=== PATIENT | male | born 1950 | race Caucasian/White ===

== ENCOUNTER 2019-09-21 13:24 | Inpatient (IN) ==
[2019-09-21] MEDS ORDERED: THIAMINE 100 MG in 0.9 % SODIUM CHLORIDE 50 ML IV ONE (14:00)
[2019-09-21] MEDS ORDERED: FUROSEMIDE 40 MG/4 ML VIAL IV ONE (14:02)
--- NOTE | 2019-09-21 14:28 | Emergency Department Note ---
Neuro HPI - General Chief Complaint: Neuro Symptoms/Deficit Stated Complaint: neurological deficit Time Seen by Provider: 09/21/19 13:35 Source: patient Mode of arrival: ambulatory Limitations: no limitations - History of Present Illness HPI Narrative: 69-year-old male comes in with a oxygen level of 60% on room air having trouble breathing and altered mental status. He is not on any home medicines. His daughter reports that he has been losing weight lately. He is chronically swollen lower legs. He has had trouble over the last week but it is unclear exactly timing of onset. He has not had a fever. History and review of systems are necessarily limited as the patient's speech is somewhat slurred and rambling Daughter notes that the family has a genetic disorder called Sneddon's which predisposes to blood clots or strokes. Patient has refused to be tested He fired his last primary care doctor and refuses to go to the doctor or take medicines On Anticoagulants: No - Related Data Home Medications: Home Medications Medication Instructions Recorded Confirmed No Known Home Meds 09/21/19 09/21/19 Allergies/Adverse Reactions: Allergies Allergy/AdvReac Type Severity Reaction Status Date / Time No Known Drug Allergies Allergy Verified 05/01/15 13:33 Review of Systems Limitations: ROS unobtainable due to patients medical condition Past Medical History - Past Medical History [facility] Narrative: Family History Father Alzheimer's disease Atherosclerosis of coronary artery Essential hypertension Osteoporosis Rheumatoid arthritis Mother Atherosclerosis of coronary artery Hyperlipidemia Unknown Diabetes mellitus Medical History Vitamin B12 deficiency (Acute) Fracture of toe, closed (Acute) Tobacco use (Acute) Fracture of thoracic vertebra, closed (Acute) Psoriasis (Acute) Osteoporosis (Acute) Osteoarthritis (Acute) Neuropathy, lower extremity (Acute) Morbid obesity (Acute) Hypertension, essential (Acute 02/27/15) Hyperlipidemia (Acute) Fracture of finger, closed (Acute) Colonic polyp (Acute) COPD (chronic obstructive pulmonary disease) (Acute) Past Surgical History History of dilation of urethra (Acute) History of tonsillectomy (Acute) H/O detached retina repair (Acute) History of hernia repair (Acute) History of cataract surgery (Acute) History of surgical removal of intestinal structure (Acute) History of adenoidectomy (Acute) Source: unable to obtain, old records reviewed - Social History smoking status: Former smoker Physical Exam Morbidly obese male in some respiratory distress-oxygen saturations were quite low on intake. He is normocephalic atraumatic. Conjunctive are clear sclerae white nonicteric. No nasal discharge or congestion. He has a large valenzuela which limits evaluation of his neck. Oropharynx is pink with dry buccal mucosa. I am unable to see well into the back of his throat/pharynx. Neck is mostly supple though. Heart is regular rate and rhythm. I cannot hear a murmur. Lungs are difficult to auscultate as well secondary to body habitus but I think he does have a end expiratory wheeze-he is working pretty hard to breathe. Abdomen is soft nontender nondistended. He has +4 pitting edema bilaterally to his knees this looks acute on chronic. I have seen him before in the ER and his legs were about the same size but the redness seems to be new. He is alert but not able to answer questions appropriately-he seems confused and somewhat delusional Limitations: no limitations Course Vital Signs Pulse Oximetry (%) 61 L 09/21/19 13:25 Temperature 97.7 F 09/22/19 00:01 Pulse Rate 77 09/22/19 08:18 Respiratory Rate 16 09/22/19 08:18 Blood Pressure 134/66 09/22/19 08:06 Pulse Oximetry (%) 92 09/22/19 08:10 Neuro Symptoms/Deficit - Lab Data Lab results reviewed: Yes I reviewed the patient's lab results. Result diagrams: 09/22/19 05:04 09/22/19 05:04 Lab Results 09/21/19 09/21/19 09/21/19 Range/Units 13:40 13:40 13:40 WBC 8.1 (4.50-11.00) K/mcL RBC 6.00 (4.63-6.08) M/mcL Hgb 16.5 (13.7-17.5) g/dL Hct 53.9 H (40.1-51.0) % POC Hct (41.0-55.0) % MCV 89.8 (80.0-100.0) fL MCH 27.5 (26.0-34.0) pg MCHC 30.6 L (31.0-36.0) g/dL RDW 14.1 (11.5-14.5) % Plt Count 204 (140-440) K/mcL MPV 9.3 (7.4-10.4) fL Gran % 78.8 H (38.0-78.0) % Lymph % (Auto) 10.4 L (15.5-49.0) % [place] % (Auto) 9.5 (1.0-12.0) % Eos % (Auto) 0.9 (0.0-7.0) % Baso % (Auto) 0.4 (0.0-2.0) % Gran # 6.40 (1.80-8.00) K/mcL Lymph # (Auto) 0.84 L (1.50-4.80) K/mcL [place] # (Auto) 0.77 (0.10-0.90) K/mcL Eos # (Auto) 0.07 (0.00-0.70) K/mcL Baso # (Auto) 0.03 (0.00-0.30) K/mcL ESR (0-15) mm/hr POC PT (11.9-14.5) sec POC INR (0.9-1.2) VBG Lactic Acid 2.3 H (0.5-2.0) mmol/L POC Sodium (133-145) mmol/L Sodium 144 (133-145) mmol/L POC Potassium (3.3-5.1) mmol/L Potassium 4.2 (3.3-5.1) mmol/L POC Chloride (96-108) mmol/L Chloride 101 (96-108) mmol/L Carbon Dioxide 28 (22-30) mmol/L POC Total CO2 (22-30) mmol/L Anion Gap 15.0 (8-16) POC BUN (8-23) mg/dl BUN 15 (8-23) mg/dl Creatinine 0.7 (0.7-1.2) mg/dl POC Creatinine (0.7-1.2) mg/dl GFR Calculation 97 Glucose 116 H (70-105) mg/dL POC Glucose (70-105) mg/dL Calcium 9.5 (8.6-10.4) mg/dl POC WB Ioniz Calcium (1.16-1.32) mmol/L Total Bilirubin 0.7 (0.0-1.0) mg/dL AST 58 H (0-37) U/l ALT 31 (0-40) U/l Alkaline Phosphatase 83 (39-117) U/L Ammonia (16-60) umol/L Total Creatine Kinase (24-195) IU/L Troponin T (0-0.03) ng/ml C-Reactive Protein (0.0-0.8) mg/dl NT-Pro-B Natriuret Pep (0-125) pg/ml Total Protein 7.1 (5.9-8.4) gm/dL Albumin 3.9 (3.2-5.2) gm/dL Globulin 3.2 (2.2-3.7) gm/dL Albumin/Globulin Ratio 1.2 (1.0-2.3) Procalcitonin (<0.10) ng/mL Urine Color Urine Appearance Urine pH (5.0-9.0) Ur Specific [place] (1.000-1.035) Urine Protein (NEG) mg/dL Urine Glucose (UA) (NEG) mg/dL Urine Ketones (NEG) mg/dL Urine Occult Blood (<0.03) mg/dL Urine Nitrate (NEG) Urine Bilirubin (NEG) mg/dL Urine Urobilinogen (NEG) mg/dL Ur Leukocyte Esterase (NEG) /uL Ur Culture Indicated? Salicylates mg/dL Urine Opiates Screen (NONDETECTED) Ur Opiates Confirm Ur Oxycodone Screen (NONDETECTED) Urine Methadone Screen (NONDETECTED) Ur Methadone Confirm Acetaminophen ug/mL Ur Barbiturates Screen (NONDETECTED) Ur Barbiturate Confirm Ur Phencyclidine Scrn (NONDETECTED) Urine PCP Confirm Ur Amphetamines Screen (NONDETECTED) U Amphetamines Confirm U Benzodiazepines Scrn (NONDETECTED) U Benzodiazepine Confm Urine Cocaine Screen (NONDETECTED) Urine Cocaine Confirm U Cannabinoids Confirm U Marijuana (THC) Screen (NONDETECTED) Mycoplasma pneumon IgM (NEGATIVE) Ur Strep pneumoniae Ag (NEGATIVE) 09/21/19 09/21/19 09/21/19 Range/Units 13:40 13:40 13:40 WBC (4.50-11.00) K/mcL RBC (4.63-6.08) M/mcL Hgb (13.7-17.5) g/dL Hct (40.1-51.0) % POC Hct (41.0-55.0) % MCV (80.0-100.0) fL MCH (26.0-34.0) pg MCHC (31.0-36.0) g/dL RDW (11.5-14.5) % Plt Count (140-440) K/mcL MPV (7.4-10.4) fL Gran % (38.0-78.0) % Lymph % (Auto) (15.5-49.0) % [place] % (Auto) (1.0-12.0) % Eos % (Auto) (0.0-7.0) % Baso % (Auto) (0.0-2.0) % Gran # (1.80-8.00) K/mcL Lymph # (Auto) (1.50-4.80) K/mcL [place] # (Auto) (0.10-0.90) K/mcL Eos # (Auto) (0.00-0.70) K/mcL Baso # (Auto) (0.00-0.30) K/mcL ESR (0-15) mm/hr POC PT (11.9-14.5) sec POC INR (0.9-1.2) VBG Lactic Acid (0.5-2.0) mmol/L POC Sodium (133-145) mmol/L Sodium (133-145) mmol/L POC Potassium (3.3-5.1) mmol/L Potassium (3.3-5.1) mmol/L POC Chloride (96-108) mmol/L Chloride (96-108) mmol/L Carbon Dioxide (22-30) mmol/L POC Total CO2 (22-30) mmol/L Anion Gap (8-16) POC BUN (8-23) mg/dl BUN (8-23) mg/dl Creatinine (0.7-1.2) mg/dl POC Creatinine (0.7-1.2) mg/dl GFR Calculation Glucose (70-105) mg/dL POC Glucose (70-105) mg/dL Calcium (8.6-10.4) mg/dl POC WB Ioniz Calcium (1.16-1.32) mmol/L Total Bilirubin (0.0-1.0) mg/dL AST (0-37) U/l ALT (0-40) U/l Alkaline Phosphatase (39-117) U/L Ammonia (16-60) umol/L Total Creatine Kinase (24-195) IU/L Troponin T < 0.01 (0-0.03) ng/ml C-Reactive Protein (0.0-0.8) mg/dl NT-Pro-B Natriuret Pep (0-125) pg/ml Total Protein (5.9-8.4) gm/dL Albumin (3.2-5.2) gm/dL Globulin (2.2-3.7) gm/dL Albumin/Globulin Ratio (1.0-2.3) Procalcitonin (<0.10) ng/mL Urine Color Urine Appearance Urine pH (5.0-9.0) Ur Specific [place] (1.000-1.035) Urine Protein (NEG) mg/dL Urine Glucose (UA) (NEG) mg/dL Urine Ketones (NEG) mg/dL Urine Occult Blood (<0.03) mg/dL Urine Nitrate (NEG) Urine Bilirubin (NEG) mg/dL Urine Urobilinogen (NEG) mg/dL Ur Leukocyte Esterase (NEG) /uL Ur Culture Indicated? Salicylates < 0.3 mg/dL Urine Opiates Screen (NONDETECTED) Ur Opiates Confirm Ur Oxycodone Screen (NONDETECTED) Urine Methadone Screen (NONDETECTED) Ur Methadone Confirm Acetaminophen < 5.0 ug/mL Ur Barbiturates Screen (NONDETECTED) Ur Barbiturate Confirm Ur Phencyclidine Scrn (NONDETECTED) Urine PCP Confirm Ur Amphetamines Screen (NONDETECTED) U Amphetamines Confirm U Benzodiazepines Scrn (NONDETECTED) U Benzodiazepine Confm Urine Cocaine Screen (NONDETECTED) Urine Cocaine Confirm U Cannabinoids Confirm U Marijuana (THC) Screen (NONDETECTED) Mycoplasma pneumon IgM (NEGATIVE) Ur Strep pneumoniae Ag (NEGATIVE) 09/21/19 09/21/19 09/21/19 Range/Units 14:27 14:27 14:28 WBC (4.50-11.00) K/mcL RBC (4.63-6.08) M/mcL Hgb (13.7-17.5) g/dL Hct (40.1-51.0) % POC Hct 49.0 (41.0-55.0) % MCV (80.0-100.0) fL MCH (26.0-34.0) pg MCHC (31.0-36.0) g/dL RDW (11.5-14.5) % Plt Count (140-440) K/mcL MPV (7.4-10.4) fL Gran % (38.0-78.0) % Lymph % (Auto) (15.5-49.0) % [place] % (Auto) (1.0-12.0) % Eos % (Auto) (0.0-7.0) % Baso % (Auto) (0.0-2.0) % Gran # (1.80-8.00) K/mcL Lymph # (Auto) (1.50-4.80) K/mcL [place] # (Auto) (0.10-0.90) K/mcL Eos # (Auto) (0.00-0.70) K/mcL Baso # (Auto) (0.00-0.30) K/mcL ESR (0-15) mm/hr POC PT 14.4 (11.9-14.5) sec POC INR 1.2 (0.9-1.2) VBG Lactic Acid (0.5-2.0) mmol/L POC Sodium 142 (133-145) mmol/L Sodium (133-145) mmol/L POC Potassium 4.0 (3.3-5.1) mmol/L Potassium (3.3-5.1) mmol/L POC Chloride 101 (96-108) mmol/L Chloride (96-108) mmol/L Carbon Dioxide (22-30) mmol/L POC Total CO2 34 H (22-30) mmol/L Anion Gap (8-16) POC BUN 17 (8-23) mg/dl BUN (8-23) mg/dl Creatinine (0.7-1.2) mg/dl POC Creatinine 0.7 (0.7-1.2) mg/dl GFR Calculation Glucose (70-105) mg/dL POC Glucose 108 H (70-105) mg/dL Calcium (8.6-10.4) mg/dl POC WB Ioniz Calcium 1.22 (1.16-1.32) mmol/L Total Bilirubin (0.0-1.0) mg/dL AST (0-37) U/l ALT (0-40) U/l Alkaline Phosphatase (39-117) U/L Ammonia 42 (16-60) umol/L Total Creatine Kinase 727 H (24-195) IU/L Troponin T (0-0.03) ng/ml C-Reactive Protein (0.0-0.8) mg/dl NT-Pro-B Natriuret Pep (0-125) pg/ml Total Protein (5.9-8.4) gm/dL Albumin (3.2-5.2) gm/dL Globulin (2.2-3.7) gm/dL Albumin/Globulin Ratio (1.0-2.3) Procalcitonin (<0.10) ng/mL Urine Color Urine Appearance Urine pH (5.0-9.0) Ur Specific [place] (1.000-1.035) Urine Protein (NEG) mg/dL Urine Glucose (UA) (NEG) mg/dL Urine Ketones (NEG) mg/dL Urine Occult Blood (<0.03) mg/dL Urine Nitrate (NEG) Urine Bilirubin (NEG) mg/dL Urine Urobilinogen (NEG) mg/dL Ur Leukocyte Esterase (NEG) /uL Ur Culture Indicated? Salicylates mg/dL Urine Opiates Screen (NONDETECTED) Ur Opiates Confirm Ur Oxycodone Screen (NONDETECTED) Urine Methadone Screen (NONDETECTED) Ur Methadone Confirm Acetaminophen ug/mL Ur Barbiturates Screen (NONDETECTED) Ur Barbiturate Confirm Ur Phencyclidine Scrn (NONDETECTED) Urine PCP Confirm Ur Amphetamines Screen (NONDETECTED) U Amphetamines Confirm U Benzodiazepines Scrn (NONDETECTED) U Benzodiazepine Confm Urine Cocaine Screen (NONDETECTED) Urine Cocaine Confirm U Cannabinoids Confirm U Marijuana (THC) Screen (NONDETECTED) Mycoplasma pneumon IgM (NEGATIVE) Ur Strep pneumoniae Ag (NEGATIVE) 09/21/19 09/21/19 09/21/19 Range/Units 14:59 14:59 14:59 WBC (4.50-11.00) K/mcL RBC (4.63-6.08) M/mcL Hgb (13.7-17.5) g/dL Hct (40.1-51.0) % POC Hct (41.0-55.0) % MCV (80.0-100.0) fL MCH (26.0-34.0) pg MCHC (31.0-36.0) g/dL RDW (11.5-14.5) % Plt Count (140-440) K/mcL MPV (7.4-10.4) fL Gran % (38.0-78.0) % Lymph % (Auto) (15.5-49.0) % [place] % (Auto) (1.0-12.0) % Eos % (Auto) (0.0-7.0) % Baso % (Auto) (0.0-2.0) % Gran # (1.80-8.00) K/mcL Lymph # (Auto) (1.50-4.80) K/mcL [place] # (Auto) (0.10-0.90) K/mcL Eos # (Auto) (0.00-0.70) K/mcL Baso # (Auto) (0.00-0.30) K/mcL ESR 9 (0-15) mm/hr POC PT (11.9-14.5) sec POC INR (0.9-1.2) VBG Lactic Acid (0.5-2.0) mmol/L POC Sodium (133-145) mmol/L Sodium (133-145) mmol/L POC Potassium (3.3-5.1) mmol/L Potassium (3.3-5.1) mmol/L POC Chloride (96-108) mmol/L Chloride (96-108) mmol/L Carbon Dioxide (22-30) mmol/L POC Total CO2 (22-30) mmol/L Anion Gap (8-16) POC BUN (8-23) mg/dl BUN (8-23) mg/dl Creatinine (0.7-1.2) mg/dl POC Creatinine (0.7-1.2) mg/dl GFR Calculation Glucose (70-105) mg/dL POC Glucose (70-105) mg/dL Calcium (8.6-10.4) mg/dl POC WB Ioniz Calcium (1.16-1.32) mmol/L Total Bilirubin (0.0-1.0) mg/dL AST (0-37) U/l ALT (0-40) U/l Alkaline Phosphatase (39-117) U/L Ammonia (16-60) umol/L Total Creatine Kinase (24-195) IU/L Troponin T (0-0.03) ng/ml C-Reactive Protein 2.9 H (0.0-0.8) mg/dl NT-Pro-B Natriuret Pep 334.3 H (0-125) pg/ml Total Protein (5.9-8.4) gm/dL Albumin (3.2-5.2) gm/dL Globulin (2.2-3.7) gm/dL Albumin/Globulin Ratio (1.0-2.3) Procalcitonin (<0.10) ng/mL Urine Color Urine Appearance Urine pH (5.0-9.0) Ur Specific [place] (1.000-1.035) Urine Protein (NEG) mg/dL Urine Glucose (UA) (NEG) mg/dL Urine Ketones (NEG) mg/dL Urine Occult Blood (<0.03) mg/dL Urine Nitrate (NEG) Urine Bilirubin (NEG) mg/dL Urine Urobilinogen (NEG) mg/dL Ur Leukocyte Esterase (NEG) /uL Ur Culture Indicated? Salicylates mg/dL Urine Opiates Screen (NONDETECTED) Ur Opiates Confirm Ur Oxycodone Screen (NONDETECTED) Urine Methadone Screen (NONDETECTED) Ur Methadone Confirm Acetaminophen ug/mL Ur Barbiturates Screen (NONDETECTED) Ur Barbiturate Confirm Ur Phencyclidine Scrn (NONDETECTED) Urine PCP Confirm Ur Amphetamines Screen (NONDETECTED) U Amphetamines Confirm U Benzodiazepines Scrn (NONDETECTED) U Benzodiazepine Confm Urine Cocaine Screen (NONDETECTED) Urine Cocaine Confirm U Cannabinoids Confirm U Marijuana (THC) Screen (NONDETECTED) Mycoplasma pneumon IgM (NEGATIVE) Ur Strep pneumoniae Ag (NEGATIVE) 09/21/19 09/21/19 09/21/19 Range/Units 14:59 14:59 15:42 WBC (4.50-11.00) K/mcL RBC (4.63-6.08) M/mcL Hgb (13.7-17.5) g/dL Hct (40.1-51.0) % POC Hct (41.0-55.0) % MCV (80.0-100.0) fL MCH (26.0-34.0) pg MCHC (31.0-36.0) g/dL RDW (11.5-14.5) % Plt Count (140-440) K/mcL MPV (7.4-10.4) fL Gran % (38.0-78.0) % Lymph % (Auto) (15.5-49.0) % [place] % (Auto) (1.0-12.0) % Eos % (Auto) (0.0-7.0) % Baso % (Auto) (0.0-2.0) % Gran # (1.80-8.00) K/mcL Lymph # (Auto) (1.50-4.80) K/mcL [place] # (Auto) (0.10-0.90) K/mcL Eos # (Auto) (0.00-0.70) K/mcL Baso # (Auto) (0.00-0.30) K/mcL ESR (0-15) mm/hr POC PT (11.9-14.5) sec POC INR (0.9-1.2) VBG Lactic Acid (0.5-2.0) mmol/L POC Sodium (133-145) mmol/L Sodium (133-145) mmol/L POC Potassium (3.3-5.1) mmol/L Potassium (3.3-5.1) mmol/L POC Chloride (96-108) mmol/L Chloride (96-108) mmol/L Carbon Dioxide (22-30) mmol/L POC Total CO2 (22-30) mmol/L Anion Gap (8-16) POC BUN (8-23) mg/dl BUN (8-23) mg/dl Creatinine (0.7-1.2) mg/dl POC Creatinine (0.7-1.2) mg/dl GFR Calculation Glucose (70-105) mg/dL POC Glucose (70-105) mg/dL Calcium (8.6-10.4) mg/dl POC WB Ioniz Calcium (1.16-1.32) mmol/L Total Bilirubin (0.0-1.0) mg/dL AST (0-37) U/l ALT (0-40) U/l Alkaline Phosphatase (39-117) U/L Ammonia (16-60) umol/L Total Creatine Kinase (24-195) IU/L Troponin T (0-0.03) ng/ml C-Reactive Protein (0.0-0.8) mg/dl NT-Pro-B Natriuret Pep (0-125) pg/ml Total Protein (5.9-8.4) gm/dL Albumin (3.2-5.2) gm/dL Globulin (2.2-3.7) gm/dL Albumin/Globulin Ratio (1.0-2.3) Procalcitonin < 0.05 (<0.10) ng/mL Urine Color Colorless Urine Appearance Clear Urine pH 5.0 (5.0-9.0) Ur Specific [place] 1.005 (1.000-1.035) Urine Protein Neg (NEG) mg/dL Urine Glucose (UA) Negative (NEG) mg/dL Urine Ketones Neg (NEG) mg/dL Urine Occult Blood Neg (<0.03) mg/dL Urine Nitrate Neg (NEG) Urine Bilirubin Neg (NEG) mg/dL Urine Urobilinogen Neg (NEG) mg/dL Ur Leukocyte Esterase Neg (NEG) /uL Ur Culture Indicated? No Salicylates mg/dL Urine Opiates Screen (NONDETECTED) Ur Opiates Confirm Ur Oxycodone Screen (NONDETECTED) Urine Methadone Screen (NONDETECTED) Ur Methadone Confirm Acetaminophen ug/mL Ur Barbiturates Screen (NONDETECTED) Ur Barbiturate Confirm Ur Phencyclidine Scrn (NONDETECTED) Urine PCP Confirm Ur Amphetamines Screen (NONDETECTED) U Amphetamines Confirm U Benzodiazepines Scrn (NONDETECTED) U Benzodiazepine Confm Urine Cocaine Screen (NONDETECTED) Urine Cocaine Confirm U Cannabinoids Confirm U Marijuana (THC) Screen (NONDETECTED) Mycoplasma pneumon IgM Positive A (NEGATIVE) Ur Strep pneumoniae Ag (NEGATIVE) 09/21/19 09/21/19 Range/Units 15:47 15:50 WBC (4.50-11.00) K/mcL RBC (4.63-6.08) M/mcL Hgb (13.7-17.5) g/dL Hct (40.1-51.0) % POC Hct (41.0-55.0) % MCV (80.0-100.0) fL MCH (26.0-34.0) pg MCHC (31.0-36.0) g/dL RDW (11.5-14.5) % Plt Count (140-440) K/mcL MPV (7.4-10.4) fL Gran % (38.0-78.0) % Lymph % (Auto) (15.5-49.0) % [place] % (Auto) (1.0-12.0) % Eos % (Auto) (0.0-7.0) % Baso % (Auto) (0.0-2.0) % Gran # (1.80-8.00) K/mcL Lymph # (Auto) (1.50-4.80) K/mcL [place] # (Auto) (0.10-0.90) K/mcL Eos # (Auto) (0.00-0.70) K/mcL Baso # (Auto) (0.00-0.30) K/mcL ESR (0-15) mm/hr POC PT (11.9-14.5) sec POC INR (0.9-1.2) VBG Lactic Acid (0.5-2.0) mmol/L POC Sodium (133-145) mmol/L Sodium (133-145) mmol/L POC Potassium (3.3-5.1) mmol/L Potassium (3.3-5.1) mmol/L POC Chloride (96-108) mmol/L Chloride (96-108) mmol/L Carbon Dioxide (22-30) mmol/L POC Total CO2 (22-30) mmol/L Anion Gap (8-16) POC BUN (8-23) mg/dl BUN (8-23) mg/dl Creatinine (0.7-1.2) mg/dl POC Creatinine (0.7-1.2) mg/dl GFR Calculation Glucose (70-105) mg/dL POC Glucose (70-105) mg/dL Calcium (8.6-10.4) mg/dl POC WB Ioniz Calcium (1.16-1.32) mmol/L Total Bilirubin (0.0-1.0) mg/dL AST (0-37) U/l ALT (0-40) U/l Alkaline Phosphatase (39-117) U/L Ammonia (16-60) umol/L Total Creatine Kinase (24-195) IU/L Troponin T (0-0.03) ng/ml C-Reactive Protein (0.0-0.8) mg/dl NT-Pro-B Natriuret Pep (0-125) pg/ml Total Protein (5.9-8.4) gm/dL Albumin (3.2-5.2) gm/dL Globulin (2.2-3.7) gm/dL Albumin/Globulin Ratio (1.0-2.3) Procalcitonin (<0.10) ng/mL Urine Color Urine Appearance Urine pH (5.0-9.0) Ur Specific [place] (1.000-1.035) Urine Protein (NEG) mg/dL Urine Glucose (UA) (NEG) mg/dL Urine Ketones (NEG) mg/dL Urine Occult Blood (<0.03) mg/dL Urine Nitrate (NEG) Urine Bilirubin (NEG) mg/dL Urine Urobilinogen (NEG) mg/dL Ur Leukocyte Esterase (NEG) /uL Ur Culture Indicated? Salicylates mg/dL Urine Opiates Screen None detected (NONDETECTED) Ur Opiates Confirm Not Reportable Ur Oxycodone Screen None detected (NONDETECTED) Urine Methadone Screen None detected (NONDETECTED) Ur Methadone Confirm Not Reportable Acetaminophen ug/mL Ur Barbiturates Screen None detected (NONDETECTED) Ur Barbiturate Confirm Not Reportable Ur Phencyclidine Scrn None detected (NONDETECTED) Urine PCP Confirm Not Reportable Ur Amphetamines Screen None detected (NONDETECTED) U Amphetamines Confirm Not Reportable U Benzodiazepines Scrn None detected (NONDETECTED) U Benzodiazepine Confm Not Reportable Urine Cocaine Screen None detected (NONDETECTED) Urine Cocaine Confirm Not Reportable U Cannabinoids Confirm Not Reportable U Marijuana (THC) Screen None detected (NONDETECTED) Mycoplasma pneumon IgM (NEGATIVE) Ur Strep pneumoniae Ag Negative (NEGATIVE) ABG shows a pH of 7.20 PCO2 of 100 PO2 of 101 lactic acid of 0.7 - Radiology Data Radiology results reviewed: Yes I reviewed the patient's radiology results. Chest x-ray shows pulmonary vascular congestion consistent with CHF - EKG Data EKG attestation: Yes I reviewed and interpreted this EKG., Yes There are no EKG findings of acute coronary syndrome, Yes This EKG will be read by crop consultant EKG results narrative: EKG shows a rate of 103 sinus tachycardia with a left posterior fascicular block Disposition Pt seen by [employer]ISTICS SPECIALIST/[facility] only: No Clinical Impression: Pneumonia Qualifiers: Pneumonia type: due to unspecified organism Laterality: right Lung location: lower lobe of lung Qualified Code(s): J18.9 - Pneumonia, unspecified organism CHF (congestive heart failure) Qualifiers: Heart failure type: unspecified Heart failure chronicity: acute on chronic Qualified Code(s): I50.9 - Heart failure, unspecified Sepsis Qualifiers: Sepsis type: sepsis due to unspecified organism Sepsis acute organ dysfunction status: unspecified Qualified Code(s): A41.9 - Sepsis, unspecified organism Respiratory failure Qualifiers: Chronicity: acute Respiratory failure complication: hypoxia and hypercapnia Qualified Code(s): J96.01 - Acute respiratory failure with hypoxia Summary: After initial exam work-up was ordered with chest x-ray laboratory EKG head CT and ABG. Immediately started oxygen support for hypoxia-which helped. We got blood cultures started Zosyn and vancomycin. Because he appeared to be fluid overloaded we started him on furosemide. We gave him a little bit of thiamine as well as we did not know all of his history Chest x-ray shows right lower lobe infiltrate. CT of the head was negative. Patient's ABG shows respiratory failure with hypoxia and hypercapnia. We initially tried BiPAP but because of his peers in size we could not get a good seal. He will have to be intubated. I consented the patient for this but respiratory therapy and nursing staff were reluctant to do that in that ER room so we decided to do that in the ICU instead as there was more room and he was likely to be a difficult intubation I discussed the case with Dr. Sanchez he agreed to accept the patient for further care and evaluation in the ICU. It does look like he is got a right lower lobe infiltrate as well as CHF. These things are causing acute respiratory failure They did shave his valenzuela and initially got the BiPAP to work a little bit better. I went down to the ICU then to intubate the patient, but Dr. Sanchez wanted to do a central line first as we had limited access. He did not want the patient to crash while we were trying to intubate only to have to do an reina gency line. At this point he was doing relatively well all things considered on the BiPAP. However it sounds like he was not able to lie the patient flat to do the central line so they ended up calling anesthesia to do the intubation Disposition: Xfer As Inpt ([facility]) Condition: Critical
[2019-09-21 14:34] LABS: POC Blood Urea Nitrogen 17 mg/dl (8-23); POC CO2 34 mmol/L (22-30); POC Calcium, Ionized 1.22 mmol/L (1.16-1.32); POC Chloride 101 mmol/L (96-108); POC Creatinine 0.7 mg/dl (0.7-1.2); POC Glucose, Random 108 mg/dL (70-105); POC Sodium 142 mmol/L (133-145)
[2019-09-21 14:37] LABS: Basophils # (Auto) 0.03 K/mcL (0.00-0.30); Basophils % (Auto) 0.4 % (0.0-2.0); Eosinophils # (Auto) 0.07 K/mcL (0.00-0.70); Eosinophils % (Auto) 0.9 % (0.0-7.0); Granulocytes % (Auto) 78.8 % (38.0-78.0); Hematocrit 53.9 % (40.1-51.0); Hemoglobin 16.5 g/dL (13.7-17.5); Lymphocytes # (Auto) 0.84 K/mcL (1.50-4.80); Lymphocytes % (Auto) 10.4 % (15.5-49.0); Mean Cell Volume 89.8 fL (80.0-100.0); Mean Corpuscular HGB Conc 30.6 g/dL (31.0-36.0); Mean Platelet Volume 9.3 fL (7.4-10.4); Monocytes # (Auto) 0.77 K/mcL (0.10-0.90); Monocytes % (Auto) 9.5 % (1.0-12.0); Platelet Count 204 K/mcL (140-440); Red Cell Distribution Width 14.1 % (11.5-14.5); WBC 8.1 K/mcL (4.50-11.00)
[2019-09-21 14:54] LABS: POC INR 1.2 (0.9-1.2); POC Pro Time 14.4 sec (11.9-14.5)
[2019-09-21 14:58] LABS: ALT/SGPT 31 U/l (0-40); AST/SGOT 58 U/l (0-37); Albumin 3.9 gm/dL (3.2-5.2); Albumin/Globulin Ratio 1.2 (1.0-2.3); Alkaline Phosphatase 83 U/L (39-117); Bilirubin,Total 0.7 mg/dL (0.0-1.0); Blood Urea Nitrogen 15 mg/dl (8-23); Calcium 9.5 mg/dl (8.6-10.4); Carbon Dioxide 28 mmol/L (22-30); Chloride 101 mmol/L (96-108); Globulin 3.2 gm/dL (2.2-3.7); Glomerular Filtration Rate 97; Glucose 116 mg/dL (70-105)
--- NOTE | 2019-09-21 15:00 | XRay Report ---
CLINICAL INFORMATION: Hypoxia COMPARISON: 03/04/2015 FINDINGS: The heart is mildly enlarged but accentuated by rightward rotation and lordotic positioning. Mediastinum and pulmonary vessels are normal. Moderate consolidated infiltrate has developed in the right base and small right pleural effusion IMPRESSION: Moderate consolidated infiltrate right base with small right pleural effusion Interpreted and Authenticated by: Quinten Bear 09/21/19
--- NOTE | 2019-09-21 15:02 | Cat Scan Report ---
CLINICAL INFORMATION: On anticoagulation. Altered mental status COMPARISON: None. TECHNIQUE: 2.5 mm helical slices were obtained in the skull base to vertex. Following reconstruction, axial reformatted images were reviewed at bone and parenchymal windows. The exam was performed using radiation dose optimization techniques including, but not limited to, automated exposure control, adjustment of the mA and/or kV according to patient size and use of iterative reconstruction technique. FINDINGS: The ventricles, sulci, fissures, and cisterns are normal in size and configuration for age. No extra-axial fluid collections are identified. Mild chronic ischemic changes noted in the deep cerebral white matter The cerebrum, brainstem and cerebellum are, otherwise, unremarkable. There is no evidence of hemorrhage, mass effect, or edema. Bone windows show no osseous abnormality. IMPRESSION: Mild atrophy with chronic ischemic changes in the deep cerebral white matter.. Interpreted and Authenticated by: Quinten Bear 09/21/19
[2019-09-21] MEDS ORDERED: PIPERACILLIN SODIUM/TAZOBACTAM 3.375 GM in DEXTROSE 5% IN WATER 50 ML IV ONE (15:12)
[2019-09-21] MEDS ORDERED: VANCOMYCIN 1,000 MG in 0.9 % SODIUM CHLORIDE 250 ML IV SCH (15:15)
[2019-09-21 15:31] LABS: Creatine Kinase 727 IU/L (24-195)
--- NOTE | 2019-09-21 16:13 | Internal Med History&Physical ---
Medical - H&P: [facility] Patient information: Note initiated : 09/21/19 at 4:11 pm Service Date, if different from initiated Date: [] Patient: Sharif Grady 69 y/o M admitted on for neurological deficit. Chief Complaint: [] Chief complaint: Confusion/shortness of breath History of present illness: Mr. Grady is a 69 year old M with a history of obstructive sleep apnea/COPD who presents with 1 week onset of progressive confusion and shortness of breath. He is accompanied with her son Nicholas and daughter. On arrival patient was significantly hypoxic with sats in mid 60s. He was probably started on BiPAP after initial blood gas revealed a PCO2 of 100. Chest imaging was consistent with pneumonia. Patient did not tolerate BiPAP and hence currently being intubated. Patient was unable to provide a meaningful history due to confused state. Most of the history was obtained from family. Hospitalist service was consulted for admission. At the time evaluation patient is accompanied with family. Again no meaningful history could be obtained. He is obtained from family. Patient lives alone and has been noncompliant and does not follow-up with primary care physician. Family is unaware about sick contacts but endorses that he took a flu shot. They did not notice him having diarrhea, chest pain, fever but he has been getting progressively confused not making sense. Review of system A 10 point review system was performed and is negative except for ones discussed aboveFollow-up PCP in 5 days Medical - H&P: PM Medical history: COPD (chronic obstructive pulmonary disease) (Acute) Colonic polyp (Acute) Fracture of finger, closed (Acute) Fracture of thoracic vertebra, closed (Acute) Fracture of toe, closed (Acute) Hyperlipidemia (Acute) Hypertension, essential (Acute 02/27/15) Morbid obesity (Acute) Neuropathy, lower extremity (Acute) Osteoarthritis (Acute) Osteoporosis (Acute) Psoriasis (Acute) Tobacco use (Acute) Vitamin B12 deficiency (Acute) Surgical History H/O detached retina repair (Acute) History of adenoidectomy (Acute) History of cataract surgery (Acute) History of dilation of urethra (Acute) History of hernia repair (Acute) History of surgical removal of intestinal structure (Acute) History of tonsillectomy (Acute) Family History Father: Alzheimer's disease Father: Atherosclerosis of coronary artery Father: Essential hypertension Father: Osteoporosis Father: Rheumatoid arthritis Mother: Atherosclerosis of coronary artery Mother: Hyperlipidemia Unknown: Diabetes mellitus Social History Smoking Status: Never smoker Alcohol intake frequency: holiday/special occasion only Medical - H&P: Meds Home Medications Medication Instructions Recorded Confirmed Type No Known Home Meds 09/21/19 09/21/19 History Allergies Allergy/AdvReac Type Severity Reaction Status Date / Time No Known Drug Allergies Allergy Verified 05/01/15 13:33 Medical - H&P: Exam - Constitutional Vitals: Temp Pulse Resp BP Pulse Ox 98.3 F 94 H 24 H 145/58 93 09/21/19 13:26 09/21/19 14:32 09/21/19 13:26 09/21/19 14:32 09/21/19 14:32 General appearance: moderate distress (Respiratory stress), morbidly obese Exam: Patient respond to commands but confused Short of breath Head normocephalic Oral cavity dry No ear nose discharge Eye movement symmetrical BiPAP mask Neck lymphadenopathy S1-S2 tachycardia Diminished breath sounds bases Abdomen pendulous, nontender distended Lower extremity stasis dermatitis/lymphedema noted bilateral lower extremity with erythema No joint swelling Skin no suspicious lesion Psych confused but no agitation Neuro moving all 4 extremities Medical - H&P: Reslt - Labs CBC & Chem 7: 09/22/19 05:04 09/22/19 05:04 Labs: Short CBC 09/21/19 Range/Units 13:40 WBC 8.1 (4.50-11.00) K/mcL Hgb 16.5 (13.7-17.5) g/dL Hct 53.9 H (40.1-51.0) % Plt Count 204 (140-440) K/mcL BMP 09/21/19 13:40 Sodium 144 Potassium 4.2 Chloride 101 Carbon Dioxide 28 BUN 15 Creatinine 0.7 Glucose 116 H Calcium 9.5 Cardiac Enzymes 09/21/19 09/21/19 Range/Units 13:40 14:27 Total Creatine Kinase 727 H (24-195) IU/L Troponin T < 0.01 (0-0.03) ng/ml Liver Function 09/21/19 Range/Units 13:40 Total Bilirubin 0.7 (0.0-1.0) mg/dL AST 58 H (0-37) U/l ALT 31 (0-40) U/l Alkaline Phosphatase 83 (39-117) U/L Albumin 3.9 (3.2-5.2) gm/dL Medical - H&P: A/P (1) Acute respiratory failure with hypoxia and hypercapnia Current visit: Yes Status: Acute * Acute respiratory failure with hypoxia and hypercapnia with PCO2 100 and sats mid 60s. pH 7.2. Initiate mechanical ventilation. Serial blood gas. Vent titration. ICU sedation on propofol/fentanyl * Right lower lobe pneumonia-initiate broad antibiotic coverage * Hypercapnic encephalopathy-mechanical ventilation, check serial ABGs * Sepsis secondary above continue management per guidelines * Acute decompensated heart failure-check echocardiogram, minimize fluid challe nge, start diuresis to improve lung compliance * Morbid obesity * History of hypertension * Prophylaxis heparin * Full code Plan * ICU admit, patient critically ill Stebbins score 20 * Mechanical ventilation titration based on blood gas. * Serial ABG/chest imaging * ICU sedation on propofol/fentanyl * Broad antibiotic coverage * Echocardiogram * Vasopressors if indicated * Sepsis management per guidelines Critical care time spent in excess of 45 minutes in addition to time spent on history and physical
[2019-09-21] MEDS ORDERED: MIDAZOLAM 5 MG/5 ML VIAL IV ONE (16:16)
[2019-09-21] MEDS ORDERED: ROCURONIUM 10 MG/ML ML IV ONE (16:16)
[2019-09-21] MEDS ORDERED: KETAMINE 100 MG/ML ML IV ONE (16:16)
[2019-09-21 16:25] LABS: Appearance,Urine CLEAR; Bilirubin,Urine NEG (NEG); Color,Urine COLORLESS; Culture Indicated,Urine NO; Glucose,Urine (UA) NEGATIVE (NEG); Ketones,Urine NEG (NEG); Leukocyte Esterase,Urine NEG /uL (NEG); Nitrate,Urine NEG (NEG); Protein,Urine NEG (NEG); Specific Gravity,Urine 1.005 (1.000-1.035); Urine Blood NEG mg/dL (<0.03); Urobilinogen,Urine NEG (NEG)
[2019-09-21 16:31] LABS: Amphetamine Screen,Urine NONE DETECTED (NONDETECTED); Barbiturate Screen,Urine NONE DETECTED (NONDETECTED); Benzodiazepines Screen,Urine NONE DETECTED (NONDETECTED); Cannabinoid Screen,Urine NONE DETECTED (NONDETECTED); Cocaine Screen,Urine NONE DETECTED (NONDETECTED); Opiate Screen,Urine NONE DETECTED (NONDETECTED); Oxycodone, Urine Screen NONE DETECTED (NONDETECTED); Phencyclidine Screen,Urine NONE DETECTED (NONDETECTED)
[2019-09-21] MEDS ORDERED: BISACODYL 10 MG SUPP.RECT PR PRN (16:45)
[2019-09-21] MEDS ORDERED: ONDANSETRON 4 MG ODT TABLET SL PRN (16:45)
[2019-09-21] MEDS ORDERED: POLYETHYLENE GLYCOL 3350 17 GM PACKET PO PRN (16:45)
[2019-09-21] MEDS ORDERED: POTASSIUM CHLORIDE 40 MEQ in DEXTROSE 5% IN WATER 500 ML IV PRN (16:45)
[2019-09-21] MEDS ORDERED: POTASSIUM CHLORIDE 20 MEQ PACKET PO PRN (16:45)
[2019-09-21] MEDS ORDERED: VANCOMYCIN PER PHARMACY IV SCH (16:45)
[2019-09-21] MEDS ORDERED: ACETAMINOPHEN 325 MG TABLET PO PRN (16:45)
[2019-09-21] MEDS ORDERED: NOREPINEPHRINE BITARTRATE 16 MG in 0.9 % SODIUM CHLORIDE 234 ML IV PRN (16:45)
[2019-09-21] MEDS ORDERED: 0.9 % SODIUM CHLORIDE 1,000 ML IV SCH (16:45)
[2019-09-21] MEDS ORDERED: MAGNESIUM SULFATE 2 GM/50 ML BAG IV PRN (16:45)
[2019-09-21] MEDS ORDERED: ONDANSETRON 4 MG/2 ML VIAL IV PRN (16:45)
[2019-09-21] MEDS ORDERED: ACETAMINOPHEN 650 MG/65 ML BOTTLE IV PRN (16:45)
[2019-09-21] MEDS ORDERED: PHENYLEPHRINE 10 MG/ML VIAL ONE (17:52)
[2019-09-21] MEDS ORDERED: PROPOFOL 100 ML IV ONE ×2 (18:20→22:57)
[2019-09-21] MEDS ORDERED: NOREPINEPHRINE BITARTRATE 4 MG/4 ML VIAL IV ONE (18:24)
[2019-09-21] MEDS ORDERED: PROPOFOL 100 ML IV SCH (18:30)
[2019-09-21] MEDS ORDERED: HEPARIN/NS 500 ML IV SCH (18:30)
--- NOTE | 2019-09-21 18:32 | Procedure Note ---
Procedures - Central Line Placement Right SC Consent obtained: written consent Date of Procedure: 09/21/19 (called at 1616) Time out performed: Yes Patient placed on monitor/pulse ox: Yes MD prep: mask (eye protection), sterile gown, sterile gloves, cap Central line prep: 2% Chlorhexidine scrub (X3) Ultrasound used for placement: No Central line lumen inserted: quad, 16 cm Post procedure: sutured in place, good blood return, all ports aspirated, flushed, capped, sterile dressing applied Post procedure x-ray: tip of catheter in good position, no pneumothorax seen Patient tolerated procedure: well, no complications Complications: none Additional comments: pt evaluated in the ER for resp failure and need for central access for rescus support and pressors. On Bipap, decreased mentation, CO2 100 before intervention, repeat gases pending. Dr Messina attempt, pt unable to melba supine/t hannah. Need for intubation first, which was done without issues. Then I placed CVC without problem. - Intubation Time out performed: Yes Date of Procedure: 09/21/19 (before central line) Sedative: other (Ketamine 150mg, versed 10 mg) Paralytic: Rocuronium ETT: ETCO2, BBS Mg given: 50 Assist device used: glide ET tube size: 8 ET tube uncuffed: No Tube secured depth (cm): 24 Tube secured location: teeth Tube placement confirmation: visualized tube passing through cords, equal breath sounds bilaterally, no breath sounds over epigastrium, confirmation by capnometry # of Attempts: 1 Patient tolerated procedure: well, no complications Intubation complications: hypotension (treated X 2 doses of phenylephrine 100 mcg)
[2019-09-21] MEDS: PROPOFOL 1,000 MG in PREMIX 1 BAG IV SCH ×2 (18:50→23:13)
--- NOTE | 2019-09-21 18:56 | XRay Report ---
CLINICAL INFORMATION: confirm placement of ETT/central line COMPARISON: None. FINDINGS: Right central line tip overlies the SVC. Endotracheal tip is approximately 4 cm above the catina. OG tip overlies the gastric body on the abdomen film. Heart is mildly enlarged, but stable. Mediastinum and pulmonary vessels are normal. Right basilar infiltrate is unchanged given overpenetrated technique. No effusion IMPRESSION: Right subclavian line, endotracheal tube and OG tube in satisfactory position. Moderate cardiomegaly Moderate right basilar infiltrate Interpreted and Authenticated by: Quinten Bear 09/21/19
[2019-09-21] MEDS: fentaNYL 2,500 MCG in 0.9 % SODIUM CHLORIDE 200 ML IV SCH (19:00)
--- NOTE | 2019-09-21 19:03 | XRay Report ---
CLINICAL INFORMATION: OG PLACEMENT COMPARISON: None. FINDINGS: OT tube overlies the gastric body. Stool gas pattern grossly normal. No free air IMPRESSION: ET tube in satisfactory position. No acute disease Interpreted and Authenticated by: Quinten Bear 09/21/19
[2019-09-21] MEDS: PIPERACILLIN SODIUM/TAZOBACTAM 3.375 GM in DEXTROSE 5% IN WATER 50 ML IV SCH (19:30)
[2019-09-21] MEDS: BUDESONIDE 0.5 MG/2 ML AMPUL.NEB NEB SCH (20:26)
[2019-09-21] MEDS: IPRATROPIUM/ALBUTEROL 3 ML AMPUL.NEB NEB PRN (20:26)
[2019-09-21] MEDS: VANCOMYCIN 1,500 MG in 0.9 % SODIUM CHLORIDE 500 ML IV SCH (20:32)
[2019-09-21] MEDS ORDERED: MELATONIN 3 MG TABLET PO PRN (21:00)
[2019-09-21] MEDS: SENNOSIDES/DOCUSATE SODIUM 1 TAB TABLET PO SCH (21:08)
[2019-09-21] MEDS: DOCUSATE SODIUM 100 MG CAPSULE PO SCH (21:08)
[2019-09-21] MEDS: CYANOCOBALAMIN (VITAMIN B-12) 500 MCG TABLET PO SCH (21:09)
[2019-09-21] MEDS: CHLORHEXIDINE GLUCONATE 1 ML ORAL.SOL SWABMOUTH SCH (21:32)
[2019-09-21] MEDS ORDERED: PANTOPRAZOLE 40 MG VIAL IV ONE (21:38)
[2019-09-21] MEDS: HEPARIN 5,000 UNIT/ML VIAL SQ SCH (21:39)
[2019-09-21] MEDS: 0.9 % SODIUM CHLORIDE 10 ML SYRINGE IV SCH (22:00)
[2019-09-22] MEDS: PIPERACILLIN SODIUM/TAZOBACTAM 3.375 GM in DEXTROSE 5% IN WATER 50 ML IV SCH ×2 (00:43→06:13)
[2019-09-22] MEDS ORDERED: PROPOFOL 100 ML IV ONE ×2 (03:53→22:16)
[2019-09-22] MEDS: 0.9 % SODIUM CHLORIDE 10 ML SYRINGE IV SCH ×3 (06:14→21:21)
[2019-09-22 07:06] LABS: Hematocrit 51.1 % (40.1-51.0); Hemoglobin 15.8 g/dL (13.7-17.5); Mean Cell Volume 88.9 fL (80.0-100.0); Mean Corpuscular HGB Conc 30.9 g/dL (31.0-36.0); Mean Platelet Volume 9.4 fL (7.4-10.4); Platelet Count 171 K/mcL (140-440); RBC 5.75 M/mcL (4.63-6.08); Red Cell Distribution Width 14.2 % (11.5-14.5); WBC 7.3 K/mcL (4.50-11.00)
[2019-09-22] MEDS: VANCOMYCIN 1,500 MG in 0.9 % SODIUM CHLORIDE 500 ML IV SCH (07:25)
[2019-09-22] MEDS: PANTOPRAZOLE 40 MG VIAL IV SCH ×2 (07:26→17:57)
[2019-09-22 07:55] LABS: ALT/SGPT 23 U/l (0-40); AST/SGOT 40 U/l (0-37); Albumin 3.5 gm/dL (3.2-5.2); Albumin/Globulin Ratio 1.3 (1.0-2.3); Alkaline Phosphatase 68 U/L (39-117); Bilirubin,Direct 0.2 mg/dL (0.0-0.3); Bilirubin,Total 0.9 mg/dL (0.0-1.0); Blood Urea Nitrogen 12 mg/dl (8-23); Calcium 9.2 mg/dl (8.6-10.4); Carbon Dioxide 30 mmol/L (22-30); Chloride 99 mmol/L (96-108); Globulin 2.7 gm/dL (2.2-3.7); Glomerular Filtration Rate 92; Glucose 85 mg/dL (70-105); Lactate Dehydrogenase 215 U/L (94-250); Phosphorous 2.5 mg/dL (2.7-4.5); Triglycerides 96 mg/dl (<150)
--- NOTE | 2019-09-22 08:02 | Internal Med Progress Note ---
Medical - PN: Subj Patient information: Note initiated : 09/22/19 at 7:59 am Service Date, if different from initiated Date: [] Patient: Sharif Grady 69 y/o M admitted on 09/21/19 for neurological deficit. Chief Complaint: [] Interval history: Mr. Grady is a 69 year old M with a history of obstructive sleep apnea/COPD who presents with 1 week onset of progressive confusion and shortness of breath. He is accompanied with her son Nicholas and daughter. On arrival patient was significantly hypoxic with sats in mid 60s. He was probably started on BiPAP after initial blood gas revealed a PCO2 of 100. Chest imaging was consistent with pneumonia. Patient did not tolerate BiPAP and hence currently being intubated. Patient was unable to provide a meaningful history due to confused state. Most of the history was obtained from family. Hospitalist service was consulted for admission. At the time evaluation patient is accompanied with family. Again no meaningful history could be obtained. He is obtained from family. Patient lives alone and has been noncompliant and does not follow-up with primary care physician. Family is unaware about sick contacts but endorses that he took a flu shot. They did not notice him having diarrhea, chest pain, fever but he has been getting progressively confused not making sense. 09/22-patient remains critically ill. On mechanical ventilation/sedation on propofol/fentanyl. Urine output stable. Map at goal. White count 7.3, lactic acid normalized, potassium 3.5, Mycoplasma serology positive, x-ray right basilar infiltrate. Start Levaquin. - Constitutional Vitals: Vital Signs Temp Pulse Resp BP Pulse Ox 97.7 F 90 16 136/64 95 09/22/19 00:01 09/21/19 17:00 09/22/19 06:44 09/22/19 06:41 09/22/19 06:44 Period Temp Pulse Resp BP Sys/Jacobs Pulse Ox Last 24 Hr 97.6 F-98.3 F 90-107 0-24 59-155/32-117 61-100 Intake and Output 09/21/19 09/22/19 09/22/19 21:59 05:59 13:59 Intake Total 157 712 50 Output Total 1530 505 Balance -1373 207 50 Weight 350 lb Intake & Output: Intake & Output 09/21/19 09/22/19 09/22/19 21:59 05:59 13:59 Intake Total 157 712 50 Output Total 1530 505 Balance -1373 207 50 Weight 350 lb Intake: IV 157 712 50 Levophed 16 mg In Sodium 5 18 Chloride 0.9% 234 ml @ 10 MCG/ MIN 9.375 mls/hr IV Q24HP PRN Rx#:[id number] Zosyn 3.375 gm In Dextrose 5% 50 50 50 in Water 50 ml @ 100 mls/hr IV Q6H [facility] Rx#:[id number] Diprivan 1,000 mg In Premix 1 49 127 Bag @ 5 MCG/KG/MIN 4.763 mls/hr IV .Q21H [facility] Rx#:[id number] Vitamin B1 100 mg In Sodium 51 Chloride 0.9% 50 ml @ 50 mls/hr IV ONCE ONE Rx#:[id number] Vancomycin 1,500 mg In Sodium 500 Chloride 0.9% 500 ml @ 333.3 mls/hr IV Q12H [facility] Rx#: [id number] fentaNYL 2,500 MCG In Sodium 2 17 Chloride 0.9% 200 ml @ 25 MCG/ HR 2.5 mls/hr IV Q24H [facility] Rx#: [id number] Tube Feeding 0 Output: Gastric Drainage 200 NG/OG 200 Urine Catheter Amount 1130 305 Void Amount 400 Other: Urine Appearance Clear Clear Cloudy Uretheral (Quintanilla) Clear Clear Urine Color Pale Bright Yellow Uretheral (Quintanilla) Pale Pale Bright Yellow Bright Yellow Urine Odor Normal Normal General appearance: morbidly obese Exam: On mechanical ventilation Quintanilla draining clear urine No telemetry events Distended abdomen Medical - PN: Obj Da - Labs CBC & Chem 7: 09/22/19 05:04 09/22/19 05:04 Labs: Abnormal Lab Results 09/22/19 09/22/19 09/21/19 05:04 05:04 14:59 Hct 51.1 H MCHC 30.9 L Gran % Lymph % (Auto) Lymph # (Auto) VBG Lactic Acid POC Total CO2 Glucose POC Glucose Phosphorus 2.5 L AST 40 H Total Creatine Kinase C-Reactive Protein NT-Pro-B Natriuret Pep Mycoplasma pneumon IgM Positive A 09/21/19 09/21/19 09/21/19 14:59 14:59 14:27 Hct MCHC Gran % Lymph % (Auto) Lymph # (Auto) VBG Lactic Acid POC Total CO2 34 H Glucose POC Glucose 108 H Phosphorus AST Total Creatine Kinase 727 H C-Reactive Protein 2.9 H NT-Pro-B Natriuret Pep 334.3 H Mycoplasma pneumon IgM 09/21/19 09/21/19 09/21/19 13:40 13:40 13:40 Hct 53.9 H MCHC 30.6 L Gran % 78.8 H Lymph % (Auto) 10.4 L Lymph # (Auto) 0.84 L VBG Lactic Acid 2.3 H POC Total CO2 Glucose 116 H POC Glucose Phosphorus AST 58 H Total Creatine Kinase C-Reactive Protein NT-Pro-B Natriuret Pep Mycoplasma pneumon IgM Meds: Medications Acetaminophen (Tylenol) 650 mg PO Q4-6HP PRN; Protocol PRN Reason: Per Pain Protocol/Fever > 101 Albuterol/Ipratropium (Duoneb) 3 ml NEB Q4HP PRN PRN Reason: Shortness Of Breath Last Admin: 09/21/19 20:26 Dose: 3 ml Documented by: Bisacodyl (Dulcolax) 10 mg MT Q2-3DAYS PRN PRN Reason: Constipation Budesonide (Pulmicort) 0.5 mg NEB Q12 [facility] Last Admin: 09/21/19 20:26 Dose: 0.5 mg Documented by: Chlorhexidine Gluconate (Peridex) 15 ml SWABMOUTH BID [facility] Last Admin: 09/21/19 21:32 Dose: 15 ml Documented by: Cyanocobalamin (Vitamin B-12) 1,000 mcg PO BID [facility] Stop: 09/26/19 09:01 Last Admin: 09/21/19 21:09 Dose: Not Given Documented by: Docusate Sodium (Colace) 100 mg PO BID [facility] Last Admin: 09/21/19 21:08 Dose: Not Given Documented by: Folic Acid (Folic Acid) 1 mg PO DAILY [facility] Furosemide (Lasix) 20 mg IV Q8 [facility] Heparin Sodium (Porcine) (Heparin) 5,000 unit SQ Q12 [facility] Last Admin: 09/21/19 21:39 Dose: 5,000 unit Documented by: Acetaminophen (Ofirmev) 650 mg in 65 mls @ 130 mls/hr IV Q6HP PRN; Protocol PRN Reason: Per Pain Protocol/Fever > 101 Magnesium Sulfate (Magnesium Sulfate) 2 gm in 50 mls @ 50 mls/hr IV UD PRN PRN Reason: MG = or < 1.7 Potassium Chloride 40 meq/ (Dextrose) 520 mls @ 130 mls/hr IV UD PRN PRN Reason: K+ = or < 3.5 Piperacillin Sod/Tazobactam (Sod 3.375 gm/ Dextrose) 50 mls @ 100 mls/hr IV Q6H [facility]; Protocol Last Infusion: 09/22/19 06:45 Dose: Infused Documented by: Norepinephrine Bitartrate 16 (mg/ Sodium Chloride) 250 mls @ 9.375 mls/hr IV Q24HP PRN; Protocol PRN Reason: TITRATE TO KEEP MAP > 65 Last Titration: 09/22/19 01:41 Dose: 0 mcg/min, 0 mls/hr Documented by: Vancomycin HCl 1,500 mg/ (Sodium Chloride) 500 mls @ 333.3 mls/hr IV Q12H [facility] Last Admin: 09/22/19 07:25 Dose: 333 mls/hr Documented by: Heparin Sodium/Sodium Chloride (Heparin/Ns) 500 mls @ 0 mls/hr IV .Q0M [facility]; Protocol Fentanyl 2,500 mcg/ Sodium (Chloride) 250 mls @ 2.5 mls/hr IV Q24H [facility]; Protocol Last Titration: 09/22/19 03:12 Dose: 20 mcg/hr, 2 mls/hr Documented by: Propofol 1,000 mg/ Premix 100 mls @ 4.763 mls/hr IV .Q21H [facility]; Protocol Last Titration: 09/22/19 03:10 Dose: 20 mcg/kg/min, 19.051 mls/hr Documented by: Iron Carb/Multivit/Laurens/Folic Acid (Multivitamin W/Minerals) 1 tab PO DAILY [facility] Melatonin (Melatonin 3mg Tablet) 3 mg PO HSP PRN PRN Reason: Insomnia Ondansetron HCl (Zofran Odt) 4 mg SL Q4-6HP PRN; Protocol PRN Reason: Nausea And Vomiting Ondansetron HCl (Zofran) 4 mg IV Q4-6HP PRN; Protocol PRN Reason: Nausea And Vomiting Pantoprazole Sodium (Protonix) 40 mg IV BIDAC [facility] Last Admin: 09/22/19 07:26 Dose: 40 mg Documented by: Polyethylene Glycol (Miralax) 17 gm PO DAILYP PRN PRN Reason: Constipation Potassium Chloride (Klor-Con) 40 meq PO DAILYP PRN PRN Reason: K+ < 3.5 Senna/Docusate Sodium (Senna Plus Tablet) 1 tab PO HS [facility] Last Admin: 09/21/19 21:08 Dose: Not Given Documented by: Sodium Chloride (Saline Flush) 10 ml IV Q8 [facility] Last Admin: 09/22/19 06:14 Dose: Not Given Documented by: Thiamine HCl (Vitamin B1) 100 mg PO DAILY [facility] Vancomycin HCl (Vancomycin Per Pharmacy) 1 order IV UD [facility]; Protocol Medical - PN: A/P - Time Spent With Patient Total time spent is greater than 50% in coordination of care (as documented) at patient's floor/unit and/or counseling patient: Greater than 35 minutes (Critical care time) (1) Acute respiratory failure with hypoxia and hypercapnia Status: Acute Assessment and plan: * Acute respiratory failure with hypoxia and hypercapnia with PCO2 100 and sats mid 60s. pH on admission 7.2. Continue serial blood gas/ventilator titration, interval blood gas PCO2 down to 73 * Mechanical ventilation continue per protocol with serial ABG/chest imaging and vent titration * Right lower lobe pneumonia-continue broad antibiotic coverage, mycoplasma serology positive * Hypercapnic encephalopathy-improving with resolution of hypercapnia * Acute decompensated heart failure-await echocardiogram, initiate diuresis to improve lung compliance. * Morbid obesity-BMI over 44 * History of hypertension * Prophylaxis heparin * Full code Plan * continue ICU care * Mechanical ventilation per protocol * Serial ABG/chest imaging * ICU sedation on propofol/fentanyl * Await echocardiogram Current Visit: Yes Medical - PN: Qual - VTE Deep Vein Thrombosis/Pulmonary Embolism Present on Admission: No
[2019-09-22] MEDS: BUDESONIDE 0.5 MG/2 ML AMPUL.NEB NEB SCH ×2 (08:11→21:15)
[2019-09-22 08:36] LABS: Band Neutrophils % 1 % (0-10); Basophils % (Manual) 1 % (0-2); Eosinophils % (Manual) 1 % (0-7); Lymphocytes % 7 % (15-49); Monocytes % (Manual) 6 % (1-12); Platelet Estimate NORMAL (NORMAL); RBC Morphology NORMAL (NORMAL); Segmented Neutrophils % 84 % (38-78)
[2019-09-22] MEDS: LEVOFLOXACIN 750 MG/150 ML BAG IV SCH (09:12)
[2019-09-22] MEDS: PROPOFOL 1,000 MG in PREMIX 1 BAG IV SCH ×3 (09:13→22:18)
--- NOTE | 2019-09-22 09:14 | XRay Report ---
CLINICAL INFORMATION: Mechanically Ventilated COMPARISON: 09/21/2019 FINDINGS: Lines and tubes are in stable satisfactory position. Moderate cardiomegaly is unchanged. Mediastinum and pulmonary vessels are normal. Moderate atelectasis or infiltrate right base has slightly improved. Small right pleural effusion noted IMPRESSION: Moderate atelectasis or infiltrate right base slight improvement. Small right pleural effusion Interpreted and Authenticated by: Quinten Bear 09/22/19
[2019-09-22] MEDS: HEPARIN 5,000 UNIT/ML VIAL SQ SCH ×2 (10:01→21:20)
[2019-09-22] MEDS: CYANOCOBALAMIN (VITAMIN B-12) 500 MCG TABLET PO SCH ×2 (10:12→21:20)
[2019-09-22] MEDS: DOCUSATE SODIUM 100 MG CAPSULE PO SCH ×2 (10:13→21:09)
[2019-09-22] MEDS: MULTIVIT,THER IRON,CA,FA & MIN 1 TABLET PO SCH (10:13)
[2019-09-22] MEDS: FOLIC ACID 1 MG TABLET PO SCH (10:13)
[2019-09-22] MEDS: THIAMINE 100 MG TABLET PO SCH (10:13)
[2019-09-22] MEDS: CHLORHEXIDINE GLUCONATE 1 ML ORAL.SOL SWABMOUTH SCH ×2 (10:13→21:20)
[2019-09-22] MEDS: cefTRIAXone 2 GM in DEXTROSE 5% IN WATER 50 ML IV SCH (10:14)
[2019-09-22 10:21] LABS: Hemoglobin A1C 6.4 % HGB (4.0-6.0)
[2019-09-22] MEDS: FUROSEMIDE 20 MG/2 ML VIAL IV SCH ×2 (13:58→22:18)
[2019-09-22 15:55] LABS: ALT/SGPT 21 U/l (0-40); AST/SGOT 35 U/l (0-37); Albumin 3.3 gm/dL (3.2-5.2); Albumin/Globulin Ratio 1.1 (1.0-2.3); Alkaline Phosphatase 66 U/L (39-117); Bilirubin,Direct < 0.2 mg/dL (0.0-0.3); Bilirubin,Total 0.6 mg/dL (0.0-1.0); Blood Urea Nitrogen 11 mg/dl (8-23); Calcium 9.3 mg/dl (8.6-10.4); Carbon Dioxide 30 mmol/L (22-30); Chloride 101 mmol/L (96-108); Glomerular Filtration Rate 92; Glucose 97 mg/dL (70-105); Lactate Dehydrogenase 197 U/L (94-250); Phosphorous 3.1 mg/dL (2.7-4.5); Triglycerides 157 mg/dl (<150); Uric Acid 7.4 mg/dL (2.5-8.0)
[2019-09-22 16:17] LABS: Prealbumin 9.7 mg/dl (20-40)
[2019-09-22] MEDS: fentaNYL 2,500 MCG in 0.9 % SODIUM CHLORIDE 200 ML IV SCH (18:09)
[2019-09-22] MEDS ORDERED: CHLORHEXIDINE GLUCONATE 1 ML ORAL.SOL SWABMOUTH SCH (21:00)
[2019-09-22] MEDS: SENNOSIDES/DOCUSATE SODIUM 1 TAB TABLET PO SCH (21:09)
[2019-09-22] MEDS: IPRATROPIUM/ALBUTEROL 3 ML AMPUL.NEB NEB PRN (21:15)
[2019-09-23] MEDS: PROPOFOL 1,000 MG in PREMIX 1 BAG IV SCH ×7 (02:18→23:38)
[2019-09-23] MEDS: 0.9 % SODIUM CHLORIDE 500 ML IV SCH ×2 (04:30→17:05)
[2019-09-23] MEDS: FUROSEMIDE 20 MG/2 ML VIAL IV SCH ×3 (05:47→22:16)
[2019-09-23] MEDS: 0.9 % SODIUM CHLORIDE 10 ML SYRINGE IV SCH ×3 (05:48→20:27)
[2019-09-23 06:27] LABS: Hematocrit 50.1 % (40.1-51.0); Hemoglobin 15.3 g/dL (13.7-17.5); Mean Cell Volume 89.5 fL (80.0-100.0); Mean Corpuscular HGB Conc 30.5 g/dL (31.0-36.0); Mean Platelet Volume 9.9 fL (7.4-10.4); Platelet Count 174 K/mcL (140-440); Red Cell Distribution Width 14.3 % (11.5-14.5); WBC 6.9 K/mcL (4.50-11.00)
[2019-09-23 06:53] LABS: ALT/SGPT 19 U/l (0-40); AST/SGOT 30 U/l (0-37); Albumin 3.2 gm/dL (3.2-5.2); Albumin/Globulin Ratio 1.1 (1.0-2.3); Alkaline Phosphatase 63 U/L (39-117); Bilirubin,Direct < 0.2 mg/dL (0.0-0.3); Bilirubin,Total 0.5 mg/dL (0.0-1.0); Blood Urea Nitrogen 14 mg/dl (8-23); Calcium 9.3 mg/dl (8.6-10.4); Carbon Dioxide 32 mmol/L (22-30); Chloride 100 mmol/L (96-108); Globulin 2.9 gm/dL (2.2-3.7); Glomerular Filtration Rate 87; Glucose 107 mg/dL (70-105); Lactate Dehydrogenase 170 U/L (94-250); Phosphorous 3.5 mg/dL (2.7-4.5); Triglycerides 126 mg/dl (<150); Uric Acid 7.8 mg/dL (2.5-8.0)
[2019-09-23 07:41] LABS: Band Neutrophils % 10 % (0-10); Basophils % (Manual) 1 % (0-2); Eosinophils % (Manual) 1 % (0-7); Lymphocytes % 7 % (15-49); Monocytes % (Manual) 7 % (1-12); Platelet Estimate NORMAL (NORMAL); RBC Morphology NORMAL (NORMAL); Reactive Lymphocytes 1 % (0-2); Segmented Neutrophils % 73 % (38-78)
[2019-09-23] MEDS: PANTOPRAZOLE 40 MG VIAL IV SCH ×2 (08:01→16:57)
[2019-09-23] MEDS: cefTRIAXone 2 GM in DEXTROSE 5% IN WATER 50 ML IV SCH (08:14)
[2019-09-23] MEDS: BUDESONIDE 0.5 MG/2 ML AMPUL.NEB NEB SCH ×2 (08:46→21:14)
[2019-09-23] MEDS: IPRATROPIUM/ALBUTEROL 3 ML AMPUL.NEB NEB PRN ×2 (08:46→21:14)
[2019-09-23] MEDS: LEVOFLOXACIN 750 MG/150 ML BAG IV SCH (08:52)
--- NOTE | 2019-09-23 08:54 | XRay Report ---
CLINICAL INFORMATION: Mechanically Ventilated COMPARISON: 09/22/2019 FINDINGS: Small region of consolidated infiltrate or atelectasis right base is worsened. New small patchy infiltrate in the left base. Moderate cardiomegaly stable. Mediastinum and pulmonary vessels normal. Lines and tubes in stable satisfactory position. IMPRESSION: Moderate consolidation and atelectasis and/or infiltrate and effusion right base worsening. New small patchy region of infiltrate or atelectasis left base Interpreted and Authenticated by: Quinten Bear 09/23/19
[2019-09-23] MEDS: THIAMINE 100 MG TABLET PO SCH (09:21)
[2019-09-23] MEDS: CYANOCOBALAMIN (VITAMIN B-12) 500 MCG TABLET PO SCH ×2 (09:21→20:26)
[2019-09-23] MEDS: MULTIVIT,THER IRON,CA,FA & MIN 1 TABLET PO SCH (09:21)
[2019-09-23] MEDS: FOLIC ACID 1 MG TABLET PO SCH (09:21)
[2019-09-23] MEDS: CHLORHEXIDINE GLUCONATE 1 ML ORAL.SOL SWABMOUTH SCH ×2 (09:23→20:27)
[2019-09-23] MEDS: DOCUSATE SODIUM 100 MG CAPSULE PO SCH ×2 (09:23→20:21)
[2019-09-23] MEDS: HEPARIN 5,000 UNIT/ML VIAL SQ SCH ×2 (09:56→20:27)
--- NOTE | 2019-09-23 10:01 | Internal Med Progress Note ---
Medical - PN: Subj Patient information: Note initiated : 09/23/19 at 9:56 am Service Date, if different from initiated Date: [] Patient: Sharif Grady 69 y/o M admitted on 09/21/19 for neurological deficit. Chief Complaint: [] Interval history: Mr. Grady is a 69 year old M with a history of obstructive sleep apnea/COPD who presents with 1 week onset of progressive confusion and shortness of breath. He is accompanied with her son Nicholas and daughter. On arrival patient was significantly hypoxic with sats in mid 60s. He was probably started on BiPAP after initial blood gas revealed a PCO2 of 100. Chest imaging was consistent with pneumonia. Patient did not tolerate BiPAP and hence currently being intubated. Patient was unable to provide a meaningful history due to confused state. Most of the history was obtained from family. Hospitalist service was consulted for admission. At the time evaluation patient is accompanied with family. Again no meaningful history could be obtained. He is obtained from family. Patient lives alone and has been noncompliant and does not follow-up with primary care physician. Family is unaware about sick contacts but endorses that he took a flu shot. They did not notice him having diarrhea, chest pain, fever but he has been getting progressively confused not making sense. 09/22-patient remains critically ill. On mechanical ventilation/sedation on propofol/fentanyl. Urine output stable. Map at goal. White count 7.3, lactic acid normalized, potassium 3.5, Mycoplasma serology positive, x-ray right basilar infiltrate. Start Levaquin. 09/23-patient doing well. Improved respiratory status. PEEP 7/FiO2 45%/tidal volume 500 with pH 7.42/63/59. Quintanilla is draining clear urine. Stable hemodynamics. Worsening chest x-ray with right-sided infiltrate/effusion. On antibiotic coverage. Attempt sedation holiday early tomorrow morning and possible extubation if clinically improves. No family at bedside - Constitutional Vitals: Vital Signs Temp Pulse Resp BP Pulse Ox 98 F 85 17 129/64 95 09/23/19 08:01 09/23/19 08:55 09/23/19 08:55 09/23/19 08:01 09/23/19 08:45 Period Temp Pulse Resp BP Sys/Jacobs Pulse Ox Last 24 Hr 97.3 F-98.6 F 79-85 16-18 100-166/50-136 87-97 Intake and Output 09/22/19 09/23/19 09/23/19 21:59 05:59 13:59 Intake Total 479 598 96 Output Total 1044 694 445 Balance -565 -96 -349 Weight 334 lb Intake & Output: Intake & Output 09/22/19 09/23/19 09/23/19 21:59 05:59 13:59 Intake Total 479 598 96 Output Total 1044 694 445 Balance -565 -96 -349 Weight 334 lb Intake: IV 130 277 96 Diprivan 1,000 mg In Premix 1 100 277 96 Bag @ 5 MCG/KG/MIN 4.763 mls/hr IV .Q21H [facility] Rx#:[id number] fentaNYL 2,500 MCG In Sodium 30 Chloride 0.9% 200 ml @ 25 MCG/ HR 2.5 mls/hr IV Q24H [facility] Rx#: [id number] Tube Feeding 229 201 GI Tube Flush 120 120 Output: Urine Catheter Amount 1044 694 445 Other: Urine Appearance Clear Clear Clear Uretheral (Quintanilla) Clear Clear Urine Color Bright Yellow Dark Yellow Dark Yellow Uretheral (Quintanilla) Dark Yellow Bright Yellow General appearance: morbidly obese Exam: On mechanical ventilation Quintanilla is draining clear urine Severe lymphedema bilateral lower extremity Pendulous abdomen Medical - PN: Obj Da - Labs CBC & Chem 7: 09/23/19 05:00 09/23/19 05:00 Labs: Abnormal Lab Results 09/23/19 09/23/19 09/22/19 05:00 05:00 14:47 Hct MCHC 30.5 L Gran % Lymph % (Auto) Lymph # (Auto) Seg Neutrophils % Lymphocytes % 7 L VBG Lactic Acid Carbon Dioxide 32 H POC Total CO2 Glucose 107 H POC Glucose Hemoglobin A1c Phosphorus AST Total Creatine Kinase C-Reactive Protein NT-Pro-B Natriuret Pep Prealbumin 9.7 L Triglycerides 157 H Mycoplasma pneumon IgM 09/22/19 09/22/19 09/22/19 05:04 05:04 05:04 Hct 51.1 H MCHC 30.9 L Gran % Lymph % (Auto) Lymph # (Auto) Seg Neutrophils % 84 H Lymphocytes % 7 L VBG Lactic Acid Carbon Dioxide POC Total CO2 Glucose POC Glucose Hemoglobin A1c 6.4 H Phosphorus 2.5 L AST 40 H Total Creatine Kinase C-Reactive Protein NT-Pro-B Natriuret Pep Prealbumin Triglycerides Mycoplasma pneumon IgM 09/21/19 09/21/19 09/21/19 14:59 14:59 14:59 Hct MCHC Gran % Lymph % (Auto) Lymph # (Auto) Seg Neutrophils % Lymphocytes % VBG Lactic Acid Carbon Dioxide POC Total CO2 Glucose POC Glucose Hemoglobin A1c Phosphorus AST Total Creatine Kinase C-Reactive Protein 2.9 H NT-Pro-B Natriuret Pep 334.3 H Prealbumin Triglycerides Mycoplasma pneumon IgM Positive A 09/21/19 09/21/19 09/21/19 14:27 13:40 13:40 Hct MCHC Gran % Lymph % (Auto) Lymph # (Auto) Seg Neutrophils % Lymphocytes % VBG Lactic Acid 2.3 H Carbon Dioxide POC Total CO2 34 H Glucose 116 H POC Glucose 108 H Hemoglobin A1c Phosphorus AST 58 H Total Creatine Kinase 727 H C-Reactive Protein NT-Pro-B Natriuret Pep Prealbumin Triglycerides Mycoplasma pneumon IgM 09/21/19 13:40 Hct 53.9 H MCHC 30.6 L Gran % 78.8 H Lymph % (Auto) 10.4 L Lymph # (Auto) 0.84 L Seg Neutrophils % Lymphocytes % VBG Lactic Acid Carbon Dioxide POC Total CO2 Glucose POC Glucose Hemoglobin A1c Phosphorus AST Total Creatine Kinase C-Reactive Protein NT-Pro-B Natriuret Pep Prealbumin Triglycerides Mycoplasma pneumon IgM Meds: Medications Acetaminophen (Tylenol) 650 mg PO Q4-6HP PRN; Protocol PRN Reason: Per Pain Protocol/Fever > 101 Albuterol/Ipratropium (Duoneb) 3 ml NEB Q4HP PRN PRN Reason: Shortness Of Breath Last Admin: 09/23/19 08:46 Dose: 3 ml Documented by: Bisacodyl (Dulcolax) 10 mg NE Q2-3DAYS PRN PRN Reason: Constipation Budesonide (Pulmicort) 0.5 mg NEB Q12 ON LICENSE OF [facility] Last Admin: 09/23/19 08:46 Dose: 0.5 mg Documented by: Chlorhexidine Gluconate (Peridex) 15 ml SWABMOUTH BID ON LICENSE OF [facility] Last Admin: 09/23/19 09:23 Dose: 15 ml Documented by: Cyanocobalamin (Vitamin B-12) 1,000 mcg PO BID ON LICENSE OF [facility] Stop: 09/26/19 09:01 Last Admin: 09/23/19 09:21 Dose: 1,000 mcg Documented by: Docusate Sodium (Colace) 100 mg PO BID ON LICENSE OF [facility] Last Admin: 09/23/19 09:23 Dose: Not Given Documented by: Folic Acid (Folic Acid) 1 mg PO DAILY ON LICENSE OF [facility] Last Admin: 09/23/19 09:21 Dose: 1 mg Documented by: Furosemide (Lasix) 20 mg IV Q8 ON LICENSE OF [facility] Last Admin: 09/23/19 05:47 Dose: 20 mg Documented by: Heparin Sodium (Porcine) (Heparin) 5,000 unit SQ Q12 ON LICENSE OF [facility] Last Admin: 09/23/19 09:56 Dose: 5,000 unit Documented by: Acetaminophen (Ofirmev) 650 mg in 65 mls @ 130 mls/hr IV Q6HP PRN; Protocol PRN Reason: Per Pain Protocol/Fever > 101 Magnesium Sulfate (Magnesium Sulfate) 2 gm in 50 mls @ 50 mls/hr IV UD PRN PRN Reason: MG = or < 1.7 Potassium Chloride 40 meq/ (Dextrose) 520 mls @ 130 mls/hr IV UD PRN PRN Reason: K+ = or < 3.5 Last Admin: 09/23/19 08:14 Dose: 130 mls/hr Documented by: Norepinephrine Bitartrate 16 (mg/ Sodium Chloride) 250 mls @ 9.375 mls/hr IV Q24HP PRN; Protocol PRN Reason: TITRATE TO KEEP MAP > 65 Last Titration: 09/22/19 01:41 Dose: 0 mcg/min, 0 mls/hr Documented by: Heparin Sodium/Sodium Chloride (Heparin/Ns) 500 mls @ 0 mls/hr IV .Q0M TIMOTHY; Protocol Fentanyl 2,500 mcg/ Sodium (Chloride) 250 mls @ 2.5 mls/hr IV Q24H [facility]OT[facility]; Protocol Last Titration: 09/22/19 18:20 Dose: 20 mcg/hr, 2 mls/hr Documented by: Propofol 1,000 mg/ Premix 100 mls @ 4.763 mls/hr IV .Q21H ON LICENSE OF [facility]; Protocol Last Admin: 09/23/19 09:20 Dose: 30 mcg/kg/min, 28.576 mls/hr Documented by: Levofloxacin (Levaquin) 750 mg in 150 mls @ 100 mls/hr IV Q24H ON LICENSE OF [facility] Last Admin: 09/23/19 08:52 Dose: 100 mls/hr Documented by: Ceftriaxone Sodium 2 gm/ (Dextrose) 50 mls @ 100 mls/hr IV DAILY ON LICENSE OF [facility] Last Admin: 09/23/19 08:14 Dose: 100 mls/hr Documented by: Sodium Chloride (Sodium Chloride 0.9%) 500 mls @ 20 mls/hr IV .Q24H ON LICENSE OF [facility] Last Admin: 09/23/19 04:30 Dose: 20 mls/hr Documented by: Iron Carb/Multivit/[place]/Folic Acid (Multivitamin W/Minerals) 1 tab PO DAILY ON LICENSE OF [facility] Last Admin: 09/23/19 09:21 Dose: 1 tab Documented by: Melatonin (Melatonin 3mg Tablet) 3 mg PO HSP PRN PRN Reason: Insomnia Ondansetron HCl (Zofran Odt) 4 mg SL Q4-6HP PRN; Protocol PRN Reason: Nausea And Vomiting Ondansetron HCl (Zofran) 4 mg IV Q4-6HP PRN; Protocol PRN Reason: Nausea And Vomiting Pantoprazole Sodium (Protonix) 40 mg IV BIDAC ON LICENSE OF [facility] Last Admin: 09/23/19 08:01 Dose: 40 mg Documented by: Polyethylene Glycol (Miralax) 17 gm PO DAILYP PRN PRN Reason: Constipation Potassium Chloride (Klor-Con) 40 meq PO DAILYP PRN PRN Reason: K+ < 3.5 Senna/Docusate Sodium (Senna Plus Tablet) 1 tab PO HS ON LICENSE OF [facility] Last Admin: 09/22/19 21:09 Dose: Not Given Documented by: Sodium Chloride (Saline Flush) 10 ml IV Q8 ON LICENSE OF [facility] Last Admin: 09/23/19 05:48 Dose: 10 ml Documented by: Thiamine HCl (Vitamin B1) 100 mg PO DAILY ON LICENSE OF [facility] Last Admin: 09/23/19 09:21 Dose: 100 mg Documented by: Medical - PN: A/P - Time Spent With Patient Total time spent is greater than 50% in coordination of care (as documented) at patient's floor/unit and/or counseling patient: Greater than 35 minutes (Critical care time) (1) Acute respiratory failure with hypoxia and hypercapnia Status: Acute Assessment and plan: * Acute respiratory failure with hypoxia and hypercapnia with PCO2 100 and sats mid 60s. pH on admission 7.2. Continue serial blood gas/ventilator titration, interval improvement in ABGs. PCO2 63 Damon corrected baseline * Mechanical ventilation continue management per protocol with serial ABG/chest imaging and vent titration. Attempt sedation holiday/extubation in a.m. * Right lower lobe pneumonia-worsening infiltrate on chest imaging. Continue broad antibiotic coverage, mycoplasma serology positive * Hypercapnic encephalopathy-hypercapnia resolved, pH normalized * Acute decompensated heart failure-echocardiogram preserved EF at 60%, diastolic dysfunction. Continue diuresis * Morbid obesity-BMI over 44 * History of hypertension * Prophylaxis heparin * Full code Plan * Mechanical ventilation per protocol * Sedation holiday/attempt extubation a.m. * A.m. ABG/chest imaging * Continue ICU sedation on propofol/fentanyl Current Visit: Yes Medical - PN: Qual - VTE Deep Vein Thrombosis/Pulmonary Embolism Present on Admission: No
[2019-09-23] MEDS: SENNOSIDES/DOCUSATE SODIUM 1 TAB TABLET PO SCH (20:26)
[2019-09-24] MEDS: fentaNYL 2,500 MCG in 0.9 % SODIUM CHLORIDE 200 ML IV SCH (00:34)
[2019-09-24] MEDS: PROPOFOL 1,000 MG in PREMIX 1 BAG IV SCH ×3 (02:53→12:02)
[2019-09-24] MEDS: 0.9 % SODIUM CHLORIDE 10 ML SYRINGE IV SCH ×3 (05:09→22:01)
[2019-09-24] MEDS: FUROSEMIDE 20 MG/2 ML VIAL IV SCH ×3 (05:09→22:01)
[2019-09-24 06:24] LABS: Hematocrit 48.9 % (40.1-51.0); Mean Cell Volume 88.9 fL (80.0-100.0); Mean Corpuscular HGB Conc 30.7 g/dL (31.0-36.0); Platelet Count 177 K/mcL (140-440); Red Cell Distribution Width 14.3 % (11.5-14.5); WBC 6.8 K/mcL (4.50-11.00)
[2019-09-24] MEDS: PANTOPRAZOLE 40 MG VIAL IV SCH ×2 (07:04→17:02)
[2019-09-24 07:05] LABS: ALT/SGPT 15 U/l (0-40); AST/SGOT 27 U/l (0-37); Albumin 3.1 gm/dL (3.2-5.2); Alkaline Phosphatase 59 U/L (39-117); Bilirubin,Direct < 0.2 mg/dL (0.0-0.3); Bilirubin,Total 0.4 mg/dL (0.0-1.0); Blood Urea Nitrogen 15 mg/dl (8-23); Calcium 9.2 mg/dl (8.6-10.4); Carbon Dioxide 32 mmol/L (22-30); Chloride 99 mmol/L (96-108); Globulin 3.1 gm/dL (2.2-3.7); Glomerular Filtration Rate 77; Glucose 95 mg/dL (70-105); Lactate Dehydrogenase 184 U/L (94-250); Phosphorous 3.6 mg/dL (2.7-4.5); Triglycerides 150 mg/dl (<150)
--- NOTE | 2019-09-24 07:44 | XRay Report ---
CLINICAL INFORMATION: Mechanically Ventilated COMPARISON: 09/23/2019 FINDINGS: Moderate cardiomegaly is unchanged. Mediastinum and pulmonary vessels are normal. Lines and tubes remain in stable satisfactory position. Moderate dense consolidated region of atelectasis or, less likely, infiltrate in the right base is unchanged. Small region of consolidation atelectasis or infiltrate in the left base has progressed. Small bilateral pleural effusions have progressed. IMPRESSION: Moderate right basilar infiltrate or atelectasis stable. Small region of consolidation atelectasis infiltrate left base - worsening Interpreted and Authenticated by: Quinten Bear 09/24/19
[2019-09-24 08:09] LABS: Band Neutrophils % 10 % (0-10); Eosinophils % (Manual) 3 % (0-7); Lymphocytes % 5 % (15-49); Monocytes % (Manual) 10 % (1-12); Platelet Estimate NORMAL (NORMAL); RBC Morphology NORMAL (NORMAL); Reactive Lymphocytes 2 % (0-2); Segmented Neutrophils % 70 % (38-78)
[2019-09-24] MEDS: IPRATROPIUM/ALBUTEROL 3 ML AMPUL.NEB NEB PRN ×2 (08:26→21:11)
[2019-09-24] MEDS: BUDESONIDE 0.5 MG/2 ML AMPUL.NEB NEB SCH ×2 (08:26→21:11)
[2019-09-24] MEDS: HEPARIN 5,000 UNIT/ML VIAL SQ SCH ×2 (08:38→20:12)
[2019-09-24] MEDS: CHLORHEXIDINE GLUCONATE 1 ML ORAL.SOL SWABMOUTH SCH ×2 (08:38→20:12)
[2019-09-24] MEDS: cefTRIAXone 2 GM in DEXTROSE 5% IN WATER 50 ML IV SCH (09:04)
[2019-09-24] MEDS: LEVOFLOXACIN 750 MG/150 ML BAG IV SCH (10:18)
[2019-09-24] MEDS: DOCUSATE SODIUM 100 MG CAPSULE PO SCH ×2 (10:38→20:12)
--- NOTE | 2019-09-24 10:40 | Internal Med Progress Note ---
Medical - PN: Subj Patient information: Note initiated : 09/24/19 at 10:34 am Service Date, if different from initiated Date: [] Patient: Sharif Grady 69 y/o M admitted on 09/21/19 for neurological deficit. Chief Complaint: [] Interval history: Mr. Grady is a 69 year old M with a history of obstructive sleep apnea/COPD who presents with 1 week onset of progressive confusion and shortness of breath. He is accompanied with her son Nicholas and daughter. On arrival patient was significantly hypoxic with sats in mid 60s. He was probably started on BiPAP after initial blood gas revealed a PCO2 of 100. Chest imaging was consistent with pneumonia. Patient did not tolerate BiPAP and hence currently being intubated. Patient was unable to provide a meaningful history due to confused state. Most of the history was obtained from family. Hospitalist service was consulted for admission. At the time evaluation patient is accompanied with family. Again no meaningful history could be obtained. He is obtained from family. Patient lives alone and has been noncompliant and does not follow-up with primary care physician. Family is unaware about sick contacts but endorses that he took a flu shot. They did not notice him having diarrhea, chest pain, fever but he has been getting progressively confused not making sense. 09/22-patient remains critically ill. On mechanical ventilation/sedation on propofol/fentanyl. Urine output stable. Map at goal. White count 7.3, lactic acid normalized, potassium 3.5, Mycoplasma serology positive, x-ray right basilar infiltrate. Start Levaquin. 09/23-patient doing well. Improved respiratory status. PEEP 7/FiO2 45%/tidal volume 500 with pH 7.42/63/59. Quintanilla is draining clear urine. Stable hemodynamics. Worsening chest x-ray with right-sided infiltrate/effusion. On antibiotic coverage. Attempt sedation holiday early tomorrow morning and possible extubation if clinically improves. No family at bedside 09/24-patient overnight on mechanical ventilation. Sedation holiday this morning. Stable labs including white count 6.8, x-ray chest basilar infilt rates, ABG 7.45/63/57 at 45% FiO2 PEEP 7 tidal volume 500. On spontaneous breathing trials. Extubate to BiPAP today. Family at bedside. Discussed treatment plan - Constitutional Vitals: Vital Signs Temp Pulse Resp BP Pulse Ox 99.3 F H 107 H 22 125/75 92 09/24/19 08:01 09/24/19 09:25 09/24/19 09:25 09/24/19 08:01 09/24/19 09:25 Period Temp Pulse Resp BP Sys/Jacobs Pulse Ox Last 24 Hr 98 F-99.3 F 91-107 16-22 99-130/44-75 87-97 Intake and Output 09/23/19 09/24/19 09/24/19 21:59 05:59 13:59 Intake Total 629 897 22 Output Total 915 1775 Balance -286 -878 22 Weight 332 lb 334 lb Intake & Output: Intake & Output 09/23/19 09/24/19 09/24/19 21:59 05:59 13:59 Intake Total 629 897 22 Output Total 915 1775 Balance -286 -878 22 Weight 332 lb 334 lb Intake: IV 449 270 22 Sodium Chloride 0.9% 500 ml @ 252 20 mls/hr IV .Q24H [facility] Rx#: [id number] Diprivan 1,000 mg In Premix 1 197 270 22 Bag @ 5 MCG/KG/MIN 4.763 mls/hr IV .Q21H [facility] Rx#:[id number] Tube Feeding 140 507 GI Tube Flush 40 120 Output: Urine Catheter Amount 915 1775 Other: Urine Appearance Clear Clear Urine Color Pale Pale Urine Odor Normal General appearance: no acute distress Exam: Alert and respond to commands on mechanical ventilation Quintanilla draining greenish urine Lymphedema improving No telemetry events No anxiety Medical - PN: Obj Da - Labs CBC & Chem 7: 09/24/19 04:45 09/24/19 04:45 Labs: Abnormal Lab Results 09/24/19 09/24/19 09/23/19 04:45 04:45 05:00 Hct MCHC 30.7 L Gran % Lymph % (Auto) Lymph # (Auto) Seg Neutrophils % Lymphocytes % 5 L VBG Lactic Acid Carbon Dioxide 32 H 32 H POC Total CO2 Glucose 107 H POC Glucose Hemoglobin A1c Phosphorus AST Total Creatine Kinase C-Reactive Protein NT-Pro-B Natriuret Pep Albumin 3.1 L Prealbumin Triglycerides Mycoplasma pneumon IgM 09/23/19 09/22/19 09/22/19 05:00 14:47 05:04 Hct MCHC 30.5 L Gran % Lymph % (Auto) Lymph # (Auto) Seg Neutrophils % Lymphocytes % 7 L VBG Lactic Acid Carbon Dioxide POC Total CO2 Glucose POC Glucose Hemoglobin A1c 6.4 H Phosphorus AST Total Creatine Kinase C-Reactive Protein NT-Pro-B Natriuret Pep Albumin Prealbumin 9.7 L Triglycerides 157 H Mycoplasma pneumon IgM 09/22/19 09/22/19 09/21/19 05:04 05:04 14:59 Hct 51.1 H MCHC 30.9 L Gran % Lymph % (Auto) Lymph # (Auto) Seg Neutrophils % 84 H Lymphocytes % 7 L VBG Lactic Acid Carbon Dioxide POC Total CO2 Glucose POC Glucose Hemoglobin A1c Phosphorus 2.5 L AST 40 H Total Creatine Kinase C-Reactive Protein NT-Pro-B Natriuret Pep Albumin Prealbumin Triglycerides Mycoplasma pneumon IgM Positive A 09/21/19 09/21/19 09/21/19 14:59 14:59 14:27 Hct MCHC Gran % Lymph % (Auto) Lymph # (Auto) Seg Neutrophils % Lymphocytes % VBG Lactic Acid Carbon Dioxide POC Total CO2 34 H Glucose POC Glucose 108 H Hemoglobin A1c Phosphorus AST Total Creatine Kinase 727 H C-Reactive Protein 2.9 H NT-Pro-B Natriuret Pep 334.3 H Albumin Prealbumin Triglycerides Mycoplasma pneumon IgM 09/21/19 09/21/19 09/21/19 13:40 13:40 13:40 Hct 53.9 H MCHC 30.6 L Gran % 78.8 H Lymph % (Auto) 10.4 L Lymph # (Auto) 0.84 L Seg Neutrophils % Lymphocytes % VBG Lactic Acid 2.3 H Carbon Dioxide POC Total CO2 Glucose 116 H POC Glucose Hemoglobin A1c Phosphorus AST 58 H Total Creatine Kinase C-Reactive Protein NT-Pro-B Natriuret Pep Albumin Prealbumin Triglycerides Mycoplasma pneumon IgM Meds: Medications Acetaminophen (Tylenol) 650 mg PO Q4-6HP PRN; Protocol PRN Reason: Per Pain Protocol/Fever > 101 Albuterol/Ipratropium (Duoneb) 3 ml NEB Q4HP PRN PRN Reason: Shortness Of Breath Last Admin: 09/24/19 08:26 Dose: 3 ml Documented by: Bisacodyl (Dulcolax) 10 mg ME Q2-3DAYS PRN PRN Reason: Constipation Budesonide (Pulmicort) 0.5 mg NEB Q12 [facility] Last Admin: 09/24/19 08:26 Dose: 0.5 mg Documented by: Chlorhexidine Gluconate (Peridex) 15 ml SWABMOUTH BID [facility] Last Admin: 09/24/19 08:38 Dose: 15 ml Documented by: Cyanocobalamin (Vitamin B-12) 1,000 mcg PO BID [facility] Stop: 09/26/19 09:01 Last Admin: 09/23/19 20:26 Dose: 1,000 mcg Documented by: Diagnostic Test (Pha) (Accu-Chek) 1 each FS Q6 [facility] Last Admin: 09/24/19 04:36 Dose: Not Given Documented by: Docusate Sodium (Colace) 100 mg PO BID [facility] Last Admin: 09/23/19 20:21 Dose: Not Given Documented by: Folic Acid (Folic Acid) 1 mg PO DAILY [facility] Last Admin: 09/23/19 09:21 Dose: 1 mg Documented by: Furosemide (Lasix) 20 mg IV Q8 [facility] Last Admin: 09/24/19 05:09 Dose: 20 mg Documented by: Heparin Sodium (Porcine) (Heparin) 5,000 unit SQ Q12 [facility] Last Admin: 09/24/19 08:38 Dose: 5,000 unit Documented by: Acetaminophen (Ofirmev) 650 mg in 65 mls @ 130 mls/hr IV Q6HP PRN; Protocol PRN Reason: Per Pain Protocol/Fever > 101 Magnesium Sulfate (Magnesium Sulfate) 2 gm in 50 mls @ 50 mls/hr IV UD PRN PRN Reason: MG = or < 1.7 Potassium Chloride 40 meq/ (Dextrose) 520 mls @ 130 mls/hr IV UD PRN PRN Reason: K+ = or < 3.5 Last Infusion: 09/23/19 12:14 Dose: Infused Documented by: Norepinephrine Bitartrate 16 (mg/ Sodium Chloride) 250 mls @ 9.375 mls/hr IV Q24HP PRN; Protocol PRN Reason: TITRATE TO KEEP MAP > 65 Last Titration: 09/22/19 01:41 Dose: 0 mcg/min, 0 mls/hr Documented by: Heparin Sodium/Sodium Chloride (Heparin/Ns) 500 mls @ 0 mls/hr IV .Q0M TIMOTHY; Pr otocol Fentanyl 2,500 mcg/ Sodium (Chloride) 250 mls @ 2.5 mls/hr IV Q24H [facility]; Protocol Last Admin: 09/24/19 00:34 Dose: Not Given Documented by: Propofol 1,000 mg/ Premix 100 mls @ 4.763 mls/hr IV .Q21H [facility]; Protocol Last Admin: 09/24/19 07:05 Dose: 15 mcg/kg/min, 14.288 mls/hr Documented by: Levofloxacin (Levaquin) 750 mg in 150 mls @ 100 mls/hr IV Q24H [facility] Last Admin: 09/24/19 10:18 Dose: 100 mls/hr Documented by: Ceftriaxone Sodium 2 gm/ (Dextrose) 50 mls @ 100 mls/hr IV DAILY [facility] Last Admin: 09/24/19 09:04 Dose: 100 mls/hr Documented by: Sodium Chloride (Sodium Chloride 0.9%) 500 mls @ 20 mls/hr IV .Q24H [facility] Last Admin: 09/23/19 17:05 Dose: 20 mls/hr Documented by: Iron Carb/Multivit/[place]/Folic Acid (Multivitamin W/Minerals) 1 tab PO DAILY [facility] Last Admin: 09/23/19 09:21 Dose: 1 tab Documented by: Melatonin (Melatonin 3mg Tablet) 3 mg PO HSP PRN PRN Reason: Insomnia Ondansetron HCl (Zofran Odt) 4 mg SL Q4-6HP PRN; Protocol PRN Reason: Nausea And Vomiting Ondansetron HCl (Zofran) 4 mg IV Q4-6HP PRN; Protocol PRN Reason: Nausea And Vomiting Pantoprazole Sodium (Protonix) 40 mg IV BIDAC [facility] Last Admin: 09/24/19 07:04 Dose: 40 mg Documented by: Polyethylene Glycol (Miralax) 17 gm PO DAILYP PRN PRN Reason: Constipation Potassium Chloride (Klor-Con) 40 meq PO DAILYP PRN PRN Reason: K+ < 3.5 Senna/Docusate Sodium (Senna Plus Tablet) 1 tab PO HS [facility] Last Admin: 09/23/19 20:26 Dose: 1 tab Documented by: Sodium Chloride (Saline Flush) 10 ml IV Q8 [facility] Last Admin: 09/24/19 05:09 Dose: 10 ml Documented by: Thiamine HCl (Vitamin B1) 100 mg PO DAILY [facility] Last Admin: 09/23/19 09:21 Dose: 100 mg Documented by: Medical - PN: A/P - Time Spent With Patient Total time spent is greater than 50% in coordination of care (as documented) at patient's floor/unit and/or counseling patient: Greater than 35 minutes (Critical care time) (1) Acute respiratory failure with hypoxia and hypercapnia Status: Acute Assessment and plan: * Acute respiratory failure with hypoxia and hypercapnia with PCO2 100 and sats mid 60s. Clinically improved. pH normalized. PCO2 65 Damon corrected to baseline. Extubate today * Mechanical ventilation extubation parameters favorable. Ventilator liberation today. * Right lower lobe pneumonia-persistent infiltrate on chest imaging likely atelectasis. Continue antibiotic coverage/aggressive pulmonary toilet * Hypercapnic encephalopathy-resolved * Acute decompensated heart failure-echocardiogram preserved EF at 60%, diastolic dysfunction. Continue diuresis * Morbid obesity-BMI over 44 * History of hypertension * Prophylaxis heparin * Full code Plan * DC Rocephin * Ventilator liberation today * Start metolazone * Aggressive pulmonary toilet * PT OT nutrition support * Transition to BiPAP Current Visit: Yes Medical - PN: Qual - VTE Deep Vein Thrombosis/Pulmonary Embolism Present on Admission: No
[2019-09-24] MEDS: FOLIC ACID 1 MG TABLET PO SCH (11:55)
[2019-09-24] MEDS: THIAMINE 100 MG TABLET PO SCH (11:56)
[2019-09-24] MEDS: CYANOCOBALAMIN (VITAMIN B-12) 500 MCG TABLET PO SCH ×2 (11:56→20:12)
[2019-09-24] MEDS: MULTIVIT,THER IRON,CA,FA & MIN 1 TABLET PO SCH (11:56)
[2019-09-24] MEDS ORDERED: METOLAZONE 2.5 MG TABLET PO SCH (13:30)
[2019-09-24] MEDS: SENNOSIDES/DOCUSATE SODIUM 1 TAB TABLET PO SCH (20:12)
[2019-09-25] MEDS: 0.9 % SODIUM CHLORIDE 10 ML SYRINGE IV SCH ×3 (05:12→21:20)
[2019-09-25] MEDS: FUROSEMIDE 20 MG/2 ML VIAL IV SCH ×3 (05:12→21:20)
[2019-09-25] MEDS: PANTOPRAZOLE 40 MG VIAL IV SCH ×2 (07:19→17:35)
[2019-09-25 07:23] LABS: Hemoglobin 15.5 g/dL (13.7-17.5); Mean Cell Volume 90.3 fL (80.0-100.0); Mean Corpuscular HGB Conc 30.4 g/dL (31.0-36.0); RBC 5.65 M/mcL (4.63-6.08); Red Cell Distribution Width 14.2 % (11.5-14.5); WBC 6.8 K/mcL (4.50-11.00)
[2019-09-25 07:24] LABS: Platelet Count 194 K/mcL (140-440)
[2019-09-25 07:28] LABS: ALT/SGPT 19 U/l (0-40); AST/SGOT 31 U/l (0-37); Albumin 3.6 gm/dL (3.2-5.2); Albumin/Globulin Ratio 1.1 (1.0-2.3); Alkaline Phosphatase 63 U/L (39-117); Bilirubin,Direct < 0.2 mg/dL (0.0-0.3); Bilirubin,Total 0.7 mg/dL (0.0-1.0); Blood Urea Nitrogen 16 mg/dl (8-23); Calcium 10.1 mg/dl (8.6-10.4); Carbon Dioxide 35 mmol/L (22-30); Globulin 3.2 gm/dL (2.2-3.7); Glomerular Filtration Rate 87; Glucose 87 mg/dL (70-105); Lactate Dehydrogenase 203 U/L (94-250); Phosphorous 3.9 mg/dL (2.7-4.5); Triglycerides 145 mg/dl (<150); Uric Acid 7.6 mg/dL (2.5-8.0)
[2019-09-25 07:33] LABS: Chloride 93 mmol/L (96-108)
[2019-09-25] MEDS: FOLIC ACID 1 MG TABLET PO SCH (08:17)
[2019-09-25] MEDS: DOCUSATE SODIUM 100 MG CAPSULE PO SCH ×2 (08:17→21:19)
[2019-09-25] MEDS: MULTIVIT,THER IRON,CA,FA & MIN 1 TABLET PO SCH (08:17)
[2019-09-25] MEDS: CHLORHEXIDINE GLUCONATE 1 ML ORAL.SOL SWABMOUTH SCH ×2 (08:17→21:20)
[2019-09-25] MEDS: THIAMINE 100 MG TABLET PO SCH (08:17)
[2019-09-25] MEDS: HEPARIN 5,000 UNIT/ML VIAL SQ SCH ×2 (08:17→21:20)
[2019-09-25] MEDS: CYANOCOBALAMIN (VITAMIN B-12) 500 MCG TABLET PO SCH ×2 (08:17→21:19)
--- NOTE | 2019-09-25 08:48 | XRay Report ---
CLINICAL INFORMATION: Mechanically Ventilated COMPARISON: 09/24/2019 FINDINGS: Moderate cardiomegaly is unchanged. Mediastinum and pulmonary vessels normal. Endotracheal tube has been removed - the right subclavian central line remains in stable satisfactory position. Consolidated right basilar atelectasis or infiltrate is better aerated in today's study with modest residual. The atelectasis in the left base as almost totally cleared. Small right pleural effusion persists IMPRESSION: Atelectasis or, less likely, infiltrate in the right base is much better aerated on today's study with modest residual. Small right pleural effusion is unchanged Near-complete interval resolution of left basilar atelectasis. Interval extubation Interpreted and Authenticated by: Quinten Bear 09/25/19
[2019-09-25] MEDS: IPRATROPIUM/ALBUTEROL 3 ML AMPUL.NEB NEB PRN ×2 (09:11→20:45)
[2019-09-25] MEDS: BUDESONIDE 0.5 MG/2 ML AMPUL.NEB NEB SCH ×2 (09:11→20:45)
[2019-09-25 09:30] LABS: Eosinophils % (Manual) 2 % (0-7); Lymphocytes % 6 % (15-49); Monocytes % (Manual) 11 % (1-12); Platelet Estimate NORMAL (NORMAL); RBC Morphology NORMAL (NORMAL); Segmented Neutrophils % 81 % (38-78)
[2019-09-25] MEDS ORDERED: ONDANSETRON 4 MG ODT TABLET SL PRN (10:37)
[2019-09-25] MEDS ORDERED: ACETAMINOPHEN 325 MG TABLET PO PRN (10:37)
[2019-09-25] MEDS ORDERED: MAGNESIUM SULFATE 2 GM/50 ML BAG IV PRN (10:37)
[2019-09-25] MEDS ORDERED: ACETAMINOPHEN 650 MG/65 ML BOTTLE IV PRN (10:37)
[2019-09-25] MEDS ORDERED: POTASSIUM CHLORIDE 40 MEQ in DEXTROSE 5% IN WATER 500 ML IV PRN (10:37)
[2019-09-25] MEDS ORDERED: ONDANSETRON 4 MG/2 ML VIAL IV PRN (10:37)
[2019-09-25] MEDS ORDERED: BISACODYL 10 MG SUPP.RECT PR PRN (10:37)
[2019-09-25] MEDS ORDERED: POTASSIUM CHLORIDE 20 MEQ PACKET PO PRN (10:37)
[2019-09-25] MEDS: LEVOFLOXACIN 750 MG/150 ML BAG IV SCH (10:40)
[2019-09-25] MEDS ORDERED: acetaZOLAMIDE SOD 500 MG VIAL IV ONE (10:47)
--- NOTE | 2019-09-25 10:49 | Internal Med Progress Note ---
Medical - PN: Subj Patient information: Note initiated : 09/25/19 at 10:46 am Service Date, if different from initiated Date: [] Patient: Sharif Grady 69 y/o M admitted on 09/21/19 for neurological deficit. Chief Complaint: [] Interval history: Mr. Grady is a 69 year old M with a history of obstructive sleep apnea/COPD who presents with 1 week onset of progressive confusion and shortness of breath. He is accompanied with her son Nicholas and daughter. On arrival patient was significantly hypoxic with sats in mid 60s. He was probably started on BiPAP after initial blood gas revealed a PCO2 of 100. Chest imaging was consistent with pneumonia. Patient did not tolerate BiPAP and hence currently being intubated. Patient was unable to provide a meaningful history due to confused state. Most of the history was obtained from family. Hospitalist service was consulted for admission. At the time evaluation patient is accompanied with family. Again no meaningful history could be obtained. He is obtained from family. Patient lives alone and has been noncompliant and does not follow-up with primary care physician. Family is unaware about sick contacts but endorses that he took a flu shot. They did not notice him having diarrhea, chest pain, fever but he has been getting progressively confused not making sense. 09/22-patient remains critically ill. On mechanical ventilation/sedation on propofol/fentanyl. Urine output stable. Map at goal. White count 7.3, lactic acid normalized, potassium 3.5, Mycoplasma serology positive, x-ray right basilar infiltrate. Start Levaquin. 09/23-patient doing well. Improved respiratory status. PEEP 7/FiO2 45%/tidal volume 500 with pH 7.42/63/59. Quintanilla is draining clear urine. Stable hemodynamics. Worsening chest x-ray with right-sided infiltrate/effusion. On antibiotic coverage. Attempt sedation holiday early tomorrow morning and possible extubation if clinically improves. No family at bedside 09/24-patient overnight on mechanical ventilation. Sedation holiday this morning. Stable labs including white count 6.8, x-ray chest basilar infilt rates, ABG 7.45/63/57 at 45% FiO2 PEEP 7 tidal volume 500. On spontaneous breathing trials. Extubate to BiPAP today. Family at bedside. Discussed treatment plan 09/25-patient on 45% FiO2 on BiPAP at night, 6 L oxygen this morning off BiPAP. Tolerating diet. Alert and respond to commands. Ongoing physical therapy. Continue diuresis. Lymphedema much improved. Diamox 250 IV today continue a ggressive physical therapy and transition to [facility] home on discharge. Anticipate additional 72 hours hospitalization. Continue antibiotic coverage. - Constitutional Vitals: Vital Signs Temp Pulse Resp BP Pulse Ox 98.0 F 90 16 157/70 93 09/25/19 09:01 09/25/19 09:19 09/25/19 09:19 09/25/19 09:01 09/25/19 09:11 Period Temp Pulse Resp BP Sys/Jacobs Pulse Ox Last 24 Hr 97.5 F-98.0 F 85-113 13-21 109-157/49-91 89-98 Intake and Output 09/24/19 09/25/19 09/25/19 21:59 05:59 13:59 Intake Total 40 Output Total 1994 Balance -1954 Weight 331 lb 3.2 oz 331 lb 3.2 oz Intake & Output: Intake & Output 09/24/19 09/25/19 09/25/19 21:59 05:59 13:59 Intake Total 40 Output Total 1994 Balance -1954 Weight 331 lb 3.2 oz 331 lb 3.2 oz Intake: Oral 40 Output: Urine Catheter Amount 1994 Other: Meal Dinner Percent of Meal Consumed 25% Urine Appearance Clear Clear Uretheral (Quintanilla) Sediment Urine Color Pale Pale Uretheral (Quintanilla) Dark Yellow Green Urine Odor Normal General appearance: no acute distress Exam: Morbidly obese Intermittently on noninvasive ventilation Improving lymphedema No telemetry events Quintanilla is draining clear urine Medical - PN: Obj Da - Labs CBC & Chem 7: 09/25/19 04:40 09/25/19 04:40 Labs: Abnormal Lab Results 09/25/19 09/25/19 09/24/19 04:40 04:40 04:45 MCHC 30.4 L Seg Neutrophils % 81 H Lymphocytes % 6 L Chloride 93 L Carbon Dioxide 35 H 32 H Glucose Albumin 3.1 L Prealbumin Triglycerides 09/24/19 09/23/19 09/23/19 04:45 05:00 05:00 MCHC 30.7 L 30.5 L Seg Neutrophils % Lymphocytes % 5 L 7 L Chloride Carbon Dioxide 32 H Glucose 107 H Albumin Prealbumin Triglycerides 09/22/19 14:47 MCHC Seg Neutrophils % Lymphocytes % Chloride Carbon Dioxide Glucose Albumin Prealbumin 9.7 L Triglycerides 157 H Meds: Medications Acetaminophen (Tylenol) 650 mg PO Q4-6HP PRN; Protocol PRN Reason: Per Pain Protocol/Fever > 101 Albuterol/Ipratropium (Duoneb) 3 ml NEB Q4HP PRN PRN Reason: Shortness Of Breath Bisacodyl (Dulcolax) 10 mg GA Q2-3DAYS PRN PRN Reason: Constipation Budesonide (Pulmicort) 0.5 mg NEB Q12 [facility] Chlorhexidine Gluconate (Peridex) 15 ml SWABMOUTH BID [facility] Cyanocobalamin (Vitamin B-12) 1,000 mcg PO BID [facility] Stop: 09/26/19 09:01 Docusate Sodium (Colace) 100 mg PO BID [facility] Folic Acid (Folic Acid) 1 mg PO DAILY [facility] Furosemide (Lasix) 20 mg IV Q8 [facility] Heparin Sodium (Porcine) (Heparin) 5,000 unit SQ Q12 [facility] Potassium Chloride 40 meq/ (Dextrose) 520 mls @ 130 mls/hr IV UD PRN PRN Reason: K+ = or < 3.5 Levofloxacin (Levaquin) 750 mg in 150 mls @ 100 mls/hr IV Q24H [facility] Magnesium Sulfate (Magnesium Sulfate) 2 gm in 50 mls @ 50 mls/hr IV UD PRN PRN Reason: MG = or < 1.7 Acetaminophen (Ofirmev) 650 mg in 65 mls @ 130 mls/hr IV Q6HP PRN; Protocol PRN Reason: Per Pain Protocol/Fever > 101 Iron Carb/Multivit/Keddie/Folic Acid (Multivitamin W/Minerals) 1 tab PO DAILY [facility] Melatonin (Melatonin 3mg Tablet) 3 mg PO HSP PRN PRN Reason: Insomnia Metolazone (Zaroxolyn) 2.5 mg PO DAILY@1330 [facility] Ondansetron HCl (Zofran Odt) 4 mg SL Q4-6HP PRN; Protocol PRN Reason: Nausea And Vomiting Ondansetron HCl (Zofran) 4 mg IV Q4-6HP PRN; Protocol PRN Reason: Nausea And Vomiting Pantoprazole Sodium (Protonix) 40 mg IV BIDAC [facility] Polyethylene Glycol (Miralax) 17 gm PO DAILYP PRN PRN Reason: Constipation Potassium Chloride (Klor-Con) 40 meq PO DAILYP PRN PRN Reason: K+ < 3.5 Senna/Docusate Sodium (Senna Plus Tablet) 1 tab PO HS [facility] Sodium Chloride (Saline Flush) 10 ml IV Q8 [facility] Thiamine HCl (Vitamin B1) 100 mg PO DAILY [facility] Medical - PN: A/P - Time Spent With Patient Total time spent is greater than 50% in coordination of care (as documented) at patient's floor/unit and/or counseling patient: Greater than 35 minutes (Critical care time) (1) Acute respiratory failure with hypoxia and hypercapnia Status: Acute Assessment and plan: * Acute respiratory failure with hypoxia and hypercapnia with PCO2 100 and sats mid 60s. Clinically back at baseline. Intermittently on noninvasive ventilation. Extubated and now on noninvasive mechanical ventilation * Right lower lobe pneumonia-clinically improving on Levaquin/aggressive pulmonary toilet/pulmonary toilet/oxygen * Hypercapnic encephalopathy-resolved * Acute decompensated heart failure-echocardiogram preserved EF at 60%, diastolic dysfunction. Continue diuresis, add Diamox for contraction alkalosis * Morbid obesity-BMI over 44 * History of hypertension * Prophylaxis heparin * Full code Plan * Continue Levaquin * Aggressive PT OT/nutrition support * Continue aggressive pulmonary toilet * PT OT nutrition support * Wean BiPAP as tolerated * Discharge planning to SNF Current Visit: Yes Medical - PN: Qual - VTE Deep Vein Thrombosis/Pulmonary Embolism Present on Admission: No
[2019-09-25] MEDS ORDERED: METOLAZONE 2.5 MG TABLET PO SCH (13:30)
[2019-09-25] MEDS ORDERED: CALCIUM CARBONATE 500 MG TAB.CHEW CHEWED PRN (20:28)
[2019-09-25] MEDS: POLYETHYLENE GLYCOL 3350 17 GM PACKET PO PRN (21:19)
[2019-09-25] MEDS: MELATONIN 3 MG TABLET PO PRN (21:19)
[2019-09-25] MEDS: SENNOSIDES/DOCUSATE SODIUM 1 TAB TABLET PO SCH (21:20)
[2019-09-26] MEDS: FUROSEMIDE 20 MG/2 ML VIAL IV SCH ×3 (05:31→22:19)
[2019-09-26] MEDS: 0.9 % SODIUM CHLORIDE 10 ML SYRINGE IV SCH ×3 (05:32→22:20)
[2019-09-26 06:47] LABS: Hemoglobin 16.5 g/dL (13.7-17.5); Mean Corpuscular HGB Conc 30.6 g/dL (31.0-36.0); Platelet Count 180 K/mcL (140-440); RBC 6.07 M/mcL (4.63-6.08); Red Cell Distribution Width 13.8 % (11.5-14.5)
[2019-09-26 07:13] LABS: ALT/SGPT 23 U/l (0-40); AST/SGOT 34 U/l (0-37); Albumin 3.6 gm/dL (3.2-5.2); Alkaline Phosphatase 62 U/L (39-117); Bilirubin,Direct < 0.2 mg/dL (0.0-0.3); Bilirubin,Total 0.7 mg/dL (0.0-1.0); Blood Urea Nitrogen 23 mg/dl (8-23); Calcium 10.2 mg/dl (8.6-10.4); Carbon Dioxide 34 mmol/L (22-30); Chloride 91 mmol/L (96-108); Globulin 3.6 gm/dL (2.2-3.7); Glomerular Filtration Rate 87; Glucose 102 mg/dL (70-105); Lactate Dehydrogenase 239 U/L (94-250); Phosphorous 4.6 mg/dL (2.7-4.5); Triglycerides 177 mg/dl (<150); Uric Acid 8.7 mg/dL (2.5-8.0)
[2019-09-26] MEDS: PANTOPRAZOLE 40 MG VIAL IV SCH ×2 (07:29→17:11)
--- NOTE | 2019-09-26 08:10 | XRay Report ---
CLINICAL INFORMATION: Mechanically Ventilated COMPARISON: 09/25/2019 FINDINGS: Right subclavian line remains in stable, satisfactory position. Moderate cardiomegaly is stable. Mediastinum and pulmonary vessels are normal. Moderate right and smaller left basilar infiltrate/atelectasis has worsened from yesterday. Small bilateral pleural effusions also worsening IMPRESSION: Moderate right and small left infiltrate/atelectasis worsening since yesterday Interpreted and Authenticated by: Quinten Bear 09/26/19
[2019-09-26] MEDS: POLYETHYLENE GLYCOL 3350 17 GM PACKET PO PRN (08:13)
[2019-09-26] MEDS: HEPARIN 5,000 UNIT/ML VIAL SQ SCH ×2 (08:13→20:47)
[2019-09-26] MEDS: DOCUSATE SODIUM 100 MG CAPSULE PO SCH ×2 (08:14→20:47)
[2019-09-26] MEDS: CYANOCOBALAMIN (VITAMIN B-12) 500 MCG TABLET PO SCH (08:14)
[2019-09-26] MEDS: CHLORHEXIDINE GLUCONATE 1 ML ORAL.SOL SWABMOUTH SCH ×2 (08:14→20:50)
[2019-09-26] MEDS: FOLIC ACID 1 MG TABLET PO SCH (08:14)
[2019-09-26] MEDS: THIAMINE 100 MG TABLET PO SCH (08:14)
[2019-09-26] MEDS: MULTIVIT,THER IRON,CA,FA & MIN 1 TABLET PO SCH (08:14)
[2019-09-26 08:43] LABS: Band Neutrophils % 2 % (0-10); Eosinophils % (Manual) 2 % (0-7); Lymphocytes % 8 % (15-49); Monocytes % (Manual) 10 % (1-12); Nucleated Red Blood Cells 1 % (0-0); Platelet Estimate NORMAL (NORMAL); RBC Morphology NORMAL (NORMAL); Segmented Neutrophils % 78 % (38-78)
[2019-09-26] MEDS: BUDESONIDE 0.5 MG/2 ML AMPUL.NEB NEB SCH ×2 (09:16→20:53)
[2019-09-26] MEDS: IPRATROPIUM/ALBUTEROL 3 ML AMPUL.NEB NEB PRN ×2 (09:16→20:53)
[2019-09-26] MEDS ORDERED: acetaZOLAMIDE SOD 500 MG VIAL IV ONE (09:32)
--- NOTE | 2019-09-26 09:33 | Internal Med Progress Note ---
Medical - PN: Subj Patient information: Note initiated : 09/26/19 at 9:30 am Service Date, if different from initiated Date: [] Patient: Sharif Grady 69 y/o M admitted on 09/21/19 for neurological deficit. Chief Complaint: [] Interval history: Mr. Grady is a 69 year old M with a history of obstructive sleep apnea/COPD who presents with 1 week onset of progressive confusion and shortness of breath. He is accompanied with her son Nicholas and daughter. On arrival patient was significantly hypoxic with sats in mid 60s. He was probably started on BiPAP after initial blood gas revealed a PCO2 of 100. Chest imaging was consistent with pneumonia. Patient did not tolerate BiPAP and hence currently being intubated. Patient was unable to provide a meaningful history due to confused state. Most of the history was obtained from family. Hospitalist service was consulted for admission. At the time evaluation patient is accompanied with family. Again no meaningful history could be obtained. He is obtained from family. Patient lives alone and has been noncompliant and does not follow-up with primary care physician. Family is unaware about sick contacts but endorses that he took a flu shot. They did not notice him having diarrhea, chest pain, fever but he has been getting progressively confused not making sense. 09/22-patient remains critically ill. On mechanical ventilation/sedation on propofol/fentanyl. Urine output stable. Map at goal. White count 7.3, lactic acid normalized, potassium 3.5, Mycoplasma serology positive, x-ray right basilar infiltrate. Start Levaquin. 09/23-patient doing well. Improved respiratory status. PEEP 7/FiO2 45%/tidal volume 500 with pH 7.42/63/59. Quintanilla is draining clear urine. Stable hemodynamics. Worsening chest x-ray with right-sided infiltrate/effusion. On antibiotic coverage. Attempt sedation holiday early tomorrow morning and possible extubation if clinically improves. No family at bedside 09/24-patient overnight on mechanical ventilation. Sedation holiday this morning. Stable labs including white count 6.8, x-ray chest basilar infiltr ates, ABG 7.45/63/57 at 45% FiO2 PEEP 7 tidal volume 500. On spontaneous breathing trials. Extubate to BiPAP today. Family at bedside. Discussed treatment plan 09/25-patient on 45% FiO2 on BiPAP at night, 6 L oxygen this morning off BiPAP. Tolerating diet. Alert and respond to commands. Ongoing physical therapy. Continue diuresis. Lymphedema much improved. Diamox 250 IV today continue ag gressive physical therapy and [facility]. Anticipate additional 72 hours hospitalization. Continue antibiotic coverage. 09/26-patient clinically improving post extubation. Currently on 6 L liter oxygen. Intermittently using BiPAP. Occasionally desats to 80% on minimal activity. Continuing attempts at physical therapy/assisted mobilization. Tolerating diet. DC Quintanilla's catheter today. Telemetry no events. Alert oriented. No family present bedside. Anticipate SNF transfer once available and clinically improved - Constitutional Vitals: Vital Signs Temp Pulse Resp BP Pulse Ox 98.5 F 96 H 16 156/108 91 09/26/19 07:02 09/26/19 09:27 09/26/19 09:27 09/26/19 08:05 09/26/19 09:17 Period Temp Pulse Resp BP Sys/Jacobs Pulse Ox Last 24 Hr 97.8 F-98.5 F 80-96 15-22 118-162/60-108 88-98 Intake and Output 09/25/19 09/26/19 09/26/19 21:59 05:59 13:59 Intake Total 400 240 Output Total 2080 1180 360 Balance -1680 -940 -360 Weight 324 lb Intake & Output: Intake & Output 09/25/19 09/26/19 09/26/19 21:59 05:59 13:59 Intake Total 400 240 Output Total 2080 1180 360 Balance -1680 -940 -360 Weight 324 lb Intake: Oral 400 240 Output: Urine Catheter Amount 2080 1000 360 Void Amount 180 Other: Meal Dinner Percent of Meal Consumed 100% Feeding Ability Independent Urine Appearance Sediment Sediment Uretheral (Quintanilla) Clear Clear Clear Urine Color Pale Pale Uretheral (Quintanilla) Bright Yellow Straw Straw Urine Odor Normal Normal General appearance: no acute distress Exam: Labored breathing Oral cavity dry Sitting on chair Lymphedema improving No telemetry events Medical - PN: Obj Da - Labs CBC & Chem 7: 09/26/19 05:00 09/26/19 05:00 Labs: Abnormal Lab Results 09/26/19 09/26/19 09/25/19 05:00 05:00 04:40 Hct 54.0 H MCHC 30.6 L Seg Neutrophils % Lymphocytes % 8 L Nucleated RBCs 1 H Chloride 91 L 93 L Carbon Dioxide 34 H 35 H Uric Acid 8.7 H Phosphorus 4.6 H Albumin Triglycerides 177 H 09/25/19 09/24/19 09/24/19 04:40 04:45 04:45 Hct MCHC 30.4 L 30.7 L Seg Neutrophils % 81 H Lymphocytes % 6 L 5 L Nucleated RBCs Chloride Carbon Dioxide 32 H Uric Acid Phosphorus Albumin 3.1 L Triglycerides Meds: Medications Acetaminophen (Tylenol) 650 mg PO Q4-6HP PRN; Protocol PRN Reason: Per Pain Protocol/Fever > 101 Albuterol/Ipratropium (Duoneb) 3 ml NEB Q4HP PRN PRN Reason: Shortness Of Breath Last Admin: 09/26/19 09:16 Dose: 3 ml Documented by: Bisacodyl (Dulcolax) 10 mg MO Q2-3DAYS PRN PRN Reason: Constipation Budesonide (Pulmicort) 0.5 mg NEB Q12 [facility] Last Admin: 09/26/19 09:16 Dose: 0.5 mg Documented by: Calcium Carbonate/Glycine (Tums) 500 mg CHEWED Q4HP PRN PRN Reason: Dyspepsia Last Admin: 09/25/19 20:42 Dose: 500 mg Documented by: Chlorhexidine Gluconate (Peridex) 15 ml SWABMOUTH BID [facility] Last Admin: 09/26/19 08:14 Dose: 15 ml Documented by: Docusate Sodium (Colace) 100 mg PO BID [facility] Last Admin: 09/26/19 08:14 Dose: 100 mg Documented by: Folic Acid (Folic Acid) 1 mg PO DAILY [facility] Last Admin: 09/26/19 08:14 Dose: 1 mg Documented by: Furosemide (Lasix) 20 mg IV Q8 [facility] Last Admin: 09/26/19 05:31 Dose: 20 mg Documented by: Heparin Sodium (Porcine) (Heparin) 5,000 unit SQ Q12 [facility] Last Admin: 09/26/19 08:13 Dose: 5,000 unit Documented by: Potassium Chloride 40 meq/ (Dextrose) 520 mls @ 130 mls/hr IV UD PRN PRN Reason: K+ = or < 3.5 Levofloxacin (Levaquin) 750 mg in 150 mls @ 100 mls/hr IV Q24H [facility] Magnesium Sulfate (Magnesium Sulfate) 2 gm in 50 mls @ 50 mls/hr IV UD PRN PRN Reason: MG = or < 1.7 Acetaminophen (Ofirmev) 650 mg in 65 mls @ 130 mls/hr IV Q6HP PRN; Protocol PRN Reason: Per Pain Protocol/Fever > 101 Iron Carb/Multivit/Wilson/Folic Acid (Multivitamin W/Minerals) 1 tab PO DAILY [facility] Last Admin: 09/26/19 08:14 Dose: 1 tab Documented by: Melatonin (Melatonin 3mg Tablet) 3 mg PO HSP PRN PRN Reason: Insomnia Last Admin: 09/25/19 21:19 Dose: 3 mg Documented by: Metolazone (Zaroxolyn) 2.5 mg PO DAILY@1330 [facility] Last Admin: 09/25/19 12:26 Dose: 2.5 mg Documented by: Ondansetron HCl (Zofran Odt) 4 mg SL Q4-6HP PRN; Protocol PRN Reason: Nausea And Vomiting Ondansetron HCl (Zofran) 4 mg IV Q4-6HP PRN; Protocol PRN Reason: Nausea And Vomiting Pantoprazole Sodium (Protonix) 40 mg IV BIDAC [facility] Last Admin: 09/26/19 07:29 Dose: 40 mg Documented by: Polyethylene Glycol (Miralax) 17 gm PO DAILYP PRN PRN Reason: Constipation Last Admin: 09/26/19 08:13 Dose: 17 gm Documented by: Potassium Chloride (Klor-Con) 40 meq PO DAILYP PRN PRN Reason: K+ < 3.5 Senna/Docusate Sodium (Senna Plus Tablet) 1 tab PO HS [facility] Last Admin: 09/25/19 21:20 Dose: 1 tab Documented by: Sodium Chloride (Saline Flush) 10 ml IV Q8 [facility] Last Admin: 09/26/19 05:32 Dose: 10 ml Documented by: Thiamine HCl (Vitamin B1) 100 mg PO DAILY [facility] Last Admin: 09/26/19 08:14 Dose: 100 mg Documented by: Medical - PN: A/P - Time Spent With Patient Total time spent is greater than 50% in coordination of care (as documented) at patient's floor/unit and/or counseling patient: 25 - 35 minutes (1) Acute respiratory failure with hypoxia and hypercapnia Status: Acute Assessment and plan: * Acute respiratory failure with hypoxia and hypercapnia with PCO2 100 and sats mid 60s. Requiring intermittent BiPAP. Gradual clinical improvement noted. * Right lower lobe pneumonia-worsening radiologically in the last 24 hours however post extubation film likely atelectasis from hypostatic lung. Cl inically improving on Levaquin. Continue aggressive pulmonary toilet/pulmonary toilet/oxygen * Hypercapnic encephalopathy-resolved, on intermittent noninvasive ventilation. * Acute decompensated heart failure-echocardiogram preserved EF at 60%, diastolic dysfunction. Continue diuresis, additional dose Diamox for contraction alkalosis * Morbid obesity-BMI over 44 * History of hypertension * Prophylaxis heparin * Full code Plan * Continue Levaquin * Continue aggressive PT OT/nutrition support/assisted mobility * Continue aggressive pulmonary toilet/noninvasive ventilation * PT OT nutrition support/aspiration precaution * Discharge planning to SNF Current Visit: Yes Medical - PN: Qual - VTE Deep Vein Thrombosis/Pulmonary Embolism Present on Admission: No
[2019-09-26] MEDS: LEVOFLOXACIN 750 MG/150 ML BAG IV SCH (10:07)
[2019-09-26] MEDS ORDERED: CETIRIZINE 10 MG TABLET PO ONE (17:15)
[2019-09-26] MEDS: MELATONIN 3 MG TABLET PO PRN (20:47)
[2019-09-26] MEDS: SENNOSIDES/DOCUSATE SODIUM 1 TAB TABLET PO SCH (20:47)
[2019-09-27] MEDS: 0.9 % SODIUM CHLORIDE 10 ML SYRINGE IV SCH ×3 (05:31→21:08)
[2019-09-27] MEDS: FUROSEMIDE 20 MG/2 ML VIAL IV SCH ×3 (05:31→21:10)
[2019-09-27] MEDS: PANTOPRAZOLE 40 MG VIAL IV SCH ×2 (08:01→17:35)
[2019-09-27] MEDS: BUDESONIDE 0.5 MG/2 ML AMPUL.NEB NEB SCH (09:08)
[2019-09-27] MEDS: IPRATROPIUM/ALBUTEROL 3 ML AMPUL.NEB NEB PRN (09:11)
[2019-09-27] MEDS ORDERED: acetaZOLAMIDE 250 MG TABLET PO ONE ×2 (09:40→10:13)
--- NOTE | 2019-09-27 09:46 | Internal Med Progress Note ---
Medical - PN: Subj Patient information: Note initiated : 09/27/19 at 9:41 am Service Date, if different from initiated Date: [] Patient: Sharif Grady 69 y/o M admitted on 09/21/19 for neurological deficit. Chief Complaint: [] Interval history: Mr. Grady is a 69 year old M with a history of obstructive sleep apnea/COPD who presents with 1 week onset of progressive confusion and shortness of breath. He is accompanied with her son Nicholas and daughter. On arrival patient was significantly hypoxic with sats in mid 60s. He was probably started on BiPAP after initial blood gas revealed a PCO2 of 100. Chest imaging was consistent with pneumonia. Patient did not tolerate BiPAP and hence currently being intubated. Patient was unable to provide a meaningful history due to confused state. Most of the history was obtained from family. Hospitalist service was consulted for admission. At the time evaluation patient is accompanied with family. Again no meaningful history could be obtained. He is obtained from family. Patient lives alone and has been noncompliant and does not follow-up with primary care physician. Family is unaware about sick contacts but endorses that he took a flu shot. They did not notice him having diarrhea, chest pain, fever but he has been getting progressively confused not making sense. 09/22-patient remains critically ill. On mechanical ventilation/sedation on propofol/fentanyl. Urine output stable. Map at goal. White count 7.3, lactic acid normalized, potassium 3.5, Mycoplasma serology positive, x-ray right basilar infiltrate. Start Levaquin. 09/23-patient doing well. Improved respiratory status. PEEP 7/FiO2 45%/tidal volume 500 with pH 7.42/63/59. Quintanilla is draining clear urine. Stable hemodynamics. Worsening chest x-ray with right-sided infiltrate/effusion. On antibiotic coverage. Attempt sedation holiday early tomorrow morning and possible extubation if clinically improves. No family at bedside 09/24-patient overnight on mechanical ventilation. Sedation holiday this morning. Stable labs including white count 6.8, x-ray chest basilar infiltr ates, ABG 7.45/63/57 at 45% FiO2 PEEP 7 tidal volume 500. On spontaneous breathing trials. Extubate to BiPAP today. Family at bedside. Discussed treatment plan 09/25-patient on 45% FiO2 on BiPAP at night, 6 L oxygen this morning off BiPAP. Tolerating diet. Alert and respond to commands. Ongoing physical therapy. Continue diuresis. Lymphedema much improved. Diamox 250 IV today continue ag gressive physical therapy and transition to half-way home on discharge. Anticipate additional 72 hours hospitalization. Continue antibiotic coverage. 09/26-patient clinically improving post extubation. Currently on 6 L liter oxygen. Intermittently using BiPAP. Occasionally desats to 80% on minimal activity. Continuing attempts at physical therapy/assisted mobilization. Tolerating diet. DC Quintanilla's catheter today. Telemetry no events. Alert oriented. No family present bedside. Anticipate SNF transfer once available and clinically improved 09/27-patient feeling a lot better. On 4 L oxygen. Off BiPAP. Ambulating. Lymphedema much improved. Tolerating diet. Ongoing physical therapy. Anticipate discharge in 48 hours to SNF pending clinical improvement. No overnight fever chills, no concerns per staff. - Constitutional Vitals: Vital Signs Temp Pulse Resp BP Pulse Ox 98.3 F 94 H 12 168/82 94 09/27/19 08:35 09/27/19 09:12 09/27/19 09:12 09/27/19 06:02 09/27/19 09:12 Period Temp Pulse Resp BP Sys/Jacobs Pulse Ox Last 24 Hr 97.0 F-98.3 F 13-94 12-34 105-168/62-107 90-97 Intake and Output 09/26/19 09/27/19 09/27/19 21:59 05:59 13:59 Intake Total 390 480 Output Total 1250 251 600 Balance -860 -251 -120 Weight 309 lb 11.2 oz Intake & Output: Intake & Output 09/26/19 09/27/19 09/27/19 21:59 05:59 13:59 Intake Total 390 480 Output Total 1250 251 600 Balance -860 -251 -120 Weight 309 lb 11.2 oz Intake: IV 150 Oral 240 480 Output: Void Amount 1250 250 600 # of times incontinent of urine 1 Other: Meal Dinner Breakfast Percent of Meal Consumed 100% 100% Urine Appearance Clear Clear Urine Color Pale Bright Yellow Urine Odor Normal General appearance: no acute distress Exam: Alert oriented Nonlabored breathing on 4 L oxygen Lymphedema much improved Tachycardia resolved Medical - PN: Obj Da - Labs CBC & Chem 7: 09/26/19 05:00 09/26/19 05:00 Labs: Abnormal Lab Results 09/26/19 09/26/19 09/25/19 05:00 05:00 04:40 Hct 54.0 H MCHC 30.6 L Seg Neutrophils % Lymphocytes % 8 L Nucleated RBCs 1 H Chloride 91 L 93 L Carbon Dioxide 34 H 35 H Uric Acid 8.7 H Phosphorus 4.6 H Triglycerides 177 H 09/25/19 04:40 Hct MCHC 30.4 L Seg Neutrophils % 81 H Lymphocytes % 6 L Nucleated RBCs Chloride Carbon Dioxide Uric Acid Phosphorus Triglycerides Meds: Medications Acetaminophen (Tylenol) 650 mg PO Q4-6HP PRN; Protocol PRN Reason: Per Pain Protocol/Fever > 101 Last Admin: 09/26/19 20:47 Dose: 650 mg Documented by: Acetazolamide (Acetazolamide) 250 mg PO ONCE ONE Stop: 09/27/19 09:41 Albuterol/Ipratropium (Duoneb) 3 ml NEB Q4HP PRN PRN Reason: Shortness Of Breath Last Admin: 09/27/19 09:11 Dose: 3 ml Documented by: Bisacodyl (Dulcolax) 10 mg SD Q2-3DAYS PRN PRN Reason: Constipation Budesonide (Pulmicort) 0.5 mg NEB Q12 [facility] Last Admin: 09/27/19 09:08 Dose: 0.5 mg Documented by: Calcium Carbonate/Glycine (Tums) 500 mg CHEWED Q4HP PRN PRN Reason: Dyspepsia Last Admin: 09/25/19 20:42 Dose: 500 mg Documented by: Chlorhexidine Gluconate (Peridex) 15 ml SWABMOUTH BID [facility] Last Admin: 09/26/19 20:50 Dose: 15 ml Documented by: Docusate Sodium (Colace) 100 mg PO BID [facility] Last Admin: 09/26/19 20:47 Dose: 100 mg Documented by: Folic Acid (Folic Acid) 1 mg PO DAILY [facility] Last Admin: 09/26/19 08:14 Dose: 1 mg Documented by: Furosemide (Lasix) 20 mg IV Q8 [facility] Last Admin: 09/27/19 05:31 Dose: 20 mg Documented by: Heparin Sodium (Porcine) (Heparin) 5,000 unit SQ Q12 [facility] Last Admin: 09/26/19 20:47 Dose: 5,000 unit Documented by: Potassium Chloride 40 meq/ (Dextrose) 520 mls @ 130 mls/hr IV UD PRN PRN Reason: K+ = or < 3.5 Levofloxacin (Levaquin) 750 mg in 150 mls @ 100 mls/hr IV Q24H [facility] Last Infusion: 09/26/19 20:51 Dose: Infused Documented by: Magnesium Sulfate (Magnesium Sulfate) 2 gm in 50 mls @ 50 mls/hr IV UD PRN PRN Reason: MG = or < 1.7 Acetaminophen (Ofirmev) 650 mg in 65 mls @ 130 mls/hr IV Q6HP PRN; Protocol PRN Reason: Per Pain Protocol/Fever > 101 Iron Carb/Multivit/Time Recorder/Folic Acid (Multivitamin W/Minerals) 1 tab PO DAILY [facility] Last Admin: 09/26/19 08:14 Dose: 1 tab Documented by: Melatonin (Melatonin 3mg Tablet) 3 mg PO HSP PRN PRN Reason: Insomnia Last Admin: 09/26/19 20:47 Dose: 3 mg Documented by: Ondansetron HCl (Zofran Odt) 4 mg SL Q4-6HP PRN; Protocol PRN Reason: Nausea And Vomiting Ondansetron HCl (Zofran) 4 mg IV Q4-6HP PRN; Protocol PRN Reason: Nausea And Vomiting Pantoprazole Sodium (Protonix) 40 mg IV BIDAC [facility] Last Admin: 09/27/19 08:01 Dose: 40 mg Documented by: Polyethylene Glycol (Miralax) 17 gm PO DAILYP PRN PRN Reason: Constipation Last Admin: 09/26/19 08:13 Dose: 17 gm Documented by: Potassium Chloride (Klor-Con) 40 meq PO DAILYP PRN PRN Reason: K+ < 3.5 Senna/Docusate Sodium (Senna Plus Tablet) 1 tab PO HS [facility] Last Admin: 09/26/19 20:47 Dose: 1 tab Documented by: Sodium Chloride (Saline Flush) 10 ml IV Q8 [facility] Last Admin: 09/27/19 05:31 Dose: 10 ml Documented by: Thiamine HCl (Vitamin B1) 100 mg PO DAILY [facility] Last Admin: 09/26/19 08:14 Dose: 100 mg Documented by: Medical - PN: A/P - Time Spent With Patient Total time spent is greater than 50% in coordination of care (as documented) at patient's floor/unit and/or counseling patient: 25 - 35 minutes (1) Acute respiratory failure with hypoxia and hypercapnia Status: Acute Assessment and plan: * Acute respiratory failure with hypoxia and hypercapnia with PCO2 100 and sats mid 60s. Off BiPAP. Now on 4 L oxygen. CO2 Damon corrected at baseline 60 * Right lower lobe pneumonia-Mycoplasma serology positive. Clinical improvement noted. Continue Levaquin, aggressive pulmonary toilet/pulmonary toilet/oxygen * Hypercapnic encephalopathy-resolved with normalization of PCO2 * Acute decompensated heart failure-echocardiogram preserved EF at 60%, diastolic dysfunction. Ongoing diuresis, continue Diamox for contraction alkalosis * Morbid obesity-BMI over 44 * History of hypertension * Prophylaxis heparin * Full code Plan * Continue Levaquin * Transfer to [facility] * Diamox for contraction alkalosis * Switch to oral diuretics in 24 hours * Wean oxygen as tolerated * PT OT/nutrition support * Discharge planning to SNF likely in 48 hours Current Visit: Yes Medical - PN: Qual - VTE Deep Vein Thrombosis/Pulmonary Embolism Present on Admission: No
[2019-09-27] MEDS: THIAMINE 100 MG TABLET PO SCH (09:51)
[2019-09-27] MEDS: DOCUSATE SODIUM 100 MG CAPSULE PO SCH ×2 (09:51→21:07)
[2019-09-27] MEDS: LEVOFLOXACIN 750 MG/150 ML BAG IV SCH (09:51)
[2019-09-27] MEDS: MULTIVIT,THER IRON,CA,FA & MIN 1 TABLET PO SCH (09:51)
[2019-09-27] MEDS: FOLIC ACID 1 MG TABLET PO SCH (09:51)
[2019-09-27] MEDS: CHLORHEXIDINE GLUCONATE 1 ML ORAL.SOL SWABMOUTH SCH (09:52)
[2019-09-27] MEDS: HEPARIN 5,000 UNIT/ML VIAL SQ SCH ×2 (09:52→21:08)
[2019-09-27] MEDS ORDERED: POTASSIUM CHLORIDE 40 MEQ in DEXTROSE 5% IN WATER 500 ML IV PRN (10:13)
[2019-09-27] MEDS ORDERED: ONDANSETRON 4 MG/2 ML VIAL IV PRN (10:13)
[2019-09-27] MEDS ORDERED: ACETAMINOPHEN 650 MG/65 ML BOTTLE IV PRN (10:13)
[2019-09-27] MEDS ORDERED: CALCIUM CARBONATE 500 MG TAB.CHEW CHEWED PRN (10:13)
[2019-09-27] MEDS ORDERED: POTASSIUM CHLORIDE 20 MEQ PACKET PO PRN (10:13)
[2019-09-27] MEDS ORDERED: MAGNESIUM SULFATE 2 GM/50 ML BAG IV PRN (10:13)
[2019-09-27] MEDS ORDERED: POLYETHYLENE GLYCOL 3350 17 GM PACKET PO PRN (10:13)
[2019-09-27] MEDS ORDERED: IPRATROPIUM/ALBUTEROL 3 ML AMPUL.NEB NEB PRN (10:13)
[2019-09-27] MEDS ORDERED: ONDANSETRON 4 MG ODT TABLET SL PRN (10:13)
[2019-09-27] MEDS ORDERED: ACETAMINOPHEN 325 MG TABLET PO PRN (10:13)
[2019-09-27] MEDS ORDERED: BISACODYL 10 MG SUPP.RECT PR PRN (10:13)
[2019-09-27] MEDS ORDERED: CHLORHEXIDINE GLUCONATE 1 ML ORAL.SOL SWABMOUTH SCH (21:00)
[2019-09-27] MEDS ORDERED: BUDESONIDE 0.5 MG/2 ML AMPUL.NEB NEB SCH (21:00)
[2019-09-27] MEDS ORDERED: MELATONIN 3 MG TABLET PO PRN (21:00)
[2019-09-27] MEDS: SENNOSIDES/DOCUSATE SODIUM 1 TAB TABLET PO SCH (21:07)
[2019-09-28 04:05] LABS: POC Blood Urea Nitrogen 42 mg/dl (8-23); POC CO2 36 mmol/L (22-30); POC Calcium, Ionized 1.28 mmol/L (1.16-1.32); POC Chloride 92 mmol/L (96-108); POC Creatinine 1.2 mg/dl (0.7-1.2); POC Glucose, Random 118 mg/dL (70-105); POC Potassium 3.2 mmol/L (3.3-5.1); POC Sodium 135 mmol/L (133-145)
[2019-09-28] MEDS ORDERED: AMIODARONE 150 MG/3 ML VIAL IV ONE (04:21)
[2019-09-28] MEDS ORDERED: AMIODARONE 360 MG/200 ML BAG IV ONE (04:24)
[2019-09-28] MEDS ORDERED: AMIODARONE 150 MG in DEXTROSE 5% IN WATER 50 ML IV ONE (04:33)
[2019-09-28 04:43] LABS: Hemoglobin 16.4 g/dL (13.7-17.5); Mean Corpuscular HGB Conc 31.5 g/dL (31.0-36.0); Mean Platelet Volume 10.1 fL (7.4-10.4); Platelet Count 202 K/mcL (140-440); RBC 5.98 M/mcL (4.63-6.08); Red Cell Distribution Width 13.2 % (11.5-14.5)
[2019-09-28] MEDS: AMIODARONE 360 MG in PREMIX 1 BAG IV SCH ×2 (04:43→11:03)
[2019-09-28 05:00] LABS: ALT/SGPT 22 U/l (0-40); AST/SGOT 25 U/l (0-37); Albumin 3.5 gm/dL (3.2-5.2); Alkaline Phosphatase 57 U/L (39-117); Bilirubin,Direct < 0.2 mg/dL (0.0-0.3); Bilirubin,Total 0.4 mg/dL (0.0-1.0); Carbon Dioxide 32 mmol/L (22-30); Globulin 3.5 gm/dL (2.2-3.7); Glomerular Filtration Rate 77; Glucose 117 mg/dL (70-105); Lactate Dehydrogenase 184 U/L (94-250); Phosphorous 4.2 mg/dL (2.7-4.5); Triglycerides 204 mg/dl (<150)
[2019-09-28 05:06] LABS: Blood Urea Nitrogen 42 mg/dl (8-23); Chloride 91 mmol/L (96-108); Uric Acid 10.6 mg/dL (2.5-8.0)
[2019-09-28 05:21] LABS: Band Neutrophils % 2 % (0-10); Eosinophils % (Manual) 5 % (0-7); Lymphocytes % 17 % (15-49); Monocytes % (Manual) 18 % (1-12); Platelet Estimate NORMAL (NORMAL); RBC Morphology NORMAL (NORMAL); Segmented Neutrophils % 58 % (38-78)
[2019-09-28] MEDS: 0.9 % SODIUM CHLORIDE 10 ML SYRINGE IV SCH ×5 (06:06→22:00)
[2019-09-28] MEDS ORDERED: fentaNYL 50 ML ONE (06:39)
[2019-09-28] MEDS: PANTOPRAZOLE 40 MG VIAL IV SCH (08:45)
[2019-09-28] MEDS ORDERED: LEVOFLOXACIN 750 MG/150 ML BAG IV SCH (09:00)
[2019-09-28] MEDS: DOCUSATE SODIUM 100 MG CAPSULE PO SCH ×2 (10:11→21:50)
[2019-09-28] MEDS: FOLIC ACID 1 MG TABLET PO SCH (10:11)
[2019-09-28] MEDS: HEPARIN 5,000 UNIT/ML VIAL SQ SCH ×2 (10:11→21:50)
[2019-09-28] MEDS: MULTIVIT,THER IRON,CA,FA & MIN 1 TABLET PO SCH (10:11)
[2019-09-28] MEDS: THIAMINE 100 MG TABLET PO SCH (10:12)
[2019-09-28] MEDS ORDERED: FUROSEMIDE 40 MG TABLET PO ONE (11:05)
[2019-09-28] MEDS ORDERED: POTASSIUM CHLORIDE 20 MEQ TABLET PO ONE (11:06)
--- NOTE | 2019-09-28 11:46 | Internal Med Progress Note ---
Medical - PN: Subj Patient information: Note initiated : 09/28/19 at 11:43 am Service Date, if different from initiated Date: [] Patient: Sharif Grady 69 y/o M admitted on 09/21/19 for neurological deficit. Chief Complaint: [] Interval history: Mr. Grady is a 69 year old M with a history of obstructive sleep apnea/COPD who presents with 1 week onset of progressive confusion and shortness of breath. He is accompanied with her son Nicholas and daughter. On arrival patient was significantly hypoxic with sats in mid 60s. He was probably started on BiPAP after initial blood gas revealed a PCO2 of 100. Chest imaging was consistent with pneumonia. Patient did not tolerate BiPAP and hence currently being intubated. Patient was unable to provide a meaningful history due to confused state. Most of the history was obtained from family. Hospitalist service was consulted for admission. At the time evaluation patient is accompanied with family. Again no meaningful history could be obtained. He is obtained from family. Patient lives alone and has been noncompliant and does not follow-up with primary care physician. Family is unaware about sick contacts but endorses that he took a flu shot. They did not notice him having diarrhea, chest pain, fever but he has been getting progressively confused not making sense. 09/22-patient remains critically ill. On mechanical ventilation/sedation on propofol/fentanyl. Urine output stable. Map at goal. White count 7.3, lactic acid normalized, potassium 3.5, Mycoplasma serology positive, x-ray right basilar infiltrate. Start Levaquin. 09/23-patient doing well. Improved respiratory status. PEEP 7/FiO2 45%/tidal volume 500 with pH 7.42/63/59. Quintanilla is draining clear urine. Stable hemodynamics. Worsening chest x-ray with right-sided infiltrate/effusion. On antibiotic coverage. Attempt sedation holiday early tomorrow morning and possible extubation if clinically improves. No family at bedside 09/24-patient overnight on mechanical ventilation. Sedation holiday this morning. Stable labs including white count 6.8, x-ray chest basilar infilt rates, ABG 7.45/63/57 at 45% FiO2 PEEP 7 tidal volume 500. On spontaneous breathing trials. Extubate to BiPAP today. Family at bedside. Discussed treatment plan 09/25-patient on 45% FiO2 on BiPAP at night, 6 L oxygen this morning off BiPAP. Tolerating diet. Alert and respond to commands. Ongoing physical therapy. Continue diuresis. Lymphedema much improved. Diamox 250 IV today continue a ggressive physical therapy and [facility] discharge. Anticipate additional 72 hours hospitalization. Continue antibiotic coverage. 09/26-patient clinically improving post extubation. Currently on 6 L liter oxygen. Intermittently using BiPAP. Occasionally desats to 80% on minimal activity. Continuing attempts at physical therapy/assisted mobilization. Tolerating diet. DC Quintanilla's catheter today. Telemetry no events. Alert oriented. No family present bedside. Anticipate SNF transfer once available and clinically improved 09/27-patient feeling a lot better. On 4 L oxygen. Off BiPAP. Ambulating. Lymphedema much improved. Tolerating diet. Ongoing physical therapy. Anticipate discharge in 48 hours to SNF pending clinical improvement. No overnight fever chills, no concerns per staff. 09/28-patient had episodes of ventricular tachyarrhythmia at night requiring amiodarone drip. Stabilized post infusion. White count 6000. Diuresing well. Diuretics changed to p.o. Creatinine 1 with BUN 42 prerenal secondary to diuretics. Potassium 3.1 on replacement. On 4 L nasal cannula, NSR. Continue PT OT/ambulation. Anticipate discharge to SNF in 24 to 48 hours pending clinical improvement. DC antibiotic coverage. Generalized erythematous rash in volving back abdomen folds and pressure areas. Likely reaction to antibiotics. DC Levaquin. Eosinophils 5% on CBC. Continue monitoring. - Constitutional Vitals: Vital Signs Temp Pulse Resp BP Pulse Ox 97.8 F 86 18 140/67 95 09/28/19 08:00 09/28/19 06:00 09/28/19 11:02 09/28/19 11:02 09/28/19 11:02 Period Temp Pulse Resp BP Sys/Jacobs Pulse Ox Last 24 Hr 97.5 F-98.8 F 80-98 16-20 113-147/54-82 83-97 Intake and Output 09/27/19 09/28/19 09/28/19 21:59 05:59 13:59 Intake Total 293 710 Output Total 1 700 400 Balance -1 -407 310 Weight 339 lb 12.8 oz 328 lb Patient Weight 09/29/19 05:59 Weight 328 lb Intake & Output: Intake & Output 09/27/19 09/28/19 09/28/19 21:59 05:59 13:59 Intake Total 293 710 Output Total 1 700 400 Balance -1 -407 310 Weight 339 lb 12.8 oz 328 lb Intake: IV 53 350 Cordarone 150 mg In Dextrose 5% 53 in Water 50 ml @ 300 mls/hr IV ONCE ONE Rx#:[id number] Nexterone 360 mg In Premix 1 200 Bag @ 1 MG/MIN 33.333 mls/hr IV .Q6H [facility] Rx#:[id number] Oral 240 360 Output: Void Amount 700 400 # of times incontinent of urine 1 Other: Meal Dinner Breakfast Percent of Meal Consumed 100% 100% Feeding Ability Independent Urine Appearance Clear Clear Clear Urine Color Bright Yellow Dark Yellow Dark Yellow Urine Odor Normal # Voids 2 General appearance: morbidly obese, no acute distress Exam: Extensive rash on back and abdomen erythematous and blanching Venous stasis Normal sinus rhythm with intermittent PVCs/runs of V. tach on classroom monitor Nonlabored breathing No anxiety Improved lymphedema Medical - PN: Obj Da - Labs CBC & Chem 7: 09/28/19 03:55 09/28/19 03:55 Labs: Abnormal Lab Results 09/28/19 09/28/19 09/26/19 03:55 03:55 05:00 Hct 52.0 H MCHC Lymphocytes % Monocytes % (Manual) 18 H Nucleated RBCs POC Potassium 3.2 L Potassium 3.1 L POC Chloride 92 L Chloride 91 L 91 L Carbon Dioxide 32 H 34 H POC Total CO2 36 H POC BUN 42 H BUN 42 H Glucose 117 H POC Glucose 118 H Uric Acid 10.6 H 8.7 H Phosphorus 4.6 H Triglycerides 204 H 177 H 09/26/19 05:00 Hct 54.0 H MCHC 30.6 L Lymphocytes % 8 L Monocytes % (Manual) Nucleated RBCs 1 H POC Potassium Potassium POC Chloride Chloride Carbon Dioxide POC Total CO2 POC BUN BUN Glucose POC Glucose Uric Acid Phosphorus Triglycerides Meds: Medications Acetaminophen (Tylenol) 650 mg PO Q4-6HP PRN; Protocol PRN Reason: Per Pain Protocol/Fever > 101 Albuterol/Ipratropium (Duoneb) 3 ml NEB Q4HP PRN PRN Reason: Shortness Of Breath Bisacodyl (Dulcolax) 10 mg RI Q2-3DAYS PRN PRN Reason: Constipation Calcium Carbonate/Glycine (Tums) 500 mg CHEWED Q4HP PRN PRN Reason: Dyspepsia Docusate Sodium (Colace) 100 mg PO BID [facility] Last Admin: 09/28/19 10:11 Dose: 100 mg Documented by: Folic Acid (Folic Acid) 1 mg PO DAILY [facility] Last Admin: 09/28/19 10:11 Dose: 1 mg Documented by: Furosemide (Lasix) 40 mg PO BIDD [facility] Heparin Sodium (Porcine) (Heparin) 5,000 unit SQ Q12 [facility] Last Admin: 09/28/19 10:11 Dose: 5,000 unit Documented by: Potassium Chloride 40 meq/ (Dextrose) 520 mls @ 130 mls/hr IV UD PRN PRN Reason: K+ = or < 3.5 Magnesium Sulfate (Magnesium Sulfate) 2 gm in 50 mls @ 50 mls/hr IV UD PRN PRN Reason: MG = or < 1.7 Acetaminophen (Ofirmev) 650 mg in 65 mls @ 130 mls/hr IV Q6HP PRN; Protocol PRN Reason: Per Pain Protocol/Fever > 101 Iron Carb/Multivit/[place]/Folic Acid (Multivitamin W/Minerals) 1 tab PO DAILY [facility] Last Admin: 09/28/19 10:11 Dose: 1 tab Documented by: Melatonin (Melatonin 3mg Tablet) 3 mg PO HSP PRN PRN Reason: Insomnia Last Admin: 09/27/19 21:30 Dose: 3 mg Documented by: Ondansetron HCl (Zofran Odt) 4 mg SL Q4-6HP PRN; Protocol PRN Reason: Nausea And Vomiting Ondansetron HCl (Zofran) 4 mg IV Q4-6HP PRN; Protocol PRN Reason: Nausea And Vomiting Pantoprazole Sodium (Protonix) 40 mg PO BIDAC [facility] Polyethylene Glycol (Miralax) 17 gm PO DAILYP PRN PRN Reason: Constipation Potassium Chloride (Klor-Con) 40 meq PO DAILYP PRN PRN Reason: K+ < 3.5 Last Admin: 09/28/19 04:16 Dose: 40 meq Documented by: Senna/Docusate Sodium (Senna Plus Tablet) 1 tab PO HS [facility] Last Admin: 09/27/19 21:07 Dose: 1 tab Documented by: Sodium Chloride (Saline Flush) 10 ml IV Q8 [facility] Last Admin: 09/28/19 10:30 Dose: 10 ml Documented by: Thiamine HCl (Vitamin B1) 100 mg PO DAILY [facility] Last Admin: 09/28/19 10:12 Dose: 100 mg Documented by: Medical - PN: A/P - Time Spent With Patient Total time spent is greater than 50% in coordination of care (as documented) at patient's floor/unit and/or counseling patient: 25 - 35 minutes (1) Acute respiratory failure with hypoxia and hypercapnia Status: Acute Assessment and plan: * Ventricular tachyarrhythmia-status post amiodarone load. Back in sinus * Hypokalemia on oral replacement * Acute respiratory failure with hypoxia and hypercapnia -PCO2 100 and sats mid 60s. Resolved and currently off BiPAP. Continue 4 L oxygen and wean as tolerated. * Right lower lobe pneumonia-Mycoplasma serology positive. Status post 5 days oral Levaquin * Acute drug reaction with erythematous rash. DC antibiotics. Eosinophil count 5 * Acute change in mental status secondary to hypercapnia resolved * Obesity hypoventilation syndrome/JAYDA with hypercapnia-will need home BiPAP. Sleep study as outpatient for CPAP. Baseline CO2 around 60 * Acute decompensated heart failure-echocardiogram preserved EF at 60%, diastolic dysfunction. Clinically resolved with diuresis * Morbid obesity-BMI over 44 * Venous stasis with lymphedema recommend compression wrap/limb elevation * History of hypertension * Prophylaxis heparin * Full code Plan * Switch to oral diuretics * DC antibiotics * Wean oxygen as tolerated * Aggressive twice daily physical therapy * Outpatient pulmonary follow-up for sleep study/home CPAP * Nutrition support * Discharge planning to SNF likely in 48 hours Current Visit: Yes Medical - PN: Qual - VTE Deep Vein Thrombosis/Pulmonary Embolism Present on Admission: No
[2019-09-28] MEDS: FUROSEMIDE 40 MG TABLET PO SCH (16:07)
[2019-09-28] MEDS: PANTOPRAZOLE 40 MG TABLET PO SCH (17:03)
[2019-09-28] MEDS: SENNOSIDES/DOCUSATE SODIUM 1 TAB TABLET PO SCH (21:50)
[2019-09-29] MEDS: 0.9 % SODIUM CHLORIDE 10 ML SYRINGE IV SCH ×2 (06:33→06:36)
[2019-09-29] MEDS: FUROSEMIDE 40 MG TABLET PO SCH (08:10)
[2019-09-29] MEDS: PANTOPRAZOLE 40 MG TABLET PO SCH (08:10)
[2019-09-29] MEDS: DOCUSATE SODIUM 100 MG CAPSULE PO SCH (09:25)
[2019-09-29] MEDS: MULTIVIT,THER IRON,CA,FA & MIN 1 TABLET PO SCH (09:25)
[2019-09-29] MEDS: THIAMINE 100 MG TABLET PO SCH (09:25)
[2019-09-29] MEDS: FOLIC ACID 1 MG TABLET PO SCH (09:26)
[2019-09-29] MEDS: HEPARIN 5,000 UNIT/ML VIAL SQ SCH (09:26)
--- NOTE | 2019-09-29 10:33 | Discharge Summary ---
Medical - DS: Prov Patient information: Note initiated : 09/29/19 at 10:28 am Service Date, if different from initiated Date: [] Patient: Sharif Grady 69 y/o M admitted on 09/21/19 for neurological deficit. Chief Complaint: [] Date of admission: 09/21/19 16:40 Discharge date: 09/29/19 Primary care physician: FERCHO Donis Consults: 09/21/19 15:57 Consult to Physician [CONS] Stat Comment: Consulting Provider: Willy Messina Reason For Exam: Physician to Consult 09/27/19 14:48 Consult to Physician [CONS] Routine Comment: Consulting Provider: Priyanka Acevedo Reason For Exam: Physician to Consult Medical - DS: Meds - Discharge Medications Prescriptions: Furosemide [Lasix] 40 mg PO DAILY #30 tablet Potassium Chloride 20 meq PO DAILY #20 packet Active and Home Medications: Home Medications Acetaminophen [Tylenol] 650 mg PO Q4-6HP PRN tablet 09/29/19 [Rx Last Taken Unknown] Bisacodyl [Dulcolax] 10 mg VA Q2-3DAYS PRN supp.rect 09/29/19 [Rx Last Taken Unknown] Furosemide [Lasix] 40 mg PO DAILY #30 tablet 09/29/19 [Rx Last Taken Unknown] Melatonin [Melatonin 3Mg Tablet] 3 mg PO HSP PRN tablet 09/29/19 [Rx Last Taken Unknown] Pantoprazole [Protonix] 40 mg PO DAILY tablet 09/29/19 [Rx Last Taken Unknown] Potassium Chloride 20 meq PO DAILY #20 packet 09/29/19 [Rx Last Taken Unknown] Thiamine [Vitamin B1] 100 mg PO DAILY tablet 09/29/19 [Rx Last Taken Unknown] Medical - DS: Hosp Hospital Course: Discharge diagnosis * Acute respiratory failure with hypoxia and hypercapnia -PCO2 100 and sats mid 60s. Resolved and currently off BiPAP. Continue 3 L oxygen. Schedule outpatient sleep study for outpatient BiPAP. * Right lower lobe pneumonia-Mycoplasma serology positive. Completed Levaquin course * Acute decompensated heart failure-echocardiogram preserved EF at 60%, diastolic dysfunction. Clinically resolved with diuresis. Continue outpatient diuretic/extended-release [id number] * Acute drug reaction with erythematous rash. Resolved off antibiotics * Acute change in mental status secondary to hypercapnia resolved * Morbid obesity with a BMI 44/obesity hypoventilation syndrome/JAYDA with hypercapnia-will need home BiPAP. Sleep study as outpatient for CPAP. Baseline CO2 around 60. Recommend dietary intervention/weight loss measures/aggressive PT OT at [facility] * Brief episode of ventricular tachyarrhythmia-resolved status post amiodarone load. Recommend outpatient cardiology follow-up * Hypokalemia resolved with replacement * Venous stasis with lymphedema recommend compression wrap/limb elevation * History of hypertension Brief hospital course Mr. Grady is a 69 year old M with a history of obstructive sleep apnea/COPD who presents with 1 week onset of progressive confusion and shortness of breath. He is accompanied with her son Nicholas and daughter. On arrival patient was significantly hypoxic with sats in mid 60s. He was probably started on BiPAP after initial blood gas revealed a PCO2 of 100. Chest imaging was consistent with pneumonia. Patient did not tolerate BiPAP and hence currently being intubated. Patient was unable to provide a meaningful history due to confused state. Most of the history was obtained from family. Hospitalist service was consulted for admission. At the time evaluation patient is accompanied with family. Again no meaningful history could be obtained. He is obtained from family. Patient lives alone and has been noncompliant and does not follow-up with primary care physician. Family is unaware about sick contacts but endorses that he took a flu shot. They did not notice him having diarrhea, chest pain, fever but he has been getting progressively confused not making sense. 09/22-patient remains critically ill. On mechanical ventilation/sedation on propofol/fentanyl. Urine output stable. Map at goal. White count 7.3, lactic acid normalized, potassium 3.5, Mycoplasma serology positive, x-ray right basilar infiltrate. Start Levaquin. 09/23-patient doing well. Improved respiratory status. PEEP 7/FiO2 45%/tidal volume 500 with pH 7.42/63/59. Quintanilla is draining clear urine. Stable hemodynamics. Worsening chest x-ray with right-sided infiltrate/effusion. On antibiotic coverage. Attempt sedation holiday early tomorrow morning and possible extubation if clinically improves. No family at bedside 09/24-patient overnight on mechanical ventilation. Sedation holiday this morning. Stable labs including white count 6.8, x-ray chest basilar infiltrates, ABG 7.45/63/57 at 45% FiO2 PEEP 7 tidal volume 500. On spontaneous breathing trials. Extubate to BiPAP today. Family at bedside. Discussed treatment plan 09/25-patient on 45% FiO2 on BiPAP at night, 6 L oxygen this morning off BiPAP. Tolerating diet. Alert and respond to commands. Ongoing physical therapy. Continue diuresis. Lymphedema much improved. Diamox 250 IV today continue aggressive physical therapy and [facility] on [facility]. Anticipate additional 72 hours hospitalization. Continue antibiotic coverage. 09/26-patient clinically improving post extubation. Currently on 6 L liter oxygen. Intermittently using BiPAP. Occasionally desats to 80% on minimal activity. Continuing attempts at physical therapy/assisted mobilization. Tolerating diet. DC Quintanilla's catheter today. Telemetry no events. Alert oriented. No family present bedside. Anticipate SNF transfer once available and clinically improved 09/27-patient feeling a lot better. On 4 L oxygen. Off BiPAP. Ambulating. Lymphedema much improved. Tolerating diet. Ongoing physical therapy. Anticipate discharge in 48 hours to SNF pending clinical improvement. No overnight fever chills, no concerns per staff. 09/28-patient had episodes of ventricular tachyarrhythmia at night requiring amiodarone drip. Stabilized post infusion. White count 6000. Diuresing well. Diuretics changed to p.o. Creatinine 1 with BUN 42 prerenal secondary to diuretics. Potassium 3.1 on replacement. On 4 L nasal cannula, NSR. Continue PT OT/ambulation. Anticipate discharge to SNF in 24 to 48 hours pending clinical improvement. DC antibiotic coverage. Generalized erythematous rash involving back abdomen folds and pressure areas. Likely reaction to antibiotics. DC Levaquin. Eosinophils 5% on CBC. Continue monitoring. 09/29-patient doing well. No overnight events. No concerns per staff. No fever chills nausea vomiting. On 3 L ambulating. Rash resolved. Feels at baseline. Discharging to SNF for continued posthospitalization rehab. Schedule outpatient follow-up with cardiology/pulmonology and continue aggressive weight loss measures/diuretics with continuation of free water restriction 1500 cc a day Discharge diagnosis: . - Time Spent with Patient Total time spent providing and/or coordinating discharge services: Greater than 30 minutes Medical - DS: Exam - Constitutional Vitals: Vital Signs Temp Pulse Resp BP BP Pulse Ox 09/29/19 09:25 20 166/70 93 09/29/19 08:00 98.6 F 20 135/64 93 09/29/19 07:00 94 09/29/19 06:00 71 20 115/57 93 09/29/19 04:00 99.4 F H 70 16 125/58 95 09/29/19 02:00 82 20 147/61 95 09/29/19 00:00 98.8 F 74 140/60 94 09/28/19 22:26 79 H 09/28/19 22:00 83 20 154/68 93 09/28/19 19:51 97.3 F 89 20 152/75 92 09/28/19 18:00 20 130/82 92 09/28/19 16:00 97.6 F 20 150/67 91 09/28/19 15:00 94 09/28/19 14:00 20 133/75 95 09/28/19 12:00 97.4 F 20 137/63 95 09/28/19 11:02 18 140/67 95 Intake and Output 09/28/19 09/29/19 09/29/19 21:59 05:59 13:59 Intake Total 240 420 120 Output Total 500 300 600 Balance -260 120 -480 Intake: Oral 240 420 120 Output: Urine Catheter Amount 200 Void Amount 300 300 600 Other: Meal Dinner Breakfast Percent of Meal Consumed 100% 100% Feeding Ability Independent Urine Appearance Clear Clear Urine Color Dark Tara Dark Yellow Dark Yellow Urine Odor Normal Normal Weight 327 lb 1.6 oz Medical - DS: A/P - Patient/Caregiver Discharge Instructions Activity: as per physical therapy, increase activity as tolerated Diet: Regular Diet Additional Instructions: Follow-up PCP in 5 days Follow-up with cardiology in 1 week Follow-up with pulmonology in 1 to 2 weeks Outpatient sleep study for JAYDA/hypercapnia and need for BiPAP Continue diuretics with potassium as advised Continue extended release metoprolol I recommend [facility] physician to check CBC BMP UA as a posthospital follow-up in 1 week. oxygen @ 3 L titrate to sats 92% Continue aggressive bowel regimen to prevent constipation Continue fall precautions Daily weights measurements and take additional 40 mg Lasix for 3 days if weight gain over 4 pounds over baseline or worsening SOB and call primary care physician if inadequate response to Lasix Continue aggressive PT OT evaluation and treatment at [facility]. ST eval and treatment if indicated Weight loss measures/diet per manager ui All meals on chair sitting upright at 90 degrees to prevent aspiration Return to ER if worsening fever chills shortness of breath, diarrhea, bleeding Continue diet and activity as advised Discussed importance of medication adherence Please review medication list with patient prior to discharge Please schedule follow-up with PCP/Providers prior to discharge and provide printouts Prescriptions: Furosemide [Lasix] 40 mg PO DAILY #30 tablet Potassium Chloride 20 meq PO DAILY #20 packet Other Amb Orders: OT Discharge Order Facility: [facility], Location: Conversion- Intermediate Physical Therapy at Discharge - General Facility: [facility], Location: [facility] Wound Care Instructions Location: None Selected - Problem Maintenance (1) Acute respiratory failure with hypoxia and hypercapnia Status: Acute - Follow up Plan Follow up with: Luis Clark ARNP [Primary Care Provider] - Erwin Jackson MD [Physician] - (follow up at wound healing center if left lower leg and dorsal foot wounds do not heal within 2 weeks, or if they appear to worsen) Disposition: Xfer SNF Prognosis: Critical Rehab Potential: Fair I certify that the patient requires SNF services: Yes Overall status at discharge: patient is progressing back to baseline Medical - DS: Qual - VTE Deep Vein Thrombosis/Pulmonary Embolism Present on Admission: No
[2019-09-29] MEDS ORDERED: METOPROLOL SUCCINATE 25 MG TAB.XL.24H PO ONE (10:53)
== END 2019-09-29 12:00 | DRG 208 ==
LOC: ED 13:24 → ICU 16:40
PROVIDERS: ADMIT Internal Medicine; ATTEND Internal Medicine

== ENCOUNTER 2021-10-21 19:32 | Inpatient (IN) ==
--- NOTE | 2021-10-21 19:42 | Emergency Department Note ---
SOB HPI General Chief Complaint: Shortness of Breath/Dyspnea Stated Complaint: chest pain/SOB Time Seen by Provider: 10/21/21 19:42 Source: patient Mode of arrival: wheelchair Limitations: no limitations History of Present Illness HPI Narrative: Narrative: 71-year-old male presents to the emergency department complaining of shortness of breath. He states it began yesterday. He had a cold feeling and was shaky. He felt his pulse going faster than normal. He had a cough as well as rhinorrhea. He had a fever of 101.8. He rated his his discomfort as an 8 on a 0-to-10 scale. Stated was constant. Nothing made it better. Not associated with any other cause. Patient stated he had been vaccinated against Covid and had had the booster. He presented to emerge from and for further care. Related Data Home Medications Medication Instructions Recorded Confirmed CPAP machine #1 ea 11/07/19 10/22/21 albuterol sulfate 90 mcg/actuation 2 puff INHALATION Q6H PRN 11/07/19 11/07/19 aerosol inhaler (ProAir HFA) fluticasone 113 mcg-salmeterol 14 1 puff INHALATION BID 11/07/19 10/21/21 mcg/actuation breath activated powdr lisinopril PO QDAY 11/07/19 11/07/19 metoprolol succinate 25 mg 12.5 mg PO BID tab 11/07/19 10/21/21 tablet,extended release 24 hr oxygen bled 3lpm CPAP #1 ea 11/07/19 10/22/21 Previous Rx's Medication Instructions Recorded pantoprazole 40 mg tablet,delayed 40 mg PO DAILY tab 09/29/19 release thiamine mononitrate (vit B1) 100 100 mg PO DAILY tab 09/29/19 mg tablet Allergies Allergy/AdvReac Type Severity Reaction Status Date / Time levofloxacin AdvReac Mild Rash Verified 10/21/21 19:37 Review of Systems ROS ROS Narrative: Narrative: Constitutional: Reports fever Eyes: Denies eye pain ENT ED: Reports rhinorrhea Cardiovascular: Reports edema; Denies chest pain Respiratory: Reports shortness of breath Gastrointestinal: Denies abdominal pain Genitourinary: Denies dysuria Musculoskeletal: Reports back pain Integumentary: Denies rash Neurological: Denies headache Psychiatric: Denies anxiety Hematological/Lymphatic: Denies easy bleeding PFSH Narrative Patient History Narrative: Narrative: Medical/Surgical/Family History All Active Problems Paroxysmal sinus tachycardia (Acute) Acute dehydration (Acute) RLL pneumonia (Acute) Obstructive sleep apnea (Chronic) Pneumonia (Acute) CHF (congestive heart failure) (Acute) Sepsis (Acute) Respiratory failure (Acute) Acute respiratory failure with hypoxia and hypercapnia (Acute) History of dilation of urethra (Acute) History of tonsillectomy (Acute) H/O detached retina repair (Acute) History of hernia repair (Acute) History of cataract surgery (Acute) History of surgical removal of intestinal structure (Acute) History of adenoidectomy (Acute) Vitamin B12 deficiency (Acute) Fracture of toe, closed (Acute) Tobacco use (Acute) Fracture of thoracic vertebra, closed (Acute) Psoriasis (Acute) Osteoporosis (Acute) Osteoarthritis (Acute) Neuropathy, lower extremity (Acute) Morbid obesity (Acute) Hypertension, essential (Acute 02/27/15) Hyperlipidemia (Acute) Fracture of finger, closed (Acute) Colonic polyp (Acute) COPD (chronic obstructive pulmonary disease) (Acute) Medical History Colonic polyp COPD (chronic obstructive pulmonary disease) CPAP (continuous positive airway pressure) dependence Fracture of finger, closed Fracture of thoracic vertebra, closed Fracture of toe, closed Hyperlipidemia Hypertension, essential (02/27/15) Morbid obesity Neuropathy, lower extremity Knees Obstructive sleep apnea Osteoarthritis Osteoporosis Psoriasis Tobacco use Vitamin B12 deficiency Surgical History H/O detached retina repair History of adenoidectomy History of cataract surgery Bilateral History of dilation of urethra Urethral stricture History of hernia repair incarcerated abdominal hernia History of surgical removal of intestinal structure Partial bowel resection History of tonsillectomy Family History Father Alzheimer's disease Atherosclerosis of coronary artery Essential hypertension Osteoporosis Rheumatoid arthritis Mother , at 62 years old Atherosclerosis of coronary artery Hyperlipidemia Unknown Diabetes mellitus Social History Smoking Status: Current every day smoker Alcohol Intake Frequency: holiday/special occasion only Exam Narrative Narrative: Narrative: General is a well-developed elderly male who appears in moderate acute distress. Patient was obese. Pulse was 133. Respiratory rate was 31. Temperature was 102.8. Pulse ox was 88% on room air. General Limitations: no limitations General appearance: Present alert and in distress Head Head: Present atraumatic Eye Eye: Present EOMI; Absent scleral icterus ENT ENT: Present normal oropharynx and mucous membranes moist Neck Neck: Present normal inspection and trachea midline Respiratory Respiratory: Present normal lung sounds bilaterally (I heard no wheezes) and respiratory distress; Absent wheezes Cardiovascular Cardiovascular: Present normal rhythm and tachycardia Adbominal Abdominal: Present soft; Absent tenderness Extremities Extremities: Present pedal edema (4+ bilaterally) Back Back: Absent tenderness Neurological Neurological: Present alert and oriented X3 Psychiatric Psychiatric: Present normal affect and normal mood Skin Skin: Present warm (WNL) and dry Course Consultations Consultation #1: Discussed with Dr. Gonzales the admitting hospitalist. Patient with fever tachycardia tachypnea high white count and a right lower lobe infiltrate with hypoxia. Patient will be admitted to the hospital for further care. Dr. Gonzales accepts for admission. Time: 21:41 Vital Signs Vital signs: Vital Signs Temperature 102.8 F H 10/21/21 19:34 Pulse Rate 133 H 10/21/21 19:34 Respiratory Rate 31 H 10/21/21 19:34 Blood Pressure 134/62 10/21/21 19:34 Pulse Oximetry (%) 88 L 10/21/21 19:34 Temperature 97.8 F 10/22/21 09:03 Pulse Rate 99 H 10/22/21 08:58 Respiratory Rate 19 10/22/21 08:58 Blood Pressure 100/42 10/22/21 10:02 Pulse Oximetry (%) 92 10/22/21 10:13 [facility] Narrative Medical decision making narrative: Narrative: Elderly male with 2-day history of fever shaking cold cough rhinorrhea with a rapid heart rate. Differential diagnosis includes Covid pneumonia although has been vaccinated, bacterial pneumonia, viral pneumonia, influenza, sepsis, other IV was established and patient was bolused a liter of normal saline. His blood pressure was normal. He is lactic acid level was normal. Based on those 2 the patient did not require fluid bolus at the time of my evaluation. White count was 19.7 with 88 neutrophils 2 lymphs and 9 monos blood gas lactic acid level was 1.0 which was normal sodium was low at 129 potassium normal at 4.1 chloride low at 93 and bicarb low at 20. Glucose was 119 which is mildly elevated. Chest x-ray to my evaluation showed a right lower lobe infiltrate. Based on the above it was clear that the patient required hospitalization. I ordered ceftriaxone 1 g IV. I contacted Dr. Shaw. who is the hospitalist on duty and he accepted the patient for admission came down evaluate the patient and wrote additional orders Lab Data Result diagrams: 10/22/21 06:06 10/22/21 06:06 Labs: Lab Results 10/21/21 10/21/21 10/21/21 Range/Units 19:49 19:49 19:49 WBC 19.7 H (4.5-11.0) K/mcL RBC 5.04 (4.63-6.08) M/mcL Hgb 14.4 (13.7-17.5) g/dL Hct 43.0 (40.1-51.0) % MCV 85.3 (80.0-100.0) fL MCH 28.6 (26.0-34.0) pg MCHC 33.5 (31.0-36.0) g/dL RDW 12.9 (11.5-14.5) % Plt Count 222 (140-440) K/mcL MPV 9.7 (7.4-10.4) fL Neut % (Auto) 88.3 H (38.0-78.0) % Lymph % (Auto) 2.4 L (15.5-49.0) % Wheeler % (Auto) 9.0 (1.0-12.0) % Eos % (Auto) 0.1 (0.0-7.0) % Baso % (Auto) 0.2 (0.0-2.0) % Lymph # (Auto) 0.48 L (1.50-4.80) K/mcL Wheeler # (Auto) 1.78 H (0.10-0.90) K/mcL Eos # (Auto) 0.01 (0.00-0.70) K/mcL Baso # (Auto) 0.04 (0.00-0.30) K/mcL Absolute Neutrophils 17.43 H (1.80-8.00) K/mcL VBG Lactic Acid (0.5-2.0) mmol/L Sodium 129 L (133-145) mmol/L Potassium 4.1 (3.3-5.1) mmol/L Chloride 93 L (96-108) mmol/L Carbon Dioxide 20 L (22-30) mmol/L Anion Gap 16.0 (8.0-16.0) BUN 14 (8-23) mg/dL Creatinine 0.9 (0.7-1.2) mg/dL GFR Calculation 86 Glucose 119 H (70-105) mg/dL Calcium 9.2 (8.6-10.4) mg/dL Total Bilirubin 0.8 (0.1-1.0) mg/dL AST 15 (<40) U/L ALT 11 (<40) U/L Alkaline Phosphatase 73 (39-117) U/L Total Protein 7.3 (5.9-8.4) gm/dL Albumin 4.0 (3.2-5.2) gm/dL Globulin 3.3 (2.2-3.7) gm/dL Albumin/Globulin Ratio 1.2 (1.0-2.3) Procalcitonin 0.32 H (<0.10) ng/mL 10/21/21 Range/Units 20:03 WBC (4.5-11.0) K/mcL RBC (4.63-6.08) M/mcL Hgb (13.7-17.5) g/dL Hct (40.1-51.0) % MCV (80.0-100.0) fL MCH (26.0-34.0) pg MCHC (31.0-36.0) g/dL RDW (11.5-14.5) % Plt Count (140-440) K/mcL MPV (7.4-10.4) fL Neut % (Auto) (38.0-78.0) % Lymph % (Auto) (15.5-49.0) % Wheeler % (Auto) (1.0-12.0) % Eos % (Auto) (0.0-7.0) % Baso % (Auto) (0.0-2.0) % Lymph # (Auto) (1.50-4.80) K/mcL Wheeler # (Auto) (0.10-0.90) K/mcL Eos # (Auto) (0.00-0.70) K/mcL Baso # (Auto) (0.00-0.30) K/mcL Absolute Neutrophils (1.80-8.00) K/mcL VBG Lactic Acid 1.0 (0.5-2.0) mmol/L Sodium (133-145) mmol/L Potassium (3.3-5.1) mmol/L Chloride (96-108) mmol/L Carbon Dioxide (22-30) mmol/L Anion Gap (8.0-16.0) BUN (8-23) mg/dL Creatinine (0.7-1.2) mg/dL GFR Calculation Glucose (70-105) mg/dL Calcium (8.6-10.4) mg/dL Total Bilirubin (0.1-1.0) mg/dL AST (<40) U/L ALT (<40) U/L Alkaline Phosphatase (39-117) U/L Total Protein (5.9-8.4) gm/dL Albumin (3.2-5.2) gm/dL Globulin (2.2-3.7) gm/dL Albumin/Globulin Ratio (1.0-2.3) Procalcitonin (<0.10) ng/mL ED POC Tests ED POC Tests: MELO - SARS Antigen Negative EKG Data EKG #1: EKG shows normal: sinus rhythm Rate: tachycardia [place]/QRS: normal Heart block present: None ST segment elevation in: None ST segment depression in: None Interpretation: other (Sinus tachycardic, abnormal EKG) Discharge Plan Patient/Caregiver Discharge Instructions Pt seen by THERMAL CUTTING MACHINE OPERATOR/PA only: No Clinical Impression: RLL pneumonia Patient Disposition: Xfer As Inpt ([facility]) Condition: Fair Discharge Date/Time: 10/21/21 22:53
[2021-10-21] MEDS ORDERED: 0.9 % SODIUM CHLORIDE 1,000 ML IV ONE (19:44)
[2021-10-21] MEDS ORDERED: cefTRIAXone 1 GM VIAL IV ONE ×2 (19:57→23:51)
[2021-10-21] MEDS ORDERED: VANCOMYCIN 500 MG in 0.9 % SODIUM CHLORIDE 100 ML IV ONE (20:02)
--- NOTE | 2021-10-21 20:24 | XRay Report ---
INDICATION: dyspnea TECHNIQUE: AP portable semiupright chest x-ray COMPARISON: None FINDINGS: Lungs:Bilateral, bibasilar infiltrates. Appearance is essentially unchanged since 09/24/2019. Findings may represent recurrent pneumonia or chronic scarring. Mid and upper lungs are negative Heart, vascular:No significant cardiomegaly. Pulmonary vascularity is normal. No pulmonary edema or pulmonary congestion Mediastinum, cresencio:No mediastinal widening. No hilar mass Pleura:No definite pleural effusion Skeletal:Negative. IMPRESSION: 1. Bibasilar pulmonary parenchymal infiltrates 2. Infiltrates are essentially stable since 09/24/2019. This may indicate recurrent pneumonia or chronic scarring Interpreted and Authenticated by: Quinten Woods 10/21/21
[2021-10-21 20:38] LABS: Basophils # (Auto) 0.04 K/mcL (0.00-0.30); Basophils % (Auto) 0.2 % (0.0-2.0); Eosinophils # (Auto) 0.01 K/mcL (0.00-0.70); Eosinophils % (Auto) 0.1 % (0.0-7.0); Hemoglobin 14.4 g/dL (13.7-17.5); Lymphocytes # (Auto) 0.48 K/mcL (1.50-4.80); Lymphocytes % (Auto) 2.4 % (15.5-49.0); Mean Cell Volume 85.3 fL (80.0-100.0); Mean Corpuscular HGB Conc 33.5 g/dL (31.0-36.0); Mean Platelet Volume 9.7 fL (7.4-10.4); Monocytes # (Auto) 1.78 K/mcL (0.10-0.90); Neutrophils % (Auto) 88.3 % (38.0-78.0); Platelet Count 222 K/mcL (140-440); RBC 5.04 M/mcL (4.63-6.08); Red Cell Distribution Width 12.9 % (11.5-14.5); WBC 19.7 K/mcL (4.5-11.0)
[2021-10-21 21:00] LABS: ALT/SGPT 11 U/L (<40); AST/SGOT 15 U/L (<40); Albumin/Globulin Ratio 1.2 (1.0-2.3); Alkaline Phosphatase 73 U/L (39-117); Bilirubin,Total 0.8 mg/dL (0.1-1.0); Blood Urea Nitrogen 14 mg/dL (8-23); Calcium 9.2 mg/dL (8.6-10.4); Carbon Dioxide 20 mmol/L (22-30); Chloride 93 mmol/L (96-108); Globulin 3.3 gm/dL (2.2-3.7); Glomerular Filtration Rate 86; Glucose 119 mg/dL (70-105)
--- NOTE | 2021-10-21 22:04 | Internal Med History&Physical ---
HPI History of Present Illness Patient information: Note initiated : 10/21/21 at 9:52 pm Service Date, if different from initiated Date: [] Patient: Sharif Grady a 71 y/o M admitted on for chest pain/SOB. Chief Complaint: [] History of present illness: Mr. Grady is a 71 year old M Presents with several days of increasing shortness of breath productive cough of yellow sputum and fevers and chills and generalized weakness. He has been fully vaccinated with the booster. In the ED he was 88% on room air. Tachycardic around 130. Sinus tach on EKG. had a fever of almost 103. Also low sodium 129. Lactate was within normal limits. Chest x-ray showed infiltrates that were similar to previous chest x-ray. Clinically presents with pneumonia. Patient has chronic lymphedema which she says is stable. He had an echocardiogram done several years ago which is essentially unremarkable. Review of Systems: Positives as above. Denies headache/nausea/vomiting/chest or abdominal pain/diarrhea. Remaining 10 point review of system reviewed negative. PFSH PFSH All Active Problems (Updated 10/21/21 @ 21:41 by Alireza Alonzo MD) Paroxysmal sinus tachycardia (Acute) Acute dehydration (Acute) RLL pneumonia (Acute) Obstructive sleep apnea (Chronic) Pneumonia (Acute) CHF (congestive heart failure) (Acute) Sepsis (Acute) Respiratory failure (Acute) Acute respiratory failure with hypoxia and hypercapnia (Acute) History of dilation of urethra (Acute) History of tonsillectomy (Acute) H/O detached retina repair (Acute) History of hernia repair (Acute) History of cataract surgery (Acute) History of surgical removal of intestinal structure (Acute) History of adenoidectomy (Acute) Vitamin B12 deficiency (Acute) Fracture of toe, closed (Acute) Tobacco use (Acute) Fracture of thoracic vertebra, closed (Acute) Psoriasis (Acute) Osteoporosis (Acute) Osteoarthritis (Acute) Neuropathy, lower extremity (Acute) Morbid obesity (Acute) Hypertension, essential (Acute 02/27/15) Hyperlipidemia (Acute) Fracture of finger, closed (Acute) Colonic polyp (Acute) COPD (chronic obstructive pulmonary disease) (Acute) Medical History (Updated 10/21/21 @ 21:41 by Alireza Alonzo MD) Colonic polyp COPD (chronic obstructive pulmonary disease) CPAP (continuous positive airway pressure) dependence Fracture of finger, closed Fracture of thoracic vertebra, closed Fracture of toe, closed Hyperlipidemia Hypertension, essential (02/27/15) Morbid obesity Neuropathy, lower extremity Knees Obstructive sleep apnea Osteoarthritis Osteoporosis Psoriasis Tobacco use Vitamin B12 deficiency Surgical History H/O detached retina repair History of adenoidectomy History of cataract surgery Bilateral History of dilation of urethra Urethral stricture History of hernia repair incarcerated abdominal hernia History of surgical removal of intestinal structure Partial bowel resection History of tonsillectomy Family History Father Alzheimer's disease Atherosclerosis of coronary artery Essential hypertension Osteoporosis Rheumatoid arthritis Mother , at 62 years old Atherosclerosis of coronary artery Hyperlipidemia Unknown Diabetes mellitus Social History (Updated 11/07/19 @ 12:06 by FERCHO Lim) marital status: education level: college 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 smoking status start date: 09/06/70 smoking status stop date: 09/06/17 alcohol intake frequency: holiday/special occasion only MEDS/ALLERGIES Home Medications and Allergies Home Medications Medication Instructions Recorded Confirmed Type pantoprazole 40 mg tablet,delayed 40 mg PO DAILY tab 09/29/19 11/07/19 Rx release thiamine mononitrate (vit B1) 100 100 mg PO DAILY tab 09/29/19 11/07/19 Rx mg tablet CPAP machine #1 ea 11/07/19 11/07/19 History albuterol sulfate 90 mcg/actuation 2 puff INHALATION Q6H PRN 11/07/19 11/07/19 History aerosol inhaler (ProAir HFA) fluticasone 113 mcg-salmeterol 14 1 puff INHALATION BID 11/07/19 11/07/19 History mcg/actuation breath activated powdr lisinopril PO QDAY 11/07/19 11/07/19 History metoprolol succinate 25 mg 12.5 mg PO BID tab 11/07/19 History tablet,extended release 24 hr oxygen bled 3lpm CPAP #1 ea 11/07/19 11/07/19 History Allergies Allergy/AdvReac Type Severity Reaction Status Date / Time levofloxacin AdvReac Mild Rash Verified 10/21/21 19:37 EXAM Constitutional Vitals: Temp Pulse Resp BP Pulse Ox 102.8 F H 116 H 27 H 118/47 95 10/21/21 19:34 10/21/21 21:31 10/21/21 21:31 10/21/21 21:31 10/21/21 21:31 Exam: General: Alert, Awake, No acute Distress, obese Eyes/N/T: EOMI, PERRL, Head/Neck: neck supple, normocephalic atraumatic CV: Tachycardic but regular,, No murmurs, normal s1/s2 Pulm: Bibasilar rales b/l, no wheezing Abd: soft, nontender, +BS x4 Ext: no clubbing/cyanosis, b/l LE chronic Lymphedema Neuro: Alert, no focal deficits, moves all extremities, CN 2-12 grossly intact, symmetrical strength b/l upper/lower, sensations intact b/l upper/lower Skin: warm/dry DATA Data Completed and Pending Labs: Labs from last 24 hours 10/21/21 10/21/21 10/21/21 20:03 19:49 19:49 WBC RBC Hgb Hct MCV MCH MCHC RDW Plt Count MPV Neut % (Auto) Lymph % (Auto) [place] % (Auto) Eos % (Auto) Baso % (Auto) Lymph # (Auto) [place] # (Auto) Eos # (Auto) Baso # (Auto) Absolute Neutrophils VBG Lactic Acid 1.0 Sodium 129 L Potassium 4.1 Chloride 93 L Carbon Dioxide 20 L Anion Gap 16.0 BUN 14 Creatinine 0.9 GFR Calculation 86 Glucose 119 H Calcium 9.2 Total Bilirubin 0.8 AST 15 ALT 11 Alkaline Phosphatase 73 Total Protein 7.3 Albumin 4.0 Globulin 3.3 Albumin/Globulin Ratio 1.2 Procalcitonin Pending 10/21/21 19:49 WBC 19.7 H RBC 5.04 Hgb 14.4 Hct 43.0 MCV 85.3 MCH 28.6 MCHC 33.5 RDW 12.9 Plt Count 222 MPV 9.7 Neut % (Auto) 88.3 H Lymph % (Auto) 2.4 L [place] % (Auto) 9.0 Eos % (Auto) 0.1 Baso % (Auto) 0.2 Lymph # (Auto) 0.48 L [place] # (Auto) 1.78 H Eos # (Auto) 0.01 Baso # (Auto) 0.04 Absolute Neutrophils 17.43 H VBG Lactic Acid Sodium Potassium Chloride Carbon Dioxide Anion Gap BUN Creatinine GFR Calculation Glucose Calcium Total Bilirubin AST ALT Alkaline Phosphatase Total Protein Albumin Globulin Albumin/Globulin Ratio Procalcitonin A/P Narrative A/P Narrative: A: *PNA: -MYT=[id number] *Acute hypoxic respiratory failure: -on 2L NC *Sepsis: 2/2 above *Hyponatremia: *HTN: ACEI *COPD(not on home oxygen): *JAYDA w/CPAP: Noncompliant with home CPAP *Chronic lymphedema: Unremarkable echo several years ago *Obesity: BMI 36 *GERD: P: -IV ABX, pending BC/SC -check pct, ABG -O2 supp, wean as able -nebs & prn -CT chest - -PT/OT -Home medication reconciliation -ppx: Lovenox Full code Time Spent With Patient Time: Total time spent is greater than 50% in coordination of care (as documented) at patient's floor/unit and/or counseling patient:
[2021-10-21] MEDS ORDERED: ACETAMINOPHEN 325 MG TABLET PO ONE (22:31)
[2021-10-21] MEDS ORDERED: METOCLOPRAMIDE 10 MG/2 ML VIAL IV PRN (23:02)
[2021-10-21] MEDS ORDERED: IPRATROPIUM/ALBUTEROL 3 ML AMPUL.NEB NEB PRN (23:02)
[2021-10-21] MEDS ORDERED: POLYETHYLENE GLYCOL 3350 17 GM PACKET PO PRN (23:02)
[2021-10-21] MEDS ORDERED: POTASSIUM CHLORIDE 20 MEQ TABLET PO PRN ×2 (23:02)
[2021-10-21] MEDS ORDERED: cefTRIAXone 2 GM in DEXTROSE 5% IN WATER 50 ML IV SCH (23:02)
[2021-10-21] MEDS ORDERED: ONDANSETRON 4 MG/2 ML VIAL IV PRN (23:02)
[2021-10-21] MEDS ORDERED: LABETALOL 5 MG/ML ML IV PRN (23:02)
[2021-10-21] MEDS ORDERED: POTASSIUM CHLORIDE 40 MEQ in DEXTROSE 5% IN WATER 500 ML IV PRN (23:02)
[2021-10-21] MEDS ORDERED: SENNOSIDES 1 TABLET PO PRN (23:02)
[2021-10-21] MEDS ORDERED: ACETAMINOPHEN 325 MG TABLET PO PRN (23:02)
[2021-10-21] MEDS ORDERED: MAGNESIUM SULFATE 2 GM/50 ML BAG IV PRN (23:02)
[2021-10-21] MEDS ORDERED: AZITHROMYCIN 500 MG VIAL IV ONE (23:12)
[2021-10-21] MEDS ORDERED: cefTRIAXone 1 GM VIAL ONE (23:12)
[2021-10-21] MEDS ORDERED: IPRATROPIUM/ALBUTEROL 3 ML AMPUL.NEB NEB ONE (23:27)
[2021-10-21] MEDS ORDERED: BUDESONIDE 0.5 MG/2 ML AMPUL.NEB ONE (23:28)
[2021-10-21] MEDS ORDERED: ENOXAPARIN 40 MG/0.4 ML SYRINGE ONE (23:31)
[2021-10-21] MEDS: ENOXAPARIN 40 MG/0.4 ML SYRINGE SQ SCH (23:47)
[2021-10-21] MEDS: AZITHROMYCIN 500 MG in DEXTROSE 5% IN WATER 250 ML IV SCH (23:48)
[2021-10-21] MEDS: BUDESONIDE 0.5 MG/2 ML AMPUL.NEB NEB SCH (23:54)
[2021-10-22 07:17] LABS: Hematocrit 37.9 % (40.1-51.0); Hemoglobin 12.5 g/dL (13.7-17.5); Mean Cell Volume 87.3 fL (80.0-100.0); Mean Platelet Volume 9.7 fL (7.4-10.4); Platelet Count 172 K/mcL (140-440); RBC 4.34 M/mcL (4.63-6.08); Red Cell Distribution Width 13.1 % (11.5-14.5); WBC 17.8 K/mcL (4.5-11.0)
[2021-10-22] MEDS: 0.9 % SODIUM CHLORIDE 10 ML SYRINGE IV SCH ×3 (07:26→21:27)
[2021-10-22 07:54] LABS: ALT/SGPT 9 U/L (<40); AST/SGOT 12 U/L (<40); Albumin 3.4 gm/dL (3.2-5.2); Albumin/Globulin Ratio 1.2 (1.0-2.3); Alkaline Phosphatase 84 U/L (39-117); Bilirubin,Direct 0.2 mg/dL (<0.3); Bilirubin,Total 0.5 mg/dL (0.1-1.0); Blood Urea Nitrogen 20 mg/dL (8-23); Calcium 8.7 mg/dL (8.6-10.4); Carbon Dioxide 23 mmol/L (22-30); Chloride 96 mmol/L (96-108); Globulin 2.9 gm/dL (2.2-3.7); Glomerular Filtration Rate 46; Glucose 105 mg/dL (70-105); Lactate Dehydrogenase 161 U/L (135-225); Phosphorous 3.7 mg/dL (2.5-4.5); Triglycerides 67 mg/dL (<150); Uric Acid 5.7 mg/dL (2.5-8.0)
[2021-10-22] MEDS ORDERED: IOPAMIDOL 100 ML BOTTLE IV ONE (07:56)
[2021-10-22] MEDS ORDERED: 0.9 % SODIUM CHLORIDE 1,000 ML IV ONE (08:11)
--- NOTE | 2021-10-22 08:13 | Internal Med Progress Note ---
SUBJECTIVE Subjective Patient information: Note initiated : 10/22/21 at 8:07 am Service Date, if different from initiated Date: [] Patient: Sharif Grady 71 y/o M admitted on 10/21/21 for chest pain/SOB. Chief Complaint: [] Interval history: History of present illness: Mr. Grady is a 71 year old M Presents with several days of increasing shortness of breath productive cough of yellow sputum and fevers and chills and generalized weakness. He has been fully vaccinated with the booster. In the ED he was 88% on room air. Tachycardic around 130. Sinus tach on EKG. had a fever of almost 103. Also low sodium 129. Lactate was within normal limits. Chest x-ray showed infiltrates that were similar to previous chest x-ray. Clinically presents with pneumonia. Patient has chronic lymphedema which she says is stable. He had an echocardiogram done several years ago which is essentially unremarkable. 10/22 Feeling better. Breathing better. Has cough still. Review of Systems: denies headache/fever/chills/nausea/vomiting/chest or abdominal pain/diarrhea. Otherwise see above. Constitutional Vitals: Vital Signs Temp Pulse Resp BP Pulse Ox 97.6 F 70 19 101/49 99 10/22/21 04:01 10/22/21 06:43 10/22/21 06:43 10/22/21 06:01 10/22/21 06:43 Period Temp Pulse Resp BP Sys/Jacobs Pulse Ox Last 24 Hr 97.6 F-102.8 F 70-134 19-37 73-134/47-66 88-100 Intake and Output 10/21/21 10/22/21 10/22/21 21:59 05:59 13:59 Intake Total 850 Output Total 0 Balance 850 Weight 129.274 kg 131.145 kg Intake & Output: Intake & Output 10/21/21 10/22/21 10/22/21 21:59 05:59 13:59 Intake Total 850 Output Total 0 Balance 850 Weight 129.274 kg 131.145 kg Intake: IV 850 Sodium Chloride 0.9% 1,000 ml @ 500 Wide Open IV .Q0M ONE Rx#: [id number] Zithromax 500 mg In Dextrose 5% 250 in Water 250 ml @ 250 mls/hr IV Q24H [facility] Rx#:[id number] Vancomycin 500 mg In Sodium 100 Chloride 0.9% 100 ml @ 100 mls/ hr IV ONCE ONE Rx#:[id number] Output: Void Amount 0 Exam: General: Alert, Awake, No acute Distress, obese Eyes/N/T: EOMI, Head/Neck: neck supple, CV: RRR,, No murmurs, Pulm: Bibasilar rales b/l, no wheezing Abd: soft, nontender, +BS x4 Ext: no clubbing/cyanosis, b/l LE chronic Lymphedema Neuro: Alert, no focal deficits, moves all extremities, Skin: warm/dry OBJ DATA Labs CBC & Chem 7: 10/22/21 06:06 10/22/21 06:06 Labs: Abnormal Lab Results 10/22/21 10/22/21 10/21/21 06:06 06:06 19:49 WBC 17.8 H RBC 4.34 L Hgb 12.5 L Hct 37.9 L Neut % (Auto) Lymph % (Auto) Lymph # (Auto) [place] # (Auto) Absolute Neutrophils Sodium 132 L Chloride Carbon Dioxide Creatinine 1.5 H Glucose Procalcitonin 0.32 H 10/21/21 10/21/21 19:49 19:49 WBC 19.7 H RBC Hgb Hct Neut % (Auto) 88.3 H Lymph % (Auto) 2.4 L Lymph # (Auto) 0.48 L [place] # (Auto) 1.78 H Absolute Neutrophils 17.43 H Sodium 129 L Chloride 93 L Carbon Dioxide 20 L Creatinine Glucose 119 H Procalcitonin Meds: Medications Acetaminophen (Acetaminophen 325 Mg Tablet) 650 mg PO Q6HP PRN; Protocol PRN Reason: Per Pain Protocol/Fever > 101 Albuterol/Ipratropium (Ipratropium/Albuterol 3 Ml Ampul.Neb) 3 ml NEB Q4HP PRN PRN Reason: Shortness Of Breath Last Admin: 10/21/21 23:55 Dose: 3 ml Documented by: Budesonide (Budesonide 0.5 Mg/2 Ml Ampul.Neb) 0.5 mg NEB Q12 [facility] Last Admin: 10/21/21 23:54 Dose: 0.5 mg Documented by: Enoxaparin Sodium (Enoxaparin 40 Mg/0.4 Ml Syringe) 40 mg SQ DAILY [facility] Last Admin: 10/21/21 23:47 Dose: 40 mg Documented by: Potassium Chloride 40 meq/ (Dextrose) 520 mls @ 130 mls/hr IV UD PRN PRN Reason: Potassium < 3 Magnesium Sulfate (Magnesium Sulfate) 2 gm in 50 mls @ 50 mls/hr IV UD PRN PRN Reason: Magnesium </= 1.6 Ceftriaxone Sodium 2 gm/ (Dextrose) 50 mls @ 100 mls/hr IV Q24H [facility]; Protocol Last Admin: 10/21/21 23:54 Dose: Not Given Documented by: Azithromycin 500 mg/ Dextrose 250 mls @ 250 mls/hr IV Q24H [facility]; Protocol Stop: 10/24/21 00:01 Last Infusion: 10/22/21 01:59 Dose: Infused Documented by: Labetalol HCl (Labetalol 5 Mg/Ml Ml) 0 mg IV Q2HP PRN PRN Reason: Hypertension Metoclopramide HCl (Metoclopramide 10 Mg/2 Ml Vial) 10 mg IV Q6HP PRN PRN Reason: Nausea And Vomiting Ondansetron HCl (Ondansetron 4 Mg/2 Ml Vial) 4 mg IV Q4HP PRN PRN Reason: Nausea And Vomiting Polyethylene Glycol (Polyethylene Glycol 3350 17 Gm Packet) 17 gm PO DAILYP PRN PRN Reason: Constipation Potassium Chloride (Potassium Chloride 20 Meq Tablet) 40 meq PO UD PRN PRN Reason: Potssium is 3-3.5 Potassium Chloride (Potassium Chloride 20 Meq Tablet) 40 meq PO UD PRN PRN Reason: Potassium < 3 Senna (Sennosides 1 Tablet) 2 tab PO DAILYP PRN PRN Reason: Constipation Sodium Chloride (0.9 % Sodium Chloride 10 Ml Syringe) 10 ml IV Q8 [facility] Last Admin: 10/22/21 07:26 Dose: 10 ml Documented by: A/P Narrative A/P Narrative: A: *PNA: -GIG=[id number] *Acute hypoxic respiratory failure: -on 1L NC, no PE *Severe Sepsis w/hypotension(responded to IVF): 2/2 above -leukocytosis w/bandemia *CANDICE on CKD II: 2/2 above likely ATN *Met acidosis: resolved *Hyponatremia: improving *HTN: ACEI *COPD(not on home oxygen): *JAYDA w/CPAP: Noncompliant with home CPAP *Chronic lymphedema: Unremarkable echo several years ago *Obesity: BMI 36 *GERD: P: -IV ABX, pending BC/SC -f/u pct -O2 supp, wean as able -home cpap -nebs & prn -CT chest -hold ACEI for low BP -PT/OT -ppx: Lovenox / home ppi Full code Time Spent With Patient Time: Total time spent is greater than 50% in coordination of care (as documented) at patient's floor/unit and/or counseling patient:
--- NOTE | 2021-10-22 08:16 | Cat Scan Report ---
INDICATION: hypoxia COMPARISON: None TECHNIQUE: Axial contrast enhanced images through the chest. Sagittally and coronally reformatted images. MIP reformatted images. 80ml Isovue 370 injected intravenously. FINDINGS: Lungs:Right lower lobe consolidation. There are air bronchograms. This is consistent with pneumonia. Follow-up chest x-ray or CT scan recommended to evaluate response to therapy. Mild density in the right middle lobe is probably atelectasis. No other focal pulmonary parenchymal abnormality. There is centrilobular emphysema. This has an upper lobe predominance and is consistent with smoking history Mediastinum, vascular:Normal thoracic aorta. No thoracic aortic aneurysm or dissection. Main pulmonary artery measures 3.4 cm in diameter. This is enlarged and may be secondary to pulmonary arterial hypertension. No pulmonary emboli identified. No pathologic mediastinal or hilar lymphadenopathy Heart:No cardiomegaly. No pericardial effusion. There is coronary artery calcification in the right coronary artery. Pleura:Small right pleural effusion Axilla, supraclavicular regions, chest wall:No pathologic axillary or supraclavicular adenopathy. Musculoskeletal:Compression fractures of the T5, T7, T8 vertebral bodies. No lytic lesions. No paraspinal soft tissue mass. These are probably benign osteoporotic fractures. Upper Abdomen:There are adrenal nodules bilaterally. Right adrenal nodule measures 18 x 21 mm. Left adrenal nodule measures 25 x 16 mm. BRENDEN values are below 10 on this postcontrast enhanced examination consistent with benign adrenal adenomas. IMPRESSION: 1. Right lower lobe consolidation consistent with pneumonia. Right middle lobe parenchymal densities most consistent with atelectasis 2. Small right pleural effusion 3. Centrilobular emphysema 4. Thoracic compression fractures appear to be benign osteoporotic fractures 5. Bilateral adrenal nodules The exam was performed using radiation dose optimization techniques including, but not limited to, automated exposure control, adjustment of the mA and/or kV according to patient size and use of iterative reconstruction technique. Interpreted and Authenticated by: Quinten Woods 10/22/21
[2021-10-22] MEDS: CEFEPIME 2 GM VIAL IV SCH ×2 (08:52→21:27)
[2021-10-22] MEDS: BUDESONIDE 0.5 MG/2 ML AMPUL.NEB NEB SCH (08:53)
[2021-10-22] MEDS: THIAMINE 100 MG TABLET PO SCH (08:53)
[2021-10-22] MEDS: ENOXAPARIN 40 MG/0.4 ML SYRINGE SQ SCH (08:54)
[2021-10-22 09:22] LABS: Band Neutrophils % 11 % (0-10); Lymphocytes % 3 % (15-49); Monocytes % (Manual) 6 % (1-12); Platelet Estimate NORMAL (Normal); RBC Morphology NORMAL (Normal); Segmented Neutrophils % 80 % (38-78)
[2021-10-22 13:22] LABS: Appearance,Urine Clear (Clear); Bilirubin,Urine Negative (Negative); Color,Urine Yellow; Culture Indicated,Urine No; Glucose,Urine (UA) Negative (Negative); Ketones,Urine Negative (Negative); Leukocyte Esterase,Urine Negative /uL (Negative); Mucus,Urine FEW /hpf; Nitrate,Urine Negative (Negative); PH,Urine 5.5 (5.0-9.0); Specific Gravity,Urine 1.015 (1.000-1.035); Urine Blood Negative ery/mcL (Negative); Urine Hyaline Cast 1 /lph (0-2); Urine RBC 1 /hpf (0-3); Urine Squamous Epithelial Cell < 1 /hpf (0-4); Urine WBC 2 /hpf (0-4); Urobilinogen,Urine Normal
[2021-10-22] MEDS: AZITHROMYCIN 500 MG in DEXTROSE 5% IN WATER 250 ML IV SCH (14:39)
--- NOTE | 2021-10-22 21:19 | EKG ---
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 Measurements Intervals [place] Rate: 132 P: 68 GA: 140 QRS: 95 QRSD: 100 T: 26 QT: 282 QTc: 418 Interpretive Statements Sinus tachycardia Low voltage Electronically Signed On 10-22-2021 21:18:49 PST by Marline Rivera D.O. /store/[email or web address]/[id number]
[2021-10-22] MEDS: FLUTICASONE PROPIONATE INH SCH (21:27)
[2021-10-22] MEDS: SALMETEROL INH SCH (21:27)
[2021-10-23] MEDS: 0.9 % SODIUM CHLORIDE 10 ML SYRINGE IV SCH (06:11)
[2021-10-23] MEDS ORDERED: PANTOPRAZOLE 40 MG PACKET PO SCH (07:30)
[2021-10-23] MEDS ORDERED: hydrALAZINE 20 MG/ML VIAL IV PRN (08:01)
--- NOTE | 2021-10-23 08:02 | Internal Med Progress Note ---
SUBJECTIVE Subjective Patient information: Note initiated : 10/23/21 at 8:00 am Service Date, if different from initiated Date: [] Patient: Sharif Grady 71 y/o M admitted on 10/21/21 for chest pain/SOB. Chief Complaint: [] Interval history: History of present illness: Mr. Grady is a 71 year old M Presents with several days of increasing shortness of breath productive cough of yellow sputum and fevers and chills and generalized weakness. He has been fully vaccinated with the booster. In the ED he was 88% on room air. Tachycardic around 130. Sinus tach on EKG. had a fever of almost 103. Also low sodium 129. Lactate was within normal limits. Chest x-ray showed infiltrates that were similar to previous chest x-ray. Clinically presents with pneumonia. Patient has chronic lymphedema which she says is stable. He had an echocardiogram done several years ago which is essentially unremarkable. 10/22 Feeling better. Breathing better. Has cough still. 10/23 Patient continues to feel better. Shortness of breath cough improved. Patient on room air. Review of Systems: denies headache/fever/chills/nausea/vomiting/chest or abdominal pain/diarrhea. Otherwise see above. Constitutional Vitals: Vital Signs Temp Pulse Resp BP Pulse Ox 97.2 F 82 20 151/69 88 L 10/23/21 07:33 10/23/21 07:33 10/23/21 07:33 10/23/21 07:33 10/23/21 07:33 Period Temp Pulse Resp BP Sys/Jacobs Pulse Ox Last 24 Hr 97.2 F-98.9 F 78-99 100-151/41-72 88-98 Intake and Output 10/22/21 10/23/21 10/23/21 21:59 05:59 13:59 Intake Total 450 400 Output Total 170 627 8897 Balance -375 -250 -1000 Weight 135.125 kg Intake & Output: Intake & Output 10/22/21 10/23/21 10/23/21 21:59 05:59 13:59 Intake Total 450 400 Output Total 537 903 4158 Balance -375 -250 -1000 Weight 135.125 kg Intake: IV 250 Sodium Chloride 0.9% 1,000 ml @ 0 Wide Open IV .Q0M ONE Rx#: [id number] Zithromax 500 mg In Dextrose 5% 250 in Water 250 ml @ 250 mls/hr IV Q24H [facility] Rx#:[id number] Oral 200 400 Output: Void Amount [phone] Other: Meal Dinner Percent of Meal Consumed 100% Urine Appearance Clear Urine Color Dark Yellow Bright Yellow Exam: General: Alert, Awake, No acute Distress, obese Eyes/N/T: EOMI, Head/Neck: neck supple, CV: RRR,, No murmurs, Pulm: much improved biibasilar rales b/l, no wheezing Abd: soft, nontender, +BS x4 Ext: no clubbing/cyanosis, b/l LE chronic Lymphedema Neuro: Alert, no focal deficits, moves all extremities, Skin: warm/dry OBJ DATA Labs CBC & Chem 7: 10/23/21 05:22 10/23/21 05:21 Labs: Abnormal Lab Results 10/22/21 10/22/21 10/22/21 12:42 06:06 06:06 WBC 17.8 H RBC 4.34 L Hgb 12.5 L Hct 37.9 L Neut % (Auto) Lymph % (Auto) Lymph # (Auto) [place] # (Auto) Seg Neutrophils % 80 H Band Neutrophils % 11 H Lymphocytes % 3 L Absolute Neutrophils Sodium 132 L Chloride Carbon Dioxide Creatinine 1.5 H Glucose Procalcitonin Urine Protein 30 mg/dl A Urine Mucus Few A 10/21/21 10/21/21 10/21/21 19:49 19:49 19:49 WBC 19.7 H RBC Hgb Hct Neut % (Auto) 88.3 H Lymph % (Auto) 2.4 L Lymph # (Auto) 0.48 L [place] # (Auto) 1.78 H Seg Neutrophils % Band Neutrophils % Lymphocytes % Absolute Neutrophils 17.43 H Sodium 129 L Chloride 93 L Carbon Dioxide 20 L Creatinine Glucose 119 H Procalcitonin 0.32 H Urine Protein Urine Mucus Meds: Medications Acetaminophen (Acetaminophen 325 Mg Tablet) 650 mg PO Q6HP PRN; Protocol PRN Reason: Per Pain Protocol/Fever > 101 Albuterol/Ipratropium (Ipratropium/Albuterol 3 Ml Ampul.Neb) 3 ml NEB Q4HP PRN PRN Reason: Shortness Of Breath Last Admin: 10/21/21 23:55 Dose: 3 ml Documented by: Cefepime HCl (Cefepime 2 Gm Vial) 2 gm IV Q12H [facility]; Protocol Last Admin: 10/22/21 21:27 Dose: 2 gm Documented by: Enoxaparin Sodium (Enoxaparin 40 Mg/0.4 Ml Syringe) 40 mg SQ DAILY [facility] Last Admin: 10/22/21 08:54 Dose: 40 mg Documented by: Potassium Chloride 40 meq/ (Dextrose) 520 mls @ 130 mls/hr IV UD PRN PRN Reason: Potassium < 3 Magnesium Sulfate (Magnesium Sulfate) 2 gm in 50 mls @ 50 mls/hr IV UD PRN PRN Reason: Magnesium </= 1.6 Azithromycin 500 mg/ Dextrose 250 mls @ 250 mls/hr IV Q24H [facility]; Protocol Stop: 10/24/21 00:01 Last Infusion: 10/22/21 15:39 Dose: Infused Documented by: Labetalol HCl (Labetalol 5 Mg/Ml Ml) 0 mg IV Q2HP PRN PRN Reason: Hypertension Metoclopramide HCl (Metoclopramide 10 Mg/2 Ml Vial) 10 mg IV Q6HP PRN PRN Reason: Nausea And Vomiting Ondansetron HCl (Ondansetron 4 Mg/2 Ml Vial) 4 mg IV Q4HP PRN PRN Reason: Nausea And Vomiting Pantoprazole Sodium (Pantoprazole 40 Mg Packet) 40 mg PO QAMAC [facility] Last Admin: 10/23/21 07:37 Dose: 40 mg Documented by: Fluticasone Propion- Salmeterol [Advair Hfa] 115-21 Mg Inhaler 1 dose INH BID [facility] Last Admin: 10/22/21 21:27 Dose: Not Given Documented by: Polyethylene Glycol (Polyethylene Glycol 3350 17 Gm Packet) 17 gm PO DAILYP PRN PRN Reason: Constipation Potassium Chloride (Potassium Chloride 20 Meq Tablet) 40 meq PO UD PRN PRN Reason: Potssium is 3-3.5 Potassium Chloride (Potassium Chloride 20 Meq Tablet) 40 meq PO UD PRN PRN Reason: Potassium < 3 Senna (Sennosides 1 Tablet) 2 tab PO DAILYP PRN PRN Reason: Constipation Sodium Chloride (0.9 % Sodium Chloride 10 Ml Syringe) 10 ml IV Q8 [facility] Last Admin: 10/23/21 06:11 Dose: Not Given Documented by: Thiamine HCl (Thiamine 100 Mg Tablet) 100 mg PO DAILY [facility] Last Admin: 10/22/21 08:53 Dose: 100 mg Documented by: A/P Narrative A/P Narrative: A: *PNA: *Acute hypoxic respiratory failure: -now on room air, no PE *Severe Sepsis w/hypotension(responded to IVF): 2/2 above -leukocytosis w/bandemia resolved *CANDICE on CKD II: 2/2 above likely ATN, improved *Met acidosis: resolved *Hyponatremia: improved *HTN: ACEI *COPD(not on home oxygen): *JAYDA w/CPAP: Noncompliant with home CPAP *Chronic lymphedema: Unremarkable echo several years ago *Obesity: BMI 36 *GERD: P: -IV ABX, pending BC/SC -f/u pct -O2 supp, wean as able -home cpap -nebs & prn -restart home ACEI -PT/OT -ppx: Lovenox / home ppi Full code Time Spent With Patient Time: Total time spent is greater than 50% in coordination of care (as documented) at patient's floor/unit and/or counseling patient:
[2021-10-23 08:04] LABS: Hematocrit 35.3 % (40.1-51.0); Hemoglobin 11.8 g/dL (13.7-17.5); Mean Cell Volume 87.2 fL (80.0-100.0); Mean Corpuscular HGB Conc 33.4 g/dL (31.0-36.0); Mean Platelet Volume 10.1 fL (7.4-10.4); Platelet Count 189 K/mcL (140-440); RBC 4.05 M/mcL (4.63-6.08); Red Cell Distribution Width 12.9 % (11.5-14.5); WBC 10.2 K/mcL (4.5-11.0)
[2021-10-23 08:35] LABS: Blood Urea Nitrogen 16 mg/dL (8-23); Calcium 8.8 mg/dL (8.6-10.4); Carbon Dioxide 24 mmol/L (22-30); Chloride 100 mmol/L (96-108); Glomerular Filtration Rate 90; Glucose 75 mg/dL (70-105)
[2021-10-23] MEDS ORDERED: LISINOPRIL 5 MG TABLET PO SCH (09:00)
[2021-10-23] MEDS: SALMETEROL INH SCH (09:08)
[2021-10-23] MEDS: FLUTICASONE PROPIONATE INH SCH (09:08)
--- NOTE | 2021-10-23 09:16 | Discharge Summary ---
Discharge Provider Provider Patient information: Note initiated : 10/23/21 at 9:14 am Service Date, if different from initiated Date: [] Patient: Sharif Grady 71 y/o M admitted on 10/21/21 for chest pain/SOB. Chief Complaint: [] Date of admission: 10/21/21 22:53 Discharge date: 10/23/21 Primary care physician: Lala De Consults: 10/21/21 Consult to Physician [CONS] Stat Comment: for admission Consulting Provider: Benji Shaw Reason For Exam: Physician to Consult 10/21/21 21:26 Consult to Physician [CONS] Stat Comment: Consulting Provider: Benji Shaw Reason For Exam: Physician to Consult Discharge Meds Discharge Medications Home Medications thiamine mononitrate (vit B1) 100 mg tablet 100 mg PO DAILY tab 09/29/19 [Rx Confirmed 10/21/21 Last Taken Unknown] CPAP machine #1 ea 11/07/19 [History Confirmed 10/22/21 Last Taken Unknown] fluticasone 113 mcg-salmeterol 14 mcg/actuation breath activated powdr 1 puff INHALATION BID 11/07/19 [History Confirmed 10/21/21 Last Taken Unknown] metoprolol succinate 25 mg tablet,extended release 24 hr 12.5 mg PO BID tab 11/07/19 [History Confirmed 10/21/21 Last Taken Unknown] oxygen bled 3lpm CPAP #1 ea 11/07/19 [History Confirmed 10/22/21 Last Taken Unknown] alendronate 70 mg tablet 1 tab PO WEEKLY 10/22/21 [History Confirmed 10/22/21 Last Taken 09/10/21 08:00] fluticasone propionate 115 mcg-salmeterol 21 mcg/actuation HFA inhaler (Advair HFA) 1 puff CONTINUOUS INHALATION BID 10/22/21 [History Confirmed 10/22/21 Last Taken Unknown] lisinopril 5 mg tablet 1 tab PO QDAY 10/22/21 [History Confirmed 10/22/21 Last Taken Unknown] cefpodoxime 200 mg tablet 200 mg PO BID #8 tab 10/23/21 [Rx Last Taken Unknown] COURSE Hospital Course Hospital course: History of present illness: Mr. Grady is a 71 year old M Presents with several days of increasing shortness of breath productive cough of yellow sputum and fevers and chills and generalized weakness. He has been fully vaccinated with the booster. In the ED he was 88% on room air. Tachycardic around 130. Sinus tach on EKG. had a fever of almost 103. Also low sodium 129. Lactate was within normal limits. Chest x-ray showed infiltrates that were similar to previous chest x-ray. Clinically presents with pneumonia. Patient has chronic lymphedema which she says is stable. He had an e chocardiogram done several years ago which is essentially unremarkable. 10/22 Feeling better. Breathing better. Has cough still. 10/23 Patient continues to feel better. Shortness of breath cough improved. Patient on room air. A: *PNA: *Acute hypoxic respiratory failure: *Severe Sepsis w/hypotension(responded to IVF): 2/2 above *CANDICE on CKD II: 2/2 above likely ATN, improved *Met acidosis: resolved *Hyponatremia: improved *HTN: ACEI *COPD(not on home oxygen): *JAYDA w/CPAP: Noncompliant with home CPAP *Chronic lymphedema: Unremarkable echo several years ago *Obesity: BMI 36 *GERD: P: -abx Discharge diagnosis: Pneumonia acute hypoxic respite failure severe sepsis CANDICE Secondary discharge diagnosis: Metabolic acidosis hyponatremia hypertension COPD obstructive sleep apnea chronic lymphedema obesity GERD Time Spent with Patient Time attestation: Total time spent providing and/or coordinating discharge services: Time spent: Greater than 30 minutes EXAM Constitutional Vitals: Temp Pulse Resp BP Pulse Ox 97.2 F 82 20 151/69 88 L 10/23/21 07:33 10/23/21 07:33 10/23/21 07:33 10/23/21 07:33 10/23/21 07:33 Discharge Data Data Completed and Pending Labs on day of discharge: Labs from last 24 hours 10/23/21 10/23/21 10/23/21 05:22 05:22 05:21 WBC 10.2 RBC 4.05 L Hgb 11.8 L Hct 35.3 L MCV 87.2 MCH 29.1 MCHC 33.4 RDW 12.9 Plt Count 189 MPV 10.1 Seg Neutrophils % Band Neutrophils % Lymphocytes % Monocytes % (Manual) Platelet Estimate Pending RBC Morphology Pending Sodium 134 Potassium 4.4 Chloride 100 Carbon Dioxide 24 Anion Gap 10.0 BUN 16 Creatinine 0.8 GFR Calculation 90 Glucose 75 Calcium 8.8 Procalcitonin 0.40 H Urine Color Urine Appearance Urine pH Ur Specific [place] Urine Protein Urine Glucose (UA) Urine Ketones Urine Occult Blood Urine Nitrate Urine Bilirubin Urine Urobilinogen Ur Leukocyte Esterase Urine RBC Urine WBC Ur Squamous Epith Cells Urine Bacteria Hyaline Casts Urine Mucus Ur Culture Indicated? Ur Random Creatinine Ur Random Sodium Urine Urea Nitrogen 10/22/21 10/22/21 10/22/21 12:43 12:43 12:42 WBC RBC Hgb Hct MCV MCH MCHC RDW Plt Count MPV Seg Neutrophils % Band Neutrophils % Lymphocytes % Monocytes % (Manual) Platelet Estimate RBC Morphology Sodium Potassium Chloride Carbon Dioxide Anion Gap BUN Creatinine GFR Calculation Glucose Calcium Procalcitonin Urine Color Yellow Urine Appearance Clear Urine pH 5.5 Ur Specific [place] 1.015 Urine Protein 30 mg/dl A Urine Glucose (UA) Negative Urine Ketones Negative Urine Occult Blood Negative Urine Nitrate Negative Urine Bilirubin Negative Urine Urobilinogen Normal Ur Leukocyte Esterase Negative Urine RBC 1 Urine WBC 2 Ur Squamous Epith Cells < 1 Urine Bacteria None Hyaline Casts 1 Urine Mucus Few A Ur Culture Indicated? No Ur Random Creatinine 150.2 Ur Random Sodium Urine Urea Nitrogen 409 10/22/21 10/22/21 12:42 06:06 WBC RBC Hgb Hct MCV MCH MCHC RDW Plt Count MPV Seg Neutrophils % 80 H Band Neutrophils % 11 H Lymphocytes % 3 L Monocytes % (Manual) 6 Platelet Estimate Normal RBC Morphology Normal Sodium Potassium Chloride Carbon Dioxide Anion Gap BUN Creatinine GFR Calculation Glucose Calcium Procalcitonin Urine Color Urine Appearance Urine pH Ur Specific [place] Urine Protein Urine Glucose (UA) Urine Ketones Urine Occult Blood Urine Nitrate Urine Bilirubin Urine Urobilinogen Ur Leukocyte Esterase Urine RBC Urine WBC Ur Squamous Epith Cells Urine Bacteria Hyaline Casts Urine Mucus Ur Culture Indicated? Ur Random Creatinine Ur Random Sodium 13 Urine Urea Nitrogen Preliminary micro results at discharge 10/21/21 20:03 Blood Culture - Preliminary Blood 10/21/21 19:58 Blood Culture - Preliminary Blood Discharge Plan Patient/Caregiver Discharge Instructions Activity: increase activity as tolerated Diet: Regular Diet Prescriptions: New cefpodoxime 200 mg tablet 200 mg PO BID Qty: 8 0RF Rx Instructions: must administer with a meal/food Continued metoprolol succinate 25 mg tablet extended release 24 hr 12.5 mg PO BID 0RF fluticasone propion-salmeterol 113-14 mcg/actuation aerosol powdr breath activated 1 puff INHALATION BID 0RF (DME) CPAP machine Qty: 1 0RF Rx Instructions: As directed (DME) oxygen bled 3lpm CPAP Qty: 1 0RF Rx Instructions: As directed thiamine mononitrate (vit B1) 100 MG tablet 100 mg PO DAILY 0RF alendronate 70 mg tablet 1 tab PO WEEKLY 0RF lisinopril 5 mg tablet 1 tab PO QDAY 0RF Advair HFA 115-21 mcg/actuation HFA aerosol inhaler 1 puff continuous inhalation BID 0RF Follow Up Plan Follow up with: Lala De MD [Primary Care Provider] - Patient Disposition: Home, Self-Care Prognosis: Fair Overall status at discharge: patient is progressing back to baseline Discharge Orders: Discharge Order (Routine); Ordered 10/23/21 Ordered By: Benji Shaw
[2021-10-23] MEDS: THIAMINE 100 MG TABLET PO SCH (09:19)
[2021-10-23] MEDS: ENOXAPARIN 40 MG/0.4 ML SYRINGE SQ SCH (09:20)
[2021-10-23 09:23] LABS: Band Neutrophils % 11 % (0-10); Hypochromasia FEW (None Seen); Lymphocytes % 10 % (15-49); Monocytes % (Manual) 8 % (1-12); Platelet Estimate NORMAL (Normal); Polychromasia 1+ (None Seen); RBC Morphology ABNORMAL (Normal); Segmented Neutrophils % 71 % (38-78)
[2021-10-23] MEDS: CEFEPIME 2 GM VIAL IV SCH (09:44)
== END 2021-10-23 14:35 | disposition home or self-care (01) | DRG 871 ==
LOC: ED 19:32 → ICU 22:53 → MEDSUR 10-22 20:03
PROVIDERS: ADMIT Internal Medicine; ATTEND Internal Medicine

== ENCOUNTER 2022-03-30 18:46 | Inpatient (IN) ==
[2022-03-30] MEDS ORDERED: SODIUM CHLORIDE IV ONE (18:51)
[2022-03-30] MEDS ORDERED: ACETAMINOPHEN 325 MG TABLET PO ONE (18:52)
--- NOTE | 2022-03-30 19:04 | Emergency Department Note ---
HPI General Chief complaint: Extremity Injury, Lower Stated complaint: left leg infection Time Seen by Provider: 03/30/22 18:51 Source: patient Mode of arrival: wheelchair Limitations: no limitations History of Present Illness HPI Narrative: Narrative: Patient presents ED [facility] to concerns for sepsis. Patient went there because he has wounds on his left foot and on his buttocks that have been there for several months. He states that he has not been seen by medical care provider because he thinks that Medicaid does not pay for it. He states he went to be seen today because he just feels so doing bad. He reports having fever and chills and decreased energy. [facility] at [facility] they states that he was tachycardic, febrile and hypotensive. Chest x-ray over there was unremarkable. Patient denies nausea, vomiting, cardiac chest pain, shortness of breath, sputum production, abdominal pain, dysuria, hematuria, urinary frequency, melena, medic easier, hematemesis, history of diabetes, history of hypertension, history of stroke. Patient denies any other alleviating or aggravating factors. Related Data Home Medications Medication Instructions Recorded Confirmed CPAP machine #1 ea 11/07/19 03/30/22 metoprolol succinate 25 mg 12.5 mg PO BID 11/07/19 03/30/22 tablet,extended release 24 hr oxygen bled 3lpm CPAP #1 ea 11/07/19 03/30/22 alendronate 70 mg tablet 1 tab PO WEEKLY 10/22/21 03/30/22 fluticasone propionate 115 1 puff continuous inhalation BID 10/22/21 03/30/22 mcg-salmeterol 21 mcg/actuation HFA inhaler (Advair HFA) lisinopril 5 mg tablet 1 tab PO QDAY 10/22/21 03/30/22 ascorbate calcium (vitamin C) 500 500 mg PO QDAY 03/30/22 03/30/22 mg tablet multivitamin 1 tab PO QAM 03/30/22 03/30/22 Allergies Allergy/AdvReac Type Severity Reaction Status Date / Time levofloxacin AdvReac Mild Rash Verified 03/30/22 18:49 Review of Systems ROS ROS Narrative: Narrative: All systems ED: reviewed and negative except as stated. [facility] Narrative Patient History Narrative: Narrative: Medical/Surgical/Family History All Active Problems (Updated 03/30/22 @ 22:20 by Masood Marin MD) Hyponatremia (Acute) Stage 1 acute kidney injury (Acute) Septic shock (Acute) Sepsis (Acute) Acute osteomyelitis of toe (Acute) Acute kidney injury (Acute) Paroxysmal sinus tachycardia (Acute) Acute dehydration (Acute) RLL pneumonia (Acute) Obstructive sleep apnea (Chronic) Pneumonia (Acute) CHF (congestive heart failure) (Acute) Sepsis (Acute) Respiratory failure (Acute) Acute respiratory failure with hypoxia and hypercapnia (Acute) History of dilation of urethra (Acute) History of tonsillectomy (Acute) H/O detached retina repair (Acute) History of hernia repair (Acute) History of cataract surgery (Acute) History of surgical removal of intestinal structure (Acute) History of adenoidectomy (Acute) Vitamin B12 deficiency (Acute) Fracture of toe, closed (Acute) Tobacco use (Acute) Fracture of thoracic vertebra, closed (Acute) Psoriasis (Acute) Osteoporosis (Acute) Osteoarthritis (Acute) Neuropathy, lower extremity (Acute) Morbid obesity (Acute) Hypertension, essential (Acute 02/27/15) Hyperlipidemia (Acute) Fracture of finger, closed (Acute) Colonic polyp (Acute) COPD (chronic obstructive pulmonary disease) (Acute) Medical History (Updated 03/30/22 @ 22:20 by Masood Marin MD) Colonic polyp COPD (chronic obstructive pulmonary disease) CPAP (continuous positive airway pressure) dependence Fracture of finger, closed Fracture of thoracic vertebra, closed Fracture of toe, closed Hyperlipidemia Hypertension, essential (02/27/15) Morbid obesity Neuropathy, lower extremity Knees Obstructive sleep apnea Osteoarthritis Osteoporosis Psoriasis Tobacco use Vitamin B12 deficiency Surgical History H/O detached retina repair History of adenoidectomy History of cataract surgery Bilateral History of dilation of urethra Urethral stricture History of hernia repair incarcerated abdominal hernia History of surgical removal of intestinal structure Partial bowel resection History of tonsillectomy Family History Father Alzheimer's disease Atherosclerosis of coronary artery Essential hypertension Osteoporosis Rheumatoid arthritis Mother , at 62 years old Atherosclerosis of coronary artery Hyperlipidemia Unknown Diabetes mellitus Social History Smoking Status: Current every day smoker Alcohol Intake Frequency: holiday/special occasion only Exam Narrative Narrative: Narrative: General Limitations: no limitations General appearance: Present alert ENT ENT: Present normal oropharynx and mucous membranes dry Neck Neck: Present normal inspection; Absent meningismus Respiratory Respiratory: Present normal lung sounds bilaterally and other (Tachypnea); Absent respiratory distress Cardiovascular Cardiovascular: Present normal rhythm and tachycardia Adbominal Abdominal: Present soft; Absent tenderness Expanded Lower Extremity Hip/Pelvis: Present other (Bilateral 2+ lower extremity edema) Top foot image: 1. Suspected infected left great toe with erythema and wound bottom of the toe Bottom foot image: 1. Open wound with surrounding erythema Back Back 1 view image: 1. Open wound with no surrounding erythema, warmth or drainage Neurological Neurological: Present alert and oriented X3 Psychiatric Psychiatric: Present normal affect and normal mood Skin Skin: Present warm (WNL) and intact Course Course Course Narrative: Patient was evaluated for suspected sepsis. Patient met sepsis criteria with tachycardia, fever and left great toe infection. CT of the left foot was obtained with image reviewed myself which show osteomyelitis with bony destruction of the left great toe. Patient was given IV fluids as well as IV antibiotics to include Zosyn and vancomycin. Labs show that his lactic acid was elevated and that he had acute kidney injury with elevated creatinine of 1.9 with a baseline of 1. Recommendations are for patient to be admitted to the hospital for IV antibiotics and a possible podiatry consult. Case was discussed with hospitalist who has agreed to admit the patient Reevaluation(s) Reevaluation #1: Patient remains hemodynamic stable. No new complaints at this time Time: 19:57 Consultations Consultation #1: Case discussed with hospitalist who has agreed to admit the patient. Patient be admitted to Dr. Marin Time: 21:20 Consultation #2: Case was discussed with on-call orthopedic surgeon, Dr. Ramirez, who has been made aware that patient may require amputation. This request was done per Dr. Latif Time: 22:40 Vital Signs Vital signs: Vital Signs Temperature 101 F H 03/30/22 18:47 Pulse Rate 129 H 03/30/22 18:47 Respiratory Rate 22 03/30/22 18:47 Blood Pressure 84/51 03/30/22 18:47 Pulse Oximetry (%) 93 03/30/22 18:47 Oxygen Delivery Method 03/30/22 18:47 Temperature 101 F H 03/30/22 18:47 Pulse Rate 90 03/30/22 21:46 Respiratory Rate 23 H 03/30/22 21:46 Blood Pressure 90/36 03/30/22 21:46 Pulse Oximetry (%) 97 03/30/22 21:46 Oxygen Delivery Method 03/30/22 21:34 Oxygen Flow Rate (L/min) 2 03/30/22 21:34 MDM MDM Narrative Medical decision making narrative: Narrative: Differential Diagnosis Differential Diagnosis: Sepsis, diabetic wounds Medical Records Medical records reviewed: Yes I reviewed the patient's medical records. Lab Data Lab results reviewed: Yes I reviewed the patient's lab results. Result diagrams: 03/30/22 19:17 03/30/22 19:17 Labs: Lab Results 03/30/22 03/30/22 03/30/22 Range/Units 19:04 19:11 19:15 WBC (4.5-11.0) K/mcL RBC (4.63-6.08) M/mcL Hgb (13.7-17.5) g/dL Hct (40.1-51.0) % POC Hct 42.0 (41-55) MCV (80.0-100.0) fL MCH (26.0-34.0) pg MCHC (31.0-36.0) g/dL RDW (11.5-14.5) % Plt Count (140-440) K/mcL MPV (7.4-10.4) fL Immature Gran % (Auto) (0.0-0.5) % Neut % (Auto) (38.0-78.0) % Lymph % (Auto) (15.5-49.0) % [place] % (Auto) (1.0-12.0) % Eos % (Auto) (0.0-7.0) % Baso % (Auto) (0.0-2.0) % Lymph # (Auto) (1.50-4.80) K/mcL [place] # (Auto) (0.10-0.90) K/mcL Eos # (Auto) (0.00-0.70) K/mcL Baso # (Auto) (0.00-0.30) K/mcL Immature Gran # (0.00-0.05) K/mcl Absolute Neutrophils (1.80-8.00) K/mcL POC VBG pH 7.41 (7.32-7.42) POC VBG pCO2 at Temp 33.8 L (41-51) POC VBG pO2 51 H (25-40) POC VBG HCO3 21.4 L (24-28) POC VBG Total CO2 22.0 L (25-29) POC Venous O2 Sat 86.0 H (40-70) POC VBG Base Excess -3.0 L (-2-2) VBG Lactic Acid 3.0 H (0.5-2) POC Sodium 128 L (133-145) Sodium (133-145) mmol/L POC Potassium 4.3 (3.3-5.1) Potassium (3.3-5.1) mmol/L POC Chloride 98 (96-108) Chloride (96-108) mmol/L Carbon Dioxide (22-30) mmol/L POC Total CO2 23.0 (22-30) Anion Gap (8.0-16.0) POC BUN 29 H (6-20) BUN (8-23) mg/dL Creatinine (0.7-1.2) mg/dL POC Creatinine 1.9 H (0.6-1.2) GFR Calculation Glucose (70-105) mg/dL POC Glucose 128 H (70-105) Hemoglobin A1c (4.0-6.0) % Hgb Estim Average Glucose mg/dL Calcium (8.6-10.4) mg/dL POC WB Ioniz Calcium 1.08 L (1.16-1.32) Total Bilirubin (0.1-1.0) mg/dL AST (<40) U/L ALT (<40) U/L Alkaline Phosphatase (39-117) U/L NT-Pro-B Natriuret Pep (<125.0) pg/mL Total Protein (5.9-8.4) gm/dL Albumin (3.2-5.2) gm/dL Globulin (2.2-3.7) gm/dL Albumin/Globulin Ratio (1.0-2.3) Beta-Hydroxybutyrate 0.22 (<0.27) mmol/L Procalcitonin (<0.10) ng/mL 03/30/22 03/30/22 03/30/22 Range/Units 19:15 19:17 19:17 WBC 20.3 H (4.5-11.0) K/mcL RBC 4.93 (4.63-6.08) M/mcL Hgb 13.8 (13.7-17.5) g/dL Hct 40.9 (40.1-51.0) % POC Hct (41-55) MCV 83.0 (80.0-100.0) fL MCH 28.0 (26.0-34.0) pg MCHC 33.7 (31.0-36.0) g/dL RDW 12.3 (11.5-14.5) % Plt Count 333 (140-440) K/mcL MPV 9.5 (7.4-10.4) fL Immature Gran % (Auto) 1.2 H (0.0-0.5) % Neut % (Auto) 91.9 H (38.0-78.0) % Lymph % (Auto) 1.2 L (15.5-49.0) % [place] % (Auto) 5.0 (1.0-12.0) % Eos % (Auto) 0.4 (0.0-7.0) % Baso % (Auto) 0.3 (0.0-2.0) % Lymph # (Auto) 0.25 L (1.50-4.80) K/mcL [place] # (Auto) 1.02 H (0.10-0.90) K/mcL Eos # (Auto) 0.09 (0.00-0.70) K/mcL Baso # (Auto) 0.06 (0.00-0.30) K/mcL Immature Gran # 0.25 H (0.00-0.05) K/mcl Absolute Neutrophils 18.89 H (1.80-8.00) K/mcL POC VBG pH (7.32-7.42) POC VBG pCO2 at Temp (41-51) POC VBG pO2 (25-40) POC VBG HCO3 (24-28) POC VBG Total CO2 (25-29) POC Venous O2 Sat (40-70) POC VBG Base Excess (-2-2) VBG Lactic Acid (0.5-2) POC Sodium (133-145) Sodium 127 L (133-145) mmol/L POC Potassium (3.3-5.1) Potassium 4.4 (3.3-5.1) mmol/L POC Chloride (96-108) Chloride 92 L (96-108) mmol/L Carbon Dioxide 19 L (22-30) mmol/L POC Total CO2 (22-30) Anion Gap 16.0 (8.0-16.0) POC BUN (6-20) BUN 22 (8-23) mg/dL Creatinine 1.9 H (0.7-1.2) mg/dL POC Creatinine (0.6-1.2) GFR Calculation 35 Glucose 110 H (70-105) mg/dL POC Glucose (70-105) Hemoglobin A1c 5.8 (4.0-6.0) % Hgb Estim Average Glucose 120 mg/dL Calcium 9.1 (8.6-10.4) mg/dL POC WB Ioniz Calcium (1.16-1.32) Total Bilirubin 0.6 (0.1-1.0) mg/dL AST 19 (<40) U/L ALT 15 (<40) U/L Alkaline Phosphatase 93 (39-117) U/L NT-Pro-B Natriuret Pep (<125.0) pg/mL Total Protein 7.2 (5.9-8.4) gm/dL Albumin 3.3 (3.2-5.2) gm/dL Globulin 3.9 H (2.2-3.7) gm/dL Albumin/Globulin Ratio 0.8 L (1.0-2.3) Beta-Hydroxybutyrate (<0.27) mmol/L Procalcitonin 0.88 H (<0.10) ng/mL 03/30/22 03/30/22 Range/Units 19:17 21:13 WBC (4.5-11.0) K/mcL RBC (4.63-6.08) M/mcL Hgb (13.7-17.5) g/dL Hct (40.1-51.0) % POC Hct (41-55) MCV (80.0-100.0) fL MCH (26.0-34.0) pg MCHC (31.0-36.0) g/dL RDW (11.5-14.5) % Plt Count (140-440) K/mcL MPV (7.4-10.4) fL Immature Gran % (Auto) (0.0-0.5) % Neut % (Auto) (38.0-78.0) % Lymph % (Auto) (15.5-49.0) % [place] % (Auto) (1.0-12.0) % Eos % (Auto) (0.0-7.0) % Baso % (Auto) (0.0-2.0) % Lymph # (Auto) (1.50-4.80) K/mcL [place] # (Auto) (0.10-0.90) K/mcL Eos # (Auto) (0.00-0.70) K/mcL Baso # (Auto) (0.00-0.30) K/mcL Immature Gran # (0.00-0.05) K/mcl Absolute Neutrophils (1.80-8.00) K/mcL POC VBG pH 7.41 (7.32-7.42) POC VBG pCO2 at Temp 31.8 L (41-51) POC VBG pO2 57 H (25-40) POC VBG HCO3 20.2 L (24-28) POC VBG Total CO2 21.0 L (25-29) POC Venous O2 Sat 90.0 H (40-70) POC VBG Base Excess -4.0 L (-2-2) VBG Lactic Acid 1.3 (0.5-2) POC Sodium (133-145) Sodium (133-145) mmol/L POC Potassium (3.3-5.1) Potassium (3.3-5.1) mmol/L POC Chloride (96-108) Chloride (96-108) mmol/L Carbon Dioxide (22-30) mmol/L POC Total CO2 (22-30) Anion Gap (8.0-16.0) POC BUN (6-20) BUN (8-23) mg/dL Creatinine (0.7-1.2) mg/dL POC Creatinine (0.6-1.2) GFR Calculation Glucose (70-105) mg/dL POC Glucose (70-105) Hemoglobin A1c (4.0-6.0) % Hgb Estim Average Glucose mg/dL Calcium (8.6-10.4) mg/dL POC WB Ioniz Calcium (1.16-1.32) Total Bilirubin (0.1-1.0) mg/dL AST (<40) U/L ALT (<40) U/L Alkaline Phosphatase (39-117) U/L NT-Pro-B Natriuret Pep 2057.0 H (<125.0) pg/mL Total Protein (5.9-8.4) gm/dL Albumin (3.2-5.2) gm/dL Globulin (2.2-3.7) gm/dL Albumin/Globulin Ratio (1.0-2.3) Beta-Hydroxybutyrate (<0.27) mmol/L Procalcitonin (<0.10) ng/mL ED POC Tests ED POC Tests: MELO - Influenza A Negative MELO - Influenza B Negative MELO - SARS Antigen Negative Radiology Data Radiology results reviewed: Yes I reviewed the patient's radiology results. Radiology results narrative: CT of the left lower extremity confirms osteomyelitis of the left great toe Core Measures AMI Core Measures Followed: Yes Discharge Plan Patient/Caregiver Discharge Instructions Pt seen by REAL ESTATE ATTORNEY/PA only: No Clinical Impression: Acute kidney injury Sepsis Qualifiers: Sepsis type: sepsis due to unspecified organism Sepsis acute organ dysfunction status: with acute organ dysfunction Severe sepsis acute organ dysfunction type: acute renal failure Acute renal failure type: unspecified Severe sepsis shock status: with septic shock Qualified Code(s): A41.9 - Sepsis, unspecified organism Acute osteomyelitis of toe Qualifiers: Laterality: left Qualified Code(s): M86.172 - Other acute osteomyelitis, left ankle and foot Patient Disposition: Xfer As Inpt ([facility]) Condition: Fair Follow up with: Lala De MD [Primary Care Provider] - Prescriptions: No Action multivitamin Tablet 1 tab PO QAM ascorbate calcium (vitamin C) 500 mg tablet 500 mg PO QDAY metoprolol succinate 25 mg tablet extended release 24 hr 12.5 mg PO BID (DME) CPAP machine Qty: 1 Rx Instructions: As directed (DME) oxygen bled 3lpm CPAP Qty: 1 Rx Instructions: As directed alendronate 70 mg tablet 1 tab PO WEEKLY lisinopril 5 mg tablet 1 tab PO QDAY Advair HFA 115-21 mcg/actuation HFA aerosol inhaler 1 puff continuous inhalation BID
[2022-03-30 19:08] LABS: POC Calcium, Ionized 1.08 (1.16-1.32); POC Creatinine 1.9 (0.6-1.2); POC Potassium 4.3 (3.3-5.1)
[2022-03-30] MEDS ORDERED: PIPERACILLIN SODIUM/TAZOBACTAM 3.375 GM in DEXTROSE 5% IN WATER 50 ML IV ONE (19:34)
[2022-03-30] MEDS ORDERED: VANCOMYCIN 1,000 MG in 0.9 % SODIUM CHLORIDE 250 ML IV ONE (19:34)
[2022-03-30 20:15] LABS: Basophils # (Auto) 0.06 K/mcL (0.00-0.30); Basophils % (Auto) 0.3 % (0.0-2.0); Eosinophils # (Auto) 0.09 K/mcL (0.00-0.70); Eosinophils % (Auto) 0.4 % (0.0-7.0); Hematocrit 40.9 % (40.1-51.0); Hemoglobin 13.8 g/dL (13.7-17.5); Lymphocytes # (Auto) 0.25 K/mcL (1.50-4.80); Lymphocytes % (Auto) 1.2 % (15.5-49.0); Mean Corpuscular HGB Conc 33.7 g/dL (31.0-36.0); Mean Platelet Volume 9.5 fL (7.4-10.4); Monocytes # (Auto) 1.02 K/mcL (0.10-0.90); Neutrophils % (Auto) 91.9 % (38.0-78.0); Platelet Count 333 K/mcL (140-440); RBC 4.93 M/mcL (4.63-6.08); Red Cell Distribution Width 12.3 % (11.5-14.5); WBC 20.3 K/mcL (4.5-11.0)
[2022-03-30 20:37] LABS: ALT/SGPT 15 U/L (<40); AST/SGOT 19 U/L (<40); Albumin 3.3 gm/dL (3.2-5.2); Albumin/Globulin Ratio 0.8 (1.0-2.3); Alkaline Phosphatase 93 U/L (39-117); Bilirubin,Total 0.6 mg/dL (0.1-1.0); Blood Urea Nitrogen 22 mg/dL (8-23); Calcium 9.1 mg/dL (8.6-10.4); Carbon Dioxide 19 mmol/L (22-30); Chloride 92 mmol/L (96-108); Globulin 3.9 gm/dL (2.2-3.7); Glomerular Filtration Rate 35; Glucose 110 mg/dL (70-105)
[2022-03-30 20:40] LABS: Beta Hydroxybutyrate 0.22 mmol/L (<0.27)
--- NOTE | 2022-03-30 20:56 | Cat Scan Report ---
History: Osteomyelitis left first toe TECHNIQUE: The foot was imaged without contrast in axial plane at 2.5 mm intervals. Sagittal and coronal reformats were created. The radiation exposure was limited using dose reduction technology. There is severe fragmentation and erosion of the distal phalanx of the left first toe. There is a large amount of overlying soft tissue swelling due to cellulitis. There is no involvement of the proximal phalanx. There is a skin ulceration along the distal tip of the first toe. No foreign body is present. Except for the site of the skin ulceration there is no gas in the soft tissues. The remainder of the bones are normally mineralized with no other sites of infection. No other fracture is present. There is severe edema throughout the foot extending into the lower calf. No abscess is detected. Moderate edema is seen along the dorsal aspect of the right foot. Distal end of the distal phalanx of the right first toe has been surgically resected. There is no residual inflammation at this site. IMPRESSION: Severe osteomyelitis involving the distal phalanx of the left great toe with cellulitis extending into the mid foot Dr. Rios was called with the report Interpreted and Authenticated by: Daniel Hodge 03/30/22
--- NOTE | 2022-03-30 22:11 | Internal Med History&Physical ---
HPI History of Present Illness Patient information: Note initiated : 03/30/22 at 10:09 pm Service Date, if different from initiated Date: [] Patient: Sharif Grady 72 y/o M admitted on for left leg infection. Chief Complaint: [right foot swelling and erythema] Chief complaint: right foot swelling and erythema History of present illness: Mr. Grady is a 72 year old M history of COPD, sleep apnea on CPAP, essential hypertensions, osteoporosis, presenting with 1 week history of right foot swelling and 3 months of erythema of the same foot. Patient stated that he probably have neuropathy because he does not really feel his feet. He also have history of recurrent toenail infections and he probably had hurt his toe while cutting his toenail. Anyway, he has noticed swelling of his left foot especially his left first toe over the past 3 months and he has also noticed erythema of the same region over the past week. He is also committing of fever chills and diaphoresis. He also have no appetite. He is also have a general body weakness. [facility] where he got referred to our ER for further evaluations. Vital signs significant for fever tachycardia and tachypnea. Blood pressures also guarded latest MAP of 60 mmHg. Labs significant for leukocytosis WBC 20.3. Lactic acid 3.0 followed by 1.3. Serum sodium 128, serum creatinine 1.9, C-reactive protein 31.40. X-ray as well as CT of the left foot showing osteomyelitis of the left first toe with associated cellulitis extending to the mid foot. 3 L IV fluid bolus, vancomycin, Zosyn's were given after wound and blood cultures were collected. ER staffs were going to call assistant professor of business Dr. Leon for surgical assistance. Constitutional Constitutional: Present chills, fatigue, fever(s) and night sweats; Absent excessive sweating or weakness EENT Eyes: Absent blurry vision, change in vision, loss of vision or other visual disturbances Ears: Absent decreased hearing or tinnitus Nose, mouth and throat: Absent abnormal hearing, dry mouth, headache(s), nasal congestion or sore throat Cardiovascular Cardiovascular: Absent chest pain, chest pain at rest, edema, irregular heart rhythm or palpatations Respiratory Respiratory: Absent cough, dyspnea or wheezing Gastrointestinal Gastrointestinal: Absent abdominal pain, constipation, diarrhea, nausea or vomiting Musculoskeletal Musculoskeletal: Present joint swelling and myalgias; Absent back pain, deformity, limited range of motion, muscle cramps, muscle weakness or numbness Integumentary Integumentary: Absent lesions, rash or wounds Neurological Neurological: Present sensory deficit; Absent focal weakness, headache(s) or numbness Psychiatric Psychiatric: Absent anxiety, depression or hallucinations PFSH PFSH All Active Problems (Updated 03/30/22 @ 22:20 by Masood Marin MD) Hyponatremia (Acute) Stage 1 acute kidney injury (Acute) Septic shock (Acute) Sepsis (Acute) Acute osteomyelitis of toe (Acute) Acute kidney injury (Acute) Paroxysmal sinus tachycardia (Acute) Acute dehydration (Acute) RLL pneumonia (Acute) Obstructive sleep apnea (Chronic) Pneumonia (Acute) CHF (congestive heart failure) (Acute) Sepsis (Acute) Respiratory failure (Acute) Acute respiratory failure with hypoxia and hypercapnia (Acute) History of dilation of urethra (Acute) History of tonsillectomy (Acute) H/O detached retina repair (Acute) History of hernia repair (Acute) History of cataract surgery (Acute) History of surgical removal of intestinal structure (Acute) History of adenoidectomy (Acute) Vitamin B12 deficiency (Acute) Fracture of toe, closed (Acute) Tobacco use (Acute) Fracture of thoracic vertebra, closed (Acute) Psoriasis (Acute) Osteoporosis (Acute) Osteoarthritis (Acute) Neuropathy, lower extremity (Acute) Morbid obesity (Acute) Hypertension, essential (Acute 02/27/15) Hyperlipidemia (Acute) Fracture of finger, closed (Acute) Colonic polyp (Acute) COPD (chronic obstructive pulmonary disease) (Acute) Medical History (Updated 03/30/22 @ 22:20 by Masood Marin MD) Colonic polyp COPD (chronic obstructive pulmonary disease) CPAP (continuous positive airway pressure) dependence Fracture of finger, closed Fracture of thoracic vertebra, closed Fracture of toe, closed Hyperlipidemia Hypertension, essential (02/27/15) Morbid obesity Neuropathy, lower extremity Knees Obstructive sleep apnea Osteoarthritis Osteoporosis Psoriasis Tobacco use Vitamin B12 deficiency Surgical History H/O detached retina repair History of adenoidectomy History of cataract surgery Bilateral History of dilation of urethra Urethral stricture History of hernia repair incarcerated abdominal hernia History of surgical removal of intestinal structure Partial bowel resection History of tonsillectomy Family History Father Alzheimer's disease Atherosclerosis of coronary artery Essential hypertension Osteoporosis Rheumatoid arthritis Mother , at 62 years old Atherosclerosis of coronary artery Hyperlipidemia Unknown Diabetes mellitus Social History marital status: education level: college 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 smoking status start date: 09/06/70 smoking status stop date: 09/06/17 alcohol intake frequency: holiday/special occasion only MEDS/ALLERGIES Home Medications and Allergies Home Medications Medication Instructions Recorded Confirmed Type thiamine mononitrate (vit B1) 100 100 mg PO DAILY 09/29/19 10/21/21 Rx mg tablet CPAP machine #1 ea 11/07/19 10/22/21 History fluticasone 113 mcg-salmeterol 14 1 puff inhalation BID 11/07/19 10/21/21 History mcg/actuation breath activated powdr metoprolol succinate 25 mg 12.5 mg PO BID 11/07/19 10/21/21 History tablet,extended release 24 hr oxygen bled 3lpm CPAP #1 ea 11/07/19 10/22/21 History alendronate 70 mg tablet 1 tab PO WEEKLY 10/22/21 10/22/21 History fluticasone propionate 115 1 puff continuous inhalation BID 10/22/21 10/22/21 History mcg-salmeterol 21 mcg/actuation HFA inhaler (Advair HFA) lisinopril 5 mg tablet 1 tab PO QDAY 10/22/21 10/22/21 History cefpodoxime 200 mg tablet 200 mg PO BID #8 tabs 10/23/21 Rx ascorbate calcium (vitamin C) 500 500 mg PO QDAY 03/30/22 03/30/22 History mg tablet multivitamin 1 tab PO QAM 03/30/22 03/30/22 History vitamin E 268 mg (400 unit) capsule 268 mg PO QDAY 03/30/22 03/30/22 History Allergies Allergy/AdvReac Type Severity Reaction Status Date / Time levofloxacin AdvReac Mild Rash Verified 03/30/22 18:49 EXAM Constitutional Vitals: Temp Pulse Resp BP Pulse Ox O2 Del Method O2 Flow Rate 38.3 C H 90 23 H 90/36 97 2 03/30/22 18:47 07/25/22 21:46 03/30/22 21:46 03/30/22 21:46 03/30/22 21:46 03/30/22 21:34 03/30/22 21:34 General appearance: cooperative and no acute distress Head Head exam: Present atraumatic and normocephalic Eye Eye exam: Present EOMI and PERRL ENT ENT exam: Present mucous membranes moist, normal exam and normal external ear exam Neck Neck exam: Present normal inspection; Absent lymphadenopathy, tenderness or thyromegaly Respiratory Respiratory exam: Absent accessory muscle use, respiratory distress or wheezes Cardiovascular Cardiovascular exam: Present normal rate and rhythm; Absent JVD GI/Abdominal GI/Abdominal exam: Present normal bowel sounds and soft; Absent organomegaly or tenderness Rectal Rectal exam: Present deferred Extremities Exam Extremities exam: Present full ROM, joint swelling, normal capillary refill and tenderness; Absent normal inspection Additional comments: swelling, erythema, tenderness to touch, warmth of the left foot and left 1st toe and left lower leg. Neurological Exam Neurological exam: Present alert, CN II-XII intact and oriented X3; Absent motor sensory deficit Psychiatric Psychiatric exam: Present normal affect and normal mood; Absent anxious or depressed Skin Skin exam: Present dry; Absent intact Additional comments: swelling, erythema, tenderness to touch, warmth of the left foot and left 1st t oe and left lower leg. Non pressure ulcer with pustular discharge and foul smelling of the left 1st toe DATA Data Completed and Pending Labs: Labs from last 24 hours 03/30/22 03/30/22 03/30/22 21:13 19:17 19:17 WBC 20.3 H RBC 4.93 Hgb 13.8 Hct 40.9 POC Hct MCV 83.0 MCH 28.0 MCHC 33.7 RDW 12.3 Plt Count 333 MPV 9.5 Immature Gran % (Auto) 1.2 H Neut % (Auto) 91.9 H Lymph % (Auto) 1.2 L [place] % (Auto) 5.0 Eos % (Auto) 0.4 Baso % (Auto) 0.3 Lymph # (Auto) 0.25 L [place] # (Auto) 1.02 H Eos # (Auto) 0.09 Baso # (Auto) 0.06 Immature Gran # 0.25 H Absolute Neutrophils 18.89 H POC VBG pH 7.41 POC VBG pCO2 at Temp 31.8 L POC VBG pO2 57 H POC VBG HCO3 20.2 L POC VBG Total CO2 21.0 L POC Venous O2 Sat 90.0 H POC VBG Base Excess -4.0 L VBG Lactic Acid 1.3 POC Sodium Sodium POC Potassium Potassium POC Chloride Chloride Carbon Dioxide POC Total CO2 Anion Gap POC BUN BUN Creatinine POC Creatinine GFR Calculation Glucose POC Glucose Hemoglobin A1c Estim Average Glucose Calcium POC WB Ioniz Calcium Total Bilirubin AST ALT Alkaline Phosphatase NT-Pro-B Natriuret Pep 2057.0 H Total Protein Albumin Globulin Albumin/Globulin Ratio Beta-Hydroxybutyrate Procalcitonin 03/30/22 03/30/22 03/30/22 19:17 19:15 19:15 WBC RBC Hgb Hct POC Hct MCV MCH MCHC RDW Plt Count MPV Immature Gran % (Auto) Neut % (Auto) Lymph % (Auto) [place] % (Auto) Eos % (Auto) Baso % (Auto) Lymph # (Auto) [place] # (Auto) Eos # (Auto) Baso # (Auto) Immature Gran # Absolute Neutrophils POC VBG pH POC VBG pCO2 at Temp POC VBG pO2 POC VBG HCO3 POC VBG Total CO2 POC Venous O2 Sat POC VBG Base Excess VBG Lactic Acid POC Sodium Sodium 127 L POC Potassium Potassium 4.4 POC Chloride Chloride 92 L Carbon Dioxide 19 L POC Total CO2 Anion Gap 16.0 POC BUN BUN 22 Creatinine 1.9 H POC Creatinine GFR Calculation 35 Glucose 110 H POC Glucose Hemoglobin A1c Pending Estim Average Glucose Pending Calcium 9.1 POC WB Ioniz Calcium Total Bilirubin 0.6 AST 19 ALT 15 Alkaline Phosphatase 93 NT-Pro-B Natriuret Pep Total Protein 7.2 Albumin 3.3 Globulin 3.9 H Albumin/Globulin Ratio 0.8 L Beta-Hydroxybutyrate 0.22 Procalcitonin 0.88 H 03/30/22 03/30/22 19:11 19:04 WBC RBC Hgb Hct POC Hct 42.0 MCV MCH MCHC RDW Plt Count MPV Immature Gran % (Auto) Neut % (Auto) Lymph % (Auto) [place] % (Auto) Eos % (Auto) Baso % (Auto) Lymph # (Auto) [place] # (Auto) Eos # (Auto) Baso # (Auto) Immature Gran # Absolute Neutrophils POC VBG pH 7.41 POC VBG pCO2 at Temp 33.8 L POC VBG pO2 51 H POC VBG HCO3 21.4 L POC VBG Total CO2 22.0 L POC Venous O2 Sat 86.0 H POC VBG Base Excess -3.0 L VBG Lactic Acid 3.0 H POC Sodium 128 L Sodium POC Potassium 4.3 Potassium POC Chloride 98 Chloride Carbon Dioxide POC Total CO2 23.0 Anion Gap POC BUN 29 H BUN Creatinine POC Creatinine 1.9 H GFR Calculation Glucose POC Glucose 128 H Hemoglobin A1c Estim Average Glucose Calcium POC WB Ioniz Calcium 1.08 L Total Bilirubin AST ALT Alkaline Phosphatase NT-Pro-B Natriuret Pep Total Protein Albumin Globulin Albumin/Globulin Ratio Beta-Hydroxybutyrate Procalcitonin A/P Assessment and plan (1) Septic shock: Status: Acute (2) Obstructive sleep apnea: Status: Chronic (3) Acute osteomyelitis of toe: Status: Acute Qualifiers: Laterality: left Qualified Code(s): M86.172 - Other acute osteomyelitis, left ankle and foot (4) Stage 1 acute kidney injury: Status: Acute (5) Hyponatremia: Status: Acute (6) COPD (chronic obstructive pulmonary disease): Status: Acute Qualifiers: COPD type: unspecified COPD Qualified Code(s): J44.9 - Chronic obstructive pulmonary disease, unspecified (7) Hypertension, essential: Status: Acute (8) Neuropathy, lower extremity: Status: Acute Comment: Knees (9) Osteoporosis: Status: Acute Narrative A/P Narrative: Assessment and Plans: 1. Left 1st toe osteomyelitis with cellulitis of left foot with associated septic shock: Inpatient PCU telemetry ER staffs were going to call assistant professor of business Dr. Leon for surgical assistance. NPO after midnight s/p 3L IV fluid bolus given in the ED, to be followed by NS@100cc/hr Goal MAP>=60-65mmHg. If needed will transfer to ICU to start pressors Serial lactic acid Procalcitonin level ESR/CRP Blood culture Wound culture Consider intraoperative wound culture cbc w/ auto diff in the morning to trend WBC Vancomycin Zosyn Physical therapy Occupational therapy 2. h/o Essential HTN: Hold oral antihypertensives in the context of septic shock 3. h/o COPD: Continue bronchodilators from home regimen DuoNEB NEB PRN wheezing 4. h/o obstructive sleep apnea: CPAP at night while sleeping 5. Stage 1 acute kidney injury: Avoid nephrotoxic agents s/p 3L IV fluid bolus given in the ED, to be followed by NS@100cc/hr CMP in the morning to trend kidney functions 6. Hyponatremia: s/p 3L IV fluid bolus given in the ED, to be followed by NS@100cc/hr CMP in the morning to trend serum sodium level 7. h/o osteoporosis: Continue alendronate from home regiment GI ppx: not currently indicated DVT ppx: SCDs Code status: Full Prognosis: extremely guarded Disposition: inpatient PCU; PT OT Time Spent With Patient Time: Total time spent is greater than 50% in coordination of care (as documented) at patient's floor/unit and/or counseling patient: Total time spent with greater than 50% in coordination of care (as documented) at patient's floor/unit and/or counseling patient:: 50 - 70 minutes
[2022-03-30 22:29] LABS: Estimated Average Glucose(eAG) 120 mg/dL; Hemoglobin A1C 5.8 % Hgb (4.0-6.0)
[2022-03-30] MEDS ORDERED: VANCOMYCIN PER PHARMACY IV ONE (23:15)
[2022-03-30] MEDS ORDERED: LACTULOSE 20 GM/30 ML ORAL.SOL PO PRN (23:15)
[2022-03-30] MEDS ORDERED: morphine 2 MG/ML VIAL IV PRN (23:15)
[2022-03-30] MEDS ORDERED: IPRATROPIUM/ALBUTEROL 3 ML AMPUL.NEB NEB PRN (23:15)
[2022-03-30] MEDS ORDERED: ALENDRONATE SODIUM 70 MG TABLET PO SCH (23:15)
[2022-03-30] MEDS ORDERED: SENNOSIDES 1 TABLET PO PRN (23:15)
[2022-03-31] MEDS: PIPERACILLIN SODIUM/TAZOBACTAM 3.375 GM in DEXTROSE 5% IN WATER 50 ML IV SCH ×5 (00:20→23:15)
[2022-03-31] MEDS: 0.9 % SODIUM CHLORIDE 10 ML SYRINGE IV SCH ×3 (05:33→20:19)
[2022-03-31 06:23] LABS: Basophils # (Auto) 0.03 K/mcL (0.00-0.30); Basophils % (Auto) 0.2 % (0.0-2.0); Eosinophils # (Auto) 0.11 K/mcL (0.00-0.70); Eosinophils % (Auto) 0.8 % (0.0-7.0); Hematocrit 35.7 % (40.1-51.0); Hemoglobin 11.3 g/dL (13.7-17.5); Lymphocytes # (Auto) 0.01 K/mcL (1.50-4.80); Lymphocytes % (Auto) 0.1 % (15.5-49.0); Mean Cell Volume 87.7 fL (80.0-100.0); Mean Corpuscular HGB Conc 31.7 g/dL (31.0-36.0); Mean Platelet Volume 9.5 fL (7.4-10.4); Monocytes # (Auto) 0.95 K/mcL (0.10-0.90); Monocytes % (Auto) 7.2 % (1.0-12.0); Neutrophils % (Auto) 90.9 % (38.0-78.0); Platelet Count 231 K/mcL (140-440); RBC 4.07 M/mcL (4.63-6.08); Red Cell Distribution Width 12.2 % (11.5-14.5); WBC 13.3 K/mcL (4.5-11.0)
[2022-03-31 06:48] LABS: ALT/SGPT 13 U/L (<40); AST/SGOT 17 U/L (<40); Albumin 2.2 gm/dL (3.2-5.2); Albumin/Globulin Ratio 0.6 (1.0-2.3); Alkaline Phosphatase 81 U/L (39-117); Bilirubin,Total 0.4 mg/dL (0.1-1.0); Blood Urea Nitrogen 26 mg/dL (8-23); Calcium 7.9 mg/dL (8.6-10.4); Carbon Dioxide 22 mmol/L (22-30); Chloride 98 mmol/L (96-108); Globulin 3.4 gm/dL (2.2-3.7); Glomerular Filtration Rate 55; Glucose 114 mg/dL (70-105); Phosphorous 2.7 mg/dL (2.5-4.5)
[2022-03-31] MEDS ORDERED: VANCOMYCIN PER PHARMACY IV SCH (07:00)
--- NOTE | 2022-03-31 08:28 | Orthopedic Consult Note ---
HPI Data of Consult Consult date: 03/30/22 Requesting physician: Benji Shaw Primary Care Provider: Lala De Consult Narrative Patient Information: Note initiated : 03/31/22 at 8:24 am Service Date, if different from initiated Date: [] Patient: Sharif Grady 72 y/o M admitted on 03/30/22 for left leg infection. Chief Complaint: [left great toe infection] Patient cut himself trimming his toenails a while back. He decided to seek medical attention when the left great toe became red, hot, and swollen. The left leg is also red and swollen. He doesn't have feeling to his feet. Chief complaint: left great toe infection Reason for consult: left great toe infection cc:: CC: Benji Shaw [facility] PFSH All Active Problems (Updated 03/31/22 @ 08:28 by Bebeto Leon DPM) Osteomyelitis (Acute) Hyponatremia (Acute) Stage 1 acute kidney injury (Acute) Septic shock (Acute) Sepsis (Acute) Acute osteomyelitis of toe (Acute) Acute kidney injury (Acute) Paroxysmal sinus tachycardia (Acute) Acute dehydration (Acute) RLL pneumonia (Acute) Obstructive sleep apnea (Chronic) Pneumonia (Acute) CHF (congestive heart failure) (Acute) Sepsis (Acute) Respiratory failure (Acute) Acute respiratory failure with hypoxia and hypercapnia (Acute) History of dilation of urethra (Acute) History of tonsillectomy (Acute) H/O detached retina repair (Acute) History of hernia repair (Acute) History of cataract surgery (Acute) History of surgical removal of intestinal structure (Acute) History of adenoidectomy (Acute) Vitamin B12 deficiency (Acute) Fracture of toe, closed (Acute) Tobacco use (Acute) Fracture of thoracic vertebra, closed (Acute) Psoriasis (Acute) Osteoporosis (Acute) Osteoarthritis (Acute) Neuropathy, lower extremity (Acute) Morbid obesity (Acute) Hypertension, essential (Acute 02/27/15) Hyperlipidemia (Acute) Fracture of finger, closed (Acute) Colonic polyp (Acute) COPD (chronic obstructive pulmonary disease) (Acute) Medical History (Updated 03/31/22 @ 08:28 by Bebeto Leon DPM) Colonic polyp COPD (chronic obstructive pulmonary disease) CPAP (continuous positive airway pressure) dependence Fracture of finger, closed Fracture of thoracic vertebra, closed Fracture of toe, closed Hyperlipidemia Hypertension, essential (02/27/15) Morbid obesity Neuropathy, lower extremity Knees Obstructive sleep apnea Osteoarthritis Osteomyelitis Osteoporosis Psoriasis Tobacco use Vitamin B12 deficiency Surgical History H/O detached retina repair History of adenoidectomy History of cataract surgery Bilateral History of dilation of urethra Urethral stricture History of hernia repair incarcerated abdominal hernia History of surgical removal of intestinal structure Partial bowel resection History of tonsillectomy Family History Father Alzheimer's disease Atherosclerosis of coronary artery Essential hypertension Osteoporosis Rheumatoid arthritis Mother , at 62 years old Atherosclerosis of coronary artery Hyperlipidemia Unknown Diabetes mellitus Social History marital status: education level: college occupational status: retired occupation: [employer] other: Has 2 children, & 9 granchildren. smoking status start date: 09/06/70 smoking status stop date: 09/06/17 alcohol intake frequency: holiday/special occasion only MEDS/ALLERGIES Home Medications and Allergies Home Medications Medication Instructions Recorded Confirmed Type CPAP machine #1 ea 11/07/19 03/30/22 History metoprolol succinate 25 mg 12.5 mg PO BID 11/07/19 03/30/22 History tablet,extended release 24 hr oxygen bled 3lpm CPAP #1 ea 11/07/19 03/30/22 History alendronate 70 mg tablet 1 tab PO WEEKLY 10/22/21 03/30/22 History fluticasone propionate 115 1 puff continuous inhalation BID 10/22/21 03/30/22 History mcg-salmeterol 21 mcg/actuation HFA inhaler (Advair HFA) lisinopril 5 mg tablet 1 tab PO QDAY 10/22/21 03/30/22 History ascorbate calcium (vitamin C) 500 500 mg PO QDAY 03/30/22 03/30/22 History mg tablet multivitamin 1 tab PO QAM 03/30/22 03/30/22 History Allergies Allergy/AdvReac Type Severity Reaction Status Date / Time levofloxacin AdvReac Mild Rash Verified 03/30/22 18:49 Physical Examination Narrative Narrative: Narrative: Ankle & Foot left: Foot appearance: swelling, erythema and other (Left great toe has an open wound that probes to bone on the dorsal surface.) A/P Assessment and plan (1) Osteomyelitis: Status: Acute Plan left great toe amputation, DX: Osteomyelitis Narrative A/P Narrative: left great toe amputation, DX: Osteomyelitis Plan of Treatment: left great toe amputation, DX: Osteomyelitis Time Spent With Patient Time: Total time spent is greater than 50% in coordination of care (as documented) at patient's floor/unit and/or counseling patient:
[2022-03-31] MEDS: DOCUSATE SODIUM 100 MG CAPSULE PO SCH ×2 (08:30→20:19)
[2022-03-31] MEDS: MULTIVIT,THER IRON,CA,FA & MIN 1 TABLET PO SCH (08:30)
[2022-03-31] MEDS: VITAMIN E (DL,TOCOPHERYL ACET) 400 UNIT CAPSULE PO SCH (08:31)
[2022-03-31] MEDS: ASCORBIC ACID 500 MG TABLET PO SCH (08:31)
[2022-03-31] MEDS: THIAMINE 100 MG TABLET PO SCH (08:31)
[2022-03-31] MEDS: FLUTICASONE PROPION SALMETEROL INH SCH ×2 (08:32→20:19)
[2022-03-31] MEDS ORDERED: FLUTICASONE PROPION SALMETEROL continuous inhalation SCH (09:00)
[2022-03-31] MEDS ORDERED: VANCOMYCIN 2,000 MG in 0.9 % SODIUM CHLORIDE 500 ML IV ONE (09:00)
[2022-03-31] MEDS: 0.9 % SODIUM CHLORIDE 1,000 ML IV SCH ×3 (10:25→15:06)
--- NOTE | 2022-03-31 10:35 | Internal Med Progress Note ---
SUBJECTIVE Subjective Patient information: Note initiated : 03/31/22 at 10:29 am Service Date, if different from initiated Date: [] Patient: Sharif Grady 72 y/o M admitted on 03/30/22 for left leg infection. Chief Complaint: [] Interval history: Mr. Grady is a 72 year old M history of COPD, sleep apnea on CPAP, essential hypertensions, osteoporosis, presenting with 1 week history of right foot swelling and 3 months of erythema of the same foot. Patient stated that he probably have neuropathy because he does not really feel his feet. He also have history of recurrent toenail infections and he probably had hurt his toe while cutting his toenail. Anyway, he has noticed swelling of his left foot especially his left first toe over the past 3 months and he has also noticed erythema of the same region over the past week. He is also committing of fever chills and diaphoresis. He also have no appetite. He is also have a general body weakness. He presented to [facility] where he got referred to our ER for further evaluations. Vital signs significant for fever tachycardia and tachypnea. Blood pressures also guarded latest MAP of 60 mmHg. Labs significant for leukocytosis WBC 20.3. Lactic acid 3.0 followed by 1.3. Serum sodium 128, serum creatinine 1.9, C-reactive protein 31.40. X-ray as well as CT of the left foot showing osteomyelitis of the left first toe with associated cellulitis extending to the mid foot. 3 L IV fluid bolus, vancomycin, Zosyn's were given after wound and blood cultures were collected. ER staffs were going to call durability technician Dr. Leon for surgical assistance. 03/31: Patient's been afebrile overnight. Blood and wound culture no growth today. Patient's evaluated by durability technician Dr. Leon's who planned to take the patient to the OR this morning at 1130. Patient denies any pain of his left foot. He denies any subjective fever or chills or diaphoresis. Patient has been n.p.o. since midnight. Continue vancomycin and Zosyn for now while waiting for culture results. Physical therapy and Occupational Therapy after the planned amputation. We will resume diet after amputation. Constitutional Vitals: Vital Signs Temp Pulse Resp BP Pulse Ox O2 Del Method O2 Flow Rate 37.6 C H 89 19 100/66 92 0 07/26/22 08:01 03/31/22 09:01 03/31/22 09:01 03/31/22 09:01 03/31/22 09:01 03/31/22 07:45 03/31/22 09:01 Period Temp Pulse Resp BP Sys/Jacobs Pulse Ox O2 Del Method O2 Flow Rate Last 24 Hr 37.1 C-38.3 C 82-129 16-31 82-124/31-76 91-99 CPAP-Room Air, CPAP 0-2 Intake and Output 03/30/22 03/31/22 03/31/22 21:59 05:59 13:59 Intake Total 2765 350 50 Output Total 600 300 Balance 2765 -250 -250 Weight 138.346 kg 138.709 kg Intake & Output: Intake & Output 03/30/22 03/31/22 03/31/22 21:59 05:59 13:59 Intake Total 2765 350 50 Output Total 600 300 Balance 2765 -250 -250 Weight 138.346 kg 138.709 kg Intake: IV 2765 50 50 Sodium Chloride 0.9% 2,465 ml @ 2465 4930 mls/hr IV .Q30M ONE Rx#: [id number] Zosyn 3.375 gm In Dextrose 5% 50 50 50 in Water 50 ml @ 100 mls/hr IV Q6H [facility] Rx#:[id number] Vancomycin 1,000 mg In Sodium 250 Chloride 0.9% 250 ml @ 250 mls/ hr IV ONCE ONE Rx#:[id number] Oral 300 0 Output: Void Amount 600 300 # of times incontinent of urine 0 Other: Urine Appearance Clear Clear Urine Color Dark Yellow Dark Tara Urine Odor Normal # Voids 0 # Bowel Movements 0 # of times incontinent of 0 Bowels Head Head exam: Present atraumatic and normal inspection Eye Eye exam: Present normal appearance ENT ENT exam: Present mucous membranes moist, normal exam and normal external ear ex am Neck Neck exam: Present normal inspection Respiratory Respiratory exam: Present normal respiratory exam Cardiovascular Cardiovascular exam: Present normal rate and rhythm GI/Abdominal GI/Abdominal exam: Present normal bowel sounds Extremities Exam Extremities exam: Present full ROM; Absent normal inspection Additional comments: swelling, erythema, tenderness to touch, warmth of the left foot and left 1st toe and left lower leg. Non pressure ulcer with pustular discharge and foul smelling of the left 1st toe Back Exam Back exam: Present normal inspection Neurological Exam Neurological exam: Present alert and oriented X3 Skin Skin exam: Present warm; Absent intact Additional comments: swelling, erythema, tenderness to touch, warmth of the left foot and left 1st toe and left lower leg. Non pressure ulcer with pustular discharge and foul smelling of the left 1st toe Stage 3 pressure ulcer left ischium. OBJ DATA Labs CBC & Chem 7: 03/31/22 05:24 03/31/22 05:23 Labs: Abnormal Lab Results 03/31/22 03/31/22 03/30/22 05:24 05:23 21:13 WBC 13.3 H RBC 4.07 L Hgb 11.3 L Hct 35.7 L Immature Gran % (Auto) 0.8 H Neut % (Auto) 90.9 H Lymph % (Auto) 0.1 L Lymph # (Auto) 0.01 L Wirt # (Auto) 0.95 H Immature Gran # 0.10 H Absolute Neutrophils 12.15 H POC VBG pCO2 at Temp 31.8 L POC VBG pO2 57 H POC VBG HCO3 20.2 L POC VBG Total CO2 21.0 L POC Venous O2 Sat 90.0 H POC VBG Base Excess -4.0 L VBG Lactic Acid POC Sodium Sodium 131 L Chloride Carbon Dioxide POC BUN BUN 26 H Creatinine 1.3 H POC Creatinine Glucose 114 H POC Glucose Calcium 7.9 L POC WB Ioniz Calcium NT-Pro-B Natriuret Pep Total Protein 5.6 L Albumin 2.2 L Globulin Albumin/Globulin Ratio 0.6 L Procalcitonin 03/30/22 03/30/22 03/30/22 19:17 19:17 19:17 WBC 20.3 H RBC Hgb Hct Immature Gran % (Auto) 1.2 H Neut % (Auto) 91.9 H Lymph % (Auto) 1.2 L Lymph # (Auto) 0.25 L Wirt # (Auto) 1.02 H Immature Gran # 0.25 H Absolute Neutrophils 18.89 H POC VBG pCO2 at Temp POC VBG pO2 POC VBG HCO3 POC VBG Total CO2 POC Venous O2 Sat POC VBG Base Excess VBG Lactic Acid POC Sodium Sodium 127 L Chloride 92 L Carbon Dioxide 19 L POC BUN BUN Creatinine 1.9 H POC Creatinine Glucose 110 H POC Glucose Calcium POC WB Ioniz Calcium NT-Pro-B Natriuret Pep 2057.0 H Total Protein Albumin Globulin 3.9 H Albumin/Globulin Ratio 0.8 L Procalcitonin 03/30/22 03/30/22 03/30/22 19:15 19:11 19:04 WBC RBC Hgb Hct Immature Gran % (Auto) Neut % (Auto) Lymph % (Auto) Lymph # (Auto) Wirt # (Auto) Immature Gran # Absolute Neutrophils POC VBG pCO2 at Temp 33.8 L POC VBG pO2 51 H POC VBG HCO3 21.4 L POC VBG Total CO2 22.0 L POC Venous O2 Sat 86.0 H POC VBG Base Excess -3.0 L VBG Lactic Acid 3.0 H POC Sodium 128 L Sodium Chloride Carbon Dioxide POC BUN 29 H BUN Creatinine POC Creatinine 1.9 H Glucose POC Glucose 128 H Calcium POC WB Ioniz Calcium 1.08 L NT-Pro-B Natriuret Pep Total Protein Albumin Globulin Albumin/Globulin Ratio Procalcitonin 0.88 H Meds: Medications Acetaminophen (Acetaminophen 325 Mg Tablet) 650 mg PO Q6HP PRN; Protocol PRN Reason: Per Pain Protocol/Fever > 101 Albuterol/Ipratropium (Ipratropium/Albuterol 3 Ml Ampul.Neb) 3 ml NEB Q4HRT PRN PRN Reason: Wheezing Ascorbic Acid (Ascorbic Acid 500 Mg Tablet) 500 mg PO DAILY [facility] Last Admin: 03/31/22 08:31 Dose: Not Given Docusate Sodium (Docusate Sodium 100 Mg Capsule) 100 mg PO BID [facility] Last Admin: 03/31/22 08:30 Dose: Not Given Sodium Chloride (Sodium Chloride 0.9%) 1,000 mls @ 100 mls/hr IV .Q10H [facility] Last Admin: 03/31/22 00:00 Dose: 100 mls/hr Piperacillin Sod/Tazobactam (Sod 3.375 gm/ Dextrose) 50 mls @ 100 mls/hr IV Q6H [facility]; Protocol Last Infusion: 03/31/22 06:29 Dose: Infused Vancomycin HCl 2,000 mg/ (Sodium Chloride) 500 mls @ 250 mls/hr IV ONCE ONE Stop: 03/31/22 10:59 Last Admin: 03/31/22 08:41 Dose: 250 mls/hr Vancomycin HCl 1,500 mg/ (Sodium Chloride) 500 mls @ 333.3 mls/hr IV Q12H [facility] Iron Carb/Multivit/Pt Escort/Folic Acid (Multivit,Ther Iron,Ca,Fa & Min 1 Tablet) 1 tab PO DAILY [facility] Last Admin: 03/31/22 08:30 Dose: Not Given Lactulose (Lactulose 20 Gm/30 Ml Oral.Erika) 10 gm PO DAILYP PRN PRN Reason: Constipation Morphine Sulfate (Morphine 2 Mg/Ml Vial) 2 mg IV Q4HP PRN; Protocol PRN Reason: Per Pain Protocol Ondansetron HCl (Ondansetron 4 Mg/2 Ml Vial) 4 mg IV Q4HP PRN; Protocol PRN Reason: Nausea And Vomiting Oxycodone HCl (Oxycodone Hcl 5 Mg Tablet) 5 mg PO Q4-6HP PRN; Protocol PRN Reason: Per Pain Protocol Fluticasone Propion- Salmeterol 115-21 Mcg/Actuation Inhaler 1 dose INH BID [facility] Last Admin: 03/31/22 08:32 Dose: Not Given Senna (Sennosides 1 Tablet) 2 tab PO HSP PRN PRN Reason: Constipation Sodium Chloride (0.9 % Sodium Chloride 10 Ml Syringe) 10 ml IV Q8 [facility] Last Admin: 03/31/22 05:33 Dose: Not Given Thiamine HCl (Thiamine 100 Mg Tablet) 100 mg PO DAILY [facility] Last Admin: 03/31/22 08:31 Dose: Not Given Vancomycin HCl (Vancomycin Per Pharmacy) 1 order IV UD [facility]; Protocol Vitamin E (Vitamin E (Dl,Tocopheryl Acet) 400 Unit Capsule) 400 unit PO DAILY [facility] Last Admin: 03/31/22 08:31 Dose: Not Given A/P Assessment and plan (1) Septic shock: Status: Acute (2) Obstructive sleep apnea: Status: Chronic (3) Acute osteomyelitis of toe: Status: Acute Qualifiers: Laterality: left Qualified Code(s): M86.172 - Other acute osteomyelitis, left ankle and foot (4) Stage 1 acute kidney injury: Status: Acute (5) Hyponatremia: Status: Acute (6) COPD (chronic obstructive pulmonary disease): Status: Acute Qualifiers: COPD type: unspecified COPD Qualified Code(s): J44.9 - Chronic obstructive pulmonary disease, unspecified (7) Hypertension, essential: Status: Acute (8) Neuropathy, lower extremity: Status: Acute Comment: Knees (9) Osteoporosis: Status: Acute (10) Pressure injury of left perineal ischial region, stage 3: Status: Acute Narrative A/P Narrative: Assessment and Plans: 1. Left 1st toe osteomyelitis with cellulitis of left foot with associated septic shock: Inpatient PCU telemetry Patient Services Specialist Dr. Hernandezs will take patient to the OR with this morning 1134 left first toe amputations. We will also obtain intraoperative wound culture. Will resume diet after the surgery. s/p 3L IV fluid bolus given in the ED, to be followed by NS@100cc/hr Goal MAP>=60-65mmHg. If needed will transfer to ICU to start pressors Serial lactic acid Procalcitonin level ESR/CRP Blood culture, no growth to date Wound culture, no growth to date cbc w/ auto diff in the morning to trend WBC Vancomycin Zosyn Physical therapy Occupational therapy 2. h/o Essential HTN: Hold oral antihypertensives in the context of septic shock 3. h/o COPD: Continue bronchodilators from home regimen DuoNEB NEB PRN wheezing 4. h/o obstructive sleep apnea: CPAP at night while sleeping 5. Stage 1 acute kidney injury: Avoid nephrotoxic agents s/p 3L IV fluid bolus given in the ED, to be followed by NS@100cc/hr CMP in the morning to trend kidney functions 6. Hyponatremia: s/p 3L IV fluid bolus given in the ED, to be followed by NS@100cc/hr CMP in the morning to trend serum sodium level 7. h/o osteoporosis: Continue alendronate from home regiment 8. Stage 3 left ischial pressure ulcer: Wound care consult GI ppx: not currently indicated DVT ppx: SCDs Code status: Full Prognosis: extremely guarded Disposition: inpatient PCU; PT OT Plan of Treatment: left great toe amputation, DX: Osteomyelitis Time Spent With Patient Time: Total time spent is greater than 50% in coordination of care (as documented) at patient's floor/unit and/or counseling patient: Total time spent with greater than 50% in coordination of care (as documented) at patient's floor/unit and/or counseling patient:: 35 - 50 minutes QUALITY VTE Deep Vein Thrombosis/Pulmonary Embolism Present on Admission: No
[2022-03-31] MEDS ORDERED: KETAMINE 50 MG/ML Syringe (ANEST) IV ONE (12:05)
[2022-03-31] MEDS ORDERED: PROPOFOL 200 MG/20 ML VIAL IV ONE (12:05)
--- NOTE | 2022-03-31 12:42 | Brief Operative Note ---
Brief Operative Note Date of procedure: 03/31/22 Pre-op diagnosis: OSTEOMYELITIS LEFT GREAT TOE Post-op diagnosis: same Procedure: AMPTUATION LEFT GREAT TOE Grafts/Implants: No Anesthesia: MAC Findings: NONE Complications: none Surgeon: Bebeto Leon Estimated blood loss (cc): 15 Tourniquet Time (Minutes): 9 Specimens Removed/Pathology: other (BONE AND DEEP TISSUE CULTURE) Condition: stable Disposition: floor Operative Note Operative Note: Name of the operating practitioner/proceduralist: [Surgeon] Assistants: [pharmacy assistant] Procedure performed: [Procedure] Preoperative diagnosis: [pre-op dx] Postoperative diagnosis: [Post-op dx] Findings: [detail] Specimens removed: [none] Estimated blood loss (cc): [#] Any complications: [details] Detailed account of the findings at surgery: [details] Details of the surgical technique: [details]
--- NOTE | 2022-03-31 12:53 | Operative Note ---
DATE OF OPERATION: 03/31/2022 PREOPERATIVE DIAGNOSIS: Osteomyelitis, left great toe. POSTOPERATIVE DIAGNOSIS: Osteomyelitis, left great toe. PROCEDURE: Amputation of left great toe. SURGEON: Bebeto Leon DPM. IMPLANTS: None. ANESTHESIA: MAC, local. COMPLICATIONS: None. BLOOD LOSS: 15 mL. TOURNIQUET TIME: 9 minutes. SPECIMEN: Bone and deep tissue culture, left great toe. CONDITION: Stable. DISPOSITION: Floor. PROCEDURE IN DETAIL: The patient was transported to the operating room and remained in his bed throughout the operation. The left lower extremity was scrubbed, prepped and draped in the usual aseptic fashion. Sedation with MAC care was initiated by the anesthesia team. An Esmarch was applied. Pneumatic thigh tourniquet inflated to 250 mmHg. A full-thickness fishmouth incision was created on the 1st metatarsophalangeal joint of the left foot. The entire hallux was removed at the base of the phalanx through the metatarsophalangeal joint. An abundance of purulent discharge was evacuated from this area. The toe was sent for micro and pathological specimen. There was also a deep tissue biopsy with bone biopsy taken for microbiological assessment. Area was irrigated with a 3 liter bag of normal saline under pulse lavage. The area was then packed with Xeroform, 4 x 4 gauze, Kerlix, Douglas wrap with a gram of vancomycin powder. Tourniquet was deflated at 9 minutes. The patient tolerated the procedure and anesthesia well and was transferred to the floor for continued antibiotic therapy. [email or web address]:nas Job ID: [id number] Doc ID: [id number] Bebeto Leon DPM
[2022-03-31] MEDS ORDERED: VANCOMYCIN 1 GM VIAL TOPICAL SCH (13:30)
[2022-03-31] MEDS: ACETAMINOPHEN 325 MG TABLET PO PRN ×2 (15:06→20:18)
[2022-03-31] MEDS: oxyCODONE HCL 5 MG TABLET PO PRN ×2 (15:07→18:53)
[2022-03-31] MEDS: GABAPENTIN 100 MG CAPSULE PO PRN ×2 (16:00→20:18)
[2022-03-31] MEDS: ONDANSETRON 4 MG/2 ML VIAL IV PRN (16:13)
[2022-03-31] MEDS: VANCOMYCIN 1,500 MG in 0.9 % SODIUM CHLORIDE 500 ML IV SCH (23:58)
[2022-04-01] MEDS: 0.9 % SODIUM CHLORIDE 1,000 ML IV SCH ×2 (04:16→07:23)
[2022-04-01] MEDS: PIPERACILLIN SODIUM/TAZOBACTAM 3.375 GM in DEXTROSE 5% IN WATER 50 ML IV SCH ×4 (07:23→23:59)
[2022-04-01] MEDS: 0.9 % SODIUM CHLORIDE 10 ML SYRINGE IV SCH ×3 (07:24→22:34)
[2022-04-01 07:40] LABS: Basophils # (Auto) 0.07 K/mcL (0.00-0.30); Basophils % (Auto) 0.5 % (0.0-2.0); Eosinophils # (Auto) 0.33 K/mcL (0.00-0.70); Eosinophils % (Auto) 2.3 % (0.0-7.0); Hemoglobin 10.9 g/dL (13.7-17.5); Lymphocytes # (Auto) 0.78 K/mcL (1.50-4.80); Lymphocytes % (Auto) 5.5 % (15.5-49.0); Mean Cell Volume 87.2 fL (80.0-100.0); Mean Corpuscular HGB Conc 32.1 g/dL (31.0-36.0); Mean Platelet Volume 9.9 fL (7.4-10.4); Neutrophils % (Auto) 83.4 % (38.0-78.0); Platelet Count 285 K/mcL (140-440); Red Cell Distribution Width 12.5 % (11.5-14.5); WBC 14.2 K/mcL (4.5-11.0)
[2022-04-01 07:59] LABS: ALT/SGPT 12 U/L (<40); AST/SGOT 15 U/L (<40); Albumin 2.2 gm/dL (3.2-5.2); Albumin/Globulin Ratio 0.6 (1.0-2.3); Alkaline Phosphatase 70 U/L (39-117); Bilirubin,Total 0.2 mg/dL (0.1-1.0); Blood Urea Nitrogen 16 mg/dL (8-23); Calcium 8.2 mg/dL (8.6-10.4); Carbon Dioxide 24 mmol/L (22-30); Chloride 102 mmol/L (96-108); Globulin 3.4 gm/dL (2.2-3.7); Glomerular Filtration Rate 86; Glucose 87 mg/dL (70-105)
[2022-04-01] MEDS: DOCUSATE SODIUM 100 MG CAPSULE PO SCH ×2 (08:49→20:44)
[2022-04-01] MEDS: THIAMINE 100 MG TABLET PO SCH (08:50)
[2022-04-01] MEDS: MULTIVIT,THER IRON,CA,FA & MIN 1 TABLET PO SCH (08:50)
[2022-04-01] MEDS: ASCORBIC ACID 500 MG TABLET PO SCH (08:50)
[2022-04-01] MEDS: FLUTICASONE PROPION SALMETEROL INH SCH ×2 (08:50→20:45)
[2022-04-01] MEDS: VITAMIN E (DL,TOCOPHERYL ACET) 400 UNIT CAPSULE PO SCH (08:50)
--- NOTE | 2022-04-01 10:26 | Internal Med Progress Note ---
SUBJECTIVE Subjective Patient information: Note initiated : 04/01/22 at 10:24 am Service Date, if different from initiated Date: [] Patient: Sharif Grady 72 y/o M admitted on 03/30/22 for left leg infection. Chief Complaint: [] Interval history: Mr. Grady is a 72 year old M history of COPD, sleep apnea on CPAP, essential hypertensions, osteoporosis, presenting with 1 week history of right foot swelling and 3 months of erythema of the same foot. Patient stated that he probably have neuropathy because he does not really feel his feet. He also have history of recurrent toenail infections and he probably had hurt his toe while cutting his toenail. Anyway, he has noticed swelling of his left foot especially his left first toe over the past 3 months and he has also noticed erythema of the same region over the past week. He is also committing of fever chills and diaphoresis. He also have no appetite. He is also have a general body weakness. He presented [facility] where he got referred to our ER for further evaluations. Vital signs significant for fever tachycardia and tachypnea. Blood pressures also guarded latest MAP of 60 mmHg. Labs significant for leukocytosis WBC 20.3. Lactic acid 3.0 followed by 1.3. Serum sodium 128, serum creatinine 1.9, C-reactive protein 31.40. X-ray as well as CT of the left foot showing osteomyelitis of the left first toe with associated cellulitis extending to the mid foot. 3 L IV fluid bolus, vancomycin, Zosyn's were given after wound and blood cultures were collected. ER staffs were going to call popped corn oven attendant Dr. Leon for surgical assistance. 03/31: Patient's been afebrile overnight. Blood and wound culture no growth today. Patient's evaluated by [employer] attendant Dr. Leon's who planned to take the patient to the OR this morning at 1130. Patient denies any pain of his left foot. He denies any subjective fever or chills or diaphoresis. Patient has been n.p.o. since midnight. Continue vancomycin and Zosyn for now while waiting for culture results. Physical therapy and Occupational Therapy after the planned amputation. We will resume diet after amputation. 04/01: Afebrile overnight. Patient is currently on 2 L/min of oxygen. Status post amputations of the left great toe with intraoperative wound culture by Dr. Leon on 03/31. Initial blood culture growing gram-positive cocci; wound culture growing mixed tamika; intraoperative wound culture no growth to date. WBC 14.2 this morning. Repeat blood culture to date. 2D echocardiogram to rule out endocarditis. Continue vancomycin and Zosyn while waiting for final intraoperative wound culture result as well as blood culture result. Saline lock. Constitutional Vitals: Vital Signs Temp Pulse Resp BP Pulse Ox O2 Del Method O2 Flow Rate 37.0 C 83 20 111/52 95 2 04/01/22 08:01 04/01/22 10:01 04/01/22 10:01 04/01/22 10:01 04/01/22 10:01 04/01/22 08:04 04/01/22 10:01 Period Temp Pulse Resp BP Sys/Jcaobs Pulse Ox O2 Del Method O2 Flow Rate Last 24 Hr 36.1 C-37.4 C 75-102 15-40 92-130/45-69 85-100 Nasal Cannula- Room Air 0-3 Intake and Output 03/31/22 04/01/22 04/01/22 21:59 05:59 13:59 Intake Total 1118 2680 820 Output Total 300 650 175 Balance 818 2030 645 Weight 140.296 kg Intake & Output: Intake & Output 03/31/22 04/01/22 04/01/22 21:59 05:59 13:59 Intake Total 1118 2680 820 Output Total 300 650 175 Balance 818 2030 645 Weight 140.296 kg Intake: IV 518 1500 100 Sodium Chloride 0.9% 1,000 ml @ 468 1000 100 mls/hr IV .Q10H [facility] Rx#: [id number] Zosyn 3.375 gm In Dextrose 5% 50 100 in Water 50 ml @ 100 mls/hr IV Q6H [facility] Rx#:[id number] Vancomycin 1,500 mg In Sodium 500 Chloride 0.9% 500 ml @ 333.3 mls/hr IV Q12H [facility] Rx#: [id number] Oral 600 1180 240 GI Tube Flush 480 Output: Void Amount 300 650 175 Other: Meal Lunch Dinner Breakfast Percent of Meal Consumed 50% 50% 100% Feeding Ability Independent Independent Independent Urine Appearance Clear Clear Clear Urine Color Dark Yellow Light Tara Bright Yellow Urine Odor Normal Head Head exam: Present atraumatic and normal inspection Eye Eye exam: Present normal appearance ENT ENT exam: Present mucous membranes moist, normal exam and normal external ear exam Neck Neck exam: Present normal inspection Respiratory Respiratory exam: Present normal respiratory exam Cardiovascular Cardiovascular exam: Present normal rate and rhythm GI/Abdominal GI/Abdominal exam: Present normal bowel sounds Extremities Exam Extremities exam: Present full ROM; Absent normal inspection Additional comments: Left foot wrapped by surgical dressing. Mild erythema and swelling of the left lower leg. Back Exam Back exam: Present normal inspection Neurological Exam Neurological exam: Present alert and oriented X3 Skin Skin exam: Present warm; Absent intact Additional comments: Left foot wrapped by surgical dressing. Mild erythema and swelling of the left lower leg. Stage 3 left ischial pressure ulcer OBJ DATA Labs CBC & Chem 7: 04/01/22 05:32 04/01/22 05:32 Labs: Abnormal Lab Results 04/01/22 04/01/22 03/31/22 05:32 05:32 05:24 WBC 14.2 H 13.3 H RBC 3.90 L 4.07 L Hgb 10.9 L 11.3 L Hct 34.0 L 35.7 L Immature Gran % (Auto) 1.3 H 0.8 H Neut % (Auto) 83.4 H 90.9 H Lymph % (Auto) 5.5 L 0.1 L Lymph # (Auto) 0.78 L 0.01 L Cooke # (Auto) 1.00 H 0.95 H Immature Gran # 0.19 H 0.10 H Absolute Neutrophils 12.02 H 12.15 H POC VBG pCO2 at Temp POC VBG pO2 POC VBG HCO3 POC VBG Total CO2 POC Venous O2 Sat POC VBG Base Excess VBG Lactic Acid POC Sodium Sodium Chloride Carbon Dioxide POC BUN BUN Creatinine POC Creatinine Glucose POC Glucose Calcium 8.2 L POC WB Ioniz Calcium Phosphorus 2.0 L NT-Pro-B Natriuret Pep Total Protein 5.6 L Albumin 2.2 L Globulin Albumin/Globulin Ratio 0.6 L Procalcitonin 03/31/22 03/30/22 03/30/22 05:23 21:13 19:17 WBC RBC Hgb Hct Immature Gran % (Auto) Neut % (Auto) Lymph % (Auto) Lymph # (Auto) Cooke # (Auto) Immature Gran # Absolute Neutrophils POC VBG pCO2 at Temp 31.8 L POC VBG pO2 57 H POC VBG HCO3 20.2 L POC VBG Total CO2 21.0 L POC Venous O2 Sat 90.0 H POC VBG Base Excess -4.0 L VBG Lactic Acid POC Sodium Sodium 131 L Chloride Carbon Dioxide POC BUN BUN 26 H Creatinine 1.3 H POC Creatinine Glucose 114 H POC Glucose Calcium 7.9 L POC WB Ioniz Calcium Phosphorus NT-Pro-B Natriuret Pep 2057.0 H Total Protein 5.6 L Albumin 2.2 L Globulin Albumin/Globulin Ratio 0.6 L Procalcitonin 03/30/22 03/30/22 03/30/22 19:17 19:17 19:15 WBC 20.3 H RBC Hgb Hct Immature Gran % (Auto) 1.2 H Neut % (Auto) 91.9 H Lymph % (Auto) 1.2 L Lymph # (Auto) 0.25 L Cooke # (Auto) 1.02 H Immature Gran # 0.25 H Absolute Neutrophils 18.89 H POC VBG pCO2 at Temp POC VBG pO2 POC VBG HCO3 POC VBG Total CO2 POC Venous O2 Sat POC VBG Base Excess VBG Lactic Acid POC Sodium Sodium 127 L Chloride 92 L Carbon Dioxide 19 L POC BUN BUN Creatinine 1.9 H POC Creatinine Glucose 110 H POC Glucose Calcium POC WB Ioniz Calcium Phosphorus NT-Pro-B Natriuret Pep Total Protein Albumin Globulin 3.9 H Albumin/Globulin Ratio 0.8 L Procalcitonin 0.88 H 03/30/22 03/30/22 19:11 19:04 WBC RBC Hgb Hct Immature Gran % (Auto) Neut % (Auto) Lymph % (Auto) Lymph # (Auto) Cooke # (Auto) Immature Gran # Absolute Neutrophils POC VBG pCO2 at Temp 33.8 L POC VBG pO2 51 H POC VBG HCO3 21.4 L POC VBG Total CO2 22.0 L POC Venous O2 Sat 86.0 H POC VBG Base Excess -3.0 L VBG Lactic Acid 3.0 H POC Sodium 128 L Sodium Chloride Carbon Dioxide POC BUN 29 H BUN Creatinine POC Creatinine 1.9 H Glucose POC Glucose 128 H Calcium POC WB Ioniz Calcium 1.08 L Phosphorus NT-Pro-B Natriuret Pep Total Protein Albumin Globulin Albumin/Globulin Ratio Procalcitonin Meds: Medications Acetaminophen (Acetaminophen 325 Mg Tablet) 650 mg PO Q6HP PRN; Protocol PRN Reason: Per Pain Protocol/Fever > 101 Last Admin: 03/31/22 20:18 Dose: 650 mg Albuterol/Ipratropium (Ipratropium/Albuterol 3 Ml Ampul.Neb) 3 ml NEB Q4HRT PRN PRN Reason: Wheezing Ascorbic Acid (Ascorbic Acid 500 Mg Tablet) 500 mg PO DAILY [facility] Last Admin: 04/01/22 08:50 Dose: 500 mg Docusate Sodium (Docusate Sodium 100 Mg Capsule) 100 mg PO BID [facility] Last Admin: 04/01/22 08:49 Dose: 100 mg Gabapentin (Gabapentin 100 Mg Capsule) 100 mg PO TIDP PRN PRN Reason: Pain Last Admin: 03/31/22 20:18 Dose: 100 mg Sodium Chloride (Sodium Chloride 0.9%) 1,000 mls @ 100 mls/hr IV .Q10H [facility] Last Admin: 04/01/22 07:23 Dose: Not Given Piperacillin Sod/Tazobactam (Sod 3.375 gm/ Dextrose) 50 mls @ 100 mls/hr IV Q6H [facility]; Protocol Last Infusion: 04/01/22 07:53 Dose: Infused Vancomycin HCl 1,500 mg/ (Sodium Chloride) 500 mls @ 333.3 mls/hr IV Q12H [facility] Last Infusion: 04/01/22 02:50 Dose: Infused Iron Carb/Multivit/Energy Infrastructure Engineer/Folic Acid (Multivit,Ther Iron,Ca,Fa & Min 1 Tablet) 1 tab PO DAILY [facility] Last Admin: 04/01/22 08:50 Dose: 1 tab Lactulose (Lactulose 20 Gm/30 Ml Oral.Erika) 10 gm PO DAILYP PRN PRN Reason: Constipation Morphine Sulfate (Morphine 2 Mg/Ml Vial) 2 mg IV Q4HP PRN; Protocol PRN Reason: Per Pain Protocol Ondansetron HCl (Ondansetron 4 Mg/2 Ml Vial) 4 mg IV Q4HP PRN; Protocol PRN Reason: Nausea And Vomiting Last Admin: 03/31/22 16:13 Dose: 4 mg Oxycodone HCl (Oxycodone Hcl 5 Mg Tablet) 5 mg PO Q4-6HP PRN; Protocol PRN Reason: Per Pain Protocol Last Admin: 03/31/22 18:53 Dose: 5 mg Fluticasone Propion- Salmeterol 115-21 Mcg/Actuation Inhaler 1 dose INH BID [facility] Last Admin: 04/01/22 08:50 Dose: Not Given Senna (Sennosides 1 Tablet) 2 tab PO HSP PRN PRN Reason: Constipation Sodium Chloride (0.9 % Sodium Chloride 10 Ml Syringe) 10 ml IV Q8 [facility] Last Admin: 04/01/22 07:24 Dose: 10 ml Thiamine HCl (Thiamine 100 Mg Tablet) 100 mg PO DAILY [facility] Last Admin: 04/01/22 08:50 Dose: 100 mg Vancomycin HCl (Vancomycin Per Pharmacy) 1 order IV UD [facility]; Protocol Vitamin E (Vitamin E (Dl,Tocopheryl Acet) 400 Unit Capsule) 400 unit PO DAILY [facility] Last Admin: 04/01/22 08:50 Dose: 400 unit A/P Assessment and plan (1) Septic shock: Status: Acute (2) Obstructive sleep apnea: Status: Chronic (3) Acute osteomyelitis of toe: Status: Acute Qualifiers: Laterality: left Qualified Code(s): M86.172 - Other acute osteomyelitis, left ankle and foot (4) Stage 1 acute kidney injury: Status: Acute (5) Hyponatremia: Status: Acute (6) COPD (chronic obstructive pulmonary disease): Status: Acute Qualifiers: COPD type: unspecified COPD Qualified Code(s): J44.9 - Chronic obstructive pulmonary disease, unspecified (7) Hypertension, essential: Status: Acute (8) Neuropathy, lower extremity: Status: Acute Comment: Knees (9) Osteoporosis: Status: Acute (10) Pressure injury of left perineal ischial region, stage 3: Status: Acute (11) Gram-positive cocci bacteremia: Status: Acute Narrative A/P Narrative: Assessment and Plans: 1. Left 1st toe osteomyelitis with cellulitis of left foot with associated septic shock: Inpatient PCU telemetry Status post amputations of the left great toe with intraoperative wound culture by Dr. Leon on 03/31 Saline lock Serial lactic acid Procalcitonin level ESR/CRP Blood culture, gram positive cocci, see #9 Wound culture, mixed tamika cbc w/ auto diff in the morning to trend WBC Vancomycin Zosyn Physical therapy Occupational therapy 2. h/o Essential HTN: Hold oral antihypertensives in the context of septic shock 3. h/o COPD: Continue bronchodilators from home regimen DuoNEB NEB PRN wheezing 4. h/o obstructive sleep apnea: CPAP at night while sleeping 5. Stage 1 acute kidney injury: RESOLVED Avoid nephrotoxic agents Saline lock CMP in the morning to trend kidney functions 6. Hyponatremia: RESOLVED Saline lock CMP in the morning to trend serum sodium level 7. h/o osteoporosis: Continue alendronate from home regiment 8. Stage 3 left ischial pressure ulcer: Wound care consult 9. Gram positive cocci bacteremia: DDx: skin contaminate Repeat blood culture 04/01 2D echocardiogram Vancomycin Zosyn GI ppx: not currently indicated DVT ppx: SCDs Code status: Full Prognosis: guarded Disposition: inpatient PCU; PT OT Plan of Treatment: left great toe amputation, DX: Osteomyelitis Time Spent With Patient Time: Total time spent is greater than 50% in coordination of care (as documented) at patient's floor/unit and/or counseling patient: Total time spent with greater than 50% in coordination of care (as documented) at patient's floor/unit and/or counseling patient:: 35 - 50 minutes QUALITY VTE Deep Vein Thrombosis/Pulmonary Embolism Present on Admission: No
[2022-04-01] MEDS: VANCOMYCIN 1,500 MG in 0.9 % SODIUM CHLORIDE 500 ML IV SCH ×2 (10:30→20:45)
[2022-04-01] MEDS: GABAPENTIN 100 MG CAPSULE PO PRN ×2 (17:34→20:44)
[2022-04-01] MEDS: oxyCODONE HCL 5 MG TABLET PO PRN (20:44)
[2022-04-02] MEDS: PIPERACILLIN SODIUM/TAZOBACTAM 3.375 GM in DEXTROSE 5% IN WATER 50 ML IV SCH (05:51)
[2022-04-02] MEDS: 0.9 % SODIUM CHLORIDE 10 ML SYRINGE IV SCH ×3 (05:51→20:35)
[2022-04-02 06:48] LABS: Basophils # (Auto) 0.08 K/mcL (0.00-0.30); Basophils % (Auto) 0.7 % (0.0-2.0); Eosinophils # (Auto) 0.19 K/mcL (0.00-0.70); Eosinophils % (Auto) 1.7 % (0.0-7.0); Hematocrit 33.6 % (40.1-51.0); Hemoglobin 10.8 g/dL (13.7-17.5); Lymphocytes # (Auto) 0.75 K/mcL (1.50-4.80); Lymphocytes % (Auto) 6.7 % (15.5-49.0); Mean Corpuscular HGB Conc 32.1 g/dL (31.0-36.0); Mean Platelet Volume 9.5 fL (7.4-10.4); Monocytes # (Auto) 1.08 K/mcL (0.10-0.90); Monocytes % (Auto) 9.7 % (1.0-12.0); Neutrophils % (Auto) 78.5 % (38.0-78.0); Platelet Count 280 K/mcL (140-440); RBC 3.82 M/mcL (4.63-6.08); Red Cell Distribution Width 12.6 % (11.5-14.5); WBC 11.1 K/mcL (4.5-11.0)
[2022-04-02 07:21] LABS: ALT/SGPT 13 U/L (<40); AST/SGOT 14 U/L (<40); Albumin 2.3 gm/dL (3.2-5.2); Albumin/Globulin Ratio 0.7 (1.0-2.3); Alkaline Phosphatase 73 U/L (39-117); Bilirubin,Total 0.3 mg/dL (0.1-1.0); Blood Urea Nitrogen 17 mg/dL (8-23); Calcium 8.7 mg/dL (8.6-10.4); Carbon Dioxide 26 mmol/L (22-30); Chloride 104 mmol/L (96-108); Globulin 3.4 gm/dL (2.2-3.7); Glomerular Filtration Rate 90; Glucose 92 mg/dL (70-105); Phosphorous 2.4 mg/dL (2.5-4.5)
[2022-04-02] MEDS: VANCOMYCIN 1,500 MG in 0.9 % SODIUM CHLORIDE 500 ML IV SCH ×2 (08:57→20:35)
[2022-04-02] MEDS: ASCORBIC ACID 500 MG TABLET PO SCH (08:57)
[2022-04-02] MEDS: FLUTICASONE PROPION SALMETEROL INH SCH ×2 (08:57→20:25)
[2022-04-02] MEDS: MULTIVIT,THER IRON,CA,FA & MIN 1 TABLET PO SCH (08:57)
[2022-04-02] MEDS: THIAMINE 100 MG TABLET PO SCH (08:57)
[2022-04-02] MEDS: DOCUSATE SODIUM 100 MG CAPSULE PO SCH ×2 (08:57→20:34)
[2022-04-02] MEDS: VITAMIN E (DL,TOCOPHERYL ACET) 400 UNIT CAPSULE PO SCH (08:59)
--- NOTE | 2022-04-02 09:31 | Internal Med Progress Note ---
SUBJECTIVE Subjective Patient information: Note initiated : 04/02/22 at 9:25 am Service Date, if different from initiated Date: [] Patient: Sharif Grady 72 y/o M admitted on 03/30/22 for left leg infection. Chief Complaint: [] Interval history: Mr. Grady is a 72 year old M history of COPD, sleep apnea on CPAP, essential hypertensions, osteoporosis, presenting with 1 week history of right foot swelling and 3 months of erythema of the same foot. Patient stated that he probably have neuropathy because he does not really feel his feet. He also have history of recurrent toenail infections and he probably had hurt his toe while cutting his toenail. Anyway, he has noticed swelling of his left foot especially his left first toe over the past 3 months and he has also noticed erythema of the same region over the past week. He is also committing of fever chills and diaphoresis. He also have no appetite. He is also have a general body weakness. He presented [facility] where he got referred to our ER for further evaluations. Vital signs significant for fever tachycardia and tachypnea. Blood pressures also guarded latest MAP of 60 mmHg. Labs significant for leukocytosis WBC 20.3. Lactic acid 3.0 followed by 1.3. Serum sodium 128, serum creatinine 1.9, C-reactive protein 31.40. X-ray as well as CT of the left foot showing osteomyelitis of the left first toe with associated cellulitis extending to the mid foot. 3 L IV fluid bolus, vancomycin, Zosyn's were given after wound and blood cultures were collected. ER staffs were going to call communications media professor Dr. Leon for surgical assistance. 03/31: Patient's been afebrile overnight. Blood and wound culture no growth today. Patient's evaluated by communications media professor Dr. Leon's who planned to take the patient to the OR this morning at 1130. Patient denies any pain of his left foot. He denies any subjective fever or chills or diaphoresis. Patient has been n.p.o. since midnight. Continue vancomycin and Zosyn for now while waiting for culture results. Physical therapy and Occupational Therapy after the planned amputation. We will resume diet after amputation. 04/01: Afebrile overnight. Patient is currently on 2 L/min of oxygen. Status post amputations of the left great toe with intraoperative wound culture by Dr. Leon on 03/31. Initial blood culture growing gram-positive cocci; wound culture growing mixed tamika; intraoperative wound culture no growth to date. WBC 14.2 this morning. Repeat blood culture to date. 2D echocardiogram to rule out endocarditis. Continue vancomycin and Zosyn while waiting for final intraoperative wound culture result as well as blood culture result. Saline lock. 04/02: Afebrile overnight. Patient is currently on 2 L/min of oxygen. Initial blood culture growing gram-positive cocci, repeat blood culture no growth to date. Wound culture and intraoperative wound cultures grew group A strep and S aureus. Constitutional Vitals: Vital Signs Temp Pulse Resp BP Pulse Ox O2 Del Method O2 Flow Rate 37.1 C 94 H 15 136/74 93 2 04/02/22 08:01 04/02/22 08:01 04/02/22 08:01 04/02/22 08:01 04/02/22 08:01 04/02/22 06:48 04/02/22 08:01 Period Temp Pulse Resp BP Sys/Jacobs Pulse Ox O2 Del Method O2 Flow Rate Last 24 Hr 36.4 C-37.6 C 77-107 15- 111-144/39-99 88-100 CPAP-Nasal Cannula 2-3 Intake and Output 04/01/22 04/02/22 04/02/22 21:59 05:59 13:59 Intake Total 50 50 910 Output Total 775 425 250 Balance -725 -375 660 Weight 135.307 kg Intake & Output: Intake & Output 04/01/22 04/02/22 04/02/22 21:59 05:59 13:59 Intake Total 50 50 910 Output Total 775 425 250 Balance -725 -375 660 Weight 135.307 kg Intake: IV 50 50 550 Zosyn 3.375 gm In Dextrose 5% 50 50 50 in Water 50 ml @ 100 mls/hr IV Q6H TIMOTHY Rx#:[id number] Vancomycin 1,500 mg In Sodium 500 Chloride 0.9% 500 ml @ 333.3 mls/hr IV Q12H TIMOTHY Rx#: [id number] Oral 360 Output: Void Amount 775 425 250 Other: Urine Appearance Clear Clear Clear Urine Color Bright Yellow Bright Yellow Dark Yellow Urine Odor Normal Head Head exam: Present atraumatic and normal inspection Eye Eye exam: Present normal appearance ENT ENT exam: Present mucous membranes moist, normal exam and normal external ear exam Neck Neck exam: Present normal inspection Respiratory Respiratory exam: Present normal respiratory exam Cardiovascular Cardiovascular exam: Present normal rate and rhythm GI/Abdominal GI/Abdominal exam: Present normal bowel sounds Extremities Exam Additional comments: Left foot covered by surgical dressing. Erythema and swelling of left lower leg. Back Exam Back exam: Present normal inspection Neurological Exam Neurological exam: Present alert and oriented X3 Skin Skin exam: Present warm; Absent intact Additional comments: Left foot covered by surgical dressing. Erythema and swelling of left lower leg. OBJ DATA Labs CBC & Chem 7: 04/02/22 05:16 04/02/22 05:16 Labs: Abnormal Lab Results 04/02/22 04/02/22 04/01/22 05:16 05:16 05:32 WBC 11.1 H RBC 3.82 L Hgb 10.8 L Hct 33.6 L Immature Gran % (Auto) 2.7 H Neut % (Auto) 78.5 H Lymph % (Auto) 6.7 L Lymph # (Auto) 0.75 L Clay # (Auto) 1.08 H Immature Gran # 0.30 H Absolute Neutrophils 9.03 H POC VBG pCO2 at Temp POC VBG pO2 POC VBG HCO3 POC VBG Total CO2 POC Venous O2 Sat POC VBG Base Excess VBG Lactic Acid POC Sodium Sodium Chloride Carbon Dioxide Anion Gap 7.0 L POC BUN BUN Creatinine POC Creatinine Glucose POC Glucose Calcium 8.2 L POC WB Ioniz Calcium Phosphorus 2.4 L 2.0 L NT-Pro-B Natriuret Pep Total Protein 5.7 L 5.6 L Albumin 2.3 L 2.2 L Globulin Albumin/Globulin Ratio 0.7 L 0.6 L Procalcitonin 04/01/22 03/31/22 03/31/22 05:32 05:24 05:23 WBC 14.2 H 13.3 H RBC 3.90 L 4.07 L Hgb 10.9 L 11.3 L Hct 34.0 L 35.7 L Immature Gran % (Auto) 1.3 H 0.8 H Neut % (Auto) 83.4 H 90.9 H Lymph % (Auto) 5.5 L 0.1 L Lymph # (Auto) 0.78 L 0.01 L Clay # (Auto) 1.00 H 0.95 H Immature Gran # 0.19 H 0.10 H Absolute Neutrophils 12.02 H 12.15 H POC VBG pCO2 at Temp POC VBG pO2 POC VBG HCO3 POC VBG Total CO2 POC Venous O2 Sat POC VBG Base Excess VBG Lactic Acid POC Sodium Sodium 131 L Chloride Carbon Dioxide Anion Gap POC BUN BUN 26 H Creatinine 1.3 H POC Creatinine Glucose 114 H POC Glucose Calcium 7.9 L POC WB Ioniz Calcium Phosphorus NT-Pro-B Natriuret Pep Total Protein 5.6 L Albumin 2.2 L Globulin Albumin/Globulin Ratio 0.6 L Procalcitonin 03/30/22 03/30/22 03/30/22 21:13 19:17 19:17 WBC 20.3 H RBC Hgb Hct Immature Gran % (Auto) 1.2 H Neut % (Auto) 91.9 H Lymph % (Auto) 1.2 L Lymph # (Auto) 0.25 L Clay # (Auto) 1.02 H Immature Gran # 0.25 H Absolute Neutrophils 18.89 H POC VBG pCO2 at Temp 31.8 L POC VBG pO2 57 H POC VBG HCO3 20.2 L POC VBG Total CO2 21.0 L POC Venous O2 Sat 90.0 H POC VBG Base Excess -4.0 L VBG Lactic Acid POC Sodium Sodium Chloride Carbon Dioxide Anion Gap POC BUN BUN Creatinine POC Creatinine Glucose POC Glucose Calcium POC WB Ioniz Calcium Phosphorus NT-Pro-B Natriuret Pep 2057.0 H Total Protein Albumin Globulin Albumin/Globulin Ratio Procalcitonin 03/30/22 03/30/22 03/30/22 19:17 19:15 19:11 WBC RBC Hgb Hct Immature Gran % (Auto) Neut % (Auto) Lymph % (Auto) Lymph # (Auto) Clay # (Auto) Immature Gran # Absolute Neutrophils POC VBG pCO2 at Temp 33.8 L POC VBG pO2 51 H POC VBG HCO3 21.4 L POC VBG Total CO2 22.0 L POC Venous O2 Sat 86.0 H POC VBG Base Excess -3.0 L VBG Lactic Acid 3.0 H POC Sodium Sodium 127 L Chloride 92 L Carbon Dioxide 19 L Anion Gap POC BUN BUN Creatinine 1.9 H POC Creatinine Glucose 110 H POC Glucose Calcium POC WB Ioniz Calcium Phosphorus NT-Pro-B Natriuret Pep Total Protein Albumin Globulin 3.9 H Albumin/Globulin Ratio 0.8 L Procalcitonin 0.88 H 03/30/22 19:04 WBC RBC Hgb Hct Immature Gran % (Auto) Neut % (Auto) Lymph % (Auto) Lymph # (Auto) Clay # (Auto) Immature Gran # Absolute Neutrophils POC VBG pCO2 at Temp POC VBG pO2 POC VBG HCO3 POC VBG Total CO2 POC Venous O2 Sat POC VBG Base Excess VBG Lactic Acid POC Sodium 128 L Sodium Chloride Carbon Dioxide Anion Gap POC BUN 29 H BUN Creatinine POC Creatinine 1.9 H Glucose POC Glucose 128 H Calcium POC WB Ioniz Calcium 1.08 L Phosphorus NT-Pro-B Natriuret Pep Total Protein Albumin Globulin Albumin/Globulin Ratio Procalcitonin Meds: Medications Acetaminophen (Acetaminophen 325 Mg Tablet) 650 mg PO Q6HP PRN; Protocol PRN Reason: Per Pain Protocol/Fever > 101 Last Admin: 03/31/22 20:18 Dose: 650 mg Albuterol/Ipratropium (Ipratropium/Albuterol 3 Ml Ampul.Neb) 3 ml NEB Q4HRT PRN PRN Reason: Wheezing Ascorbic Acid (Ascorbic Acid 500 Mg Tablet) 500 mg PO DAILY TIMOTHY Last Admin: 04/02/22 08:57 Dose: 500 mg Docusate Sodium (Docusate Sodium 100 Mg Capsule) 100 mg PO BID TIMOTHY Last Admin: 04/02/22 08:57 Dose: 100 mg Gabapentin (Gabapentin 100 Mg Capsule) 100 mg PO TIDP PRN PRN Reason: Pain Last Admin: 04/01/22 20:44 Dose: 100 mg Piperacillin Sod/Tazobactam (Sod 3.375 gm/ Dextrose) 50 mls @ 100 mls/hr IV Q6H TIMOTHY; Protocol Last Infusion: 04/02/22 06:35 Dose: Infused Vancomycin HCl 1,500 mg/ (Sodium Chloride) 500 mls @ 333.3 mls/hr IV Q12H TIMOTHY Last Admin: 04/02/22 08:57 Dose: 333 mls/hr Iron Carb/Multivit/Lion Tamer/Folic Acid (Multivit,Ther Iron,Ca,Fa & Min 1 Tablet) 1 tab PO DAILY TIMOTHY Last Admin: 04/02/22 08:57 Dose: 1 tab Lactulose (Lactulose 20 Gm/30 Ml Oral.Erika) 10 gm PO DAILYP PRN PRN Reason: Constipation Morphine Sulfate (Morphine 2 Mg/Ml Vial) 2 mg IV Q4HP PRN; Protocol PRN Reason: Per Pain Protocol Last Admin: 04/01/22 17:34 Dose: 2 mg Ondansetron HCl (Ondansetron 4 Mg/2 Ml Vial) 4 mg IV Q4HP PRN; Protocol PRN Reason: Nausea And Vomiting Last Admin: 03/31/22 16:13 Dose: 4 mg Oxycodone HCl (Oxycodone Hcl 5 Mg Tablet) 5 mg PO Q4-6HP PRN; Protocol PRN Reason: Per Pain Protocol Last Admin: 04/01/22 20:44 Dose: 5 mg Fluticasone Propion- Salmeterol 115-21 Mcg/Actuation Inhaler 1 dose INH BID [facility] Last Admin: 04/02/22 08:57 Dose: Not Given Senna (Sennosides 1 Tablet) 2 tab PO HSP PRN PRN Reason: Constipation Sodium Chloride (0.9 % Sodium Chloride 10 Ml Syringe) 10 ml IV Q8 [facility] Last Admin: 04/02/22 05:51 Dose: 10 ml Thiamine HCl (Thiamine 100 Mg Tablet) 100 mg PO DAILY [facility] Last Admin: 04/02/22 08:57 Dose: 100 mg Vancomycin HCl (Vancomycin Per Pharmacy) 1 order IV UD [facility]; Protocol Vitamin E (Vitamin E (Dl,Tocopheryl Acet) 400 Unit Capsule) 400 unit PO DAILY [facility] Last Admin: 04/02/22 08:59 Dose: 400 unit A/P Assessment and plan (1) Septic shock: Status: Acute (2) Obstructive sleep apnea: Status: Chronic (3) Acute osteomyelitis of toe: Status: Acute Qualifiers: Laterality: left Qualified Code(s): M86.172 - Other acute osteomyelitis, left ankle and foot (4) Stage 1 acute kidney injury: Status: Acute (5) Hyponatremia: Status: Acute (6) COPD (chronic obstructive pulmonary disease): Status: Acute Qualifiers: COPD type: unspecified COPD Qualified Code(s): J44.9 - Chronic obstructive pulmonary disease, unspecified (7) Hypertension, essential: Status: Acute (8) Neuropathy, lower extremity: Status: Acute Comment: Knees (9) Osteoporosis: Status: Acute (10) Pressure injury of left perineal ischial region, stage 3: Status: Acute (11) Gram-positive cocci bacteremia: Status: Acute Narrative A/P Narrative: Assessment and Plans: 1. Left 1st toe osteomyelitis with cellulitis of left foot with associated septic shock: Inpatient PCU telemetry Status post amputations of the left great toe with intraoperative wound culture by Dr. Leon on 03/31 Saline lock Serial lactic acid Procalcitonin level ESR/CRP Blood culture, gram positive cocci, see #9 Wound culture, and intraoperative wound cultures grew group A strep and S aureus. cbc w/ auto diff in the morning to trend WBC Vancomycin Zosyn Physical therapy Occupational therapy Venous Doppler US bilateral lower extremities 2. h/o Essential HTN: Restart Metoprolol Succinate and Lisinopril 3. h/o COPD: Continue bronchodilators from home regimen DuoNEB NEB PRN wheezing 4. h/o obstructive sleep apnea: CPAP at night while sleeping 5. Stage 1 acute kidney injury: RESOLVED Avoid nephrotoxic agents Saline lock CMP in the morning to trend kidney functions 6. Hyponatremia: RESOLVED Saline lock CMP in the morning to trend serum sodium level 7. h/o osteoporosis: Continue alendronate from home regiment 8. Stage 3 left ischial pressure ulcer: Wound care consult 9. Gram positive cocci bacteremia: DDx: skin contaminate Repeat blood culture 04/01, no growth to date 2D echocardiogram Vancomycin Zosyn GI ppx: not currently indicated DVT ppx: Lovenox Code status: Full Prognosis: guarded Disposition: inpatient PCU; PT OT Plan of Treatment: left great toe amputation, DX: Osteomyelitis Time Spent With Patient Time: Total time spent is greater than 50% in coordination of care (as documented) at patient's floor/unit and/or counseling patient: Total time spent with greater than 50% in coordination of care (as documented) at patient's floor/unit and/or counseling patient:: 35 - 50 minutes QUALITY VTE Deep Vein Thrombosis/Pulmonary Embolism Present on Admission: No
[2022-04-02] MEDS: METOPROLOL SUCCINATE 25 MG TAB.XL.24H PO SCH ×2 (09:39→20:34)
[2022-04-02] MEDS: ENOXAPARIN 40 MG/0.4 ML SYRINGE SQ SCH (09:39)
[2022-04-02] MEDS: LISINOPRIL 5 MG TABLET PO SCH (09:41)
--- NOTE | 2022-04-02 11:21 | Ultrasound Report ---
History: Bilateral swollen legs FINDINGS: There is normal augmentation and compressibility in the deep veins and saphenous veins in both legs from the groin through the calf. Doppler shows normal waveform patterns. There is subcutaneous edema in the left calf. There are several lymph nodes in both groin. They have fatty central cresencio. Largest on the right measures 0.5 x 2.6 x 3.7 cm and the largest on the left measures 0.8 x 1.9 x 3.8 cm. These have benign features. IMPRESSION: No evidence of deep venous thrombosis in either leg Interpreted and Authenticated by: Daniel Hodge 04/02/22
[2022-04-02] MEDS: ACETAMINOPHEN 325 MG TABLET PO PRN (19:36)
[2022-04-02] MEDS: oxyCODONE HCL 5 MG TABLET PO PRN (20:34)
[2022-04-02] MEDS: GABAPENTIN 100 MG CAPSULE PO PRN (20:34)
[2022-04-02] MEDS ORDERED: METOPROLOL SUCCINATE 25 MG TAB.XL.24H PO SCH (21:00)
[2022-04-03] MEDS: 0.9 % SODIUM CHLORIDE 10 ML SYRINGE IV SCH ×4 (05:40→20:54)
[2022-04-03 06:16] LABS: Basophils # (Auto) 0.23 K/mcL (0.00-0.30); Basophils % (Auto) 2.1 % (0.0-2.0); Eosinophils # (Auto) 0.18 K/mcL (0.00-0.70); Eosinophils % (Auto) 1.7 % (0.0-7.0); Hematocrit 38.6 % (40.1-51.0); Hemoglobin 12.3 g/dL (13.7-17.5); Lymphocytes # (Auto) 0.79 K/mcL (1.50-4.80); Lymphocytes % (Auto) 7.3 % (15.5-49.0); Mean Cell Volume 88.1 fL (80.0-100.0); Mean Corpuscular HGB Conc 31.9 g/dL (31.0-36.0); Mean Platelet Volume 9.1 fL (7.4-10.4); Monocytes # (Auto) 0.99 K/mcL (0.10-0.90); Monocytes % (Auto) 9.1 % (1.0-12.0); Neutrophils % (Auto) 72.3 % (38.0-78.0); Platelet Count 333 K/mcL (140-440); RBC 4.38 M/mcL (4.63-6.08); Red Cell Distribution Width 12.2 % (11.5-14.5); WBC 10.9 K/mcL (4.5-11.0)
[2022-04-03 06:34] LABS: ALT/SGPT 17 U/L (<40); AST/SGOT 20 U/L (<40); Albumin 2.9 gm/dL (3.2-5.2); Albumin/Globulin Ratio 0.8 (1.0-2.3); Alkaline Phosphatase 78 U/L (39-117); Bilirubin,Total 0.3 mg/dL (0.1-1.0); Blood Urea Nitrogen 10 mg/dL (8-23); Calcium 9.9 mg/dL (8.6-10.4); Carbon Dioxide 30 mmol/L (22-30); Chloride 101 mmol/L (96-108); Globulin 3.8 gm/dL (2.2-3.7); Glomerular Filtration Rate 95; Glucose 119 mg/dL (70-105); Phosphorous 2.5 mg/dL (2.5-4.5)
--- NOTE | 2022-04-03 08:40 | Internal Med Progress Note ---
SUBJECTIVE Subjective Patient information: Note initiated : 04/03/22 at 8:34 am Service Date, if different from initiated Date: [] Patient: Sharif Grady 72 y/o M admitted on 03/30/22 for left leg infection. Chief Complaint: [] Interval history: Mr. Grady is a 72 year old M history of COPD, sleep apnea on CPAP, essential hypertensions, osteoporosis, presenting with 1 week history of right foot swelling and 3 months of erythema of the same foot. Patient stated that he probably have neuropathy because he does not really feel his feet. He also have history of recurrent toenail infections and he probably had hurt his toe while cutting his toenail. Anyway, he has noticed swelling of his left foot especially his left first toe over the past 3 months and he has also noticed erythema of the same region over the past week. He is also committing of fever chills and diaphoresis. He also have no appetite. He is also have a general body weakness. He presented to [facility] where he got referred to our ER for further evaluations. Vital signs significant for fever tachycardia and tachypnea. Blood pressures also guarded latest MAP of 60 mmHg. Labs significant for leukocytosis WBC 20.3. Lactic acid 3.0 followed by 1.3. Serum sodium 128, serum creatinine 1.9, C-reactive protein 31.40. X-ray as well as CT of the left foot showing osteomyelitis of the left first toe with associated cellulitis extending to the mid foot. 3 L IV fluid bolus, vancomycin, Zosyn's were given after wound and blood cultures were collected. ER staffs were going to call forestry foreman Dr. Leon for surgical assistance. 03/31: Patient's been afebrile overnight. Blood and wound culture no growth today. Patient's evaluated by forestry foreman Dr. Leon's who planned to take the patient to the OR this morning at 1130. Patient denies any pain of his left foot. He denies any subjective fever or chills or diaphoresis. Patient has been n.p.o. since midnight. Continue vancomycin and Zosyn for now while waiting for culture results. Physical therapy and Occupational Therapy after the planned amputation. We will resume diet after amputation. 04/01: Afebrile overnight. Patient is currently on 2 L/min of oxygen. Status post amputations of the left great toe with intraoperative wound culture by Dr. Leon on 03/31. Initial blood culture growing gram-positive cocci; wound culture growing mixed tamika; intraoperative wound culture no growth to date. WBC 14.2 this morning. Repeat blood culture to date. 2D echocardiogram to rule out endocarditis. Continue vancomycin and Zosyn while waiting for final intraoperative wound culture result as well as blood culture result. Saline lock. 04/02: Afebrile overnight. Patient is currently on 2 L/min of oxygen. Initial blood culture growing gram-positive cocci, repeat blood culture no growth to date. Wound culture and intraoperative wound cultures grew group A strep and S aureus. 04/03: Afebrile overnight. Patient is currently on 2 L/min of oxygen. Initial blood culture growing micrococcus luteus, repeat blood culture no growth to date. Wound culture and intraoperative wound cultures grew group A strep and MSSA. 2D echocardiogram negative for endocardial vegetations. Constitutional Vitals: Vital Signs Temp Pulse Resp BP Pulse Ox O2 Del Method O2 Flow Rate 37.1 C 101 H 27 H 135/51 94 2 04/03/22 05:27 04/03/22 00:39 04/03/22 05:34 04/03/22 05:27 04/03/22 05:27 04/02/22 20:00 04/03/22 05:27 Period Temp Pulse Resp BP Sys/Jacobs Pulse Ox O2 Del Method O2 Flow Rate Last 24 Hr 36.8 C-37.1 C 89-101 15-36 130-159/47-78 92-95 Nasal Cannula 2-3 Intake and Output 04/02/22 04/03/22 04/03/22 21:59 05:59 13:59 Intake Total 820 Output Total 750 1375 Balance -750 -555 Weight 134.944 kg Intake & Output: Intake & Output 04/02/22 04/03/22 04/03/22 21:59 05:59 13:59 Intake Total 820 Output Total 750 1375 Balance -750 -555 Weight 134.944 kg Intake: IV 500 Vancomycin 1,500 mg In Sodium 500 Chloride 0.9% 500 ml @ 333.3 mls/hr IV Q12H [facility] Rx#: [id number] Oral 320 Output: Void Amount 750 1375 Other: Meal sandwhich Percent of Meal Consumed 100% Urine Appearance Clear Clear Urine Color Pale Bright Yellow Head Head exam: Present atraumatic and normal inspection Eye Eye exam: Present normal appearance ENT ENT exam: Present mucous membranes moist, normal exam and normal external ear exam Neck Neck exam: Present normal inspection Respiratory Respiratory exam: Present normal respiratory exam Cardiovascular Cardiovascular exam: Present normal rate and rhythm GI/Abdominal GI/Abdominal exam: Present normal bowel sounds Extremities Exam Extremities exam: Present full ROM; Absent normal inspection Additional comments: Left foot covered by surgical dressing Erythema and swelling of left lower extremity Back Exam Back exam: Present normal inspection Neurological Exam Neurological exam: Present alert and oriented X3 Skin Skin exam: Present erythema and warm; Absent intact Additional comments: Left foot covered by surgical dressing Erythema and swelling of left lower extremity OBJ DATA Labs CBC & Chem 7: 04/03/22 05:21 04/03/22 05:21 Labs: Abnormal Lab Results 04/03/22 04/03/22 04/02/22 05:21 05:21 05:16 WBC RBC 4.38 L Hgb 12.3 L Hct 38.6 L Immature Gran % (Auto) 7.5 H Neut % (Auto) Lymph % (Auto) 7.3 L Baso % (Auto) 2.1 H Lymph # (Auto) 0.79 L [place] # (Auto) 0.99 H Immature Gran # 0.82 H Absolute Neutrophils 8.70 H Anion Gap 7.0 L Glucose 119 H Calcium Phosphorus 2.4 L Total Protein 5.7 L Albumin 2.9 L 2.3 L Globulin 3.8 H Albumin/Globulin Ratio 0.8 L 0.7 L 04/02/22 04/01/22 04/01/22 05:16 05:32 05:32 WBC 11.1 H 14.2 H RBC 3.82 L 3.90 L Hgb 10.8 L 10.9 L Hct 33.6 L 34.0 L Immature Gran % (Auto) 2.7 H 1.3 H Neut % (Auto) 78.5 H 83.4 H Lymph % (Auto) 6.7 L 5.5 L Baso % (Auto) Lymph # (Auto) 0.75 L 0.78 L [place] # (Auto) 1.08 H 1.00 H Immature Gran # 0.30 H 0.19 H Absolute Neutrophils 9.03 H 12.02 H Anion Gap Glucose Calcium 8.2 L Phosphorus 2.0 L Total Protein 5.6 L Albumin 2.2 L Globulin Albumin/Globulin Ratio 0.6 L Meds: Medications Acetaminophen (Acetaminophen 325 Mg Tablet) 650 mg PO Q6HP PRN; Protocol PRN Reason: Per Pain Protocol/Fever > 101 Last Admin: 04/02/22 19:36 Dose: 650 mg Albuterol/Ipratropium (Ipratropium/Albuterol 3 Ml Ampul.Neb) 3 ml NEB Q4HRT PRN PRN Reason: Wheezing Ascorbic Acid (Ascorbic Acid 500 Mg Tablet) 500 mg PO DAILY [facility] Last Admin: 04/02/22 08:57 Dose: 500 mg Docusate Sodium (Docusate Sodium 100 Mg Capsule) 100 mg PO BID [facility] Last Admin: 04/02/22 20:34 Dose: 100 mg Enoxaparin Sodium (Enoxaparin 40 Mg/0.4 Ml Syringe) 40 mg SQ DAILY [facility] Last Admin: 04/02/22 09:39 Dose: 40 mg Gabapentin (Gabapentin 100 Mg Capsule) 100 mg PO TIDP PRN PRN Reason: Pain Last Admin: 04/02/22 20:34 Dose: 100 mg Vancomycin HCl 1,500 mg/ (Sodium Chloride) 500 mls @ 333.3 mls/hr IV Q12H [facility] Last Infusion: 04/02/22 22:21 Dose: Infused Iron Carb/Multivit/[place]/Folic Acid (Multivit,Ther Iron,Ca,Fa & Min 1 Tablet) 1 tab PO DAILY [facility] Last Admin: 04/02/22 08:57 Dose: 1 tab Lactulose (Lactulose 20 Gm/30 Ml Oral.Erika) 10 gm PO DAILYP PRN PRN Reason: Constipation Lisinopril (Lisinopril 5 Mg Tablet) 5 mg PO DAILY [facility] Last Admin: 04/02/22 09:41 Dose: 5 mg Metoprolol Succinate (Metoprolol Succinate 25 Mg Tab.Xl.24h) 12.5 mg PO BID [facility] Last Admin: 04/02/22 20:34 Dose: 12.5 mg Morphine Sulfate (Morphine 2 Mg/Ml Vial) 2 mg IV Q4HP PRN; Protocol PRN Reason: Per Pain Protocol Last Admin: 04/01/22 17:34 Dose: 2 mg Ondansetron HCl (Ondansetron 4 Mg/2 Ml Vial) 4 mg IV Q4HP PRN; Protocol PRN Reason: Nausea And Vomiting Last Admin: 03/31/22 16:13 Dose: 4 mg Oxycodone HCl (Oxycodone Hcl 5 Mg Tablet) 5 mg PO Q4-6HP PRN; Protocol PRN Reason: Per Pain Protocol Last Admin: 04/01/22 20:44 Dose: 5 mg Fluticasone Propion- Salmeterol 115-21 Mcg/Actuation Inhaler 1 dose INH BID [facility] Last Admin: 04/02/22 20:25 Dose: Not Given Senna (Sennosides 1 Tablet) 2 tab PO HSP PRN PRN Reason: Constipation Sodium Chloride (0.9 % Sodium Chloride 10 Ml Syringe) 10 ml IV Q8 [facility] Last Admin: 04/03/22 05:40 Dose: 10 ml Thiamine HCl (Thiamine 100 Mg Tablet) 100 mg PO DAILY [facility] Last Admin: 04/02/22 08:57 Dose: 100 mg Vancomycin HCl (Vancomycin Per Pharmacy) 1 order IV UD [facility]; Protocol Vitamin E (Vitamin E (Dl,Tocopheryl Acet) 400 Unit Capsule) 400 unit PO DAILY [facility] Last Admin: 04/02/22 08:59 Dose: 400 unit A/P Assessment and plan (1) Septic shock: Status: Acute (2) Obstructive sleep apnea: Status: Chronic (3) Acute osteomyelitis of toe: Status: Acute Qualifiers: Laterality: left Qualified Code(s): M86.172 - Other acute osteomyelitis, left ankle and foot (4) Stage 1 acute kidney injury: Status: Acute (5) Hyponatremia: Status: Acute (6) COPD (chronic obstructive pulmonary disease): Status: Acute Qualifiers: COPD type: unspecified COPD Qualified Code(s): J44.9 - Chronic obstructive pulmonary disease, unspecified (7) Hypertension, essential: Status: Acute (8) Neuropathy, lower extremity: Status: Acute Comment: Knees (9) Osteoporosis: Status: Acute (10) Pressure injury of left perineal ischial region, stage 3: Status: Acute (11) Gram-positive cocci bacteremia: Status: Acute Narrative A/P Narrative: Assessment and Plans: 1. Left 1st toe osteomyelitis with cellulitis of left foot with associated septic shock: Inpatient PCU telemetry Status post amputations of the left great toe with intraoperative wound culture by Dr. Leon on 03/31 Saline lock Serial lactic acid Procalcitonin level ESR/CRP Blood culture, micrococcus luteus, see #9 Wound culture, and intraoperative wound cultures grew group A strep and MSSA. cbc w/ auto diff in the morning to trend WBC Vancomycin Physical therapy-->SNF Occupational therapy Venous Doppler US bilateral lower extremities-->negative for DVT 2. h/o Essential HTN: Restart Metoprolol Succinate and Lisinopril 3. h/o COPD: Continue bronchodilators from home regimen DuoNEB NEB PRN wheezing 4. h/o obstructive sleep apnea: CPAP at night while sleeping 5. Stage 1 acute kidney injury: RESOLVED Avoid nephrotoxic agents Saline lock CMP in the morning to trend kidney functions 6. Hyponatremia: RESOLVED Saline lock CMP in the morning to trend serum sodium level 7. h/o osteoporosis: Continue alendronate from home regiment 8. Stage 3 left ischial pressure ulcer: Wound care consult 9. Micrococcus luteus bacteremia: DDx: skin contaminate Repeat blood culture 04/01, no growth to date 2D echocardiogram-->negative for endocardial vegetations Vancomycin GI ppx: not currently indicated DVT ppx: Lovenox Code status: Full Prognosis: Stable Disposition: inpatient PCU; PT-->SNF Plan of Treatment: left great toe amputation, DX: Osteomyelitis Time Spent With Patient Time: Total time spent is greater than 50% in coordination of care (as documented) at patient's floor/unit and/or counseling patient: Total time spent with greater than 50% in coordination of care (as documented) at patient's floor/unit and/or counseling patient:: 35 - 50 minutes QUALITY VTE Deep Vein Thrombosis/Pulmonary Embolism Present on Admission: No
[2022-04-03] MEDS ORDERED: LISINOPRIL 5 MG TABLET PO SCH (09:00)
[2022-04-03] MEDS: MULTIVIT,THER IRON,CA,FA & MIN 1 TABLET PO SCH (09:01)
[2022-04-03] MEDS: DOCUSATE SODIUM 100 MG CAPSULE PO SCH ×2 (09:01→20:54)
[2022-04-03] MEDS: VITAMIN E (DL,TOCOPHERYL ACET) 400 UNIT CAPSULE PO SCH (09:01)
[2022-04-03] MEDS: ASCORBIC ACID 500 MG TABLET PO SCH (09:01)
[2022-04-03] MEDS: METOPROLOL SUCCINATE 25 MG TAB.XL.24H PO SCH ×2 (09:01→20:54)
[2022-04-03] MEDS: ONDANSETRON 4 MG/2 ML VIAL IV PRN (09:01)
[2022-04-03] MEDS: LISINOPRIL 5 MG TABLET PO SCH (09:01)
[2022-04-03] MEDS: ENOXAPARIN 40 MG/0.4 ML SYRINGE SQ SCH (09:01)
[2022-04-03] MEDS: THIAMINE 100 MG TABLET PO SCH (09:01)
[2022-04-03] MEDS: FLUTICASONE PROPION SALMETEROL INH SCH ×2 (09:02→20:54)
[2022-04-03] MEDS: NAFCILLIN 2 GM in 0.9 % SODIUM CHLORIDE 50 ML IV SCH ×3 (11:45→20:53)
[2022-04-03] MEDS: VANCOMYCIN 1,500 MG in 0.9 % SODIUM CHLORIDE 500 ML IV SCH (13:43)
--- NOTE | 2022-04-03 13:57 | EKG ---
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
[2022-04-03] MEDS: GABAPENTIN 100 MG CAPSULE PO PRN (20:54)
[2022-04-03] MEDS ORDERED: POLYETHYLENE GLYCOL 3350 17 GM PACKET PO PRN (20:55)
[2022-04-04] MEDS: NAFCILLIN 2 GM in 0.9 % SODIUM CHLORIDE 50 ML IV SCH ×7 (00:36→23:33)
[2022-04-04] MEDS: 0.9 % SODIUM CHLORIDE 10 ML SYRINGE IV SCH ×3 (05:51→20:05)
[2022-04-04 06:28] LABS: Basophils # (Auto) 0.03 K/mcL (0.00-0.30); Basophils % (Auto) 0.4 % (0.0-2.0); Eosinophils % (Auto) 2.8 % (0.0-7.0); Hematocrit 32.5 % (40.1-51.0); Hemoglobin 10.1 g/dL (13.7-17.5); Lymphocytes % (Auto) 12.8 % (15.5-49.0); Mean Corpuscular HGB Conc 31.1 g/dL (31.0-36.0); Mean Platelet Volume 9.1 fL (7.4-10.4); Monocytes # (Auto) 0.72 K/mcL (0.10-0.90); Monocytes % (Auto) 10.2 % (1.0-12.0); Neutrophils % (Auto) 63.7 % (38.0-78.0); Platelet Count 284 K/mcL (140-440); RBC 3.65 M/mcL (4.63-6.08); Red Cell Distribution Width 12.2 % (11.5-14.5)
[2022-04-04 06:36] LABS: ALT/SGPT 16 U/L (<40); AST/SGOT 18 U/L (<40); Albumin 2.2 gm/dL (3.2-5.2); Albumin/Globulin Ratio 0.6 (1.0-2.3); Alkaline Phosphatase 56 U/L (39-117); Bilirubin,Total 0.3 mg/dL (0.1-1.0); Blood Urea Nitrogen 14 mg/dL (8-23); Calcium 9.5 mg/dL (8.6-10.4); Carbon Dioxide 33 mmol/L (22-30); Chloride 104 mmol/L (96-108); Globulin 3.4 gm/dL (2.2-3.7); Glomerular Filtration Rate 101; Glucose 111 mg/dL (70-105)
[2022-04-04] MEDS: LISINOPRIL 5 MG TABLET PO SCH (08:39)
[2022-04-04] MEDS: ENOXAPARIN 40 MG/0.4 ML SYRINGE SQ SCH (08:40)
[2022-04-04] MEDS: DOCUSATE SODIUM 100 MG CAPSULE PO SCH ×2 (08:40→20:05)
[2022-04-04] MEDS: METOPROLOL SUCCINATE 25 MG TAB.XL.24H PO SCH ×2 (08:40→20:05)
[2022-04-04] MEDS: FLUTICASONE PROPION SALMETEROL INH SCH ×2 (08:40→19:42)
[2022-04-04] MEDS: MULTIVIT,THER IRON,CA,FA & MIN 1 TABLET PO SCH (08:40)
[2022-04-04] MEDS: ASCORBIC ACID 500 MG TABLET PO SCH (08:40)
[2022-04-04] MEDS: THIAMINE 100 MG TABLET PO SCH (08:40)
[2022-04-04] MEDS: VITAMIN E (DL,TOCOPHERYL ACET) 400 UNIT CAPSULE PO SCH (08:40)
--- NOTE | 2022-04-04 09:00 | Internal Med Progress Note ---
SUBJECTIVE Subjective Patient information: Note initiated : 04/04/22 at 8:55 am Service Date, if different from initiated Date: [] Patient: Sharif Grady 72 y/o M admitted on 03/30/22 for left leg infection. Chief Complaint: [] Interval history: Mr. Grady is a 72 year old M history of COPD, sleep apnea on CPAP, essential hypertensions, osteoporosis, presenting with 1 week history of right foot swelling and 3 months of erythema of the same foot. Patient stated that he probably have neuropathy because he does not really feel his feet. He also have history of recurrent toenail infections and he probably had hurt his toe while cutting his toenail. Anyway, he has noticed swelling of his left foot especially his left first toe over the past 3 months and he has also noticed erythema of the same region over the past week. He is also committing of fever chills and diaphoresis. He also have no appetite. He is also have a general body weakness. He presented to [facility] where he got referred to our ER for further evaluations. Vital signs significant for fever tachycardia and tachypnea. Blood pressures also guarded latest MAP of 60 mmHg. Labs significant for leukocytosis WBC 20.3. Lactic acid 3.0 followed by 1.3. Serum sodium 128, serum creatinine 1.9, C-reactive protein 31.40. X-ray as well as CT of the left foot showing osteomyelitis of the left first toe with associated cellulitis extending to the mid foot. 3 L IV fluid bolus, vancomycin, Zosyn's were given after wound and blood cultures were collected. ER staffs were going to call horticulture superintendent Dr. Leon for surgical assistance. 03/31: Patient's been afebrile overnight. Blood and wound culture no growth today. Patient's evaluated by horticulture superintendent Dr. Leon's who planned to take the patient to the OR this morning at 1130. Patient denies any pain of his left foot. He denies any subjective fever or chills or diaphoresis. Patient has been n.p.o. since midnight. Continue vancomycin and Zosyn for now while waiting for culture results. Physical therapy and Occupational Therapy after the planned amputation. We will resume diet after amputation. 04/01: Afebrile overnight. Patient is currently on 2 L/min of oxygen. Status post amputations of the left great toe with intraoperative wound culture by Dr. Leon on 03/31. Initial blood culture growing gram-positive cocci; wound culture growing mixed tamika; intraoperative wound culture no growth to date. WBC 14.2 this morning. Repeat blood culture to date. 2D echocardiogram to rule out endocarditis. Continue vancomycin and Zosyn while waiting for final intraoperative wound culture result as well as blood culture result. Saline lock. 04/02: Afebrile overnight. Patient is currently on 2 L/min of oxygen. Initial blood culture growing gram-positive cocci, repeat blood culture no growth to date. Wound culture and intraoperative wound cultures grew group A strep and S aureus. 04/03: Afebrile overnight. Patient is currently on 2 L/min of oxygen. Initial blood culture growing micrococcus luteus, repeat blood culture no growth to date. Wound culture and intraoperative wound cultures grew group A strep and MSSA. 2D echocardiogram negative for endocardial vegetations. 04/04: Afebrile overnight. Was on CPAP for night overnight, now on room air. Initial blood culture growing micrococcus luteus, repeat blood culture no growth to date. Wound culture and intraoperative wound cultures grew group A strep and MSSA. Denies foot pain. Denies fever or chills. Improving degree of energy level. Poor appetite. Continue Nafcillin for his bacteremia/foot infection. Pending SNF placement. Constitutional Vitals: Vital Signs Temp Pulse Resp BP Pulse Ox O2 Del Method O2 Flow Rate 36.4 C 73 22 138/53 96 3 04/04/22 08:01 04/04/22 08:01 04/04/22 08:01 04/04/22 08:01 04/04/22 08:01 04/03/22 23:00 04/04/22 08:01 Period Temp Pulse Resp BP Sys/Jacobs Pulse Ox O2 Del Method O2 Flow Rate Last 24 Hr 36.1 C-37.0 C 73-106 18-34 103-145/31-87 93-98 CPAP-Nasal Cannula 2-3 Intake and Output 04/03/22 04/04/22 04/04/22 21:59 05:59 13:59 Intake Total 580 290 50 Output Total 1125 301 Balance -545 -11 50 Weight 136.894 kg Intake & Output: Intake & Output 04/03/22 04/04/22 04/04/22 21:59 05:59 13:59 Intake Total 580 290 50 Output Total 1125 301 Balance -545 -11 50 Weight 136.894 kg Intake: IV 100 50 50 Nafcillin 2 gm In Sodium 100 50 50 Chloride 0.9% 50 ml @ 100 mls/ hr IV Q4H [facility] Rx#:[id number] Oral 480 240 Output: Void Amount 1125 300 # of times incontinent of urine 1 Other: Meal Dinner Percent of Meal Consumed 100% Feeding Ability Independent Urine Appearance Clear Clear Urine Color Pale Bright Yellow Urine Odor Normal Head Head exam: Present atraumatic and normal inspection Eye Eye exam: Present normal appearance ENT ENT exam: Present mucous membranes moist, normal exam and normal external ear exam Neck Neck exam: Present normal inspection Respiratory Respiratory exam: Present normal respiratory exam Cardiovascular Cardiovascular exam: Present normal rate and rhythm GI/Abdominal GI/Abdominal exam: Present normal bowel sounds Extremities Exam Extremities exam: Present full ROM; Absent normal inspection or tenderness Additional comments: Left foot covered by surgical dressing; mild erythema and swelling of the left lower leg Back Exam Back exam: Present normal inspection Neurological Exam Neurological exam: Present alert and oriented X3 Skin Skin exam: Present intact and warm Additional comments: Left foot covered by surgical dressing; mild erythema and swelling of the left lower leg OBJ DATA Labs CBC & Chem 7: 04/04/22 05:08 04/04/22 05:08 Labs: Abnormal Lab Results 04/04/22 04/04/22 04/03/22 05:08 05:08 05:21 WBC RBC 3.65 L Hgb 10.1 L Hct 32.5 L Immature Gran % (Auto) 10.1 H Neut % (Auto) Lymph % (Auto) 12.8 L Baso % (Auto) Lymph # (Auto) 0.90 L [place] # (Auto) Immature Gran # 0.71 H Absolute Neutrophils Carbon Dioxide 33 H Anion Gap 4.0 L Creatinine 0.6 L Glucose 111 H 119 H Phosphorus Total Protein 5.6 L Albumin 2.2 L 2.9 L Globulin 3.8 H Albumin/Globulin Ratio 0.6 L 0.8 L 04/03/22 04/02/22 04/02/22 05:21 05:16 05:16 WBC 11.1 H RBC 4.38 L 3.82 L Hgb 12.3 L 10.8 L Hct 38.6 L 33.6 L Immature Gran % (Auto) 7.5 H 2.7 H Neut % (Auto) 78.5 H Lymph % (Auto) 7.3 L 6.7 L Baso % (Auto) 2.1 H Lymph # (Auto) 0.79 L 0.75 L [place] # (Auto) 0.99 H 1.08 H Immature Gran # 0.82 H 0.30 H Absolute Neutrophils 8.70 H 9.03 H Carbon Dioxide Anion Gap 7.0 L Creatinine Glucose Phosphorus 2.4 L Total Protein 5.7 L Albumin 2.3 L Globulin Albumin/Globulin Ratio 0.7 L Meds: Medications Acetaminophen (Acetaminophen 325 Mg Tablet) 650 mg PO Q6HP PRN; Protocol PRN Reason: Per Pain Protocol/Fever > 101 Last Admin: 04/02/22 19:36 Dose: 650 mg Albuterol/Ipratropium (Ipratropium/Albuterol 3 Ml Ampul.Neb) 3 ml NEB Q4HRT PRN PRN Reason: Wheezing Ascorbic Acid (Ascorbic Acid 500 Mg Tablet) 500 mg PO DAILY [facility] Last Admin: 04/04/22 08:40 Dose: 500 mg Docusate Sodium (Docusate Sodium 100 Mg Capsule) 100 mg PO BID [facility] Last Admin: 04/04/22 08:40 Dose: 100 mg Enoxaparin Sodium (Enoxaparin 40 Mg/0.4 Ml Syringe) 40 mg SQ DAILY [facility] Last Admin: 04/04/22 08:40 Dose: 40 mg Gabapentin (Gabapentin 100 Mg Capsule) 100 mg PO TIDP PRN PRN Reason: Pain Last Admin: 04/03/22 20:54 Dose: 100 mg Nafcillin Sodium 2 gm/ Sodium (Chloride) 50 mls @ 100 mls/hr IV Q4H [facility] Last Admin: 04/04/22 08:39 Dose: 100 mls/hr Iron Carb/Multivit/Pipe Supervisor/Folic Acid (Multivit,Ther Iron,Ca,Fa & Min 1 Tablet) 1 tab PO DAILY [facility] Last Admin: 04/04/22 08:40 Dose: 1 tab Lactulose (Lactulose 20 Gm/30 Ml Oral.Erika) 10 gm PO DAILYP PRN PRN Reason: Constipation Lisinopril (Lisinopril 5 Mg Tablet) 5 mg PO DAILY [facility] Last Admin: 04/04/22 08:39 Dose: 5 mg Metoprolol Succinate (Metoprolol Succinate 25 Mg Tab.Xl.24h) 12.5 mg PO BID [facility] Last Admin: 04/04/22 08:40 Dose: 12.5 mg Morphine Sulfate (Morphine 2 Mg/Ml Vial) 2 mg IV Q4HP PRN; Protocol PRN Reason: Per Pain Protocol Last Admin: 04/01/22 17:34 Dose: 2 mg Ondansetron HCl (Ondansetron 4 Mg/2 Ml Vial) 4 mg IV Q4HP PRN; Protocol PRN Reason: Nausea And Vomiting Last Admin: 04/03/22 09:01 Dose: 4 mg Oxycodone HCl (Oxycodone Hcl 5 Mg Tablet) 5 mg PO Q4-6HP PRN; Protocol PRN Reason: Per Pain Protocol Last Admin: 04/01/22 20:44 Dose: 5 mg Fluticasone Propion- Salmeterol 115-21 Mcg/Actuation Inhaler 1 dose INH BID [facility] Last Admin: 04/04/22 08:40 Dose: Not Given Polyethylene Glycol (Polyethylene Glycol 3350 17 Gm Packet) 17 gm PO DAILYP PRN PRN Reason: Constipation Last Admin: 04/03/22 21:08 Dose: 17 gm Senna (Sennosides 1 Tablet) 2 tab PO HSP PRN PRN Reason: Constipation Sodium Chloride (0.9 % Sodium Chloride 10 Ml Syringe) 10 ml IV Q8 [facility] Last Admin: 04/04/22 05:51 Dose: 10 ml Thiamine HCl (Thiamine 100 Mg Tablet) 100 mg PO DAILY [facility] Last Admin: 04/04/22 08:40 Dose: 100 mg Vitamin E (Vitamin E (Dl,Tocopheryl Acet) 400 Unit Capsule) 400 unit PO DAILY [facility] Last Admin: 04/04/22 08:40 Dose: 400 unit A/P Assessment and plan (1) Septic shock: Status: Acute (2) Obstructive sleep apnea: Status: Chronic (3) Acute osteomyelitis of toe: Status: Acute Qualifiers: Laterality: left Qualified Code(s): M86.172 - Other acute osteomyelitis, left ankle and foot (4) Stage 1 acute kidney injury: Status: Acute (5) Hyponatremia: Status: Acute (6) COPD (chronic obstructive pulmonary disease): Status: Acute Qualifiers: COPD type: unspecified COPD Qualified Code(s): J44.9 - Chronic obstructive pulmonary disease, unspecified (7) Hypertension, essential: Status: Acute (8) Neuropathy, lower extremity: Status: Acute Comment: Knees (9) Osteoporosis: Status: Acute (10) Pressure injury of left perineal ischial region, stage 3: Status: Acute (11) Gram-positive cocci bacteremia: Status: Acute Narrative A/P Narrative: Assessment and Plans: 1. Left 1st toe osteomyelitis with cellulitis of left foot with associated septic shock: Inpatient med surg Status post amputations of the left great toe with intraoperative wound culture by Dr. eLon on 03/31 Saline lock Serial lactic acid Procalcitonin level ESR/CRP Blood culture, micrococcus luteus, see #9 Wound culture, and intraoperative wound cultures grew group A strep and MSSA. cbc w/ auto diff in the morning to trend WBC Nafcillin Physical therapy-->SNF Occupational therapy Venous Doppler US bilateral lower extremities-->negative for DVT 2. h/o Essential HTN: Restart Metoprolol Succinate and Lisinopril 3. h/o COPD: Continue bronchodilators from home regimen DuoNEB NEB PRN wheezing 4. h/o obstructive sleep apnea: CPAP at night while sleeping 5. Stage 1 acute kidney injury: RESOLVED Avoid nephrotoxic agents Saline lock CMP in the morning to trend kidney functions 6. Hyponatremia: RESOLVED Saline lock CMP in the morning to trend serum sodium level 7. h/o osteoporosis: Continue alendronate from home regiment 8. Stage 3 left ischial pressure ulcer: Wound care consult 9. Micrococcus luteus bacteremia: DDx: skin contaminate Repeat blood culture 04/01, no growth to date 2D echocardiogram-->negative for endocardial vegetations Nafcillin GI ppx: not currently indicated DVT ppx: Lovenox Code status: Full Prognosis: Stable Disposition: inpatient med surg; PT-->SNF Plan of Treatment: left great toe amputation, DX: Osteomyelitis Time Spent With Patient Time: Total time spent is greater than 50% in coordination of care (as documented) at patient's floor/unit and/or counseling patient: Total time spent with greater than 50% in coordination of care (as documented) at patient's floor/unit and/or counseling patient:: 35 - 50 minutes QUALITY VTE Deep Vein Thrombosis/Pulmonary Embolism Present on Admission: No
[2022-04-05] MEDS: NAFCILLIN 2 GM in 0.9 % SODIUM CHLORIDE 50 ML IV SCH ×6 (04:04→23:57)
[2022-04-05] MEDS: 0.9 % SODIUM CHLORIDE 10 ML SYRINGE IV SCH ×4 (04:05→23:57)
[2022-04-05 07:10] LABS: ALT/SGPT 22 U/L (<40); AST/SGOT 23 U/L (<40); Albumin 2.6 gm/dL (3.2-5.2); Albumin/Globulin Ratio 0.8 (1.0-2.3); Alkaline Phosphatase 55 U/L (39-117); Bilirubin,Total 0.2 mg/dL (0.1-1.0); Blood Urea Nitrogen 11 mg/dL (8-23); Calcium 9.5 mg/dL (8.6-10.4); Carbon Dioxide 35 mmol/L (22-30); Chloride 101 mmol/L (96-108); Globulin 3.3 gm/dL (2.2-3.7); Glomerular Filtration Rate 95; Glucose 102 mg/dL (70-105); Phosphorous 3.3 mg/dL (2.5-4.5)
[2022-04-05 07:54] LABS: Basophils # (Auto) 0.06 K/mcL (0.00-0.30); Basophils % (Auto) 0.8 % (0.0-2.0); Eosinophils # (Auto) 0.19 K/mcL (0.00-0.70); Eosinophils % (Auto) 2.4 % (0.0-7.0); Hematocrit 35.6 % (40.1-51.0); Hemoglobin 11.2 g/dL (13.7-17.5); Lymphocytes # (Auto) 0.91 K/mcL (1.50-4.80); Lymphocytes % (Auto) 11.6 % (15.5-49.0); Mean Corpuscular HGB Conc 31.5 g/dL (31.0-36.0); Mean Platelet Volume 9.1 fL (7.4-10.4); Monocytes % (Auto) 8.9 % (1.0-12.0); Neutrophils % (Auto) 63.3 % (38.0-78.0); Platelet Count 273 K/mcL (140-440); Red Cell Distribution Width 12.1 % (11.5-14.5); WBC 7.8 K/mcL (4.5-11.0)
[2022-04-05] MEDS: VITAMIN E (DL,TOCOPHERYL ACET) 400 UNIT CAPSULE PO SCH (07:57)
[2022-04-05] MEDS: MULTIVIT,THER IRON,CA,FA & MIN 1 TABLET PO SCH (07:57)
[2022-04-05] MEDS: ASCORBIC ACID 500 MG TABLET PO SCH (07:57)
[2022-04-05] MEDS: LISINOPRIL 5 MG TABLET PO SCH (07:57)
[2022-04-05] MEDS: METOPROLOL SUCCINATE 25 MG TAB.XL.24H PO SCH ×2 (07:58→20:53)
[2022-04-05] MEDS: DOCUSATE SODIUM 100 MG CAPSULE PO SCH ×2 (08:00→20:54)
[2022-04-05] MEDS: ENOXAPARIN 40 MG/0.4 ML SYRINGE SQ SCH (08:00)
[2022-04-05] MEDS: THIAMINE 100 MG TABLET PO SCH (08:00)
--- NOTE | 2022-04-05 10:41 | Internal Med Progress Note ---
SUBJECTIVE Subjective Patient information: Note initiated : 04/05/22 at 10:35 am Service Date, if different from initiated Date: [] Patient: Sharif Grady 72 y/o M admitted on 03/30/22 for left leg infection. Chief Complaint: [] Interval history: Mr. Grady is a 72 year old M history of COPD, sleep apnea on CPAP, essential hypertensions, osteoporosis, presenting with 1 week history of right foot swelling and 3 months of erythema of the same foot. Patient stated that he probably have neuropathy because he does not really feel his feet. He also have history of recurrent toenail infections and he probably had hurt his toe while cutting his toenail. Anyway, he has noticed swelling of his left foot especially his left first toe over the past 3 months and he has also noticed erythema of the same region over the past week. He is also committing of fever chills and diaphoresis. He also have no appetite. He is also have a general body weakness. [facility] where he got referred to our ER for further evaluations. Vital signs significant for fever tachycardia and tachypnea. Blood pressures also guarded latest MAP of 60 mmHg. Labs significant for leukocytosis WBC 20.3. Lactic acid 3.0 followed by 1.3. Serum sodium 128, serum creatinine 1.9, C-reactive protein 31.40. X-ray as well as CT of the left foot showing osteomyelitis of the left first toe with associated cellulitis extending to the mid foot. 3 L IV fluid bolus, vancomycin, Zosyn's were given after wound and blood cultures were collected. ER staffs were going to call cnc wood lathe operator Dr. Leon for surgical assistance. 03/31: Patient's been afebrile overnight. Blood and wound culture no growth today. Patient's evaluated by cnc wood lathe operator Dr. Leon's who planned to take the patient to the OR this morning at 1130. Patient denies any pain of his left foot. He denies any subjective fever or chills or diaphoresis. Patient has been n.p.o. since midnight. Continue vancomycin and Zosyn for now while waiting for culture results. Physical therapy and Occupational Therapy after the planned amputation. We will resume diet after amputation. 04/01: Afebrile overnight. Patient is currently on 2 L/min of oxygen. Status post amputations of the left great toe with intraoperative wound culture by Dr. Leon on 03/31. Initial blood culture growing gram-positive cocci; wound culture growing mixed tamika; intraoperative wound culture no growth to date. WBC 14.2 this morning. Repeat blood culture to date. 2D echocardiogram to rule out endocarditis. Continue vancomycin and Zosyn while waiting for final intraoperative wound culture result as well as blood culture result. Saline lock. 04/02: Afebrile overnight. Patient is currently on 2 L/min of oxygen. Initial blood culture growing gram-positive cocci, repeat blood culture no growth to date. Wound culture and intraoperative wound cultures grew group A strep and S aureus. 04/03: Afebrile overnight. Patient is currently on 2 L/min of oxygen. Initial blood culture growing micrococcus luteus, repeat blood culture no growth to date. Wound culture and intraoperative wound cultures grew group A strep and MSSA. 2D echocardiogram negative for endocardial vegetations. 04/04: Afebrile overnight. Was on CPAP for night overnight, now on room air. Initial blood culture growing micrococcus luteus, repeat blood culture no growth to date. Wound culture and intraoperative wound cultures grew group A strep and MSSA. Denies foot pain. Denies fever or chills. Improving degree of energy level. Poor appetite. Continue Nafcillin for his bacteremia/foot infection. Pending SNF placement. 04/05: Afebrile overnight. Was on CPAP for night overnight, now on 2L/min oxygen. Initial blood culture growing micrococcus luteus, repeat blood culture no growth to date. Wound culture and intraoperative wound cultures grew group A strep and MSSA. Denies foot pain. Denies fever or chills. Improving degree of energy level. Poor appetite. Continue Nafcillin for his bacteremia/foot infection. Pending SNF placement. Constitutional Vitals: Vital Signs Temp Pulse Resp BP Pulse Ox O2 Del Method O2 Flow Rate 36.6 C 82 16 124/60 90 2 04/05/22 08:00 04/05/22 08:00 04/05/22 08:00 04/05/22 08:00 04/05/22 08:00 04/05/22 08:00 04/05/22 08:00 Period Temp Pulse Resp BP Sys/Jacobs Pulse Ox O2 Del Method O2 Flow Rate Last 24 Hr 36.3 C-37.2 C 76-85 16-20 124-146/49-64 90-97 CPAP-Nasal Cannula 2-3 Intake and Output 04/04/22 04/05/22 04/05/22 21:59 05:59 13:59 Intake Total 1270 900 290 Output Total 200 800 380 Balance 1070 100 -90 Weight 141.067 kg Intake & Output: Intake & Output 04/04/22 04/05/22 04/05/22 21:59 05:59 13:59 Intake Total 1270 900 290 Output Total 200 800 380 Balance 1070 100 -90 Weight 141.067 kg Intake: IV 150 100 50 Nafcillin 2 gm In Sodium 150 100 50 Chloride 0.9% 50 ml @ 100 mls/ hr IV Q4H [facility] Rx#:[id number] Oral 1120 800 240 Output: Void Amount 200 800 380 Other: Meal Dinner Breakfast Percent of Meal Consumed 100% 100% Feeding Ability Independent Independent Stool Size Large Large Stool Color Brown Brown Stool Consistency Formed Formed # Bowel Movements 1 Head Head exam: Present atraumatic and normal inspection Eye Eye exam: Present normal appearance ENT ENT exam: Present mucous membranes moist, normal exam and normal external ear exam Neck Neck exam: Present normal inspection Respiratory Respiratory exam: Present normal respiratory exam Cardiovascular Cardiovascular exam: Present normal rate and rhythm GI/Abdominal GI/Abdominal exam: Present normal bowel sounds Extremities Exam Extremities exam: Present full ROM; Absent normal inspection Additional comments: Left foot covered by surgical dressing Left lower leg mild erythema and swelling Back Exam Back exam: Present normal inspection Neurological Exam Neurological exam: Present alert and oriented X3 Skin Skin exam: Present erythema, intact and warm Additional comments: Left foot covered by surgical dressing Left lower leg mild erythema and swelling OBJ DATA Labs CBC & Chem 7: 04/05/22 05:47 04/05/22 05:47 Labs: Abnormal Lab Results 04/05/22 04/05/22 04/04/22 05:47 05:47 05:08 RBC 4.00 L Hgb 11.2 L Hct 35.6 L Immature Gran % (Auto) 13.0 H Lymph % (Auto) 11.6 L Baso % (Auto) Lymph # (Auto) 0.91 L [place]linger # (Auto) Immature Gran # 1.02 H Absolute Neutrophils Carbon Dioxide 35 H 33 H Anion Gap 7.0 L 4.0 L Creatinine 0.6 L Glucose 111 H Total Protein 5.6 L Albumin 2.6 L 2.2 L Globulin Albumin/Globulin Ratio 0.8 L 0.6 L 04/04/22 04/03/22 04/03/22 05:08 05:21 05:21 RBC 3.65 L 4.38 L Hgb 10.1 L 12.3 L Hct 32.5 L 38.6 L Immature Gran % (Auto) 10.1 H 7.5 H Lymph % (Auto) 12.8 L 7.3 L Baso % (Auto) 2.1 H Lymph # (Auto) 0.90 L 0.79 L [place]linger # (Auto) 0.99 H Immature Gran # 0.71 H 0.82 H Absolute Neutrophils 8.70 H Carbon Dioxide Anion Gap Creatinine Glucose 119 H Total Protein Albumin 2.9 L Globulin 3.8 H Albumin/Globulin Ratio 0.8 L Meds: Medications Acetaminophen (Acetaminophen 325 Mg Tablet) 650 mg PO Q6HP PRN; Protocol PRN Reason: Per Pain Protocol/Fever > 101 Last Admin: 04/02/22 19:36 Dose: 650 mg Albuterol/Ipratropium (Ipratropium/Albuterol 3 Ml Ampul.Neb) 3 ml NEB Q4HRT PRN PRN Reason: Wheezing Ascorbic Acid (Ascorbic Acid 500 Mg Tablet) 500 mg PO DAILY [facility] Last Admin: 04/05/22 07:57 Dose: 500 mg Docusate Sodium (Docusate Sodium 100 Mg Capsule) 100 mg PO BID [facility] Last Admin: 04/05/22 08:00 Dose: 100 mg Enoxaparin Sodium (Enoxaparin 40 Mg/0.4 Ml Syringe) 40 mg SQ DAILY [facility] Last Admin: 04/05/22 08:00 Dose: 40 mg Gabapentin (Gabapentin 100 Mg Capsule) 100 mg PO TIDP PRN PRN Reason: Pain Last Admin: 04/03/22 20:54 Dose: 100 mg Nafcillin Sodium 2 gm/ Sodium (Chloride) 50 mls @ 100 mls/hr IV Q4H [facility] Last Infusion: 04/05/22 08:57 Dose: Infused Iron Carb/Multivit/[place]/Folic Acid (Multivit,Ther Iron,Ca,Fa & Min 1 Tablet) 1 tab PO DAILY [facility] Last Admin: 04/05/22 07:57 Dose: 1 tab Lactulose (Lactulose 20 Gm/30 Ml Oral.Erika) 10 gm PO DAILYP PRN PRN Reason: Constipation Lisinopril (Lisinopril 5 Mg Tablet) 5 mg PO DAILY [facility] Last Admin: 04/05/22 07:57 Dose: 5 mg Metoprolol Succinate (Metoprolol Succinate 25 Mg Tab.Xl.24h) 12.5 mg PO BID [facility] Last Admin: 04/05/22 07:58 Dose: 12.5 mg Morphine Sulfate (Morphine 2 Mg/Ml Vial) 2 mg IV Q4HP PRN; Protocol PRN Reason: Per Pain Protocol Last Admin: 04/01/22 17:34 Dose: 2 mg Ondansetron HCl (Ondansetron 4 Mg/2 Ml Vial) 4 mg IV Q4HP PRN; Protocol PRN Reason: Nausea And Vomiting Last Admin: 04/03/22 09:01 Dose: 4 mg Oxycodone HCl (Oxycodone Hcl 5 Mg Tablet) 5 mg PO Q4-6HP PRN; Protocol PRN Reason: Per Pain Protocol Last Admin: 04/01/22 20:44 Dose: 5 mg Fluticasone Propion- Salmeterol 115-21 Mcg/Actuation Inhaler 1 dose INH BID [facility] Last Admin: 04/04/22 19:42 Dose: Not Given Polyethylene Glycol (Polyethylene Glycol 3350 17 Gm Packet) 17 gm PO DAILYP PRN PRN Reason: Constipation Last Admin: 04/03/22 21:08 Dose: 17 gm Senna (Sennosides 1 Tablet) 2 tab PO HSP PRN PRN Reason: Constipation Sodium Chloride (0.9 % Sodium Chloride 10 Ml Syringe) 10 ml IV Q8 [facility] Last Admin: 04/05/22 04:05 Dose: 10 ml Thiamine HCl (Thiamine 100 Mg Tablet) 100 mg PO DAILY [facility] Last Admin: 04/05/22 08:00 Dose: 100 mg Vitamin E (Vitamin E (Dl,Tocopheryl Acet) 400 Unit Capsule) 400 unit PO DAILY [facility] Last Admin: 04/05/22 07:57 Dose: 400 unit A/P Assessment and plan (1) Septic shock: Status: Acute (2) Obstructive sleep apnea: Status: Chronic (3) Acute osteomyelitis of toe: Status: Acute Qualifiers: Laterality: left Qualified Code(s): M86.172 - Other acute osteomyeli tis, left ankle and foot (4) Stage 1 acute kidney injury: Status: Acute (5) Hyponatremia: Status: Acute (6) COPD (chronic obstructive pulmonary disease): Status: Acute Qualifiers: COPD type: unspecified COPD Qualified Code(s): J44.9 - Chronic obstructive pulmonary disease, unspecified (7) Hypertension, essential: Status: Acute (8) Neuropathy, lower extremity: Status: Acute Comment: Knees (9) Osteoporosis: Status: Acute (10) Pressure injury of left perineal ischial region, stage 3: Status: Acute (11) Gram-positive cocci bacteremia: Status: Acute Narrative A/P Narrative: Assessment and Plans: 1. Left 1st toe osteomyelitis with cellulitis of left foot with associated septic shock: Inpatient med surg Status post amputations of the left great toe with intraoperative wound culture by Dr. Leon on 03/31 Saline lock Serial lactic acid Procalcitonin level ESR/CRP Blood culture, micrococcus luteus, see #9 Wound culture, and intraoperative wound cultures grew group A strep and MSSA. cbc w/ auto diff in the morning to trend WBC Nafcillin Physical therapy-->SNF Occupational therapy Venous Doppler US bilateral lower extremities-->negative for DVT 2. h/o Essential HTN: Restart Metoprolol Succinate and Lisinopril 3. h/o COPD: Continue bronchodilators from home regimen DuoNEB NEB PRN wheezing 4. h/o obstructive sleep apnea: CPAP at night while sleeping 5. Stage 1 acute kidney injury: RESOLVED Avoid nephrotoxic agents Saline lock CMP in the morning to trend kidney functions 6. Hyponatremia: RESOLVED Saline lock CMP in the morning to trend serum sodium level 7. h/o osteoporosis: Continue alendronate from home regiment 8. Stage 3 left ischial pressure ulcer: Wound care consult 9. Micrococcus luteus bacteremia: DDx: skin contaminate Repeat blood culture 04/01, no growth to date 2D echocardiogram-->negative for endocardial vegetations Nafcillin GI ppx: not currently indicated DVT ppx: Lovenox Code status: Full Prognosis: Stable Disposition: inpatient med surg; PT-->SNF Plan of Treatment: left great toe amputation, DX: Osteomyelitis Time Spent With Patient Time: Total time spent is greater than 50% in coordination of care (as documented) at patient's floor/unit and/or counseling patient: Total time spent with greater than 50% in coordination of care (as documented) at patient's floor/unit and/or counseling patient:: 50 - 70 minutes QUALITY VTE Deep Vein Thrombosis/Pulmonary Embolism Present on Admission: No
[2022-04-05] MEDS: FLUTICASONE PROPION SALMETEROL INH SCH ×2 (11:12→20:43)
[2022-04-06] MEDS: 0.9 % SODIUM CHLORIDE 10 ML SYRINGE IV SCH (03:59)
[2022-04-06] MEDS: NAFCILLIN 2 GM in 0.9 % SODIUM CHLORIDE 50 ML IV SCH ×3 (03:59→11:26)
[2022-04-06 06:59] LABS: Basophils # (Auto) 0.05 K/mcL (0.00-0.30); Basophils % (Auto) 0.6 % (0.0-2.0); Eosinophils # (Auto) 0.17 K/mcL (0.00-0.70); Hematocrit 34.8 % (40.1-51.0); Hemoglobin 10.7 g/dL (13.7-17.5); Lymphocytes # (Auto) 0.91 K/mcL (1.50-4.80); Lymphocytes % (Auto) 10.5 % (15.5-49.0); Mean Cell Volume 89.7 fL (80.0-100.0); Mean Corpuscular HGB Conc 30.7 g/dL (31.0-36.0); Mean Platelet Volume 8.7 fL (7.4-10.4); Monocytes # (Auto) 0.81 K/mcL (0.10-0.90); Monocytes % (Auto) 9.4 % (1.0-12.0); Neutrophils % (Auto) 65.7 % (38.0-78.0); Platelet Count 248 K/mcL (140-440); RBC 3.88 M/mcL (4.63-6.08); Red Cell Distribution Width 12.3 % (11.5-14.5); WBC 8.7 K/mcL (4.5-11.0)
[2022-04-06 07:26] LABS: ALT/SGPT 22 U/L (<40); AST/SGOT 22 U/L (<40); Albumin 2.4 gm/dL (3.2-5.2); Albumin/Globulin Ratio 0.7 (1.0-2.3); Alkaline Phosphatase 50 U/L (39-117); Bilirubin,Total 0.2 mg/dL (0.1-1.0); Blood Urea Nitrogen 11 mg/dL (8-23); Calcium 9.2 mg/dL (8.6-10.4); Carbon Dioxide 33 mmol/L (22-30); Chloride 101 mmol/L (96-108); Globulin 3.4 gm/dL (2.2-3.7); Glomerular Filtration Rate 95; Glucose 99 mg/dL (70-105); Phosphorous 3.2 mg/dL (2.5-4.5)
[2022-04-06] MEDS: METOPROLOL SUCCINATE 25 MG TAB.XL.24H PO SCH (08:03)
[2022-04-06] MEDS: MULTIVIT,THER IRON,CA,FA & MIN 1 TABLET PO SCH (08:03)
[2022-04-06] MEDS: LISINOPRIL 5 MG TABLET PO SCH (08:04)
[2022-04-06] MEDS: ASCORBIC ACID 500 MG TABLET PO SCH (08:04)
[2022-04-06] MEDS: DOCUSATE SODIUM 100 MG CAPSULE PO SCH (08:04)
[2022-04-06] MEDS: THIAMINE 100 MG TABLET PO SCH (08:04)
[2022-04-06] MEDS: ENOXAPARIN 40 MG/0.4 ML SYRINGE SQ SCH (08:04)
[2022-04-06] MEDS: FLUTICASONE PROPION SALMETEROL INH SCH (08:21)
[2022-04-06] MEDS: VITAMIN E (DL,TOCOPHERYL ACET) 400 UNIT CAPSULE PO SCH (08:21)
--- NOTE | 2022-04-06 11:12 | Discharge Summary ---
Discharge Provider Provider IMPORTANT FOLLOW-UP INFORMATION FOR PCP: Patient information: Note initiated : 04/06/22 at 11:10 am Service Date, if different from initiated Date: [] Patient: Sharif Grady 72 y/o M admitted on 03/30/22 for left leg infection. Chief Complaint: [] Date of admission: 03/30/22 23:13 Discharge date: 04/06/22 Primary care physician: Lala De Attending physician on admission: Benji Shaw Consults: 03/30/22 Consult to Physician [CONS] Stat Comment: Consulting Provider: Masood Marin Reason For Exam: Physician to Consult 03/30/22 22:45 Consult to Physician [CONS] Routine Comment: Consulting Provider: Arnulfo Ramirez Reason For Exam: Physician to Consult 03/30/22 23:15 Consult to Physician [CONS] Stat Comment: Consulting Provider: Bebeto Leon Reason For Exam: Physician to Consult 04/04/22 13:09 Consult to Physician [CONS] Routine Comment: snf referral Consulting Provider: [facility] Reason For Exam: Physician to Consult Attending physician on discharge: Masood Marin COURSE Hospital Course Hospital course: Mr. Grady is a 72 year old M history of COPD, sleep apnea on CPAP, essential hypertensions, osteoporosis, presenting with 1 week history of right foot swelling and 3 months of erythema of the same foot. Patient stated that he probably have neuropathy because he does not really feel his feet. He also have history of recurrent toenail infections and he probably had hurt his toe while cutting his toenail. Anyway, he has noticed swelling of his left foot especially his left first toe over the past 3 months and he has also noticed erythema of the same region over the past week. He is also committing of fever chills and diaphoresis. He also have no appetite. He is also have a general body weakness. He presented [facility] where he got referred to our ER for further evaluations. Vital signs significant for fever tachycardia and tachypnea. Blood pressures also guarded latest MAP of 60 mmHg. Labs significant for leukocytosis WBC 20.3. Lactic acid 3.0 followed by 1.3. Serum sodium 128, serum creatinine 1.9, C-reactive protein 31.40. X-ray as well as CT of the left foot showing osteomyelitis of the left first toe with associated cellulitis extending to the mid foot. 3 L IV fluid bolus, vancomycin, Zosyn's were given after wound and blood cultures were collected. ER staffs were going to call bisque brusher Dr. Leon for surgical assistance. 03/31: Patient's been afebrile overnight. Blood and wound culture no growth today. Patient's evaluated by bisque brusher Dr. Leon's who planned to take the patient to the OR this morning at 1130. Patient denies any pain of his left foot. He denies any subjective fever or chills or diaphoresis. Patient has been n.p.o. since midnight. Continue vancomycin and Zosyn for now while waiting for culture results. Physical therapy and Occupational Therapy after the planned amputation. We will resume diet after amputation. 04/01: Afebrile overnight. Patient is currently on 2 L/min of oxygen. Status post amputations of the left great toe with intraoperative wound culture by Dr. Leon on 03/31. Initial blood culture growing gram-positive cocci; wound culture growing mixed tamika; intraoperative wound culture no growth to date. WBC 14.2 this morning. Repeat blood culture to date. 2D echocardiogram to rule out endocarditis. Continue vancomycin and Zosyn while waiting for final intraoperative wound culture result as well as blood culture result. Saline lock. 04/02: Afebrile overnight. Patient is currently on 2 L/min of oxygen. Initial blood culture growing gram-positive cocci, repeat blood culture no growth to date. Wound culture and intraoperative wound cultures grew group A strep and S aureus. 04/03: Afebrile overnight. Patient is currently on 2 L/min of oxygen. Initial blood culture growing micrococcus luteus, repeat blood culture no growth to date. Wound culture and intraoperative wound cultures grew group A strep and MSSA. 2D echocardiogram negative for endocardial vegetations. 04/04: Afebrile overnight. Was on CPAP for night overnight, now on room air. Initial blood culture growing micrococcus luteus, repeat blood culture no growth to date. Wound culture and intraoperative wound cultures grew group A strep and MSSA. Denies foot pain. Denies fever or chills. Improving degree of energy level. Poor appetite. Continue Nafcillin for his bacteremia/foot infection. Pending SNF placement. 04/05: Afebrile overnight. Was on CPAP for night overnight, now on 2L/min oxygen. Initial blood culture growing micrococcus luteus, repeat blood culture no growth to date. Wound culture and intraoperative wound cultures grew group A strep and MSSA. Denies foot pain. Denies fever or chills. Improving degree of energy level. Poor appetite. Continue Nafcillin for his bacteremia/foot infection. Pending SNF placement. Discharge diagnosis: bacteremia, osteomyelitis Time Spent with Patient Time attestation: Total time spent providing and/or coordinating discharge services: Time spent: Greater than 30 minutes EXAM Constitutional Vitals: Temp Pulse Resp BP Pulse Ox O2 Del Method O2 Flow Rate 37.3 C H 75 19 152/59 94 2 04/06/22 07:53 04/06/22 07:53 04/06/22 07:53 04/06/22 07:53 04/06/22 07:53 04/06/22 08:00 04/06/22 08:00 General appearance: cooperative and no acute distress Head Head exam: Present atraumatic and normocephalic Eye Eye exam: Present EOMI and PERRL ENT ENT exam: Present mucous membranes moist, normal exam and normal external ear exam Neck Neck exam: Present normal inspection; Absent lymphadenopathy, tenderness or thyr omegaly Respiratory Respiratory exam: Absent accessory muscle use, respiratory distress or wheezes Cardiovascular Cardiovascular exam: Present normal rate and rhythm; Absent JVD GI/Abdominal GI/Abdominal exam: Present normal bowel sounds and soft; Absent organomegaly or tenderness Rectal Rectal exam: Present deferred Extremities Exam Extremities exam: Present full ROM and normal capillary refill; Absent normal inspection or tenderness Additional comments: Left foot covered by surgical dressing Neurological Exam Neurological exam: Present alert, CN II-XII intact and oriented X3; Absent motor sensory deficit Psychiatric Psychiatric exam: Present normal affect and normal mood; Absent anxious or depressed Skin Skin exam: Present dry; Absent intact Additional comments: Left foot covered by surgical dressing Discharge Data Data Completed and Pending Labs on day of discharge: Labs from last 24 hours 04/06/22 04/06/22 06:12 06:12 WBC 8.7 RBC 3.88 L Hgb 10.7 L Hct 34.8 L MCV 89.7 MCH 27.6 MCHC 30.7 L RDW 12.3 Plt Count 248 MPV 8.7 Immature Gran % (Auto) 11.8 H Neut % (Auto) 65.7 Lymph % (Auto) 10.5 L Nance % (Auto) 9.4 Eos % (Auto) 2.0 Baso % (Auto) 0.6 Lymph # (Auto) 0.91 L Nance # (Auto) 0.81 Eos # (Auto) 0.17 Baso # (Auto) 0.05 Immature Gran # 1.02 H Absolute Neutrophils 6.72 Sodium 139 Potassium 4.0 Chloride 101 Carbon Dioxide 33 H Anion Gap 5.0 L BUN 11 Creatinine 0.7 GFR Calculation 95 Glucose 99 Calcium 9.2 Phosphorus 3.2 Magnesium 2.1 Total Bilirubin 0.2 AST 22 ALT 22 Alkaline Phosphatase 50 Total Protein 5.8 L Albumin 2.4 L Globulin 3.4 Albumin/Globulin Ratio 0.7 L Preliminary micro results at discharge 03/31/22 12:43 Gram Stain - Preliminary Toe - First Anaerobic Culture - Preliminary Discharge Plan Patient/Caregiver Discharge Instructions Activity: increase activity as tolerated Diet: Regular Diet Prescriptions: New gabapentin 100 mg Capsule 100 mg PO TIDP PRN (Reason: Pain) Qty: 30 0RF nafcillin in dextrose iso-osm 2 gram/100 mL piggyback 2 g IV Q4H Qty: 4200 0RF oxycodone 5 mg Tablet 5 mg PO Q4-6HP PRN (Reason: Per Pain Protocol) Qty: 10 0RF Continued multivitamin Tablet 1 tab PO QAM ascorbate calcium (vitamin C) 500 mg tablet 500 mg PO QDAY metoprolol succinate 25 mg tablet extended release 24 hr 12.5 mg PO BID (DME) CPAP machine Qty: 1 Rx Instructions: As directed (DME) oxygen bled 3lpm CPAP Qty: 1 Rx Instructions: As directed alendronate 70 mg tablet 1 tab PO WEEKLY lisinopril 5 mg tablet 1 tab PO QDAY Advair HFA 115-21 mcg/actuation HFA aerosol inhaler 1 puff continuous inhalation BID Follow Up Plan Follow up with: Bebeto Leon DPM [Physician] - Lala De MD [Primary Care Provider] - Patient Disposition: Xfer SNF Plan of Treatment: left great toe amputation, DX: Osteomyelitis Prognosis: Fair Rehab Potential: Good I certify that the patient requires SNF services: Yes Overall status at discharge: patient is progressing back to baseline Discharge Orders: Discharge Order (Routine); Ordered 04/06/22 Ordered By: Chi Roselyn Pui QUALITY VTE Deep Vein Thrombosis/Pulmonary Embolism Present on Admission: No
== END 2022-04-06 13:30 | DRG 255 ==
LOC: ED 18:46 → ICU 23:13 → MEDSUR 04-04 15:58
PROVIDERS: ADMIT Internal Medicine; ATTEND Internal Medicine

== ENCOUNTER 2022-05-06 13:23 | Inpatient (IN) ==
[2022-05-06] MEDS ORDERED: PIPERACILLIN SODIUM/TAZOBACTAM 3.375 GM in DEXTROSE 5% IN WATER 50 ML IV ONE (13:41)
[2022-05-06] MEDS ORDERED: VANCOMYCIN PER PHARMACY IV ONE (13:41)
[2022-05-06] MEDS ORDERED: SODIUM CHLORIDE IV ONE (13:41)
[2022-05-06] MEDS ORDERED: ACETAMINOPHEN 1,000 MG/100 ML BAG IV ONE (13:45)
--- NOTE | 2022-05-06 13:46 | Emergency Department Note ---
Lower Extremity Injury HPI General Chief Complaint: Extremity Injury, Lower Stated Complaint: leg swollen Time Seen by Provider: 05/06/22 13:24 Source: patient Mode of arrival: wheelchair History of Present Illness HPI Narrative: Narrative: 72-year-old male with a history of sepsis, left great toe amputation approximate month ago, obstructive sleep apnea, obesity, congestive heart failure, osteomyelitis, osteoporosis, psoriasis, hypertension, hyperlipidemia and COPD presents the ER to be evaluated for not feeling well and swelling and redness of the left leg. Dr. Leon did a left great toe amputation approximately a month ago. He said he noticed swelling and redness in his left leg today and he generally feels terrible. He does not provide much history he just says he does not feel well he denies any other complaints at this time. Related Data Home Medications Medication Instructions Recorded Confirmed CPAP machine #1 ea 11/07/19 03/30/22 metoprolol succinate 25 mg 12.5 mg PO BID 11/07/19 03/30/22 tablet,extended release 24 hr oxygen bled 3lpm CPAP #1 ea 11/07/19 03/30/22 alendronate 70 mg tablet 1 tab PO WEEKLY 10/22/21 03/30/22 fluticasone propionate 115 1 puff continuous inhalation BID 10/22/21 03/30/22 mcg-salmeterol 21 mcg/actuation HFA inhaler (Advair HFA) lisinopril 5 mg tablet 1 tab PO QDAY 10/22/21 03/30/22 ascorbate calcium (vitamin C) 500 500 mg PO QDAY 03/30/22 03/30/22 mg tablet multivitamin 1 tab PO QAM 03/30/22 03/30/22 Previous Rx's Medication Instructions Recorded gabapentin 100 mg capsule 100 mg PO TIDP PRN Pain #30 caps 04/06/22 nafcillin 2 gram/100 mL in 2 g (100 mL) IV Q4H #4,200 mL 04/06/22 dextrose(iso-osmotic) intravenous piggyback oxycodone 5 mg tablet 5 mg PO Q4-6HP PRN Per Pain 04/06/22 Protocol #10 tabs Allergies Allergy/AdvReac Type Severity Reaction Status Date / Time levofloxacin AdvReac Mild Rash Verified 05/06/22 13:28 Review of Systems ROS ROS Narrative: Narrative: All systems ED: reviewed and negative except as stated. [facility] Narrative Patient History Narrative: Narrative: Medical/Surgical/Family History All Active Problems (Updated 05/06/22 @ 15:44 by Kong Min PA-C) Sepsis (Acute) Gram-positive cocci bacteremia (Acute) Pressure injury of left perineal ischial region, stage 3 (Acute) Osteomyelitis (Acute) Hyponatremia (Acute) Stage 1 acute kidney injury (Acute) Septic shock (Acute) Sepsis (Acute) Acute osteomyelitis of toe (Acute) Acute kidney injury (Acute) Paroxysmal sinus tachycardia (Acute) Acute dehydration (Acute) RLL pneumonia (Acute) Obstructive sleep apnea (Chronic) Pneumonia (Acute) CHF (congestive heart failure) (Acute) Sepsis (Acute) Respiratory failure (Acute) Acute respiratory failure with hypoxia and hypercapnia (Acute) History of dilation of urethra (Acute) History of tonsillectomy (Acute) H/O detached retina repair (Acute) History of hernia repair (Acute) History of cataract surgery (Acute) History of surgical removal of intestinal structure (Acute) History of adenoidectomy (Acute) Vitamin B12 deficiency (Acute) Fracture of toe, closed (Acute) Tobacco use (Acute) Fracture of thoracic vertebra, closed (Acute) Psoriasis (Acute) Osteoporosis (Acute) Osteoarthritis (Acute) Neuropathy, lower extremity (Acute) Morbid obesity (Acute) Hypertension, essential (Acute 02/27/15) Hyperlipidemia (Acute) Fracture of finger, closed (Acute) Colonic polyp (Acute) COPD (chronic obstructive pulmonary disease) (Acute) Medical History Colonic polyp COPD (chronic obstructive pulmonary disease) CPAP (continuous positive airway pressure) dependence Fracture of finger, closed Fracture of thoracic vertebra, closed Fracture of toe, closed Hyperlipidemia Hypertension, essential (02/27/15) Morbid obesity Neuropathy, lower extremity Knees Obstructive sleep apnea Osteoarthritis Osteomyelitis Osteoporosis Psoriasis Tobacco use Vitamin B12 deficiency Surgical History H/O detached retina repair History of adenoidectomy History of cataract surgery Bilateral History of dilation of urethra Urethral stricture History of hernia repair incarcerated abdominal hernia History of surgical removal of intestinal structure Partial bowel resection History of tonsillectomy Family History Father Alzheimer's disease Atherosclerosis of coronary artery Essential hypertension Osteoporosis Rheumatoid arthritis Mother , at 62 years old Atherosclerosis of coronary artery Hyperlipidemia Unknown Diabetes mellitus Social History Alcohol Intake Frequency: holiday/special occasion only Exam Narrative Narrative: Narrative: Gen: Ill-appearing and fatigued but in no acute distress Eyes: PERRL, no conjunctival injection , and symmetrical lids. Sclerae non icteric HENMT: Normocephalic Atraumatic head, external nose and ears. Moist MM. CVS: +S1/S2, No murmurs or gallops. Radial pulses 2+ and equal bilat. No swelling RESP: Unlabored respiratory effort . Clear to auscultation bilaterally (CTAB). No noted wheezes rales or ronchi. MSK: Wound healing wraps on both legs, dressing was taken down on the left, wrap [place] on the knees, margin of erythema and warmth spreads beyond the dressing. The entire dressing was taken down and the site of the amputation which previously had a wound VAC over the left great toe has purulent drainage and appears to be infected. This is likely source of infection. Skin: Warm, Dry . Cap refill less than 2. Psych: Awake, Alert, & Oriented (AAO) x3. Appropriate mood and affect . Course Vital Signs Vital signs: Vital Signs Temperature 101.9 F H 05/06/22 13:26 Pulse Rate 117 H 05/06/22 13:26 Respiratory Rate 18 05/06/22 13:26 Blood Pressure 136/71 05/06/22 13:26 Pulse Oximetry (%) 94 05/06/22 13:26 Oxygen Delivery Method 05/06/22 13:26 Temperature 101.9 F H 05/06/22 13:26 Pulse Rate 117 H 05/06/22 13:26 Respiratory Rate 18 05/06/22 13:26 Blood Pressure 136/71 05/06/22 13:26 Pulse Oximetry (%) 94 05/06/22 13:26 Oxygen Delivery Method 05/06/22 13:26 [facility] MDM Narrative Medical decision making narrative: Narrative: Sepsis considered at initial evaluation of the patient. He has significant cellulitis extending up his left leg, recent amputation of the left great toe performed about a month ago. He is tachycardic at 117 and has a fever of 101.9. He is not hypotensive at this time. Blood cultures were immediately obtained, patient will be started on vancomycin and Zosyn for broad-spectrum coverage. Venous blood gas lactate ordered as well as CBC, CMP, ESR, CRP, procalcitonin, chest x-ray, foot x-ray and 30 mg/kg of fluids for empiric resuscitation. Patient will be observed for fluid overload as he does have a history of CHF I do believe he would benefit from the full volume at this time. CBC: White count of 18-1/2 with significant left shift CMP: Sodium of 129 otherwise unremarkable ESR: High at 89 CRP: Quite elevated at 13.90 Procalcitonin: Elevated 0.21 CG 4: Normal lactic of 1.2, base excess of 6 otherwise unremarkable A1c: Normal 5.4 Chest x-ray:IMPRESSION: Stable scar tissue in both lung bases and no acute abnormality Interpreted and Authenticated by: Daniel Hodge 05/06/22 Foot x-ray:IMPRESSION: Mild cortical erosion in the head of the first metatars al. Unless surgery had been performed within this bone, osteomyelitis should be suspected. Severe cellulitis Interpreted and Authenticated by: Daniel Hodge 05/06/22 Reevaluation: Patient is doing well, his systolic blood pressure is around 104 at this time. He still receiving fluid boluses. He does have significant elevation inflammatory markers and x-rays that suggest osteomyelitis of the first metatarsal head. Dr. Leon will consult on an hospitalist will be consulted for admission. Repeat lactate: Dr. Leon was consulted who said if we have availability to bring the patient inpatient he is glad to consult on. 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 only: Yes Clinical Impression: Sepsis Patient Disposition: Xfer As Inpt ([facility]) Follow up with: Lala De MD [Primary Care Provider] - Prescriptions: No Action multivitamin Tablet 1 tab PO QAM ascorbate calcium (vitamin C) 500 mg tablet 500 mg PO QDAY metoprolol succinate 25 mg tablet extended release 24 hr 12.5 mg PO BID (DME) CPAP machine Qty: 1 Rx Instructions: As directed (DME) oxygen bled 3lpm CPAP Qty: 1 Rx Instructions: As directed alendronate 70 mg tablet 1 tab PO WEEKLY lisinopril 5 mg tablet 1 tab PO QDAY Advair HFA 115-21 mcg/actuation HFA aerosol inhaler 1 puff continuous inhalation BID gabapentin 100 mg Capsule 100 mg PO TIDP PRN (Reason: Pain) Qty: 30 0RF nafcillin in dextrose iso-osm 2 gram/100 mL piggyback 2 g IV Q4H Qty: 4200 0RF oxycodone 5 mg Tablet 5 mg PO Q4-6HP PRN (Reason: Per Pain Protocol) Qty: 10 0RF
[2022-05-06] MEDS ORDERED: ACETAMINOPHEN 500 MG TABLET PO ONE (14:00)
[2022-05-06 14:05] LABS: POC Calcium, Ionized 1.22 (1.16-1.32); POC Creatinine 0.9 (0.6-1.2); POC Potassium 4.5 (3.3-5.1)
[2022-05-06] MEDS ORDERED: VANCOMYCIN 1,500 MG in 0.9 % SODIUM CHLORIDE 500 ML IV ONE (14:30)
--- NOTE | 2022-05-06 14:37 | XRay Report ---
HISTORY: Left foot infection, recent amputation left first toe for osteomyelitis FINDINGS: The phalanges of the first toe have been removed since the prior x-ray done on 03/30/22. There is severe soft tissue swelling seen on the lateral view along the dorsal side of the metatarsals and metatarsal phalangeal joints. There is erosion of bone along the medial side of the head of the first metatarsal. This was not present on the prior x-ray. The remainder of the bones are normally mineralized. No fracture or subluxation are present. IMPRESSION: Mild cortical erosion in the head of the first metatarsal. Unless surgery had been performed within this bone, osteomyelitis should be suspected. Severe cellulitis Interpreted and Authenticated by: Daniel Hodge 05/06/22
--- NOTE | 2022-05-06 14:39 | XRay Report ---
HISTORY: Infection, sepsis FINDINGS: There is a small amount of scar tissue in both lung bases, right greater than left. Large consolidating infiltrate was seen in the right lower lobe on the prior CT done on 10/22/21. There is no evidence of acute pneumonia. No congestive heart failure or pleural effusion are present. The heart size is normal. The mediastinum and cresencio are normal. There has been little change since the recent x-ray done on 03/30/22. IMPRESSION: Stable scar tissue in both lung bases and no acute abnormality Interpreted and Authenticated by: Daniel Hodge 05/06/22
[2022-05-06 14:42] LABS: Basophils # (Auto) 0.04 K/mcL (0.00-0.30); Basophils % (Auto) 0.2 % (0.0-2.0); Eosinophils # (Auto) 0.01 K/mcL (0.00-0.70); Eosinophils % (Auto) 0.1 % (0.0-7.0); Hematocrit 36.5 % (40.1-51.0); Hemoglobin 11.9 g/dL (13.7-17.5); Lymphocytes # (Auto) 0.46 K/mcL (1.50-4.80); Lymphocytes % (Auto) 2.5 % (15.5-49.0); Mean Cell Volume 85.5 fL (80.0-100.0); Mean Corpuscular HGB Conc 32.6 g/dL (31.0-36.0); Mean Platelet Volume 9.3 fL (7.4-10.4); Monocytes % (Auto) 3.2 % (1.0-12.0); Neutrophils % (Auto) 93.1 % (38.0-78.0); Platelet Count 243 K/mcL (140-440); RBC 4.27 M/mcL (4.63-6.08); WBC 18.5 K/mcL (4.5-11.0)
[2022-05-06 14:58] LABS: ALT/SGPT 11 U/L (<40); AST/SGOT 15 U/L (<40); Albumin 3.8 gm/dL (3.2-5.2); Alkaline Phosphatase 71 U/L (39-117); Bilirubin,Total 0.6 mg/dL (0.1-1.0); Blood Urea Nitrogen 14 mg/dL (8-23); Calcium 9.5 mg/dL (8.6-10.4); Carbon Dioxide 25 mmol/L (22-30); Chloride 94 mmol/L (96-108); Globulin 3.8 gm/dL (2.2-3.7); Glomerular Filtration Rate 75; Glucose 107 mg/dL (70-105)
[2022-05-06 15:08] LABS: Estimated Average Glucose(eAG) 108 mg/dL; Hemoglobin A1C 5.4 % Hgb (4.0-6.0)
[2022-05-06 15:19] LABS: Erythrocyte Sedimentation Rate 89 mm/hr (0-20)
--- NOTE | 2022-05-06 16:06 | Internal Med History&Physical ---
HPI History of Present Illness Patient information: Note initiated : 05/06/22 at 4:05 pm Service Date, if different from initiated Date: [] Patient: Sharif Grady 72 y/o M admitted on for leg swollen. Chief Complaint: [] Chief complaint: left foot/leg redness History of present illness: Mr. Grady is a 72 year old M multiple medical history, recently admitted to our facility and discharged a month ago for left great toe osteomyelitis status post left great toe amputations by crematory attendant Dr. Leon on 04/01, and be discharged to SNF for ongoing IV antibiotics therapy with nafcillin. He was discharged home on a week ago. Today he is complaining of acute worsening of the erythema of his left foot and left lower leg with associated foul-smelling coming from his amputation site. He is also coming of general body weakness. He is also complaining of subjective fever chills and diaphoresis. He stated that he follow-up with Dr. Leon's 2 days ago and at that point he was doing all right. Vital signs at ED presentations within normal meds. Labs significant for leukocytosis with WBC 18.5. ESR 89; CRP 13.5; lactic acid 1.3, procalcitonin level 0.21. Left foot x-ray showing mild cortical erosion in the head of the first metatarsal with associated severe cellulitis of the left lower leg and left foot. Constitutional Constitutional: Present chills, fever(s) and weakness; Absent excessive sweating or fatigue EENT Eyes: Absent blurry vision, change in vision, loss of vision or other visual disturbances Ears: Absent decreased hearing or tinnitus Nose, mouth and throat: Absent abnormal hearing, dry mouth, headache(s), nasal congestion or sore throat Cardiovascular Cardiovascular: Absent chest pain, chest pain at rest, edema, irregular heart rhythm or palpatations Respiratory Respiratory: Absent cough, dyspnea or wheezing Gastrointestinal Gastrointestinal: Absent abdominal pain, constipation, diarrhea, nausea or vomiting Musculoskeletal Musculoskeletal: Absent back pain, deformity, limited range of motion, muscle cramps, muscle weakness or numbness Additional comments: worsening erythema of the left lower leg and left foot Integumentary Integumentary: Absent lesions, rash or wounds Neurological Neurological: Absent focal weakness, headache(s) or numbness Psychiatric Psychiatric: Absent anxiety, depression or hallucinations PFSH PFSH All Active Problems (Updated 05/06/22 @ 16:13 by Masood Marin MD) Cellulitis of left lower leg (Acute) Cellulitis of left foot (Acute) Sepsis (Acute) Gram-positive cocci bacteremia (Acute) Pressure injury of left perineal ischial region, stage 3 (Acute) Osteomyelitis (Acute) Hyponatremia (Acute) Stage 1 acute kidney injury (Acute) Septic shock (Acute) Sepsis (Acute) Acute osteomyelitis of toe (Acute) Acute kidney injury (Acute) Paroxysmal sinus tachycardia (Acute) Acute dehydration (Acute) RLL pneumonia (Acute) Obstructive sleep apnea (Chronic) Pneumonia (Acute) CHF (congestive heart failure) (Acute) Sepsis (Acute) Respiratory failure (Acute) Acute respiratory failure with hypoxia and hypercapnia (Acute) History of dilation of urethra (Acute) History of tonsillectomy (Acute) H/O detached retina repair (Acute) History of hernia repair (Acute) History of cataract surgery (Acute) History of surgical removal of intestinal structure (Acute) History of adenoidectomy (Acute) Vitamin B12 deficiency (Acute) Fracture of toe, closed (Acute) Tobacco use (Acute) Fracture of thoracic vertebra, closed (Acute) Psoriasis (Acute) Osteoporosis (Acute) Osteoarthritis (Acute) Neuropathy, lower extremity (Acute) Morbid obesity (Acute) Hypertension, essential (Acute 02/27/15) Hyperlipidemia (Acute) Fracture of finger, closed (Acute) Colonic polyp (Acute) COPD (chronic obstructive pulmonary disease) (Acute) Medical History Colonic polyp COPD (chronic obstructive pulmonary disease) CPAP (continuous positive airway pressure) dependence Fracture of finger, closed Fracture of thoracic vertebra, closed Fracture of toe, closed Hyperlipidemia Hypertension, essential (02/27/15) Morbid obesity Neuropathy, lower extremity Knees Obstructive sleep apnea Osteoarthritis Osteomyelitis Osteoporosis Psoriasis Tobacco use Vitamin B12 deficiency Surgical History H/O detached retina repair History of adenoidectomy History of cataract surgery Bilateral History of dilation of urethra Urethral stricture History of hernia repair incarcerated abdominal hernia History of surgical removal of intestinal structure Partial bowel resection History of tonsillectomy Family History Father Alzheimer's disease Atherosclerosis of coronary artery Essential hypertension Osteoporosis Rheumatoid arthritis Mother , at 62 years old Atherosclerosis of coronary artery Hyperlipidemia Unknown Diabetes mellitus Social History marital status: education level: college 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 smoking status start date: 09/06/70 smoking status stop date: 09/06/17 alcohol intake frequency: holiday/special occasion only MEDS/ALLERGIES Home Medications and Allergies Home Medications Medication Instructions Recorded Confirmed Type CPAP machine #1 ea 11/07/19 03/30/22 History metoprolol succinate 25 mg 12.5 mg PO BID 11/07/19 03/30/22 History tablet,extended release 24 hr oxygen bled 3lpm CPAP #1 ea 11/07/19 03/30/22 History alendronate 70 mg tablet 1 tab PO WEEKLY 10/22/21 03/30/22 History fluticasone propionate 115 1 puff continuous inhalation BID 10/22/21 03/30/22 History mcg-salmeterol 21 mcg/actuation HFA inhaler (Advair HFA) lisinopril 5 mg tablet 1 tab PO QDAY 10/22/21 03/30/22 History ascorbate calcium (vitamin C) 500 500 mg PO QDAY 03/30/22 03/30/22 History mg tablet multivitamin 1 tab PO QAM 03/30/22 03/30/22 History gabapentin 100 mg capsule 100 mg PO TIDP PRN Pain #30 caps 04/06/22 Rx nafcillin 2 gram/100 mL in 2 g (100 mL) IV Q4H #4,200 mL 04/06/22 Rx dextrose(iso-osmotic) intravenous piggyback oxycodone 5 mg tablet 5 mg PO Q4-6HP PRN Per Pain 04/06/22 Rx Protocol #10 tabs Allergies Allergy/AdvReac Type Severity Reaction Status Date / Time levofloxacin AdvReac Mild Rash Verified 05/06/22 13:28 EXAM Constitutional Vitals: Temp Pulse Resp BP Pulse Ox O2 Del Method 38.8 C H 88 23 H 104/52 94 05/06/22 13:26 05/06/22 15:29 05/06/22 15:29 05/06/22 15:16 05/06/22 15:29 05/06/22 13:26 General appearance: cooperative and no acute distress Head Head exam: Present atraumatic and normocephalic Eye Eye exam: Present EOMI and PERRL ENT ENT exam: Present mucous membranes moist, normal exam and normal external ear exam Neck Neck exam: Present normal inspection; Absent lymphadenopathy, tenderness or thyromegaly Respiratory Respiratory exam: Absent accessory muscle use, respiratory distress or wheezes Cardiovascular Cardiovascular exam: Present normal rate and rhythm; Absent JVD GI/Abdominal GI/Abdominal exam: Present normal bowel sounds and soft; Absent organomegaly or tenderness Rectal Rectal exam: Present deferred Extremities Exam Extremities exam: Present full ROM, joint swelling, normal capillary refill and tenderness; Absent normal inspection Additional comments: Erythema of left lower leg and left foot; left 1st toe surgically amputated; foul smelling Neurological Exam Neurological exam: Present alert, CN II-XII intact and oriented X3; Absent motor sensory deficit Psychiatric Psychiatric exam: Present normal affect and normal mood; Absent anxious or depressed Skin Skin exam: Present dry; Absent intact Additional comments: Erythema of left lower leg and left foot DATA Data Completed and Pending Labs: Labs from last 24 hours 05/06/22 05/06/22 05/06/22 14:01 13:56 13:54 WBC RBC Hgb Hct POC Hct 37.0 L MCV MCH MCHC RDW Plt Count MPV Immature Gran % (Auto) Neut % (Auto) Lymph % (Auto) [place] % (Auto) Eos % (Auto) Baso % (Auto) Lymph # (Auto) [place] # (Auto) Eos # (Auto) Baso # (Auto) Immature Gran # Absolute Neutrophils ESR POC VBG pH 7.43 H POC VBG pCO2 at Temp 45.3 POC VBG pO2 20 L POC VBG HCO3 29.9 H POC VBG Total CO2 31.0 H POC Venous O2 Sat 33.0 L POC VBG Base Excess 6.0 H* VBG Lactic Acid 1.3 POC Sodium 131 L Sodium POC Potassium 4.5 Potassium POC Chloride 96 Chloride Carbon Dioxide POC Total CO2 28.0 Anion Gap POC BUN 16 BUN Creatinine POC Creatinine 0.9 GFR Calculation Glucose POC Glucose 115 H Hemoglobin A1c Estim Average Glucose Calcium POC WB Ioniz Calcium 1.22 Total Bilirubin AST ALT Alkaline Phosphatase C-Reactive Protein Total Protein Albumin Globulin Albumin/Globulin Ratio Procalcitonin 0.21 H 05/06/22 05/06/22 13:54 13:54 WBC 18.5 H RBC 4.27 L Hgb 11.9 L Hct 36.5 L POC Hct MCV 85.5 MCH 27.9 MCHC 32.6 RDW 14.0 Plt Count 243 MPV 9.3 Immature Gran % (Auto) 0.9 H Neut % (Auto) 93.1 H Lymph % (Auto) 2.5 L [place] % (Auto) 3.2 Eos % (Auto) 0.1 Baso % (Auto) 0.2 Lymph # (Auto) 0.46 L [place] # (Auto) 0.60 Eos # (Auto) 0.01 Baso # (Auto) 0.04 Immature Gran # 0.17 H Absolute Neutrophils 17.22 H ESR 89 H POC VBG pH POC VBG pCO2 at Temp POC VBG pO2 POC VBG HCO3 POC VBG Total CO2 POC Venous O2 Sat POC VBG Base Excess VBG Lactic Acid POC Sodium Sodium 129 L POC Potassium Potassium 4.6 POC Chloride Chloride 94 L Carbon Dioxide 25 POC Total CO2 Anion Gap 10.0 POC BUN BUN 14 Creatinine 1.0 POC Creatinine GFR Calculation 75 Glucose 107 H POC Glucose Hemoglobin A1c 5.4 Estim Average Glucose 108 Calcium 9.5 POC WB Ioniz Calcium Total Bilirubin 0.6 AST 15 ALT 11 Alkaline Phosphatase 71 C-Reactive Protein 13.50 H Total Protein 7.6 Albumin 3.8 Globulin 3.8 H Albumin/Globulin Ratio 1.0 Procalcitonin A/P Assessment and plan (1) Sepsis: Status: Acute (2) Cellulitis of left foot: Status: Acute (3) Cellulitis of left lower leg: Status: Acute (4) Hyponatremia: Status: Acute (5) Obstructive sleep apnea: Status: Chronic (6) Osteoporosis: Status: Acute (7) Hypertension, essential: Status: Acute (8) COPD (chronic obstructive pulmonary disease): Status: Acute Qualifiers: COPD type: unspecified COPD Qualified Code(s): J44.9 - Chronic obstructive pulmonary disease, unspecified Narrative A/P Narrative: Assessment and Plans: 1. Sepsis associated with left lower leg/left foot cellulitis with recent left 1st toe osteomyelitis s/p amputation by Dr. Leon on 04/01: Inpatient med surg Consult crematory attendant Dr. Leon, recs. appreciated MRSA screening Blood culture Wound culture cbc w/ auto in the morning s/p 30cc/kg fluid bolus in the ED, to be followed by NS@70cc/hr Vancomycin Zosyn Physical therapy 2. h/o Essential HTN: Restart Metoprolol Succinate and Lisinopril 3. h/o COPD: Continue bronchodilators from home regimen DuoNEB NEB PRN wheezing 4. h/o obstructive sleep apnea: CPAP at night while sleeping 5. Hyponatremia: s/p 30cc/kg fluid bolus in the ED, to be followed by NS@70cc/hr CMP in the morning to trend serum sodium level 7. h/o osteoporosis: Continue alendronate from home regiment GI ppx: not currently indicated DVT ppx: Lovenox Code status: Full Prognosis: guarded Disposition: inpatient med surg; PT Time Spent With Patient Time: Total time spent is greater than 50% in coordination of care (as documented) at patient's floor/unit and/or counseling patient: Total time spent with greater than 50% in coordination of care (as documented) at patient's floor/unit and/or counseling patient:: Greater than 70 minutes
[2022-05-06] MEDS ORDERED: ACETAMINOPHEN 325 MG TABLET PO PRN (17:03)
[2022-05-06] MEDS ORDERED: hydrALAZINE 20 MG/ML VIAL IV PRN (17:03)
[2022-05-06] MEDS ORDERED: VANCOMYCIN PER PHARMACY IV SCH (17:03)
[2022-05-06] MEDS ORDERED: morphine 4 MG/ML VIAL IV PRN (17:03)
[2022-05-06] MEDS ORDERED: GABAPENTIN 100 MG CAPSULE PO PRN (17:03)
[2022-05-06] MEDS ORDERED: IPRATROPIUM/ALBUTEROL 3 ML AMPUL.NEB NEB PRN (17:03)
[2022-05-06] MEDS ORDERED: oxyCODONE HCL 5 MG TABLET PO PRN (17:03)
[2022-05-06] MEDS ORDERED: ONDANSETRON 4 MG/2 ML VIAL IV PRN (17:03)
[2022-05-06] MEDS ORDERED: traZODone HCL 50 MG TABLET PO PRN (17:03)
[2022-05-06] MEDS: PIPERACILLIN SODIUM/TAZOBACTAM 3.375 GM in DEXTROSE 5% IN WATER 50 ML IV SCH ×2 (19:18→23:54)
[2022-05-06] MEDS: 0.9 % SODIUM CHLORIDE 1,000 ML IV SCH (19:18)
[2022-05-06] MEDS: DOCUSATE SODIUM 100 MG CAPSULE PO SCH (21:30)
[2022-05-06] MEDS: FLUTICASONE PROPION SALMETEROL INH SCH (21:30)
[2022-05-06] MEDS: SENNOSIDES 1 TABLET PO SCH (21:30)
[2022-05-06] MEDS: METOPROLOL SUCCINATE 25 MG TAB.XL.24H PO SCH (21:31)
[2022-05-06] MEDS: 0.9 % SODIUM CHLORIDE 10 ML SYRINGE IV SCH (23:48)
[2022-05-07] MEDS ORDERED: VANCOMYCIN 1,000 MG in 0.9 % SODIUM CHLORIDE 250 ML IV ONE
[2022-05-07] MEDS: PIPERACILLIN SODIUM/TAZOBACTAM 3.375 GM in DEXTROSE 5% IN WATER 50 ML IV SCH ×3 (05:55→17:43)
[2022-05-07] MEDS: 0.9 % SODIUM CHLORIDE 10 ML SYRINGE IV SCH ×2 (05:57→17:44)
[2022-05-07] MEDS: ALENDRONATE SODIUM 70 MG TABLET PO SCH (07:12)
[2022-05-07 07:32] LABS: ALT/SGPT 7 U/L (<40); AST/SGOT 11 U/L (<40); Albumin 2.9 gm/dL (3.2-5.2); Albumin/Globulin Ratio 0.9 (1.0-2.3); Alkaline Phosphatase 61 U/L (39-117); Bilirubin,Total 0.4 mg/dL (0.1-1.0); Blood Urea Nitrogen 10 mg/dL (8-23); Calcium 8.9 mg/dL (8.6-10.4); Carbon Dioxide 21 mmol/L (22-30); Chloride 106 mmol/L (96-108); Globulin 3.4 gm/dL (2.2-3.7); Glomerular Filtration Rate 90; Glucose 104 mg/dL (70-105); Phosphorous 2.7 mg/dL (2.5-4.5)
[2022-05-07 08:12] LABS: Basophils # (Auto) 0.03 K/mcL (0.00-0.30); Basophils % (Auto) 0.3 % (0.0-2.0); Eosinophils # (Auto) 0.04 K/mcL (0.00-0.70); Eosinophils % (Auto) 0.4 % (0.0-7.0); Hematocrit 32.1 % (40.1-51.0); Hemoglobin 10.4 g/dL (13.7-17.5); Lymphocytes # (Auto) 0.67 K/mcL (1.50-4.80); Lymphocytes % (Auto) 7.1 % (15.5-49.0); Mean Cell Volume 85.1 fL (80.0-100.0); Mean Corpuscular HGB Conc 32.4 g/dL (31.0-36.0); Mean Platelet Volume 9.2 fL (7.4-10.4); Monocytes % (Auto) 5.3 % (1.0-12.0); Neutrophils % (Auto) 86.2 % (38.0-78.0); Platelet Count 194 K/mcL (140-440); RBC 3.77 M/mcL (4.63-6.08); Red Cell Distribution Width 14.1 % (11.5-14.5); WBC 9.4 K/mcL (4.5-11.0)
[2022-05-07] MEDS: ASCORBIC ACID 500 MG TABLET PO SCH (09:07)
[2022-05-07] MEDS: LISINOPRIL 5 MG TABLET PO SCH (09:08)
[2022-05-07] MEDS: MULTIVIT,THER IRON,CA,FA & MIN 1 TABLET PO SCH (09:08)
[2022-05-07] MEDS: ENOXAPARIN 40 MG/0.4 ML SYRINGE SQ SCH (09:08)
[2022-05-07] MEDS: METOPROLOL SUCCINATE 25 MG TAB.XL.24H PO SCH ×2 (09:08→20:51)
[2022-05-07] MEDS ORDERED: VANCOMYCIN 1,500 MG in 0.9 % SODIUM CHLORIDE 500 ML IV SCH (10:00)
--- NOTE | 2022-05-07 10:39 | Internal Med Progress Note ---
SUBJECTIVE Subjective Patient information: Note initiated : 05/07/22 at 10:34 am Service Date, if different from initiated Date: [] Patient: Sharif Grady 72 y/o M admitted on 05/06/22 for leg swollen. Chief Complaint: [] Interval history: Mr. Grady is a 72 year old M multiple medical history, recently admitted to our facility and discharged a month ago for left great toe osteomyelitis status post left great toe amputations by diet supervisor Dr. Leon on 04/01, and be discharged to SNF for ongoing IV antibiotics therapy with nafcillin. He was discharged home on a week ago. Today he is complaining of acute worsening of the erythema of his left foot and left lower leg with associated foul-smelling coming from his amputation site. He is also coming of general body weakness. He is also complaining of subjective fever chills and diaphoresis. He stated that he follow-up with Dr. Leon's 2 days ago and at that point he was doing all right . Vital signs at ED presentations within normal meds. Labs significant for leukocytosis with WBC 18.5. ESR 89; CRP 13.5; lactic acid 1.3, procalcitonin level 0.21. Left foot x-ray showing mild cortical erosion in the head of the first metatarsal with associated severe cellulitis of the left lower leg and left foot. 05/07: Afebrile overnight. WBC comes down to 9.4 this morning. Blood and wound cultures no growth today. Patient denies any pain of his left foot or left leg. Denies any subjective fever or chills. Continue IV fluid and Zosyn. DC vancomycin because of the negative MRSA scre ening. Pending diet supervisor Dr. Leon's to evaluate the patient for any potential surgical management and wound care. Physical therapy. Constitutional Vitals: Vital Signs Temp Pulse Resp BP Pulse Ox O2 Del Method 36.4 C 88 20 128/54 90 05/07/22 08:00 05/07/22 08:00 05/07/22 08:00 05/07/22 08:00 05/07/22 08:00 05/07/22 08:00 Period Temp Pulse Resp BP Sys/Jacobs Pulse Ox O2 Del Method O2 Flow Rate Last 24 Hr 35.9 C-38.8 C 79-117 18-26 96-149/40-71 90-98 Room Air-Room Air Intake and Output 05/06/22 05/07/22 05/07/22 21:59 05:59 13:59 Intake Total 2995 750 50 Output Total 1050 2240 Balance 1945 -1490 50 Weight 137.212 kg Intake & Output: Intake & Output 05/06/22 05/07/22 05/07/22 21:59 05:59 13:59 Intake Total 2995 750 50 Output Total 1050 2240 Balance 1945 -1490 50 Weight 137.212 kg Intake: IV 2995 300 50 Sodium Chloride 0.9% 2,395 ml @ 2395 4790 mls/hr IV .Q30M ONE Rx#: [id number] Zosyn 3.375 gm In Dextrose 5% 100 50 50 in Water 50 ml @ 100 mls/hr IV Q6H [facility] Rx#:[id number] Vancomycin 1,000 mg In Sodium 250 Chloride 0.9% 250 ml @ 250 mls/ hr IV ONCE ONE Rx#:[id number] Vancomycin 1,500 mg In Sodium 500 Chloride 0.9% 500 ml @ 333.3 mls/hr IV ONCE ONE Rx#: [id number] Oral 450 Output: Void Amount 1050 2240 Other: Urine Appearance Clear Clear Urine Color Yellow Yellow Urine Odor Normal General appearance: average body habitus, cooperative and no acute distress Head Head exam: Present atraumatic and normal inspection Eye Eye exam: Present normal appearance ENT ENT exam: Present mucous membranes moist, normal exam and normal external ear exam Neck Neck exam: Present normal inspection Respiratory Respiratory exam: Present normal respiratory exam Cardiovascular Cardiovascular exam: Present normal rate and rhythm GI/Abdominal GI/Abdominal exam: Present normal bowel sounds Extremities Exam Extremities exam: Present full ROM; Absent normal inspection Additional comments: Erythema of left lower leg and left foot; left 1st toe surgically amputated; foul smelling Back Exam Back exam: Present normal inspection Neurological Exam Neurological exam: Present alert and oriented X3 Skin Skin exam: Present warm; Absent intact Additional comments: Erythema of left lower leg and left foot OBJ DATA Labs CBC & Chem 7: 05/07/22 05:57 05/07/22 05:57 Labs: Abnormal Lab Results 05/07/22 05/07/22 05/06/22 05:57 05:57 14:01 WBC RBC 3.77 L Hgb 10.4 L Hct 32.1 L POC Hct 37.0 L Immature Gran % (Auto) 0.7 H Neut % (Auto) 86.2 H Lymph % (Auto) 7.1 L Lymph # (Auto) 0.67 L Immature Gran # 0.07 H Absolute Neutrophils 8.13 H ESR POC VBG pH POC VBG pO2 POC VBG HCO3 POC VBG Total CO2 POC Venous O2 Sat POC VBG Base Excess POC Sodium 131 L Sodium Chloride Carbon Dioxide 21 L Glucose POC Glucose 115 H C-Reactive Protein Albumin 2.9 L Globulin Albumin/Globulin Ratio 0.9 L Procalcitonin 05/06/22 05/06/22 05/06/22 13:56 13:54 13:54 WBC RBC Hgb Hct POC Hct Immature Gran % (Auto) Neut % (Auto) Lymph % (Auto) Lymph # (Auto) Immature Gran # Absolute Neutrophils ESR POC VBG pH 7.43 H POC VBG pO2 20 L POC VBG HCO3 29.9 H POC VBG Total CO2 31.0 H POC Venous O2 Sat 33.0 L POC VBG Base Excess 6.0 H* POC Sodium Sodium 129 L Chloride 94 L Carbon Dioxide Glucose 107 H POC Glucose C-Reactive Protein 13.50 H Albumin Globulin 3.8 H Albumin/Globulin Ratio Procalcitonin 0.21 H 05/06/22 13:54 WBC 18.5 H RBC 4.27 L Hgb 11.9 L Hct 36.5 L POC Hct Immature Gran % (Auto) 0.9 H Neut % (Auto) 93.1 H Lymph % (Auto) 2.5 L Lymph # (Auto) 0.46 L Immature Gran # 0.17 H Absolute Neutrophils 17.22 H ESR 89 H POC VBG pH POC VBG pO2 POC VBG HCO3 POC VBG Total CO2 POC Venous O2 Sat POC VBG Base Excess POC Sodium Sodium Chloride Carbon Dioxide Glucose POC Glucose C-Reactive Protein Albumin Globulin Albumin/Globulin Ratio Procalcitonin Meds: Medications Acetaminophen (Acetaminophen 325 Mg Tablet) 650 mg PO Q6HP PRN; Protocol PRN Reason: Per Pain Protocol/Fever > 101 Albuterol/Ipratropium (Ipratropium/Albuterol 3 Ml Ampul.Neb) 3 ml NEB Q4HRT PRN PRN Reason: Wheezing Alendronate Sodium (Alendronate Sodium 70 Mg Tablet) 70 mg PO Th@0730 [facility] Last Admin: 05/07/22 07:12 Dose: 70 mg Ascorbic Acid (Ascorbic Acid 500 Mg Tablet) 500 mg PO DAILY [facility] Last Admin: 05/07/22 09:07 Dose: 500 mg Docusate Sodium (Docusate Sodium 100 Mg Capsule) 100 mg PO BID [facility] Last Admin: 05/06/22 21:30 Dose: Not Given Enoxaparin Sodium (Enoxaparin 40 Mg/0.4 Ml Syringe) 40 mg SQ DAILY [facility] Last Admin: 05/07/22 09:08 Dose: 40 mg Gabapentin (Gabapentin 100 Mg Capsule) 100 mg PO TIDP PRN PRN Reason: Pain Hydralazine HCl (Hydralazine 20 Mg/Ml Vial) 10 mg IV Q4-6HP PRN PRN Reason: Hypertension Sodium Chloride (Sodium Chloride 0.9%) 1,000 mls @ 75 mls/hr IV .[id number] [facility] Last Admin: 05/06/22 19:18 Dose: 75 mls/hr Piperacillin Sod/Tazobactam (Sod 3.375 gm/ Dextrose) 50 mls @ 100 mls/hr IV Q6H [facility]; Protocol Last Infusion: 05/07/22 06:43 Dose: Infused Iron Carb/Multivit/[place]/Folic Acid (Multivit,Ther Iron,Ca,Fa & Min 1 Tablet) 1 tab PO DAILY [facility] Last Admin: 05/07/22 09:08 Dose: 1 tab Lisinopril (Lisinopril 5 Mg Tablet) 5 mg PO QDAY [facility] Last Admin: 05/07/22 09:08 Dose: 5 mg Metoprolol Succinate (Metoprolol Succinate 25 Mg Tab.Xl.24h) 12.5 mg PO BID [facility] Last Admin: 05/07/22 09:08 Dose: 12.5 mg Morphine Sulfate (Morphine 4 Mg/Ml Vial) 4 mg IV Q4HP PRN; Protocol PRN Reason: Per Pain Protocol Ondansetron HCl (Ondansetron 4 Mg/2 Ml Vial) 4 mg IV Q6HP PRN PRN Reason: Nausea And Vomiting Oxycodone HCl (Oxycodone Hcl 5 Mg Tablet) 5 mg PO Q4-6HP PRN; Protocol PRN Reason: Per Pain Protocol Fluticasone Propion- Salmeterol [Advair Hfa] 115-21 Mcg Inhaler 1 dose INH BID [facility] Last Admin: 05/06/22 21:30 Dose: Not Given Senna (Sennosides 1 Tablet) 2 tab PO HS [facility] Last Admin: 05/06/22 21:30 Dose: Not Given Sodium Chloride (0.9 % Sodium Chloride 10 Ml Syringe) 10 ml IV Q8 [facility] Last Admin: 05/07/22 05:57 Dose: Not Given Trazodone HCl (Trazodone Hcl 50 Mg Tablet) 25 mg PO HSP PRN PRN Reason: Insomnia A/P Assessment and plan (1) Sepsis: Status: Acute (2) Cellulitis of left foot: Status: Acute (3) Cellulitis of left lower leg: Status: Acute (4) Hyponatremia: Status: Acute (5) Obstructive sleep apnea: Status: Chronic (6) Osteoporosis: Status: Acute (7) Hypertension, essential: Status: Acute (8) COPD (chronic obstructive pulmonary disease): Status: Acute Qualifiers: COPD type: unspecified COPD Qualified Code(s): J44.9 - Chronic obstructive pulmonary disease, unspecified Narrative A/P Narrative: Assessment and Plans: 1. Sepsis associated with left lower leg/left foot cellulitis with recent left 1st toe osteomyelitis s/p amputation by Dr. Leon on 04/01: Inpatient med surg Consult diet supervisor Dr. Leon, recs. appreciated MRSA screening negative, d/c Vancomycin Blood culture, no growth to date Wound culture, no growth to date cbc w/ auto in the morning Saline lock Continue Zosyn Physical therapy 2. h/o Essential HTN: Restart Metoprolol Succinate and Lisinopril 3. h/o COPD: Continue bronchodilators from home regimen DuoNEB NEB PRN wheezing 4. h/o obstructive sleep apnea: CPAP at night while sleeping 5. Hyponatremia: RESOLVED Saline lock CMP in the morning to trend serum sodium level 7. h/o osteoporosis: Continue alendronate from home regiment GI ppx: not currently indicated DVT ppx: Lovenox Code status: Full Prognosis: guarded Disposition: inpatient med surg; PT Time Spent With Patient Time: Total time spent is greater than 50% in coordination of care (as documented) at patient's floor/unit and/or counseling patient: Total time spent with greater than 50% in coordination of care (as documented) at patient's floor/unit and/or counseling patient:: 25 - 35 minutes QUALITY VTE Deep Vein Thrombosis/Pulmonary Embolism Present on Admission: No
[2022-05-07] MEDS: DOCUSATE SODIUM 100 MG CAPSULE PO SCH ×2 (12:56→20:52)
[2022-05-07] MEDS: FLUTICASONE PROPION SALMETEROL INH SCH ×2 (12:57→20:52)
--- NOTE | 2022-05-07 13:49 | Orthopedic Consult Note ---
HPI Data of Consult Consult date: 05/06/22 Primary Care Provider: Lala De Consult Narrative Patient Information: Note initiated : 05/07/22 at 1:46 pm Service Date, if different from initiated Date: [] Patient: Sharif Grady 72 y/o M admitted on 05/06/22 for leg swollen. Chief Complaint: [left foot infection following great toe amputation] Recurring infection with cellulitis of the left foot infection following great toe amputation. Chief complaint: left foot infection following great toe amputation Reason for consult: left foot infection following great toe amputation cc:: CC: Masood Marin MD [facility] All Active Problems (Updated 05/07/22 @ 13:49 by Bebeto Leon DPM) Osteomyelitis of foot, left, acute (Acute) Cellulitis of left lower leg (Acute) Cellulitis of left foot (Acute) Sepsis (Acute) Gram-positive cocci bacteremia (Acute) Pressure injury of left perineal ischial region, stage 3 (Acute) Osteomyelitis (Acute) Hyponatremia (Acute) Stage 1 acute kidney injury (Acute) Septic shock (Acute) Sepsis (Acute) Acute osteomyelitis of toe (Acute) Acute kidney injury (Acute) Paroxysmal sinus tachycardia (Acute) Acute dehydration (Acute) RLL pneumonia (Acute) Obstructive sleep apnea (Chronic) Pneumonia (Acute) CHF (congestive heart failure) (Acute) Sepsis (Acute) Respiratory failure (Acute) Acute respiratory failure with hypoxia and hypercapnia (Acute) History of dilation of urethra (Acute) History of tonsillectomy (Acute) H/O detached retina repair (Acute) History of hernia repair (Acute) History of cataract surgery (Acute) History of surgical removal of intestinal structure (Acute) History of adenoidectomy (Acute) Vitamin B12 deficiency (Acute) Fracture of toe, closed (Acute) Tobacco use (Acute) Fracture of thoracic vertebra, closed (Acute) Psoriasis (Acute) Osteoporosis (Acute) Osteoarthritis (Acute) Neuropathy, lower extremity (Acute) Morbid obesity (Acute) Hypertension, essential (Acute 02/27/15) Hyperlipidemia (Acute) Fracture of finger, closed (Acute) Colonic polyp (Acute) COPD (chronic obstructive pulmonary disease) (Acute) Medical History (Updated 05/07/22 @ 13:49 by Bebeto Leon DPM) Colonic polyp COPD (chronic obstructive pulmonary disease) CPAP (continuous positive airway pressure) dependence Fracture of finger, closed Fracture of thoracic vertebra, closed Fracture of toe, closed Hyperlipidemia Hypertension, essential (02/27/15) Morbid obesity Neuropathy, lower extremity Knees Obstructive sleep apnea Osteoarthritis Osteomyelitis Osteomyelitis of foot, left, acute Osteoporosis Psoriasis Tobacco use Vitamin B12 deficiency Surgical History H/O detached retina repair History of adenoidectomy History of cataract surgery Bilateral History of dilation of urethra Urethral stricture History of hernia repair incarcerated abdominal hernia History of surgical removal of intestinal structure Partial bowel resection History of tonsillectomy Family History Father Alzheimer's disease Atherosclerosis of coronary artery Essential hypertension Osteoporosis Rheumatoid arthritis Mother , at 62 years old Atherosclerosis of coronary artery Hyperlipidemia Unknown Diabetes mellitus Social History marital status: education level: college 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 smoking status: Former smoker smoking status start date: 09/06/70 smoking status stop date: 09/06/17 alcohol intake frequency: holiday/special occasion only MEDS/ALLERGIES Home Medications and Allergies Home Medications Medication Instructions Recorded Confirmed Type CPAP machine #1 ea 11/07/19 05/06/22 History metoprolol succinate 25 mg 12.5 mg PO BID 11/07/19 05/06/22 History tablet,extended release 24 hr oxygen bled 3lpm CPAP #1 ea 11/07/19 05/06/22 History alendronate 70 mg tablet 1 tab PO WEEKLY 10/22/21 05/06/22 History fluticasone propionate 115 1 puff continuous inhalation BID 10/22/21 05/06/22 History mcg-salmeterol 21 mcg/actuation HFA inhaler (Advair HFA) lisinopril 5 mg tablet 1 tab PO QDAY 10/22/21 05/06/22 History ascorbate calcium (vitamin C) 500 500 mg PO QDAY 03/30/22 05/06/22 History mg tablet multivitamin 1 tab PO QAM 03/30/22 05/06/22 History nafcillin 2 gram/100 mL in 2 g (100 mL) IV Q4H #4,200 mL 04/06/22 05/06/22 Rx dextrose(iso-osmotic) intravenous piggyback potassium chloride 10 mEq 1 tab PO QDAY 05/06/22 05/06/22 History tablet,extended release Allergies Allergy/AdvReac Type Severity Reaction Status Date / Time levofloxacin AdvReac Mild Rash Verified 05/06/22 13:28 Physical Examination Narrative Narrative: Narrative: Ankle & Foot left: Foot appearance: swelling, erythema and other (Open wound with metatarsal expososure of the left first metatarsal) A/P Assessment and plan (1) Osteomyelitis of foot, left, acute: Status: Acute Plan Partial amputation left first metatarsal Narrative A/P Narrative: Osteomyelitis left first metatarsal Plan of Treatment: Partial amputation left first metatarsal Time Spent With Patient Time: Total time spent is greater than 50% in coordination of care (as documented) at patient's floor/unit and/or counseling patient: Total time spent with greater than 50% in coordination of care (as documented) at patient's floor/unit and/or counseling patient:: 15 - 24 minutes
[2022-05-07] MEDS: 0.9 % SODIUM CHLORIDE 1,000 ML IV SCH (14:35)
[2022-05-07] MEDS: SENNOSIDES 1 TABLET PO SCH (20:52)
[2022-05-08] MEDS: 0.9 % SODIUM CHLORIDE 10 ML SYRINGE IV SCH ×3 (00:37→12:58)
[2022-05-08] MEDS: PIPERACILLIN SODIUM/TAZOBACTAM 3.375 GM in DEXTROSE 5% IN WATER 50 ML IV SCH ×4 (00:37→16:36)
[2022-05-08] MEDS: MULTIVIT,THER IRON,CA,FA & MIN 1 TABLET PO SCH (07:28)
[2022-05-08] MEDS: DOCUSATE SODIUM 100 MG CAPSULE PO SCH ×2 (07:28→21:40)
[2022-05-08] MEDS: ENOXAPARIN 40 MG/0.4 ML SYRINGE SQ SCH (07:28)
[2022-05-08] MEDS: POTASSIUM CHLORIDE 10 MEQ TABLET PO SCH (07:28)
[2022-05-08] MEDS: ASCORBIC ACID 500 MG TABLET PO SCH (07:28)
--- NOTE | 2022-05-08 08:42 | EKG ---
[facility] Test Date: 2022-05-08 Pat Name: Sharif Grady Department: [facility] Room: 131 Gender: Male [employer]: : 1950 Requested By: Bebeto Leon Order Number: [id number] Reading MD: Maury Narayanan Measurements Intervals [place] Rate: 81 P: 57 WI: 203 QRS: 61 QRSD: 94 T: 49 QT: 336 QTc: 390 Interpretive Statements Sinus rhythm Ventricular trigeminy Borderline low voltage, extremity leads Abnormal R-wave progression, early transition Electronically Signed On 05-08-2022 8:41:33 PDT by Maury Narayanan /store/M0/[id number]
[2022-05-08] MEDS: METOPROLOL SUCCINATE 25 MG TAB.XL.24H PO SCH ×2 (08:47→21:40)
[2022-05-08] MEDS: LISINOPRIL 5 MG TABLET PO SCH (08:47)
[2022-05-08] MEDS: FLUTICASONE PROPION SALMETEROL INH SCH ×2 (08:48→21:41)
[2022-05-08 08:50] LABS: Basophils # (Auto) 0.05 K/mcL (0.00-0.30); Basophils % (Auto) 0.9 % (0.0-2.0); Eosinophils # (Auto) 0.09 K/mcL (0.00-0.70); Eosinophils % (Auto) 1.6 % (0.0-7.0); Hemoglobin 10.1 g/dL (13.7-17.5); Lymphocytes # (Auto) 0.61 K/mcL (1.50-4.80); Mean Cell Volume 88.9 fL (80.0-100.0); Mean Corpuscular HGB Conc 31.6 g/dL (31.0-36.0); Mean Platelet Volume 9.1 fL (7.4-10.4); Monocytes # (Auto) 0.49 K/mcL (0.10-0.90); Monocytes % (Auto) 8.8 % (1.0-12.0); Neutrophils % (Auto) 77.2 % (38.0-78.0); Platelet Count 194 K/mcL (140-440); Red Cell Distribution Width 14.1 % (11.5-14.5); WBC 5.6 K/mcL (4.5-11.0)
[2022-05-08 08:52] LABS: ALT/SGPT 7 U/L (<40); AST/SGOT 13 U/L (<40); Albumin 2.8 gm/dL (3.2-5.2); Albumin/Globulin Ratio 0.8 (1.0-2.3); Alkaline Phosphatase 59 U/L (39-117); Bilirubin,Total 0.2 mg/dL (0.1-1.0); Blood Urea Nitrogen 9 mg/dL (8-23); Calcium 9.1 mg/dL (8.6-10.4); Carbon Dioxide 23 mmol/L (22-30); Chloride 107 mmol/L (96-108); Globulin 3.7 gm/dL (2.2-3.7); Glomerular Filtration Rate 90; Glucose 96 mg/dL (70-105); Phosphorous 3.2 mg/dL (2.5-4.5)
[2022-05-08] MEDS ORDERED: PROPOFOL 200 MG/20 ML VIAL IV ONE (10:20)
--- NOTE | 2022-05-08 11:04 | Brief Operative Note ---
Brief Operative Note Date of procedure: 05/08/22 Pre-op diagnosis: osteomyeltis left foot Post-op diagnosis: same Procedure: partial amputation left first metatarsal Grafts/Implants: No Anesthesia: GETA Findings: none Complications: none Surgeon: Bebeto Leon Estimated blood loss (cc): 50 Tourniquet Time (Minutes): 17 Specimens Removed/Pathology: other (bone culture) Condition: stable Disposition: floor
--- NOTE | 2022-05-08 11:23 | Operative Note ---
DATE OF OPERATION: 05/08/2022 PREOPERATIVE DIAGNOSIS: Osteomyelitis, left foot first metatarsal. POSTOPERATIVE DIAGNOSIS: Osteomyelitis, left foot first metatarsal. PROCEDURE: Partial amputation, left first metatarsal. SURGEON: Bebeto Leon DPM. IMPLANTS: None. ANESTHESIA: GETA. COMPLICATIONS: None. BLOOD LOSS: 50 mL. TOURNIQUET TIME: 17 minutes. SPECIMEN: Bone culture, left first metatarsal. CONDITION: Stable. DISPOSITION: Floor. PROCEDURE IN DETAIL: The patient was brought to the operating room. He remained on his hospital bed throughout the procedure. The area was scrubbed, prepped and draped in the usual aseptic fashion. Monitored anesthesia care initiated. Esmarch applied. Pneumatic thigh tourniquet inflated to 250 mmHg. There was exposed metatarsal through a previous great toe amputation site, which is consistent with osteomyelitis from preoperative x-ray films and direct visualization. The necrotic portions were removed and any protruding metatarsal was removed utilizing a sagittal saw blade. This bone was sent for culture. Area was irrigated with copious amounts of sterile saline. A gram of vancomycin powder and a loose closure was performed with 2-0 nylon in a vertical horizontal interrupted suture fashion. Xeroform, 4 x 4 gauze, Kerlix, Coban, and Douglas wrap were applied. The patient is instructed to remain nonweightbearing. He will return to the floor for continued intravenous antibiotic therapy. KDJ:nas Job ID: [id number] Doc ID: [id number] Bebeto Leon DPM
--- NOTE | 2022-05-08 11:39 | Internal Med Progress Note ---
SUBJECTIVE Subjective Patient information: Note initiated : 05/08/22 at 11:36 am Service Date, if different from initiated Date: [] Patient: Sharif Grady 72 y/o M admitted on 05/06/22 for leg swollen. Chief Complaint: [] Interval history: Mr. Grady is a 72 year old M multiple medical history, recently admitted to our facility and discharged a month ago for left great toe osteomyelitis status post left great toe amputations by is support analyst Dr. Leon on 04/01, and be discharged to SNF for ongoing IV antibiotics therapy with nafcillin. He was discharged home on a week ago. Today he is complaining of acute worsening of the erythema of his left foot and left lower leg with associated foul-smelling coming from his amputation site. He is also coming of general body weakness. He is also complaining of subjective fever chills and diaphoresis. He stated that he follow-up with Dr. Leon's 2 days ago and at that point he was doing all right . Vital signs at ED presentations within normal meds. Labs significant for leukocytosis with WBC 18.5. ESR 89; CRP 13.5; lactic acid 1.3, procalcitonin level 0.21. Left foot x-ray showing mild cortical erosion in the head of the first metatarsal with associated severe cellulitis of the left lower leg and left foot. 05/07: Afebrile overnight. WBC comes down to 9.4 this morning. Blood and wound cultures no growth today. Patient denies any pain of his left foot or left leg. Denies any subjective fever or chills. Continue IV fluid and Zosyn. DC vancomycin because of the negative MRSA scre ening. Pending is support analyst Dr. Leon's to evaluate the patient for any potential surgical management and wound care. Physical therapy. 05/08: Afebrile overnight. Wound culture growing gram negative bacillus. Dr. Leon is taking patient to OR this morning for partial amputation of the left 1st toe. Continue Zosyn for now. Physical therapy. Constitutional Vitals: Vital Signs Temp Pulse Resp BP Pulse Ox O2 Del Method 36.8 C 78 18 121/65 92 05/08/22 07:16 05/08/22 07:16 05/08/22 07:16 05/08/22 07:16 05/08/22 07:16 05/08/22 07:16 Period Temp Pulse Resp BP Sys/Jacobs Pulse Ox O2 Del Method O2 Flow Rate Last 24 Hr 36.3 C-37.1 C 78-90 14-20 115-133/59-65 92-97 Room Air-Room Air Intake and Output 05/07/22 05/08/22 05/08/22 21:59 05:59 13:59 Intake Total 2270 1050 50 Output Total 850 2100 850 Balance 1420 -1050 -800 Weight 142.972 kg Intake & Output: Intake & Output 05/07/22 05/08/22 05/08/22 21:59 05:59 13:59 Intake Total 2270 1050 50 Output Total 850 2100 850 Balance 1420 -1050 -800 Weight 142.972 kg Intake: IV 1100 50 50 Sodium Chloride 0.9% 1,000 ml @ 1000 75 mls/hr IV .[id number] TIMOTHY Rx#: [id number] Zosyn 3.375 gm In Dextrose 5% 100 50 50 in Water 50 ml @ 100 mls/hr IV Q6H TIMOTHY Rx#:[id number] Oral 1170 1000 Output: Void Amount 850 2100 850 Other: Meal Lunch Percent of Meal Consumed 100% Feeding Ability Independent Urine Appearance Clear Clear Urine Color Yellow Pale Head Head exam: Present atraumatic and normal inspection Eye Eye exam: Present normal appearance ENT ENT exam: Present mucous membranes moist, normal exam and normal external ear exam Neck Neck exam: Present normal inspection Respiratory Respiratory exam: Present normal respiratory exam Cardiovascular Cardiovascular exam: Present normal rate and rhythm GI/Abdominal GI/Abdominal exam: Present normal bowel sounds Extremities Exam Extremities exam: Present full ROM; Absent normal inspection Additional comments: Erythema of left lower leg and left foot; left 1st toe surgically amputated; foul smelling Back Exam Back exam: Present normal inspection Neurological Exam Neurological exam: Present alert and oriented X3 Skin Skin exam: Present warm; Absent intact Additional comments: Erythema of left lower leg and left foot OBJ DATA Labs CBC & Chem 7: 05/08/22 05:24 05/08/22 05:23 Labs: Abnormal Lab Results 05/08/22 05/08/22 05/08/22 09:17 05:24 05:23 WBC RBC 3.60 L Hgb 10.1 L Hct 32.0 L POC Hct Immature Gran % (Auto) Neut % (Auto) Lymph % (Auto) 11.0 L Lymph # (Auto) 0.61 L Immature Gran # Absolute Neutrophils ESR POC VBG pH POC VBG pO2 POC VBG HCO3 POC VBG Total CO2 POC Venous O2 Sat POC VBG Base Excess POC Sodium Sodium Chloride Carbon Dioxide Glucose POC Glucose C-Reactive Protein Albumin 2.8 L Globulin Albumin/Globulin Ratio 0.8 L Procalcitonin Vancomycin Trough < 4.0 L 05/07/22 05/07/22 05/06/22 05:57 05:57 14:01 WBC RBC 3.77 L Hgb 10.4 L Hct 32.1 L POC Hct 37.0 L Immature Gran % (Auto) 0.7 H Neut % (Auto) 86.2 H Lymph % (Auto) 7.1 L Lymph # (Auto) 0.67 L Immature Gran # 0.07 H Absolute Neutrophils 8.13 H ESR POC VBG pH POC VBG pO2 POC VBG HCO3 POC VBG Total CO2 POC Venous O2 Sat POC VBG Base Excess POC Sodium 131 L Sodium Chloride Carbon Dioxide 21 L Glucose POC Glucose 115 H C-Reactive Protein Albumin 2.9 L Globulin Albumin/Globulin Ratio 0.9 L Procalcitonin Vancomycin Trough 05/06/22 05/06/22 05/06/22 13:56 13:54 13:54 WBC RBC Hgb Hct POC Hct Immature Gran % (Auto) Neut % (Auto) Lymph % (Auto) Lymph # (Auto) Immature Gran # Absolute Neutrophils ESR POC VBG pH 7.43 H POC VBG pO2 20 L POC VBG HCO3 29.9 H POC VBG Total CO2 31.0 H POC Venous O2 Sat 33.0 L POC VBG Base Excess 6.0 H* POC Sodium Sodium 129 L Chloride 94 L Carbon Dioxide Glucose 107 H POC Glucose C-Reactive Protein 13.50 H Albumin Globulin 3.8 H Albumin/Globulin Ratio Procalcitonin 0.21 H Vancomycin Trough 05/06/22 13:54 WBC 18.5 H RBC 4.27 L Hgb 11.9 L Hct 36.5 L POC Hct Immature Gran % (Auto) 0.9 H Neut % (Auto) 93.1 H Lymph % (Auto) 2.5 L Lymph # (Auto) 0.46 L Immature Gran # 0.17 H Absolute Neutrophils 17.22 H ESR 89 H POC VBG pH POC VBG pO2 POC VBG HCO3 POC VBG Total CO2 POC Venous O2 Sat POC VBG Base Excess POC Sodium Sodium Chloride Carbon Dioxide Glucose POC Glucose C-Reactive Protein Albumin Globulin Albumin/Globulin Ratio Procalcitonin Vancomycin Trough Meds: Medications Acetaminophen (Acetaminophen 325 Mg Tablet) 650 mg PO Q6HP PRN; Protocol PRN Reason: Per Pain Protocol/Fever > 101 Albuterol/Ipratropium (Ipratropium/Albuterol 3 Ml Ampul.Neb) 3 ml NEB Q4HRT PRN PRN Reason: Wheezing Alendronate Sodium (Alendronate Sodium 70 Mg Tablet) 70 mg PO Th@0730 [facility] Last Admin: 05/07/22 07:12 Dose: 70 mg Ascorbic Acid (Ascorbic Acid 500 Mg Tablet) 500 mg PO DAILY [facility] Last Admin: 05/08/22 07:28 Dose: Not Given Docusate Sodium (Docusate Sodium 100 Mg Capsule) 100 mg PO BID [facility] Last Admin: 05/08/22 07:28 Dose: Not Given Enoxaparin Sodium (Enoxaparin 40 Mg/0.4 Ml Syringe) 40 mg SQ DAILY [facility] Last Admin: 05/08/22 07:28 Dose: Not Given Gabapentin (Gabapentin 100 Mg Capsule) 100 mg PO TIDP PRN PRN Reason: Pain Hydralazine HCl (Hydralazine 20 Mg/Ml Vial) 10 mg IV Q4-6HP PRN PRN Reason: Hypertension Piperacillin Sod/Tazobactam (Sod 3.375 gm/ Dextrose) 50 mls @ 100 mls/hr IV Q6H [facility]; Protocol Last Infusion: 05/08/22 06:42 Dose: Infused Iron Carb/Multivit/[place]/Folic Acid (Multivit,Ther Iron,Ca,Fa & Min 1 Tablet) 1 tab PO DAILY [facility] Last Admin: 05/08/22 07:28 Dose: Not Given Lisinopril (Lisinopril 5 Mg Tablet) 5 mg PO QDAY [facility] Last Admin: 05/08/22 08:47 Dose: Not Given Metoprolol Succinate (Metoprolol Succinate 25 Mg Tab.Xl.24h) 12.5 mg PO BID [facility] Last Admin: 05/08/22 08:47 Dose: Not Given Morphine Sulfate (Morphine 4 Mg/Ml Vial) 4 mg IV Q4HP PRN; Protocol PRN Reason: Per Pain Protocol Ondansetron HCl (Ondansetron 4 Mg/2 Ml Vial) 4 mg IV Q6HP PRN PRN Reason: Nausea And Vomiting Oxycodone HCl (Oxycodone Hcl 5 Mg Tablet) 5 mg PO Q4-6HP PRN; Protocol PRN Reason: Per Pain Protocol Fluticasone Propion- Salmeterol [Advair Hfa] 115-21 Mcg Inhaler 1 dose INH BID [facility] Last Admin: 05/08/22 08:48 Dose: 1 dose Potassium Chloride (Potassium Chloride 10 Meq Tablet) 10 meq PO QAMCC [facility] Last Admin: 05/08/22 07:28 Dose: Not Given Senna (Sennosides 1 Tablet) 2 tab PO HS [facility] Last Admin: 05/07/22 20:52 Dose: Not Given Sodium Chloride (0.9 % Sodium Chloride 10 Ml Syringe) 10 ml IV Q8 [facility] Last Admin: 05/08/22 06:04 Dose: 10 ml Sodium Chloride (0.9 % Sodium Chloride 10 Ml Syringe) 10 ml IV Q8 [facility] Trazodone HCl (Trazodone Hcl 50 Mg Tablet) 25 mg PO HSP PRN PRN Reason: Insomnia A/P Assessment and plan (1) Sepsis: Status: Acute (2) Cellulitis of left foot: Status: Acute (3) Cellulitis of left lower leg: Status: Acute (4) Hyponatremia: Status: Acute (5) Obstructive sleep apnea: Status: Chronic (6) Osteoporosis: Status: Acute (7) Hypertension, essential: Status: Acute (8) COPD (chronic obstructive pulmonary disease): Status: Acute Qualifiers: COPD type: unspecified COPD Qualified Code(s): J44.9 - Chronic obstructive pulmonary disease, unspecified Narrative A/P Narrative: Assessment and Plans: 1. Sepsis associated with left lower leg/left foot cellulitis with recent left 1st toe osteomyelitis s/p amputation by Dr. Leon on 04/01: Inpatient med surg Partial amputation of left 1st toe by Dr. Leon today MRSA screening negative, d/c Vancomycin Blood culture, no growth to date Wound culture, growing gram negative bacillus cbc w/ auto in the morning Saline lock Continue Zosyn Physical therapy 2. h/o Essential HTN: Restart Metoprolol Succinate and Lisinopril 3. h/o COPD: Continue bronchodilators from home regimen DuoNEB NEB PRN wheezing 4. h/o obstructive sleep apnea: CPAP at night while sleeping 5. Hyponatremia: RESOLVED Saline lock CMP in the morning to trend serum sodium level 7. h/o osteoporosis: Continue alendronate from home regiment GI ppx: not currently indicated DVT ppx: Lovenox Code status: Full Prognosis: guarded Disposition: inpatient med surg; PT Plan of Treatment: Partial amputation left first metatarsal Time Spent With Patient Time: Total time spent is greater than 50% in coordination of care (as documented) at patient's floor/unit and/or counseling patient: Total time spent with greater than 50% in coordination of care (as documented) at patient's floor/unit and/or counseling patient:: 25 - 35 minutes QUALITY VTE Deep Vein Thrombosis/Pulmonary Embolism Present on Admission: No
[2022-05-08] MEDS ORDERED: VANCOMYCIN 1 GM VIAL TOPICAL SCH (13:15)
[2022-05-08] MEDS ORDERED: 0.9 % SODIUM CHLORIDE 10 ML SYRINGE IV SCH (14:00)
[2022-05-08] MEDS: SENNOSIDES 1 TABLET PO SCH (21:40)
[2022-05-09] MEDS: PIPERACILLIN SODIUM/TAZOBACTAM 3.375 GM in DEXTROSE 5% IN WATER 50 ML IV SCH ×4 (00:06→16:49)
[2022-05-09] MEDS: 0.9 % SODIUM CHLORIDE 10 ML SYRINGE IV SCH ×3 (00:07→15:49)
[2022-05-09 06:43] LABS: Basophils # (Auto) 0.04 K/mcL (0.00-0.30); Basophils % (Auto) 0.8 % (0.0-2.0); Eosinophils # (Auto) 0.09 K/mcL (0.00-0.70); Eosinophils % (Auto) 1.7 % (0.0-7.0); Hematocrit 32.3 % (40.1-51.0); Hemoglobin 10.3 g/dL (13.7-17.5); Lymphocytes # (Auto) 0.69 K/mcL (1.50-4.80); Lymphocytes % (Auto) 13.3 % (15.5-49.0); Mean Cell Volume 86.4 fL (80.0-100.0); Mean Corpuscular HGB Conc 31.9 g/dL (31.0-36.0); Mean Platelet Volume 8.8 fL (7.4-10.4); Monocytes % (Auto) 9.7 % (1.0-12.0); Neutrophils % (Auto) 73.9 % (38.0-78.0); Platelet Count 209 K/mcL (140-440); RBC 3.74 M/mcL (4.63-6.08); Red Cell Distribution Width 13.8 % (11.5-14.5); WBC 5.2 K/mcL (4.5-11.0)
[2022-05-09 06:58] LABS: ALT/SGPT 7 U/L (<40); AST/SGOT 10 U/L (<40); Albumin 3.1 gm/dL (3.2-5.2); Albumin/Globulin Ratio 0.9 (1.0-2.3); Alkaline Phosphatase 54 U/L (39-117); Bilirubin,Total 0.3 mg/dL (0.1-1.0); Blood Urea Nitrogen 7 mg/dL (8-23); Calcium 9.2 mg/dL (8.6-10.4); Carbon Dioxide 27 mmol/L (22-30); Chloride 105 mmol/L (96-108); Globulin 3.5 gm/dL (2.2-3.7); Glomerular Filtration Rate 101; Glucose 91 mg/dL (70-105); Phosphorous 3.6 mg/dL (2.5-4.5)
[2022-05-09] MEDS: MULTIVIT,THER IRON,CA,FA & MIN 1 TABLET PO SCH (07:59)
[2022-05-09] MEDS: LISINOPRIL 5 MG TABLET PO SCH (07:59)
[2022-05-09] MEDS: ENOXAPARIN 40 MG/0.4 ML SYRINGE SQ SCH (07:59)
[2022-05-09] MEDS: POTASSIUM CHLORIDE 10 MEQ TABLET PO SCH (07:59)
[2022-05-09] MEDS: DOCUSATE SODIUM 100 MG CAPSULE PO SCH ×2 (07:59→21:07)
[2022-05-09] MEDS: FLUTICASONE PROPION SALMETEROL INH SCH ×2 (07:59→21:06)
[2022-05-09] MEDS: METOPROLOL SUCCINATE 25 MG TAB.XL.24H PO SCH ×2 (07:59→21:06)
[2022-05-09] MEDS: ASCORBIC ACID 500 MG TABLET PO SCH (07:59)
--- NOTE | 2022-05-09 11:27 | Discharge Summary ---
Discharge Provider Provider IMPORTANT FOLLOW-UP INFORMATION FOR PCP: Patient information: Note initiated : 05/09/22 at 11:24 am Service Date, if different from initiated Date: [] Patient: Sharif Grady 72 y/o M admitted on 05/06/22 for leg swollen. Chief Complaint: [] Date of admission: 05/06/22 16:50 Discharge date: 05/09/22 Primary care physician: Lala De Attending physician on admission: Masood Marin Consults: 05/06/22 14:00 Consult to Physician [CONS] Stat Comment: Consulting Provider: Bebeto Leon Reason For Exam: Physician to Consult 05/06/22 15:39 Consult to Physician [CONS] Stat Comment: Consulting Provider: Masood Marin Reason For Exam: Physician to Consult Attending physician on discharge: Masood Dempsey Pulily COURSE Hospital Course Hospital course: Mr. Grady is a 72 year old M multiple medical history, recently admitted to our facility and discharged a month ago for left great toe osteomyelitis status post left great toe amputations by mushroom laborer Dr. Leon on 04/01, and be discharged to SNF for ongoing IV antibiotics therapy with nafcillin. He was discharged home on a week ago. Today he is complaining of acute worsening of the erythema of his left foot and left lower leg with associated foul-smelling coming from his amputation site. He is also coming of general body weakness. He is also complaining of subjective fever chills and diaphoresis. He stated that he follow-up with Dr. Leon's 2 days ago and at that point he was doing all right. Vital signs at ED presentations within normal meds. Labs significant for leukocytosis with WBC 18.5. ESR 89; CRP 13.5; lactic acid 1.3, procalcitonin level 0.21. Left foot x-ray showing mild cortical erosion in the head of the first metatarsal with associated severe cellulitis of the left lower leg and left foot. 05/07: Afebrile overnight. WBC comes down to 9.4 this morning. Blood and wound cultures no growth today. Patient denies any pain of his left foot or left leg. Denies any subjective fever or chills. Continue IV fluid and Zosyn. DC vancomycin because of the negative MRSA screening. Pending mushroom laborer Dr. Leon's to evaluate the patient for any potential surgical management and wound care. Physical therapy. 05/08: Afebrile overnight. Wound culture growing gram negative bacillus. Dr. Leon is taking patient to OR this morning for partial amputation of the left 1st toe. Continue Zosyn for now. Physical therapy. 05/09: Discharged. Discharge diagnosis: left 1st toe osteomyelitis Time Spent with Patient Time attestation: Total time spent providing and/or coordinating discharge services: Time spent: Less than 30 minutes EXAM Constitutional Vitals: Temp Pulse Resp BP Pulse Ox O2 Del Method 36.2 C 85 16 145/61 91 05/09/22 08:00 05/09/22 08:00 05/09/22 08:00 05/09/22 08:00 05/09/22 08:00 05/09/22 08:00 General appearance: cooperative and no acute distress Head Head exam: Present atraumatic and normocephalic Eye Eye exam: Present EOMI and PERRL ENT ENT exam: Present mucous membranes moist, normal exam and normal external ear exam Neck Neck exam: Present normal inspection; Absent lymphadenopathy, tenderness or thyromegaly Respiratory Respiratory exam: Absent accessory muscle use, respiratory distress or wheezes Cardiovascular Cardiovascular exam: Present normal rate and rhythm; Absent JVD GI/Abdominal GI/Abdominal exam: Present normal bowel sounds and soft; Absent organomegaly or tenderness Rectal Rectal exam: Present deferred Extremities Exam Extremities exam: Present full ROM and normal capillary refill; Absent normal inspection or tenderness Additional comments: Left foot covered by surgical dressing Neurological Exam Neurological exam: Present alert, CN II-XII intact and oriented X3; Absent motor sensory deficit Psychiatric Psychiatric exam: Present normal affect and normal mood; Absent anxious or depressed Skin Skin exam: Present dry and intact Discharge Data Data Completed and Pending Labs on day of discharge: Labs from last 24 hours 05/09/22 05/09/22 05:18 05:00 WBC 5.2 RBC 3.74 L Hgb 10.3 L Hct 32.3 L MCV 86.4 MCH 27.5 MCHC 31.9 RDW 13.8 Plt Count 209 MPV 8.8 Immature Gran % (Auto) 0.6 H Neut % (Auto) 73.9 Lymph % (Auto) 13.3 L [place] % (Auto) 9.7 Eos % (Auto) 1.7 Baso % (Auto) 0.8 Lymph # (Auto) 0.69 L [place] # (Auto) 0.50 Eos # (Auto) 0.09 Baso # (Auto) 0.04 Immature Gran # 0.03 Absolute Neutrophils 3.83 Sodium 139 Potassium 3.9 Chloride 105 Carbon Dioxide 27 Anion Gap 7.0 L BUN 7 L Creatinine 0.6 L GFR Calculation 101 Glucose 91 Calcium 9.2 Phosphorus 3.6 Magnesium 2.1 Total Bilirubin 0.3 AST 10 ALT 7 Alkaline Phosphatase 54 Total Protein 6.6 Albumin 3.1 L Globulin 3.5 Albumin/Globulin Ratio 0.9 L Preliminary micro results at discharge 05/06/22 19:34 Gram Stain - Preliminary Toe - First Wound Culture - Preliminary Proteus mirabilis Strep pyogenes (grp a) Enterobacter cloacae 05/06/22 13:54 Blood Culture - Preliminary Blood 05/06/22 13:54 Blood Culture - Preliminary Blood Discharge Plan Patient/Caregiver Discharge Instructions Activity: increase activity as tolerated Diet: Regular Diet Prescriptions: New levofloxacin 750 mg tablet 750 mg PO Q24H Qty: 14 0RF Continued multivitamin Tablet 1 tab PO QAM ascorbate calcium (vitamin C) 500 mg tablet 500 mg PO QDAY metoprolol succinate 25 mg tablet extended release 24 hr 12.5 mg PO BID (DME) CPAP machine Qty: 1 Rx Instructions: As directed (DME) oxygen bled 3lpm CPAP Qty: 1 Rx Instructions: As directed alendronate 70 mg tablet 1 tab PO WEEKLY lisinopril 5 mg tablet 1 tab PO QDAY Advair HFA 115-21 mcg/actuation HFA aerosol inhaler 1 puff continuous inhalation BID potassium chloride 10 mEq tablet extended release 1 tab PO QDAY Discontinued nafcillin in dextrose iso-osm 2 gram/100 mL piggyback 2 g IV Q4H Qty: 4200 0RF Follow Up Plan Follow up with: Bebeto Leon DPM [Physician] - Lala De MD [Primary Care Provider] - Patient Disposition: Home, Self-Care Plan of Treatment: Partial amputation left first metatarsal Rehab Potential: Good I certify that the patient requires SNF services: No Overall status at discharge: patient is progressing back to baseline Discharge Orders: Discharge Order (Routine); Ordered 05/09/22 Ordered By: Masood PANIAGUA VTE Deep Vein Thrombosis/Pulmonary Embolism Present on Admission: No
[2022-05-09] MEDS: SENNOSIDES 1 TABLET PO SCH (21:07)
[2022-05-10] MEDS: PIPERACILLIN SODIUM/TAZOBACTAM 3.375 GM in DEXTROSE 5% IN WATER 50 ML IV SCH ×5 (00:30→23:15)
[2022-05-10] MEDS: 0.9 % SODIUM CHLORIDE 10 ML SYRINGE IV SCH ×4 (00:32→20:16)
[2022-05-10] MEDS: MULTIVIT,THER IRON,CA,FA & MIN 1 TABLET PO SCH (08:15)
[2022-05-10] MEDS: METOPROLOL SUCCINATE 25 MG TAB.XL.24H PO SCH ×2 (08:15→20:16)
[2022-05-10] MEDS: DOCUSATE SODIUM 100 MG CAPSULE PO SCH ×2 (08:15→20:16)
[2022-05-10] MEDS: ASCORBIC ACID 500 MG TABLET PO SCH (08:17)
[2022-05-10] MEDS: LISINOPRIL 5 MG TABLET PO SCH (08:17)
[2022-05-10] MEDS: FLUTICASONE PROPION SALMETEROL INH SCH ×2 (08:18→20:16)
[2022-05-10] MEDS: POTASSIUM CHLORIDE 10 MEQ TABLET PO SCH (08:18)
[2022-05-10] MEDS: ENOXAPARIN 40 MG/0.4 ML SYRINGE SQ SCH (08:18)
--- NOTE | 2022-05-10 14:24 | Internal Med Progress Note ---
SUBJECTIVE Subjective Patient information: Note initiated : 05/10/22 at 2:16 pm Service Date, if different from initiated Date: [] Patient: Sharif Grady 72 y/o M admitted on 05/06/22 for leg swollen. Chief Complaint: [] Interval history: Mr. Grady is a 72 year old M multiple medical history, recently admitted to our facility and discharged a month ago for left great toe osteomyelitis status post left great toe amputations by news photographer Dr. Leon on 04/01, and be discharged to SNF for ongoing IV antibiotics therapy with nafcillin. He was discharged home on a week ago. Today he is complaining of acute worsening of the erythema of his left foot and left lower leg with associated foul-smelling coming from his amputation site. He is also coming of general body weakness. He is also complaining of subjective fever chills and diaphoresis. He stated that he follow-up with Dr. Leon's 2 days ago and at that point he was doing all right. Vital signs at ED presentations within normal meds. Labs significant for leukocytosis with WBC 18.5. ESR 89; CRP 13.5; lactic acid 1.3, procalcitonin level 0.21. Left foot x-ray showing mild cortical erosion in the head of the first metatarsal with associated severe cellulitis of the left lower leg and left foot. 05/07: Afebrile overnight. WBC comes down to 9.4 this morning. Blood and wound c ultures no growth today. Patient denies any pain of his left foot or left leg. Denies any subjective fever or chills. Continue IV fluid and Zosyn. DC vancomycin because of the negative MRSA screen ing. Pending news photographer Dr. Leon's to evaluate the patient for any potential surgical management and wound care. Physical therapy. 05/08: Afebrile overnight. Wound culture growing gram negative bacillus. Dr. Leon is taking patient to OR this morning for partial amputation of the left 1st toe. Continue Zosyn for now. Physical therapy. 05/09: Initially plan to discharge however canceled due to uncertainty regarding antibiotics at discharge. 05/10: High-grade temperatures overnight, no fevers. Continues on IV Zosyn. We will check CBC and CRP tomorrow. Discussed disposition with the patient, the patient prefers to remain in the hospital until cleared by podiatry to discharge. Physical exam Head: Atraumatic, normal inspection. Eyes: normal appearance, no scleral icterus. Neck: full ROM Respiratory: no respiratory distress. Cardiovascular: normal rate and rhythm, S1, S2. GI/Abdominal: soft, nontender, no guarding. Extremities: Left foot incision covered with clean bandages, left foot in boot. Neurological: CN II-XII intact, intact motor, intact sensation. Psychiatric: normal mood. Skin: warm, normal color Constitutional Vitals: Vital Signs Temp Pulse Resp BP Pulse Ox O2 Del Method 99.1 F H 80 20 135/72 91 05/10/22 12:40 05/10/22 04:25 05/10/22 12:40 05/10/22 12:40 05/10/22 12:40 05/10/22 12:40 Period Temp Pulse Resp BP Sys/Jacobs Pulse Ox O2 Del Method O2 Flow Rate Last 24 Hr 97.5 F-99.2 F 76-84 16-22 117-149/59-72 91-93 Room Air-Room Air Intake and Output 05/10/22 05/10/22 05/10/22 05:59 13:59 21:59 Intake Total 400 1060 Output Total 1525 950 Balance -1125 110 Intake & Output: Intake & Output 05/10/22 05/10/22 05/10/22 05:59 13:59 21:59 Intake Total 400 1060 Output Total 1525 950 Balance -1125 110 Intake: IV 50 100 Zosyn 3.375 gm In Dextrose 5% 50 100 in Water 50 ml @ 100 mls/hr IV Q6H [facility] Rx#:[id number] Oral 350 960 Output: Urine Catheter Amount 450 Void Amount 1525 500 Other: Meal Lunch Percent of Meal Consumed 100% Feeding Ability Independent Urine Appearance Clear Urine Color Bright Yellow Urine Odor Normal Stool Size Moderate Stool Color Brown Stool Consistency Formed # Bowel Movements 1 # of times incontinent of 0 Bowels OBJ DATA Labs CBC & Chem 7: 05/09/22 05:00 05/09/22 05:18 Labs: Abnormal Lab Results 05/09/22 05/09/22 05/08/22 05:18 05:00 09:17 RBC 3.74 L Hgb 10.3 L Hct 32.3 L Immature Gran % (Auto) 0.6 H Lymph % (Auto) 13.3 L Lymph # (Auto) 0.69 L Anion Gap 7.0 L BUN 7 L Creatinine 0.6 L Albumin 3.1 L Albumin/Globulin Ratio 0.9 L Vancomycin Trough < 4.0 L 05/08/22 05/08/22 05:24 05:23 RBC 3.60 L Hgb 10.1 L Hct 32.0 L Immature Gran % (Auto) Lymph % (Auto) 11.0 L Lymph # (Auto) 0.61 L Anion Gap BUN Creatinine Albumin 2.8 L Albumin/Globulin Ratio 0.8 L Vancomycin Trough Meds: Medications Acetaminophen (Acetaminophen 325 Mg Tablet) 650 mg PO Q6HP PRN; Protocol PRN Reason: Per Pain Protocol/Fever > 101 Albuterol/Ipratropium (Ipratropium/Albuterol 3 Ml Ampul.Neb) 3 ml NEB Q4HRT PRN PRN Reason: Wheezing Alendronate Sodium (Alendronate Sodium 70 Mg Tablet) 70 mg PO Th@0730 [facility] Last Admin: 05/07/22 07:12 Dose: 70 mg Ascorbic Acid (Ascorbic Acid 500 Mg Tablet) 500 mg PO DAILY [facility] Last Admin: 05/10/22 08:17 Dose: 500 mg Docusate Sodium (Docusate Sodium 100 Mg Capsule) 100 mg PO BID [facility] Last Admin: 05/10/22 08:15 Dose: 100 mg Enoxaparin Sodium (Enoxaparin 40 Mg/0.4 Ml Syringe) 40 mg SQ DAILY [facility] Last Admin: 05/10/22 08:18 Dose: 40 mg Gabapentin (Gabapentin 100 Mg Capsule) 100 mg PO TIDP PRN PRN Reason: Pain Hydralazine HCl (Hydralazine 20 Mg/Ml Vial) 10 mg IV Q4-6HP PRN PRN Reason: Hypertension Piperacillin Sod/Tazobactam (Sod 3.375 gm/ Dextrose) 50 mls @ 100 mls/hr IV Q6H [facility]; Protocol Last Infusion: 05/10/22 11:35 Dose: Infused Iron Carb/Multivit/Therapist Rrt/Folic Acid (Multivit,Ther Iron,Ca,Fa & Min 1 Tablet) 1 tab PO DAILY [facility] Last Admin: 05/10/22 08:15 Dose: 1 tab Lisinopril (Lisinopril 5 Mg Tablet) 5 mg PO QDAY [facility] Last Admin: 05/10/22 08:17 Dose: 5 mg Metoprolol Succinate (Metoprolol Succinate 25 Mg Tab.Xl.24h) 12.5 mg PO BID [facility] Last Admin: 05/10/22 08:15 Dose: 12.5 mg Morphine Sulfate (Morphine 4 Mg/Ml Vial) 4 mg IV Q4HP PRN; Protocol PRN Reason: Per Pain Protocol Ondansetron HCl (Ondansetron 4 Mg/2 Ml Vial) 4 mg IV Q6HP PRN PRN Reason: Nausea And Vomiting Oxycodone HCl (Oxycodone Hcl 5 Mg Tablet) 5 mg PO Q4-6HP PRN; Protocol PRN Reason: Per Pain Protocol Fluticasone Propion- Salmeterol [Advair Hfa] 115-21 Mcg Inhaler 1 dose INH BID [facility] Last Admin: 05/10/22 08:18 Dose: 1 dose Potassium Chloride (Potassium Chloride 10 Meq Tablet) 10 meq PO QAMCC [facility] Last Admin: 05/10/22 08:18 Dose: 10 meq Senna (Sennosides 1 Tablet) 2 tab PO HS [facility] Last Admin: 05/09/22 21:07 Dose: Not Given Sodium Chloride (0.9 % Sodium Chloride 10 Ml Syringe) 10 ml IV Q8 [facility] Last Admin: 05/10/22 06:20 Dose: 10 ml Trazodone HCl (Trazodone Hcl 50 Mg Tablet) 25 mg PO HSP PRN PRN Reason: Insomnia A/P Narrative A/P Narrative: Assessment:72-year-old male with a history of hypertension, COPD, obstructive sleep apnea, osteoporosis, obesity admitted for sepsis secondary to left foot cellulitis. The patient had recently undergone a left first toe amputation for osteomyelitis on 04/01/2022. During this hospitalization, the patient was seen by podiatry and underwent a partial amputation of the left first toe. #Left foot cellulitis and left first toe osteomyelitis status post partial left first metatarsal amputation #Hypertension #COPD #Obstructive sleep apnea #Obesity Plan Continue Zosyn IV for now. Follow culture results. Wound cares, left foot boot. Awaiting podiatry final recommendations for discharge. Continue important home medications. Regular diet. DVT prophylaxis: Lovenox CODE STATUS: Full Disposition: Probably home with short course of antibiotics depending on hospital length of stay, receiving Zosyn for now oral antibiotics may not be necessary. Awaiting podiatry recommendations for discharge. Plan of Treatment: Partial amputation left first metatarsal Time Spent With Patient Time: Total time spent is greater than 50% in coordination of care (as documented) at patient's floor/unit and/or counseling patient: QUALITY VTE Deep Vein Thrombosis/Pulmonary Embolism Present on Admission: No
[2022-05-10] MEDS: SENNOSIDES 1 TABLET PO SCH (20:16)
[2022-05-11] MEDS: PIPERACILLIN SODIUM/TAZOBACTAM 3.375 GM in DEXTROSE 5% IN WATER 50 ML IV SCH ×4 (05:17→23:59)
[2022-05-11] MEDS: 0.9 % SODIUM CHLORIDE 10 ML SYRINGE IV SCH ×3 (05:17→23:59)
[2022-05-11 06:26] LABS: Basophils # (Auto) 0.05 K/mcL (0.00-0.30); Basophils % (Auto) 1.1 % (0.0-2.0); Eosinophils # (Auto) 0.15 K/mcL (0.00-0.70); Eosinophils % (Auto) 3.2 % (0.0-7.0); Hematocrit 33.6 % (40.1-51.0); Hemoglobin 10.6 g/dL (13.7-17.5); Lymphocytes # (Auto) 0.94 K/mcL (1.50-4.80); Lymphocytes % (Auto) 19.7 % (15.5-49.0); Mean Corpuscular HGB Conc 31.5 g/dL (31.0-36.0); Mean Platelet Volume 8.6 fL (7.4-10.4); Monocytes # (Auto) 0.49 K/mcL (0.10-0.90); Monocytes % (Auto) 10.3 % (1.0-12.0); Neutrophils % (Auto) 64.9 % (38.0-78.0); Platelet Count 199 K/mcL (140-440); RBC 3.82 M/mcL (4.63-6.08); Red Cell Distribution Width 13.7 % (11.5-14.5); WBC 4.8 K/mcL (4.5-11.0)
[2022-05-11] MEDS: ASCORBIC ACID 500 MG TABLET PO SCH (09:24)
[2022-05-11] MEDS: MULTIVIT,THER IRON,CA,FA & MIN 1 TABLET PO SCH (09:24)
[2022-05-11] MEDS: POTASSIUM CHLORIDE 10 MEQ TABLET PO SCH (09:24)
[2022-05-11] MEDS: LISINOPRIL 5 MG TABLET PO SCH (09:24)
[2022-05-11] MEDS: DOCUSATE SODIUM 100 MG CAPSULE PO SCH ×2 (09:24→20:27)
[2022-05-11] MEDS: METOPROLOL SUCCINATE 25 MG TAB.XL.24H PO SCH ×2 (09:24→20:28)
[2022-05-11] MEDS: ENOXAPARIN 40 MG/0.4 ML SYRINGE SQ SCH (09:25)
[2022-05-11] MEDS: FLUTICASONE PROPION SALMETEROL INH SCH ×2 (11:28→20:27)
[2022-05-11] MEDS: FUROSEMIDE 20 MG TABLET PO SCH (11:55)
--- NOTE | 2022-05-11 13:36 | Internal Med Progress Note ---
SUBJECTIVE Subjective Patient information: Note initiated : 05/11/22 at 1:33 pm Service Date, if different from initiated Date: [] Patient: Sharif Grady 72 y/o M admitted on 05/06/22 for leg swollen. Chief Complaint: [] Interval history: Mr. Grady is a 72 year old M multiple medical history, recently admitted to our facility and discharged a month ago for left great toe osteomyelitis status post left great toe amputations by pellet post inspector Dr. Leon on 04/01, and be discharged to SNF for ongoing IV antibiotics therapy with nafcillin. He was discharged home on a week ago. Today he is complaining of acute worsening of the erythema of his left foot and left lower leg with associated foul-smelling coming from his amputation site. He is also coming of general body weakness. He is also complaining of subjective fever chills and diaphoresis. He stated that he follow-up with Dr. Leon's 2 days ago and at that point he was doing all right. Vital signs at ED presentations within normal meds. Labs significant for leukocytosis with WBC 18.5. ESR 89; CRP 13.5; lactic acid 1.3, procalcitonin level 0.21. Left foot x-ray showing mild cortical erosion in the head of the first metatarsal with associated severe cellulitis of the left lower leg and left foot. 05/07: Afebrile overnight. WBC comes down to 9.4 this morning. Blood and wound c ultures no growth today. Patient denies any pain of his left foot or left leg. Denies any subjective fever or chills. Continue IV fluid and Zosyn. DC vancomycin because of the negative MRSA screen ing. Pending pellet post inspector Dr. Leon's to evaluate the patient for any potential surgical management and wound care. Physical therapy. 05/08: Afebrile overnight. Wound culture growing gram negative bacillus. Dr. Leon is taking patient to OR this morning for partial amputation of the left 1st toe. Continue Zosyn for now. Physical therapy. 05/09: Initially plan to discharge however canceled due to uncertainty regarding antibiotics at discharge. 05/10: High-grade temperatures overnight, no fevers. Continues on IV Zosyn. We will check CBC and CRP tomorrow. Discussed disposition with the patient, the patient prefers to remain in the hospital until cleared by podiatry to discharge. 05/11: Stable vitals overnight, anaerobic cultures showing no growth to date. Discussed probable safety of discharge with the patient however he wants to discuss discharge with Dr. Leon tomorrow. Likely discharge to home tomorrow after discussing with Dr. Leon. Physical exam Head: Atraumatic, normal inspection. Eyes: normal appearance, no scleral icterus. Neck: full ROM Respiratory: no respiratory distress. Cardiovascular: normal rate and rhythm, S1, S2. GI/Abdominal: soft, nontender, no guarding. Extremities: Left foot incision covered with clean bandages, left foot in boot. Neurological: CN II-XII intact, intact motor, intact sensation. Psychiatric: normal mood. Skin: warm, normal color Constitutional Vitals: Vital Signs Temp Pulse Resp BP Pulse Ox O2 Del Method 97.8 F 73 18 128/67 93 05/11/22 11:56 05/11/22 11:56 05/11/22 11:56 05/11/22 11:56 05/11/22 11:56 05/11/22 11:56 Period Temp Pulse Resp BP Sys/Jacobs Pulse Ox O2 Del Method O2 Flow Rate Last 24 Hr 97.6 F-98.8 F 72-80 16-20 118-156/51-74 92-97 Room Air-Room Air Intake and Output 05/10/22 05/11/22 05/11/22 21:59 05:59 13:59 Intake Total 2530 940 50 Output Total 1400 725 650 Balance 1130 215 -600 Weight 140.795 kg Intake & Output: Intake & Output 05/10/22 05/11/22 05/11/22 21:59 05:59 13:59 Intake Total 2530 940 50 Output Total 1400 725 650 Balance 1130 215 -600 Weight 140.795 kg Intake: IV 50 100 50 Zosyn 3.375 gm In Dextrose 5% 50 100 50 in Water 50 ml @ 100 mls/hr IV Q6H [facility] Rx#:[id number] Oral 6111 376 Output: Urine Catheter Amount 600 Void Amount 800 725 650 Other: Meal Dinner Percent of Meal Consumed 100% Urine Appearance Clear Clear Clear Urine Color Yellow Yellow Yellow Urine Odor Normal Normal OBJ DATA Labs CBC & Chem 7: 05/11/22 05:00 05/09/22 05:18 Labs: Abnormal Lab Results 05/11/22 05/11/22 05/09/22 05:31 05:00 05:18 RBC 3.82 L Hgb 10.6 L Hct 33.6 L Immature Gran % (Auto) 0.8 H Lymph % (Auto) Lymph # (Auto) 0.94 L Anion Gap 7.0 L BUN 7 L Creatinine 0.6 L C-Reactive Protein 3.00 H Albumin 3.1 L Albumin/Globulin Ratio 0.9 L 05/09/22 05:00 RBC 3.74 L Hgb 10.3 L Hct 32.3 L Immature Gran % (Auto) 0.6 H Lymph % (Auto) 13.3 L Lymph # (Auto) 0.69 L Anion Gap BUN Creatinine C-Reactive Protein Albumin Albumin/Globulin Ratio Meds: Medications Acetaminophen (Acetaminophen 325 Mg Tablet) 650 mg PO Q6HP PRN; Protocol PRN Reason: Per Pain Protocol/Fever > 101 Albuterol/Ipratropium (Ipratropium/Albuterol 3 Ml Ampul.Neb) 3 ml NEB Q4HRT PRN PRN Reason: Wheezing Alendronate Sodium (Alendronate Sodium 70 Mg Tablet) 70 mg PO Th@0730 [facility] Last Admin: 05/07/22 07:12 Dose: 70 mg Ascorbic Acid (Ascorbic Acid 500 Mg Tablet) 500 mg PO DAILY [facility] Last Admin: 05/11/22 09:24 Dose: 500 mg Docusate Sodium (Docusate Sodium 100 Mg Capsule) 100 mg PO BID [facility] Last Admin: 05/11/22 09:24 Dose: 100 mg Enoxaparin Sodium (Enoxaparin 40 Mg/0.4 Ml Syringe) 40 mg SQ DAILY [facility] Last Admin: 05/11/22 09:25 Dose: 40 mg Furosemide (Furosemide 20 Mg Tablet) 20 mg PO QDAY [facility] Last Admin: 05/11/22 11:55 Dose: 20 mg Gabapentin (Gabapentin 100 Mg Capsule) 100 mg PO TIDP PRN PRN Reason: Pain Hydralazine HCl (Hydralazine 20 Mg/Ml Vial) 10 mg IV Q4-6HP PRN PRN Reason: Hypertension Piperacillin Sod/Tazobactam (Sod 3.375 gm/ Dextrose) 50 mls @ 100 mls/hr IV Q6H [facility]; Protocol Last Infusion: 05/11/22 12:00 Dose: Infused Iron Carb/Multivit/Line Production Cook/Folic Acid (Multivit,Ther Iron,Ca,Fa & Min 1 Tablet) 1 tab PO DAILY [facility] Last Admin: 05/11/22 09:24 Dose: 1 tab Lisinopril (Lisinopril 5 Mg Tablet) 5 mg PO QDAY [facility] Last Admin: 05/11/22 09:24 Dose: 5 mg Metoprolol Succinate (Metoprolol Succinate 25 Mg Tab.Xl.24h) 12.5 mg PO BID [facility] Last Admin: 05/11/22 09:24 Dose: 12.5 mg Morphine Sulfate (Morphine 4 Mg/Ml Vial) 4 mg IV Q4HP PRN; Protocol PRN Reason: Per Pain Protocol Ondansetron HCl (Ondansetron 4 Mg/2 Ml Vial) 4 mg IV Q6HP PRN PRN Reason: Nausea And Vomiting Oxycodone HCl (Oxycodone Hcl 5 Mg Tablet) 5 mg PO Q4-6HP PRN; Protocol PRN Reason: Per Pain Protocol Fluticasone Propion- Salmeterol [Advair Hfa] 115-21 Mcg Inhaler 1 dose INH BID [facility] Last Admin: 05/11/22 11:28 Dose: 1 dose Potassium Chloride (Potassium Chloride 10 Meq Tablet) 10 meq PO QAMCC [facility] Last Admin: 05/11/22 09:24 Dose: 10 meq Senna (Sennosides 1 Tablet) 2 tab PO HS [facility] Last Admin: 05/10/22 20:16 Dose: 2 tab Sodium Chloride (0.9 % Sodium Chloride 10 Ml Syringe) 10 ml IV Q8 [facility] Last Admin: 05/11/22 05:17 Dose: 10 ml Trazodone HCl (Trazodone Hcl 50 Mg Tablet) 25 mg PO HSP PRN PRN Reason: Insomnia A/P Narrative A/P Narrative: Assessment:72-year-old male with a history of hypertension, COPD, obstructive sleep apnea, osteoporosis, obesity admitted for sepsis secondary to left foot cellulitis. The patient had recently undergone a left first toe amputation for osteomyelitis on 04/01/2022. During this hospitalization, the patient was seen by podiatry and underwent a partial amputation of the left first toe. #Left foot cellulitis and left first toe osteomyelitis status post partial left first metatarsal amputation #Allergy to fluoroquinolone #Hypertension #COPD #Obstructive sleep apnea #Obesity Plan Continue Zosyn for now, following culture results currently showing no growth to date. Wound cares, left foot boot. Awaiting podiatry final recommendations for discharge. Continue important home medications. Regular diet. DVT prophylaxis: Lovenox CODE STATUS: Full Disposition: Probably home with short course of antibiotics depending on hospital length of stay, receiving Zosyn for now oral antibiotics may not be necessary. Awaiting podiatry recommendations for discharge. Plan of Treatment: Partial amputation left first metatarsal Time Spent With Patient Time: Total time spent is greater than 50% in coordination of care (as documented) at patient's floor/unit and/or counseling patient: QUALITY VTE Deep Vein Thrombosis/Pulmonary Embolism Present on Admission: No
[2022-05-11] MEDS: SENNOSIDES 1 TABLET PO SCH (20:27)
[2022-05-12] MEDS: PIPERACILLIN SODIUM/TAZOBACTAM 3.375 GM in DEXTROSE 5% IN WATER 50 ML IV SCH ×2 (06:05→14:34)
[2022-05-12] MEDS: 0.9 % SODIUM CHLORIDE 10 ML SYRINGE IV SCH ×4 (06:05→21:20)
[2022-05-12] MEDS: DOCUSATE SODIUM 100 MG CAPSULE PO SCH ×2 (08:28→21:20)
[2022-05-12] MEDS: FUROSEMIDE 20 MG TABLET PO SCH (08:28)
[2022-05-12] MEDS: MULTIVIT,THER IRON,CA,FA & MIN 1 TABLET PO SCH (08:28)
[2022-05-12] MEDS: ASCORBIC ACID 500 MG TABLET PO SCH (08:28)
[2022-05-12] MEDS: METOPROLOL SUCCINATE 25 MG TAB.XL.24H PO SCH ×2 (08:28→21:18)
[2022-05-12] MEDS: POTASSIUM CHLORIDE 10 MEQ TABLET PO SCH (08:28)
[2022-05-12] MEDS: LISINOPRIL 5 MG TABLET PO SCH (08:29)
[2022-05-12] MEDS: FLUTICASONE PROPION SALMETEROL INH SCH ×2 (08:31→21:18)
[2022-05-12] MEDS: ENOXAPARIN 40 MG/0.4 ML SYRINGE SQ SCH (08:31)
[2022-05-12] MEDS: LEVOFLOXACIN 750 MG/150 ML BAG IV SCH (13:09)
[2022-05-12] MEDS ORDERED: 0.9 % SODIUM CHLORIDE 10 ML SYRINGE IV PRN (16:53)
--- NOTE | 2022-05-12 16:53 | Internal Med Progress Note ---
SUBJECTIVE Subjective Patient information: Note initiated : 05/12/22 at 4:53 pm Service Date, if different from initiated Date: [] Patient: Sharif Grady 72 y/o M admitted on 05/06/22 for leg swollen. Chief Complaint: [] Interval history: Mr. Grady is a 72 year old M multiple medical history, recently admitted to our facility and discharged a month ago for left great toe osteomyelitis status post left great toe amputations by medical insurance coding specialist Dr. Leon on 04/01, and be discharged to SNF for ongoing IV antibiotics therapy with nafcillin. He was discharged home on a week ago. Today he is complaining of acute worsening of the erythema of his left foot and left lower leg with associated foul-smelling coming from his amputation site. He is also coming of general body weakness. He is also complaining of subjective fever chills and diaphoresis. He stated that he follow-up with Dr. Leon's 2 days ago and at that point he was doing all right. Vital signs at ED presentations within normal meds. Labs significant for leukocytosis with WBC 18.5. ESR 89; CRP 13.5; lactic acid 1.3, procalcitonin level 0.21. Left foot x-ray showing mild cortical erosion in the head of the first metatarsal with associated severe cellulitis of the left lower leg and left foot. 05/07: Afebrile overnight. WBC comes down to 9.4 this morning. Blood and wound c ultures no growth today. Patient denies any pain of his left foot or left leg. Denies any subjective fever or chills. Continue IV fluid and Zosyn. DC vancomycin because of the negative MRSA screen ing. Pending medical insurance coding specialist Dr. Leon's to evaluate the patient for any potential surgical management and wound care. Physical therapy. 05/08: Afebrile overnight. Wound culture growing gram negative bacillus. Dr. Leon is taking patient to OR this morning for partial amputation of the left 1st toe. Continue Zosyn for now. Physical therapy. 05/09: Initially plan to discharge however canceled due to uncertainty regarding antibiotics at discharge. 05/10: High-grade temperatures overnight, no fevers. Continues on IV Zosyn. We will check CBC and CRP tomorrow. Discussed disposition with the patient, the patient prefers to remain in the hospital until cleared by podiatry to discharge. 05/11: Stable vitals overnight, anaerobic cultures showing no growth to date. Discussed probable safety of discharge with the patient however he wants to discuss discharge with Dr. Leon tomorrow. Likely discharge to home tomorrow after discussing with Dr. Leon. 05/12: Podiatry recommends prolonged IV antibiotic treatment, discussed with infectious disease at [facility] with a consensus to treat the patient with levofloxacin IV to complete 6 weeks of IV antibiotic therapy. Started levoflo xacin, discontinued Zosyn. PICC line ordered. Physical exam Head: Atraumatic, normal inspection. Eyes: normal appearance, no scleral icterus. Neck: full ROM Respiratory: no respiratory distress. Cardiovascular: normal rate and rhythm, S1, S2. GI/Abdominal: soft, nontender, no guarding. Extremities: Left foot incision covered with clean bandages, left foot in boot. Neurological: CN II-XII intact, intact motor, intact sensation. Psychiatric: normal mood. Skin: warm, normal color Constitutional Vitals: Vital Signs Temp Pulse Resp BP Pulse Ox O2 Del Method 98.1 F 73 18 131/65 96 05/12/22 16:00 05/12/22 16:00 05/12/22 16:00 05/12/22 16:00 05/12/22 16:00 05/12/22 16:00 Period Temp Pulse Resp BP Sys/Jacobs Pulse Ox O2 Del Method O2 Flow Rate Last 24 Hr 97.3 F-98.2 F 70-80 12-18 106-139/48-75 93-96 Room Air-Room Air Intake and Output 05/12/22 05/12/22 05/12/22 05:59 13:59 21:59 Intake Total 350 290 120 Output Total 1400 120 220 Balance -1050 170 -100 Weight 139.706 kg 139.706 kg Patient Weight 05/13/22 05:59 Weight 139.706 kg Intake & Output: Intake & Output 05/12/22 05/12/22 05/12/22 05:59 13:59 21:59 Intake Total 350 290 120 Output Total 1400 120 220 Balance -1050 170 -100 Weight 139.706 kg 139.706 kg Intake: IV 50 50 Zosyn 3.375 gm In Dextrose 5% 50 50 in Water 50 ml @ 100 mls/hr IV Q6H [facility] Rx#:[id number] Oral 300 240 120 Output: Void Amount 1400 120 220 Other: Meal Breakfast Lunch Percent of Meal Consumed 100% 100% Feeding Ability Independent Urine Appearance Clear Urine Color Yellow Bright Yellow OBJ DATA Labs CBC & Chem 7: 05/11/22 05:00 05/09/22 05:18 Labs: Abnormal Lab Results 05/11/22 05/11/22 05:31 05:00 RBC 3.82 L Hgb 10.6 L Hct 33.6 L Immature Gran % (Auto) 0.8 H Lymph # (Auto) 0.94 L C-Reactive Protein 3.00 H Meds: Medications Acetaminophen (Acetaminophen 325 Mg Tablet) 650 mg PO Q6HP PRN; Protocol PRN Reason: Per Pain Protocol/Fever > 101 Albuterol/Ipratropium (Ipratropium/Albuterol 3 Ml Ampul.Neb) 3 ml NEB Q4HRT PRN PRN Reason: Wheezing Alendronate Sodium (Alendronate Sodium 70 Mg Tablet) 70 mg PO Th@0730 [facility] Last Admin: 05/07/22 07:12 Dose: 70 mg Ascorbic Acid (Ascorbic Acid 500 Mg Tablet) 500 mg PO DAILY [facility] Last Admin: 05/12/22 08:28 Dose: 500 mg Docusate Sodium (Docusate Sodium 100 Mg Capsule) 100 mg PO BID [facility] Last Admin: 05/12/22 08:28 Dose: 100 mg Enoxaparin Sodium (Enoxaparin 40 Mg/0.4 Ml Syringe) 40 mg SQ DAILY [facility] Last Admin: 05/12/22 08:31 Dose: 40 mg Furosemide (Furosemide 20 Mg Tablet) 20 mg PO QDAY [facility] Last Admin: 05/12/22 08:28 Dose: 20 mg Gabapentin (Gabapentin 100 Mg Capsule) 100 mg PO TIDP PRN PRN Reason: Pain Hydralazine HCl (Hydralazine 20 Mg/Ml Vial) 10 mg IV Q4-6HP PRN PRN Reason: Hypertension Levofloxacin (Levaquin) 750 mg in 150 mls @ 100 mls/hr IV DAILY [facility] Last Admin: 05/12/22 13:09 Dose: 100 mls/hr Iron Carb/Multivit/[place]/Folic Acid (Multivit,Ther Iron,Ca,Fa & Min 1 Tablet) 1 tab PO DAILY [facility] Last Admin: 05/12/22 08:28 Dose: 1 tab Lisinopril (Lisinopril 5 Mg Tablet) 5 mg PO QDAY [facility] Last Admin: 05/12/22 08:29 Dose: 5 mg Metoprolol Succinate (Metoprolol Succinate 25 Mg Tab.Xl.24h) 12.5 mg PO BID [facility] Last Admin: 05/12/22 08:28 Dose: 12.5 mg Morphine Sulfate (Morphine 4 Mg/Ml Vial) 4 mg IV Q4HP PRN; Protocol PRN Reason: Per Pain Protocol Ondansetron HCl (Ondansetron 4 Mg/2 Ml Vial) 4 mg IV Q6HP PRN PRN Reason: Nausea And Vomiting Oxycodone HCl (Oxycodone Hcl 5 Mg Tablet) 5 mg PO Q4-6HP PRN; Protocol PRN Reason: Per Pain Protocol Fluticasone Propion- Salmeterol [Advair Hfa] 115-21 Mcg Inhaler 1 dose INH BID [facility] Last Admin: 05/12/22 08:31 Dose: 1 dose Potassium Chloride (Potassium Chloride 10 Meq Tablet) 10 meq PO QAMCC [facility] Last Admin: 05/12/22 08:28 Dose: 10 meq Senna (Sennosides 1 Tablet) 2 tab PO HS [facility] Last Admin: 05/11/22 20:27 Dose: 2 tab Sodium Chloride (0.9 % Sodium Chloride 10 Ml Syringe) 10 ml IV Q8 [facility] Last Admin: 05/12/22 15:42 Dose: 10 ml Trazodone HCl (Trazodone Hcl 50 Mg Tablet) 25 mg PO HSP PRN PRN Reason: Insomnia A/P Narrative A/P Narrative: Assessment:72-year-old male with a history of hypertension, COPD, obstructive sleep apnea, osteoporosis, obesity admitted for sepsis secondary to left foot cellulitis. The patient had recently undergone a left first toe amputation for osteomyelitis on 04/01/2022. During this hospitalization, the patient was seen by podiatry and underwent a partial amputation of the left first toe. #Left foot cellulitis and left first toe osteomyelitis status post partial left first metatarsal amputation #Allergy to fluoroquinolone #Hypertension #COPD #Obstructive sleep apnea #Obesity Plan -Start levofloxacin 750 mg IV every 24 hours, discontinue Zosyn. Plan to complete 6 weeks of IV antibiotic treatment via PICC line. -PICC line placement. -Wound cares, left foot boot. -Continue important home medications. -Regular diet. -DVT prophylaxis: Lovenox -CODE STATUS: Full -Disposition: Probably home with daily levofloxacin IV infusions via PICC line, weekly labs until completing 6 weeks of IV antibiotic treatment. Follow-up with podiatry after discharge. Plan of Treatment: Partial amputation left first metatarsal Time Spent With Patient Time: Total time spent is greater than 50% in coordination of care (as documented) at patient's floor/unit and/or counseling patient: QUALITY VTE Deep Vein Thrombosis/Pulmonary Embolism Present on Admission: No
[2022-05-12] MEDS: SENNOSIDES 1 TABLET PO SCH (21:20)
[2022-05-13] MEDS: LEVOFLOXACIN 750 MG/150 ML BAG IV SCH (09:58)
[2022-05-13] MEDS: FLUTICASONE PROPION SALMETEROL INH SCH ×2 (09:59→20:48)
[2022-05-13] MEDS: ENOXAPARIN 40 MG/0.4 ML SYRINGE SQ SCH (09:59)
[2022-05-13] MEDS: LISINOPRIL 5 MG TABLET PO SCH (10:15)
[2022-05-13] MEDS: ASCORBIC ACID 500 MG TABLET PO SCH (10:15)
[2022-05-13] MEDS: POTASSIUM CHLORIDE 10 MEQ TABLET PO SCH (10:15)
[2022-05-13] MEDS: METOPROLOL SUCCINATE 25 MG TAB.XL.24H PO SCH ×2 (10:15→20:48)
[2022-05-13] MEDS: MULTIVIT,THER IRON,CA,FA & MIN 1 TABLET PO SCH (10:15)
[2022-05-13] MEDS: FUROSEMIDE 20 MG TABLET PO SCH (10:15)
[2022-05-13] MEDS: DOCUSATE SODIUM 100 MG CAPSULE PO SCH ×2 (10:58→20:49)
[2022-05-13] MEDS: 0.9 % SODIUM CHLORIDE 10 ML SYRINGE IV SCH ×4 (10:59→20:51)
--- NOTE | 2022-05-13 16:25 | Internal Med Progress Note ---
SUBJECTIVE Subjective Patient information: Note initiated : 05/13/22 at 4:23 pm Service Date, if different from initiated Date: [] Patient: Sharif Grady 72 y/o M admitted on 05/06/22 for leg swollen. Chief Complaint: [] Interval history: Mr. Grady is a 72 year old M multiple medical history, recently admitted to our facility and discharged a month ago for left great toe osteomyelitis status post left great toe amputations by heading machine operator Dr. Leon on 04/01, and be discharged to SNF for ongoing IV antibiotics therapy with nafcillin. He was discharged home on a week ago. Today he is complaining of acute worsening of the erythema of his left foot and left lower leg with associated foul-smelling coming from his amputation site. He is also coming of general body weakness. He is also complaining of subjective fever chills and diaphoresis. He stated that he follow-up with Dr. Leon's 2 days ago and at that point he was doing all right. Vital signs at ED presentations within normal meds. Labs significant for leukocytosis with WBC 18.5. ESR 89; CRP 13.5; lactic acid 1.3, procalcitonin level 0.21. Left foot x-ray showing mild cortical erosion in the head of the first metatarsal with associated severe cellulitis of the left lower leg and left foot. 05/07: Afebrile overnight. WBC comes down to 9.4 this morning. Blood and wound c ultures no growth today. Patient denies any pain of his left foot or left leg. Denies any subjective fever or chills. Continue IV fluid and Zosyn. DC vancomycin because of the negative MRSA screen ing. Pending heading machine operator Dr. Leon's to evaluate the patient for any potential surgical management and wound care. Physical therapy. 05/08: Afebrile overnight. Wound culture growing gram negative bacillus. Dr. Leon is taking patient to OR this morning for partial amputation of the left 1st toe. Continue Zosyn for now. Physical therapy. 05/09: Initially plan to discharge however canceled due to uncertainty regarding antibiotics at discharge. 05/10: High-grade temperatures overnight, no fevers. Continues on IV Zosyn. We will check CBC and CRP tomorrow. Discussed disposition with the patient, the patient prefers to remain in the hospital until cleared by podiatry to discharge. 05/11: Stable vitals overnight, anaerobic cultures showing no growth to date. Discussed probable safety of discharge with the patient however he wants to discuss discharge with Dr. Leon tomorrow. Likely discharge to home tomorrow after discussing with Dr. Leon. 05/12: Podiatry recommends prolonged IV antibiotic treatment, discussed with infectious disease at [facility] with a consensus to treat the patient with levofloxacin IV to complete 6 weeks of IV antibiotic therapy. Started levoflo xacin, discontinued Zosyn. PICC line ordered. 05/13: Stable overnight, awaiting PICC line placement. Plan for discharge will be IV antibiotics at home versus infusion center. Physical exam Head: Atraumatic, normal inspection. Eyes: normal appearance, no scleral icterus. Neck: full ROM Respiratory: no respiratory distress. Cardiovascular: normal rate and rhythm, S1, S2. GI/Abdominal: soft, nontender, no guarding. Extremities: Left foot incision covered with clean bandages, left foot in boot. Neurological: CN II-XII intact, intact motor, intact sensation. Psychiatric: normal mood. Skin: warm, normal color Constitutional Vitals: Vital Signs Temp Pulse Resp BP Pulse Ox O2 Del Method 98.2 F 77 14 125/61 95 05/13/22 15:50 05/13/22 15:50 05/13/22 15:50 05/13/22 15:50 05/13/22 15:50 05/13/22 15:50 Period Temp Pulse Resp BP Sys/Jacobs Pulse Ox O2 Del Method O2 Flow Rate Last 24 Hr 97.5 F-98.5 F 66-82 12-16 106-137/52-64 92-97 Room Air-Room Air Intake and Output 05/13/22 05/13/22 05/13/22 05:59 13:59 21:59 Intake Total 150 828 200 Output Total 1075 1600 250 Balance -925 -772 -50 Weight 138.618 kg Intake & Output: Intake & Output 05/13/22 05/13/22 05/13/22 05:59 13:59 21:59 Intake Total 150 828 200 Output Total 1075 1600 250 Balance -925 -772 -50 Weight 138.618 kg Intake: IV 150 Oral 150 678 200 Output: Void Amount 1075 1600 250 Other: Meal Breakfast Percent of Meal Consumed 100% Feeding Ability Independent Urine Appearance Clear Clear Urine Color Yellow Yellow Yellow Stool Size Large Stool Color Brown Stool Consistency Loose # Bowel Movements 1 OBJ DATA Labs CBC & Chem 7: 05/11/22 05:00 05/09/22 05:18 Labs: Abnormal Lab Results 05/11/22 05/11/22 05:31 05:00 RBC 3.82 L Hgb 10.6 L Hct 33.6 L Immature Gran % (Auto) 0.8 H Lymph # (Auto) 0.94 L C-Reactive Protein 3.00 H Meds: Medications Acetaminophen (Acetaminophen 325 Mg Tablet) 650 mg PO Q6HP PRN; Protocol PRN Reason: Per Pain Protocol/Fever > 101 Albuterol/Ipratropium (Ipratropium/Albuterol 3 Ml Ampul.Neb) 3 ml NEB Q4HRT PRN PRN Reason: Wheezing Alendronate Sodium (Alendronate Sodium 70 Mg Tablet) 70 mg PO Th@0730 [facility] Last Admin: 05/07/22 07:12 Dose: 70 mg Ascorbic Acid (Ascorbic Acid 500 Mg Tablet) 500 mg PO DAILY [facility] Last Admin: 05/13/22 10:15 Dose: 500 mg Docusate Sodium (Docusate Sodium 100 Mg Capsule) 100 mg PO BID [facility] Last Admin: 05/13/22 10:58 Dose: Not Given Enoxaparin Sodium (Enoxaparin 40 Mg/0.4 Ml Syringe) 40 mg SQ DAILY [facility] Last Admin: 05/13/22 09:59 Dose: 40 mg Furosemide (Furosemide 20 Mg Tablet) 20 mg PO QDAY [facility] Last Admin: 05/13/22 10:15 Dose: 20 mg Gabapentin (Gabapentin 100 Mg Capsule) 100 mg PO TIDP PRN PRN Reason: Pain Heparin Sodium (Porcine) (Heparin Flush 10 Units/Ml 5 Ml Syringe) 2 ml IV Q12 [facility] Last Admin: 05/13/22 10:59 Dose: Not Given Hydralazine HCl (Hydralazine 20 Mg/Ml Vial) 10 mg IV Q4-6HP PRN PRN Reason: Hypertension Levofloxacin (Levaquin) 750 mg in 150 mls @ 100 mls/hr IV DAILY [facility] Last Infusion: 05/13/22 11:28 Dose: Infused Iron Carb/Multivit/[place]/Folic Acid (Multivit,Ther Iron,Ca,Fa & Min 1 Tablet) 1 tab PO DAILY [facility] Last Admin: 05/13/22 10:15 Dose: 1 tab Lisinopril (Lisinopril 5 Mg Tablet) 5 mg PO QDAY [facility] Last Admin: 05/13/22 10:15 Dose: 5 mg Metoprolol Succinate (Metoprolol Succinate 25 Mg Tab.Xl.24h) 12.5 mg PO BID [facility] Last Admin: 05/13/22 10:15 Dose: 12.5 mg Morphine Sulfate (Morphine 4 Mg/Ml Vial) 4 mg IV Q4HP PRN; Protocol PRN Reason: Per Pain Protocol Ondansetron HCl (Ondansetron 4 Mg/2 Ml Vial) 4 mg IV Q6HP PRN PRN Reason: Nausea And Vomiting Oxycodone HCl (Oxycodone Hcl 5 Mg Tablet) 5 mg PO Q4-6HP PRN; Protocol PRN Reason: Per Pain Protocol Fluticasone Propion- Salmeterol [Advair Hfa] 115-21 Mcg Inhaler 1 dose INH BID [facility] Last Admin: 05/13/22 09:59 Dose: 1 dose Potassium Chloride (Potassium Chloride 10 Meq Tablet) 10 meq PO QAMCC [facility] Last Admin: 05/13/22 10:15 Dose: 10 meq Senna (Sennosides 1 Tablet) 2 tab PO HS [facility] Last Admin: 05/12/22 21:20 Dose: Not Given Sodium Chloride (0.9 % Sodium Chloride 10 Ml Syringe) 10 ml IV Q8 [facility] Last Admin: 05/12/22 21:20 Dose: 10 ml Sodium Chloride (0.9 % Sodium Chloride 10 Ml Syringe) 10 ml IV UD PRN PRN Reason: FLUSH Sodium Chloride (0.9 % Sodium Chloride 10 Ml Syringe) 10 ml IV Q12 [facility] Last Admin: 05/13/22 10:59 Dose: Not Given Trazodone HCl (Trazodone Hcl 50 Mg Tablet) 25 mg PO HSP PRN PRN Reason: Insomnia A/P Narrative A/P Narrative: Assessment:72-year-old male with a history of hypertension, COPD, obstructive sleep apnea, osteoporosis, obesity admitted for sepsis secondary to left foot cellulitis. The patient had recently undergone a left first toe amputation for osteomyelitis on 04/01/2022. During this hospitalization, the patient was seen by podiatry and underwent a partial amputation of the left first toe. #Left foot cellulitis and left first toe osteomyelitis status post partial left first metatarsal amputation #Allergy to fluoroquinolone #Hypertension #COPD #Obstructive sleep apnea #Obesity Plan -Continue levofloxacin 750 mg IV every 24 hours, discontinue Zosyn. Plan to complete 6 weeks of IV antibiotic treatment via PICC line. -PICC line placement. -Wound cares, left foot boot. -Continue important home medications. -Regular diet. -DVT prophylaxis: Lovenox -CODE STATUS: Full -Disposition: Probably home with daily levofloxacin IV infusions via PICC line, weekly labs until completing 6 weeks of IV antibiotic treatment. Follow-up with podiatry after discharge for postoperative evaluation and wound care. Plan of Treatment: Partial amputation left first metatarsal Time Spent With Patient Time: Total time spent is greater than 50% in coordination of care (as documented) at patient's floor/unit and/or counseling patient: QUALITY VTE Deep Vein Thrombosis/Pulmonary Embolism Present on Admission: No
[2022-05-13] MEDS: SENNOSIDES 1 TABLET PO SCH (20:51)
[2022-05-14] MEDS: ALENDRONATE SODIUM 70 MG TABLET PO SCH (08:15)
[2022-05-14] MEDS: LEVOFLOXACIN 750 MG/150 ML BAG IV SCH (09:24)
[2022-05-14] MEDS: ASCORBIC ACID 500 MG TABLET PO SCH (09:25)
[2022-05-14] MEDS: METOPROLOL SUCCINATE 25 MG TAB.XL.24H PO SCH (09:25)
[2022-05-14] MEDS: POTASSIUM CHLORIDE 10 MEQ TABLET PO SCH (09:25)
[2022-05-14] MEDS: FUROSEMIDE 20 MG TABLET PO SCH (09:25)
[2022-05-14] MEDS: MULTIVIT,THER IRON,CA,FA & MIN 1 TABLET PO SCH (09:25)
[2022-05-14] MEDS: LISINOPRIL 5 MG TABLET PO SCH (09:26)
[2022-05-14] MEDS: ENOXAPARIN 40 MG/0.4 ML SYRINGE SQ SCH (09:26)
[2022-05-14] MEDS: FLUTICASONE PROPION SALMETEROL INH SCH (09:27)
[2022-05-14] MEDS: 0.9 % SODIUM CHLORIDE 10 ML SYRINGE IV SCH ×3 (09:27→12:38)
[2022-05-14] MEDS: DOCUSATE SODIUM 100 MG CAPSULE PO SCH (09:27)
--- NOTE | 2022-05-14 11:06 | Internal Med Progress Note ---
SUBJECTIVE Subjective Patient information: Note initiated : 05/14/22 at 10:59 am Service Date, if different from initiated Date: [] Patient: Sharif Grady 72 y/o M admitted on 05/06/22 for leg swollen. Chief Complaint: [] Interval history: Mr. Grady is a 72 year old M multiple medical history, recently admitted to our facility and discharged a month ago for left great toe osteomyelitis status post left great toe amputations by hvac project manager Dr. Leon on 04/01, and be discharged to SNF for ongoing IV antibiotics therapy with nafcillin. He was discharged home on a week ago. Today he is complaining of acute worsening of the erythema of his left foot and left lower leg with associated foul-smelling coming from his amputation site. He is also coming of general body weakness. He is also complaining of subjective fever chills and diaphoresis. He stated that he follow-up with Dr. Leon's 2 days ago and at that point he was doing all right . Vital signs at ED presentations within normal meds. Labs significant for leukocytosis with WBC 18.5. ESR 89; CRP 13.5; lactic acid 1.3, procalcitonin level 0.21. Left foot x-ray showing mild cortical erosion in the head of the first metatarsal with associated severe cellulitis of the left lower leg and left foot. 05/07: Afebrile overnight. WBC comes down to 9.4 this morning. Blood and wound cultures no growth today. Patient denies any pain of his left foot or left leg. Denies any subjective fever or chills. Continue IV fluid and Zosyn. DC vancomycin because of the negative MRSA scree susana. Pending hvac project manager Dr. Leon's to evaluate the patient for any potential surgical management and wound care. Physical therapy. 05/08: Afebrile overnight. Wound culture growing gram negative bacillus. Dr. Leon is taking patient to OR this morning for partial amputation of the left 1st toe. Continue Zosyn for now. Physical therapy. 05/09: Initially plan to discharge however canceled due to uncertainty regarding antibiotics at discharge. 05/10: High-grade temperatures overnight, no fevers. Continues on IV Zosyn. We will check CBC and CRP tomorrow. Discussed disposition with the patient, the patient prefers to remain in the hospital until cleared by podiatry to discharge. 05/11: Stable vitals overnight, anaerobic cultures showing no growth to date. Discussed probable safety of discharge with the patient however he wants to discuss discharge with Dr. Leon tomorrow. Likely discharge to home tomorrow after discussing with Dr. Leon. 05/12: Podiatry recommends prolonged IV antibiotic treatment, discussed with infectious disease at [facility] with a consensus to treat the patient with levofloxacin IV to complete 6 weeks of IV antibiotic therapy. Started levofl oxacin, discontinued Zosyn. PICC line ordered. 05/13: Stable overnight, awaiting PICC line placement. Plan for discharge will be IV antibiotics at home versus infusion center. 05/14: Awaiting PICC line placement. Physical exam Head: Atraumatic, normal inspection. Eyes: normal appearance, no scleral icterus. Neck: full ROM Respiratory: no respiratory distress. Cardiovascular: normal rate and rhythm, S1, S2. GI/Abdominal: soft, nontender, no guarding. Extremities: Left foot incision covered with clean bandages, left foot in boot. Neurological: CN II-XII intact, intact motor, intact sensation. Psychiatric: normal mood. Skin: warm, normal color Constitutional Vitals: Vital Signs Temp Pulse Resp BP Pulse Ox O2 Del Method 96.6 F L 70 14 151/73 96 05/14/22 07:51 05/14/22 07:51 05/14/22 07:51 05/14/22 07:51 05/14/22 07:51 05/14/22 07:51 Period Temp Pulse Resp BP Sys/Jacobs Pulse Ox O2 Del Method O2 Flow Rate Last 24 Hr 96.6 F-98.7 F 70-82 14-14 105-151/53-73 92-96 Room Air-Room Air Intake and Output 05/13/22 05/14/22 05/14/22 21:59 05:59 13:59 Intake Total 200 650 Output Total 875 1275 250 Balance -675 625 -250 Weight 138.436 kg Intake & Output: Intake & Output 05/13/22 05/14/22 05/14/22 21:59 05:59 13:59 Intake Total 200 650 Output Total 875 1275 250 Balance -675 -625 -250 Weight 138.436 kg Intake: Oral 200 650 Output: Void Amount 875 1275 250 Other: Urine Appearance Clear Clear Urine Color Yellow Yellow Stool Size Large Stool Color Brown Stool Consistency Loose # Bowel Movements 1 OBJ DATA Labs CBC & Chem 7: 05/11/22 05:00 05/09/22 05:18 Meds: Medications Acetaminophen (Acetaminophen 325 Mg Tablet) 650 mg PO Q6HP PRN; Protocol PRN Reason: Per Pain Protocol/Fever > 101 Albuterol/Ipratropium (Ipratropium/Albuterol 3 Ml Ampul.Neb) 3 ml NEB Q4HRT PRN PRN Reason: Wheezing Alendronate Sodium (Alendronate Sodium 70 Mg Tablet) 70 mg PO Th@0730 [facility] Last Admin: 05/14/22 08:15 Dose: 70 mg Ascorbic Acid (Ascorbic Acid 500 Mg Tablet) 500 mg PO DAILY [facility] Last Admin: 05/14/22 09:25 Dose: 500 mg Docusate Sodium (Docusate Sodium 100 Mg Capsule) 100 mg PO BID [facility] Last Admin: 05/14/22 09:27 Dose: Not Given Enoxaparin Sodium (Enoxaparin 40 Mg/0.4 Ml Syringe) 40 mg SQ DAILY [facility] Last Admin: 05/14/22 09:26 Dose: 40 mg Furosemide (Furosemide 20 Mg Tablet) 20 mg PO QDAY [facility] Last Admin: 05/14/22 09:25 Dose: 20 mg Gabapentin (Gabapentin 100 Mg Capsule) 100 mg PO TIDP PRN PRN Reason: Pain Heparin Sodium (Porcine) (Heparin Flush 10 Units/Ml 5 Ml Syringe) 2 ml IV Q12 [facility] Last Admin: 05/14/22 09:27 Dose: Not Given Hydralazine HCl (Hydralazine 20 Mg/Ml Vial) 10 mg IV Q4-6HP PRN PRN Reason: Hypertension Levofloxacin (Levaquin) 750 mg in 150 mls @ 100 mls/hr IV DAILY [facility] Last Admin: 05/14/22 09:24 Dose: 100 mls/hr Iron Carb/Multivit/Pick And Shovel Man/Folic Acid (Multivit,Ther Iron,Ca,Fa & Min 1 Tablet) 1 tab PO DAILY [facility] Last Admin: 05/14/22 09:25 Dose: 1 tab Lisinopril (Lisinopril 5 Mg Tablet) 5 mg PO QDAY [facility] Last Admin: 05/14/22 09:26 Dose: 5 mg Metoprolol Succinate (Metoprolol Succinate 25 Mg Tab.Xl.24h) 12.5 mg PO BID [facility] Last Admin: 05/14/22 09:25 Dose: 12.5 mg Morphine Sulfate (Morphine 4 Mg/Ml Vial) 4 mg IV Q4HP PRN; Protocol PRN Reason: Per Pain Protocol Ondansetron HCl (Ondansetron 4 Mg/2 Ml Vial) 4 mg IV Q6HP PRN PRN Reason: Nausea And Vomiting Oxycodone HCl (Oxycodone Hcl 5 Mg Tablet) 5 mg PO Q4-6HP PRN; Protocol PRN Reason: Per Pain Protocol Fluticasone Propion- Salmeterol [Advair Hfa] 115-21 Mcg Inhaler 1 dose INH BID [facility] Last Admin: 05/14/22 09:27 Dose: 1 dose Potassium Chloride (Potassium Chloride 10 Meq Tablet) 10 meq PO QAMCC [facility] Last Admin: 05/14/22 09:25 Dose: 10 meq Senna (Sennosides 1 Tablet) 2 tab PO HS [facility] Last Admin: 05/13/22 20:51 Dose: Not Given Sodium Chloride (0.9 % Sodium Chloride 10 Ml Syringe) 10 ml IV Q8 [facility] Last Admin: 05/14/22 09:27 Dose: 10 ml Sodium Chloride (0.9 % Sodium Chloride 10 Ml Syringe) 10 ml IV UD PRN PRN Reason: FLUSH Sodium Chloride (0.9 % Sodium Chloride 10 Ml Syringe) 10 ml IV Q12 [facility] Last Admin: 05/14/22 09:27 Dose: Not Given Trazodone HCl (Trazodone Hcl 50 Mg Tablet) 25 mg PO HSP PRN PRN Reason: Insomnia A/P Narrative A/P Narrative: Assessment:72-year-old male with a history of hypertension, COPD, obstructive sleep apnea, osteoporosis, obesity admitted for sepsis secondary to left foot cellulitis. The patient had recently undergone a left first toe amputation for osteomyelitis on 04/01/2022. During this hospitalization the patient underwent a partial amputation of the left first toe. Podiatry recommended prolonged IV a ntibiotic treatment. The patient was discussed with infectious disease at [facility], ID recommended IV levothyroxine based on available culture results. Currently awaiting for PICC line placement for long-term IV antibiotic therapy either at home or at the infusion center. #Left foot cellulitis and left first toe osteomyelitis status post partial left first metatarsal amputation #Bereavement due to recent daughter's #Hypertension #COPD #Obstructive sleep apnea #Obesity Plan -Continue levofloxacin 750 mg IV every 24 hours. -Plan to complete 6 weeks of IV antibiotic treatment via PICC line. -PICC line placement. -Wound cares, left foot boot. -Heel touch weightbearing status for left foot -Continue home Toprol, Lasix, gabapentin, lisinopril, Advair, alendronate. -Regular diet. -DVT prophylaxis: Lovenox -CODE STATUS: Full -Disposition: Home with daily levofloxacin IV infusions via PICC line either at home or at the local infusion center. Coordinate with the patient's primary care provider to monitor weekly CBC, creatinine, ALT, and CRP while receiving IV antibiotic. Follow-up with podiatry after discharge for postoperative management and wound care. Plan of Treatment: Partial amputation left first metatarsal Time Spent With Patient Time: Total time spent is greater than 50% in coordination of care (as documented) at patient's floor/unit and/or counseling patient: QUALITY VTE Deep Vein Thrombosis/Pulmonary Embolism Present on Admission: No
--- NOTE | 2022-05-14 13:42 | Discharge Summary ---
Discharge Provider Provider IMPORTANT FOLLOW-UP INFORMATION FOR PCP: Patient information: Note initiated : 05/14/22 at 1:39 pm Service Date, if different from initiated Date: [] Patient: Sharif Grady 72 y/o M admitted on 05/06/22 for leg swollen. Chief Complaint: [] Date of admission: 05/06/22 16:50 Discharge date: 05/15/22 Primary care physician: Lala De Consults: 05/06/22 14:00 Consult to Physician [CONS] Stat Comment: Consulting Provider: Bebeto Leon Reason For Exam: Physician to Consult 05/06/22 15:39 Consult to Physician [CONS] Stat Comment: Consulting Provider: Masood Marin Reason For Exam: Physician to Consult 05/13/22 12:11 Consult to Physician [CONS] Routine Comment: snf referral Consulting Provider: [facility] Reason For Exam: Physician to Consult COURSE Hospital Course Hospital course: Interval history: Mr. Grady is a 72 year old M multiple medical history, recently admitted to our facility and discharged a month ago for left great toe osteomyelitis status post left great toe amputations by oyster culturist Dr. Leon on 04/01, and be discharged to SNF for ongoing IV antibiotics therapy with nafcillin. He was discharged home on a week ago. Today he is complaining of acute worsening of the erythema of his left foot and left lower leg with associated foul-smelling coming from his amputation site. He is also coming of general body weakness. He is also complaining of subjective fever chills and diaphoresis. He stated that he follow-up with Dr. Leon's 2 days ago and at that point he was doing all right. Vital signs at ED presentations within normal meds. Labs significant for leukocytosis with WBC 18.5. ESR 89; CRP 13.5; lactic acid 1.3, procalcitonin level 0.21. Left foot x-ray showing mild cortical erosion in the head of the first metatarsal with associated severe cellulitis of the left lower leg and left foot. 05/07: Afebrile overnight. WBC comes down to 9.4 this morning. Blood and wound cul tures no growth today. Patient denies any pain of his left foot or left leg. Denies any subjective fever or chills. Continue IV fluid and Zosyn. DC vancomycin because of the negative MRSA screening. Pending oyster culturist Dr. Leon's to evaluate the patient for any potential surgical management and wound care. Physical therapy. 05/08: Afebrile overnight. Wound culture growing gram negative bacillus. Dr. Leon is taking patient to OR this morning for partial amputation of the left 1st toe. Continue Zosyn for now. Physical therapy. 05/09: Initially plan to discharge however canceled due to uncertainty regarding antibiotics at discharge. 05/10: High-grade temperatures overnight, no fevers. Continues on IV Zosyn. We will check CBC and CRP tomorrow. Discussed disposition with the patient, the patient prefers to remain in the hospital until cleared by podiatry to discharge. 05/11: Stable vitals overnight, anaerobic cultures showing no growth to date. Discussed probable safety of discharge with the patient however he wants to discuss discharge with Dr. Leon tomorrow. Likely discharge to home tomorrow after discussing with Dr. Leon. 05/12: Podiatry recommends prolonged IV antibiotic treatment, discussed with infectious disease at [facility] with a consensus to treat the patient with levofloxacin IV to complete 6 weeks of IV antibiotic therapy. Started levofloxa joceline, discontinued Zosyn. PICC line ordered. 05/13: Stable overnight, awaiting PICC line placement. Plan for discharge will be IV antibiotics at home versus infusion center. 05/14: Awaiting PICC line placement. A/P Narrative: Assessment:72-year-old male with a history of hypertension, COPD, obstructive sleep apnea, osteoporosis, obesity admitted for sepsis secondary to left foot cellulitis. The patient had recently undergone a left first toe amputation for osteomyelitis on 04/01/2022. During this hospitalization the patient underwent a partial amputation of the left first toe. Podiatry recommended prolonged IV antibiotic treatment. The patient was discussed with infectious disease at [facility], ID recommended IV levothyroxine based on available culture results. Currently awaiting for PICC line placement for long-term IV antibiotic therapy either at home or at the infusion center. #Left foot cellulitis and left first toe osteomyelitis status post partial left first metatarsal amputation #Bereavement due to recent daughter's #Hypertension #COPD #Obstructive sleep apnea #Obesity Plan -Continue levofloxacin 750 mg IV every 24 hours. -Plan to complete 6 weeks of IV antibiotic treatment via PICC line. weekly cbc/cmp while on iv abx sent to podiatry/pcp. -Wound cares, left foot boot. -Heel touch weightbearing status for left foot -Follow-up with podiatry after discharge for postoperative management and wound care. -Disposition: Home with daily levofloxacin IV infusions via PICC line either at home or at the local infusion center. Discharge diagnosis: Left foot cellulitis and osteo Secondary discharge diagnosis: Hypertension COPD JAYDA obesity Time Spent with Patient Time attestation: Total time spent providing and/or coordinating discharge services: Time spent: Greater than 30 minutes EXAM Constitutional Vitals: Temp Pulse Resp BP Pulse Ox O2 Del Method 97.0 F 67 14 142/76 98 05/14/22 12:00 05/14/22 12:00 05/14/22 12:00 05/14/22 12:00 05/14/22 12:00 05/14/22 12:00 Discharge Data Data Completed and Pending Labs on day of discharge: Preliminary micro results at discharge 05/08/22 14:00 Anaerobic Culture - Preliminary Bone - Left Discharge Plan Patient/Caregiver Discharge Instructions Activity: increase activity as tolerated Diet: Regular Diet Instructions: Levofloxacin (By injection), Cellulitis (DC), Osteomyelitis (DC), PICC (Peripherally Inserted Central Catheter) (DC), Toe Amputation (DC) Activity Restrictions/Additional Instructions: Partial weight bearing to left foot. Weight on heel only. Recommend the use of a cane or walker for stability. Cleanse left foot wound with normal saline. Cover with gauze 4x4s. Secure with kerlix and LAUREN. Change daily. Weekly CBC/CMP while on IV antibiotics, send results to Podiatry & PCP. Increase activity as tolerated. May resume regular diet as tolerated. You will have daily IV antibiotics starting Wednesday05/15/22 at 1:[address] a PICC line on your first appointment. Please check in at the outpatient day surgery unit. Call your physician for sustained fever greater than 100.5, increase in reddness/signs of infection, bleeding, or any questions/concerns. This discharge packet is provided to you to help keep you informed about your care. We want to ensure you get everything you need when you go home. You will also be receiving a call from us in a few days to follow up with you and see how you are doing since your discharge. This gives us a chance to listen to any concerns you maybe experiencing since you were discharged or any additional needs you may have, as well as providing us feedback on your care experience. We strive to always provide excellent care and thank you for your feedback and for choosing [facility]. Prescriptions: New levofloxacin in D5W 750 mg/150 mL piggyback 750 mg IV Q24H 35 Days Qty: 3600 1RF Continued multivitamin Tablet 1 tab PO QAM ascorbate calcium (vitamin C) 500 mg tablet 500 mg PO QDAY metoprolol succinate 25 mg tablet extended release 24 hr 12.5 mg PO BID (DME) CPAP machine Qty: 1 Rx Instructions: As directed (DME) oxygen bled 3lpm CPAP Qty: 1 Rx Instructions: As directed alendronate 70 mg tablet 1 tab PO WEEKLY lisinopril 5 mg tablet 1 tab PO QDAY Advair HFA 115-21 mcg/actuation HFA aerosol inhaler 1 puff continuous inhalation BID potassium chloride 10 mEq tablet extended release 1 tab PO QDAY furosemide 20 mg tablet 1 tab PO QDAY Discontinued nafcillin in dextrose iso-osm 2 gram/100 mL piggyback 2 g IV Q4H Qty: 4200 0RF Other Ambulatory Orders: Complete Blood Count (WEEKLY) Timeframe: [id number] Facility: [facility] - Location: Laboratory Ordered By: Benji Shaw Complete Blood Count (WEEKLY) Timeframe: [id number] Facility: [facility] - Location: Laboratory Ordered By: Benji Shaw Complete Blood Count (WEEKLY) Timeframe: [id number] Facility: [facility] - Location: Laboratory Ordered By: Benji Shaw Complete Blood Count (WEEKLY) Timeframe: [id number] Facility: [facility] - Location: Laboratory Ordered By: Benji Shaw Complete Blood Count (WEEKLY) Timeframe: [id number] Facility: [facility] - Location: Laboratory Ordered By: Benji Shaw Comprehensive Metabolic Panel (WEEKLY) Timeframe: [id number] Facility: [facility] - Location: Laboratory Ordered By: Benji Shaw Comprehensive Metabolic Panel (WEEKLY) Timeframe: [id number] Facility: [facility] - Location: Laboratory Ordered By: Benji Shaw Comprehensive Metabolic Panel (WEEKLY) Timeframe: [id number] Facility: [facility] - Location: Laboratory Ordered By: Benji Shaw Comprehensive Metabolic Panel (WEEKLY) Timeframe: [id number] Facility: [facility] - Location: Laboratory Ordered By: Benji Shaw Comprehensive Metabolic Panel (WEEKLY) Timeframe: [id number] Facility: [facility] - Location: Laboratory Ordered By: Benji Shaw Outpatient PICC Placement (ONCE) Location: None Selected Ordered By: Benji Shaw Outpatient PICC Care (Daily) Location: None Selected Ordered By: Benji Shaw Follow Up Plan Follow up with: Bebeto Leon DPM [Physician] - 05/18/22 9:40 am (Follow up within 1 week after discharge for left foot wound. Schedule for high risk nail and callus care.) Lala De MD [Primary Care Provider] - (Please call Wednesday and schedule a hospital follow appointment to be seen in 7-10 days.) Patient Disposition: Home, Self-Care Plan of Treatment: Partial amputation left first metatarsal Rehab Potential: Fair I certify that the patient requires SNF services: No Overall status at discharge: patient is progressing back to baseline Discharge Orders: Discharge Order (Routine); Ordered 05/14/22 Ordered By: Benji Shaw QUALITY VTE Deep Vein Thrombosis/Pulmonary Embolism Present on Admission: No
== END 2022-05-14 18:00 | disposition home or self-care (01) | DRG 503 ==
LOC: ED 13:23 → MEDSUR 16:50
PROVIDERS: ADMIT Internal Medicine; ATTEND Internal Medicine